=== PATIENT | female | born 1990 | race Caucasian/White ===

== ENCOUNTER 2021-02-21 00:27 | Emergency (ER) | payer MEDICAID, SELFPAY ==
--- NOTE | ~2021-02-21 | US_ITS ---
EXAMINATION: ULTRASOUND OF THE PELVIS CLINICAL INFORMATION: Right lower quadrant pain. COMPARISON: CT 02/21/2021. TECHNIQUE: Transabdominal and transvaginal pelvic ultrasound. Doppler evaluation with spectral analysis was performed. A transvaginal study was performed in addition to the transabdominal study which did not yield an adequate examination of the uterus and ovaries due to superimposed distended gas-filled loops of bowel. FINDINGS: The uterus is normal in size and appearance, measuring 12.1 x 4.4 x 6.3 cm longitudinally, anteroposteriorly and transversely. The endometrial stripe thickness is normal, measuring 1.1 cm in thickness. There is a right uterine body myometrial fibroid measuring 0.8 x 0.6 x 0.7 cm. Myometrial fibroid along the posterior uterus measuring 1.2 x 0.9 x 1.1 cm. Nabothian cysts are seen at the cervix. The ovaries bilaterally are visualized and appear normal, with the right ovary measuring 3.8 x 2.2 x 2.3 cm and the left ovary measuring 3.2 x 1.8 x 2.1 cm. There are normal arterial and venous spectral waveforms bilaterally. No adnexal mass or free fluid collection seen. US/US pelvic and transvaginal IMPRESSION: No suspicious findings. No evidence of active ovarian torsion at this time. Small uterine fibroids.
--- NOTE | ~2021-02-21 | US_ITS ---
EXAMINATION: ULTRASOUND OF THE PELVIS CLINICAL INFORMATION: Right lower quadrant pain. COMPARISON: CT 02/21/2021. TECHNIQUE: Transabdominal and transvaginal pelvic ultrasound. Doppler evaluation with spectral analysis was performed. A transvaginal study was performed in addition to the transabdominal study which did not yield an adequate examination of the uterus and ovaries due to superimposed distended gas-filled loops of bowel. FINDINGS: The uterus is normal in size and appearance, measuring 12.1 x 4.4 x 6.3 cm longitudinally, anteroposteriorly and transversely. The endometrial stripe thickness is normal, measuring 1.1 cm in thickness. There is a right uterine body myometrial fibroid measuring 0.8 x 0.6 x 0.7 cm. Myometrial fibroid along the posterior uterus measuring 1.2 x 0.9 x 1.1 cm. Nabothian cysts are seen at the cervix. The ovaries bilaterally are visualized and appear normal, with the right ovary measuring 3.8 x 2.2 x 2.3 cm and the left ovary measuring 3.2 x 1.8 x 2.1 cm. There are normal arterial and venous spectral waveforms bilaterally. No adnexal mass or free fluid collection seen. US/US pelvic ovarian doppler IMPRESSION: No suspicious findings. No evidence of active ovarian torsion at this time. Small uterine fibroids.
--- NOTE | ~2021-02-21 | CT_ITS ---
EXAMINATION: CT ABDOMEN AND PELVIS WITH CONTRAST CLINICAL INFORMATION: Right lower quadrant pain COMPARISON: None TECHNIQUE: Multidetector volumetric images were obtained from the superior aspect of the liver through the pubic symphysis following administration 85 mL of Omnipaque 350 intravenous contrast. Sagittal and coronal reformatted images were obtained on the technologist's workstation. Oral contrast: No This CT examination was performed using dose optimization techniques as appropriate, variously including the following: *Automated exposure control *Adjustment of mA and/or kV according to patient size (this includes techniques or standardized protocols for targeted exams where dose is matched to indication/reason for exam; i.e. extremities or head) *Use of iterative reconstruction technique DLP: 571 mGy-cm FINDINGS: LUNG BASES: The visualized lung bases are unremarkable. LIVER, GALLBLADDER, AND BILIARY TREE: The liver is normal in size, shape, and attenuation. No focal hepatic lesion or biliary ductal dilatation is present. The gallbladder is unremarkable with no evidence of radiopaque gallstones, gallbladder wall thickening, or obvious pericholecystic inflammatory changes. PANCREAS: Unremarkable. SPLEEN: Unremarkable. ADRENAL GLANDS: Unremarkable. KIDNEYS AND URETERS: The kidneys are normal in size, shape, and attenuation. No hydronephrosis or hydroureter. Left lower pole 0.5 cm calculus, 5.5 cm from the posterior axillary line.. No perinephric stranding. BLADDER: Unremarkable. GASTROINTESTINAL TRACT: The stomach is unremarkable. Normal caliber small bowel. No obstruction. Normal appendix. No colonic wall thickening or inflammatory change. No free air. Trace pelvic free fluid. ABDOMINAL WALL: No significant hernia is appreciated. LYMPH NODES: Normal. VASCULAR: Unremarkable. PELVIC VISCERA: The uterus and adnexa are unremarkable. OSSEOUS STRUCTURES: No acute or suspicious osseous abnormality. CT/CT abdomen pelvis w con IMPRESSION: No acute findings in the abdomen or pelvis. Normal appendix. No acute inflammatory changes. Nonobstructing left lower pole renal calculus.
[2021-02-21 02:04] VITALS: BP 120/76; PULSE 73; RESP 18; TEMP 36.8; O2SAT 99
--- NOTE | 2021-02-21 03:42 | PC.NURSE ---
IV established, labs and urine obtained and sent. Awaiting primary MD olivares.
[2021-02-21 03:43] VITALS: BP 119/38; PULSE 80; RESP 20; O2SAT 99
[2021-02-21 03:49] LABS: Eosinophils Absolute Auto 0.2 X10*3/uL (0.0-0.4); Eosinophils Percent Auto 2.2 % (0-4); Lymphocytes Percent Auto 23.2 % (20-40); Monocytes Absolute Auto 0.9 X10*3/uL (0.1-1.2); PLT ABN DIST 1; SCAN SMEAR FLAG 1
[2021-02-21 03:51] LABS: Basophils Percent Auto 0.4 % (0-2); Glucose Urine UA NEG (NEG); Hematocrit 31.9 % (37-47); Hemoglobin 10.2 g/dl (12.0-16.0); Imm Gran Abs Auto 0.02 X10*3/uL (0.00-0.03); Imm Gran Pct Auto 0.2 % (0.0-0.4); Leukocyte Esterase Urine NEG (NEG); Lymphocytes Absolute Auto 1.9 X10*3/uL (1.2-4.9); Mean Corpuscular Hemoglobin 23.8 pg (27.0-33.0); Mean Corpuscular Volume 74.5 fL (80-98); Mean Platelet Volume 10.6 fL (9.4-12.3); Monocytes Percent Auto 11.4 % (2-11); Neutrophils Absolute Auto 5.1 X10*3/uL (2.0-8.3); Neutrophils Percent Auto 62.6 % (45-73); Nitrite Urine NEG (NEG); Platelet Count 214 X10*3/uL (160-400); Red Blood Count 4.28 X10*6/uL (4.20-5.50); Red Cell Distribution Width 19.3 % (11.0-16.0); Urine Blood NEG (NEG); Urine Ketones 5 MG/DL (NEG); Urine Protein NEG (NEG-TRACE); White Blood Count 8.2 X10*3/uL (4.8-10.8)
[2021-02-21 03:52] LABS: Appearance Urine CLEAR; Color Urine YELLOW; MANUAL DIFF FLAG NO; UACC Culture Trigger NO; UPreg QC Valid YES; Urine Pregnancy NEGATIVE (NEGATIVE)
[2021-02-21] MEDS: 0.9 % Sodium Chloride 1,000 ML 999 ML IV (04:15)
[2021-02-21 04:21] LABS: Alanine Aminotransferase 9 U/L (0-31); Albumin Level 4.1 g/dL (3.5-5.0); Alkaline Phosphatase 70 U/L (39-117); Anion Gap 12 (12-20); Aspartate Amino Transferase 19 U/L (5-31); Bilirubin Total 0.2 mg/dL (0.0-1.0); Blood Urea Nitrogen 14 mg/dL (9-16); Calcium 9.2 mg/dL (8.4-10.2); Carbon Dioxide 26 mmol/L (22-29); Chloride 102 mmol/L (96-108); Creatinine Clr Calc Pharmacy 91.5; Estimated Glomerular Filt Rate > 60; Glucose Random 95 mg/dL (60-115); Lipase 33 U/L (8-78); Potassium 3.9 mmol/L (3.3-5.1); Sodium 136 mmol/L (135-145)
--- NOTE | 2021-02-21 04:45 | PC.NURSE ---
Off to CT on hospital bed.
[2021-02-21] MEDS: iohexoL 350 MG/ML 100 ML INFUS..BTL 85 ML IV (04:54)
[2021-02-21] MEDS: Ketorolac Tromethamine 15 MG/ML VIAL IVPUSH (05:10)
--- NOTE | 2021-02-21 05:14 | PC.NURSE ---
Pt medicated with Toradol per DEC for 06/05 pain.
--- NOTE | 2021-02-21 05:22 | ED_ITS ---
HPI - Abdominal Pain General Chief Complaint: Abdominal Pain Stated Complaint: pelvic pain Time Seen by Provider: 02/21/21 04:03 Source: patient Mode of arrival: EMS History of Present Illness HPI narrative: 30-year-old female without significant past medical history who presents with complaints of severe onset of right lower quadrant pain that radiates into the groin and started 12:00 a.m. and was associated with vomiting as well as chills and diarrhea. In addition, there was associated urinary frequency but otherwise denies any shortness of breath, chest pain. Patient sources history of kidney stones. Related Data Allergies Allergy/AdvReac Type Severity Reaction Status Date / Time aspirin [ASA] Allergy Palpitation Verified 02/21/21 03:41 s Review of Systems Review of Systems Pertinent positives and negatives as stated in HPI 10 point review of systems is otherwise negative. Physical Exam Vital Signs: Vital Signs: Last Vital Signs Temp 98.2 F 02/21/21 02:04 Pulse 74 02/21/21 06:24 Resp 16 02/21/21 06:24 BP 117/81 02/21/21 06:24 Pulse Ox 99 02/21/21 03:43 Body Mass Index 30.0 VITAL SIGNS: Reviewed. GENERAL: Well developed, well nourished, in no acute distress. HEAD: Normocephalic/atraumatic EYES: PERRLA, EOMI NOSE: Nares patent bilateral OROPHARYNX: no oral lesions noted, posterior pharynx clear NECK: Supple, no adenopathy LUNGS: Normal breath sounds. No adventitious sounds or accessory muscle use. SpO2<99> CARDIOVASCULAR: Regular rate and rhythm without noted murmurs ABDOMEN: Soft, right lower quadrant/suprapubic significant pain on palpation without rebound, non-distended with bowel sounds. NEUROLOGIC: Alert and oriented x 4. Course Course Course Narrative: 30-year-old female with history and clinical presentation suggestive of renal colic, appendicitis, ovarian torsion. Review of all investigations there are no acute findings and no evidence to support renal colic, appendicitis, or ovarian torsion. On re-evaluation patient has had complete resolution of her pain after receiving IV Toradol and suspect that she may have passed a stone that has led to the negative imaging studies. Patient was informed of all results and discharged home in stable condition with instructions to follow-up with her primary care provider. MDM - Abdominal Pain Lab Data Result diagrams: 02/21/21 03:40 02/21/21 03:40 Labs: Lab Results 02/21/21 02/21/21 02/21/21 Range/Units 03:40 03:40 03:40 WBC 8.2 (4.8-10.8) X10*3/uL RBC 4.28 (4.20-5.50) X10*6/uL Hgb 10.2 L (12.0-16.0) g/dl Hct 31.9 L (37-47) % MCV 74.5 L (80-98) fL MCH 23.8 L (27.0-33.0) pg MCHC 32.0 (31.0-35.0) g/dl RDW 19.3 H (11.0-16.0) % Plt Count 214 (160-400) X10*3/uL MPV 10.6 (9.4-12.3) fL Immature Gran % (Auto) 0.2 (0.0-0.4) % Neut % (Auto) 62.6 (45-73) % Lymph % (Auto) 23.2 (20-40) % [place] % (Auto) 11.4 H (2-11) % Eos % (Auto) 2.2 (0-4) % Baso % (Auto) 0.4 (0-2) % Lymph # (Auto) 1.9 (1.2-4.9) X10*3/uL [place] # (Auto) 0.9 (0.1-1.2) X10*3/uL Eos # (Auto) 0.2 (0.0-0.4) X10*3/uL Baso # (Auto) 0.0 (0.0-0.2) X10*3/uL Abs Immat Gran (auto) 0.02 (0.00-0.03) X10*3/uL Absolute Neuts (auto) 5.1 (2.0-8.3) X10*3/uL Absolute Nucleated RBC 0.000 (0.0-0.012) X10*3/uL Nucleated RBC % (auto) 0.0 (0.0-0.2) /100WBC Hold Blue Top SEE NOTE Sodium 136 (135-145) mmol/L Potassium 3.9 (3.3-5.1) mmol/L Chloride 102 (96-108) mmol/L Carbon Dioxide 26 (22-29) mmol/L Anion Gap 12 (12-20) BUN 14 (9-16) mg/dL Creatinine 0.90 (0.5-1.4) mg/dL Estim Creat Clear Calc 91.5 Estimated GFR > 60 Random Glucose 95 (60-115) mg/dL Calcium 9.2 (8.4-10.2) mg/dL Total Bilirubin 0.2 (0.0-1.0) mg/dL AST 19 (5-31) U/L ALT 9 (0-31) U/L Alkaline Phosphatase 70 (39-117) U/L Total Protein 9.0 H (6.5-8.0) g/dL Albumin 4.1 (3.5-5.0) g/dL Lipase 33 (8-78) U/L Urine Color Urine Appearance Urine pH (5.0-8.0) Ur Specific [place] (1.005-1.025) Urine Protein (NEG-TRACE) MG/DL Urine Glucose (UA) (NEG) MG/DL Urine Ketones (NEG) MG/DL Urine Blood (NEG) Urine Nitrite (NEG) Ur Leukocyte Esterase (NEG) Urine Test (NEGATIVE) 02/21/21 02/21/21 Range/Units 03:40 03:40 WBC (4.8-10.8) X10*3/uL RBC (4.20-5.50) X10*6/uL Hgb (12.0-16.0) g/dl Hct (37-47) % MCV (80-98) fL MCH (27.0-33.0) pg MCHC (31.0-35.0) g/dl RDW (11.0-16.0) % Plt Count (160-400) X10*3/uL MPV (9.4-12.3) fL Immature Gran % (Auto) (0.0-0.4) % Neut % (Auto) (45-73) % Lymph % (Auto) (20-40) % [place] % (Auto) (2-11) % Eos % (Auto) (0-4) % Baso % (Auto) (0-2) % Lymph # (Auto) (1.2-4.9) X10*3/uL [place] # (Auto) (0.1-1.2) X10*3/uL Eos # (Auto) (0.0-0.4) X10*3/uL Baso # (Auto) (0.0-0.2) X10*3/uL Abs Immat Gran (auto) (0.00-0.03) X10*3/uL Absolute Neuts (auto) (2.0-8.3) X10*3/uL Absolute Nucleated RBC (0.0-0.012) X10*3/uL Nucleated RBC % (auto) (0.0-0.2) /100WBC Hold Blue Top Sodium (135-145) mmol/L Potassium (3.3-5.1) mmol/L Chloride (96-108) mmol/L Carbon Dioxide (22-29) mmol/L Anion Gap (12-20) BUN (9-16) mg/dL Creatinine (0.5-1.4) mg/dL Estim Creat Clear Calc Estimated GFR Random Glucose (60-115) mg/dL Calcium (8.4-10.2) mg/dL Total Bilirubin (0.0-1.0) mg/dL AST (5-31) U/L ALT (0-31) U/L Alkaline Phosphatase (39-117) U/L Total Protein (6.5-8.0) g/dL Albumin (3.5-5.0) g/dL Lipase (8-78) U/L Urine Color YELLOW Urine Appearance CLEAR Urine pH 7.0 (5.0-8.0) Ur Specific [place] 1.020 (1.005-1.025) Urine Protein NEG (NEG-TRACE) MG/DL Urine Glucose (UA) NEG (NEG) MG/DL Urine Ketones 5 (NEG) MG/DL Urine Blood NEG (NEG) Urine Nitrite NEG (NEG) Ur Leukocyte Esterase NEG (NEG) Urine Test NEGATIVE (NEGATIVE) Discharge Plan Discharge Clinical Impression: Abdominal pain, right lower quadrant Patient Disposition: Home, Self-Care Instructions: Abdominal Pain (ED), Renal Colic (ED) Additional Instructions: 1. Follow-up with your primary care provider in the next 2-3 days for re- evaluation. Drink plenty of water and avoid caffeinated/carbonated beverages. Return to the emergency department for any acute worsening of symptoms. Referrals: Physician,None [Primary Care Provider] - 2 days [facility] Past Medical History Source: nursing notes reviewed Social History Social History Advance Directives: No
--- NOTE | 2021-02-21 06:22 | PC.NURSE ---
Pt returns from [facility].
[2021-02-21 06:24] VITALS: BP 117/81; PULSE 74; RESP 16
== END 2021-02-21 07:24 | disposition home or self-care (01) ==
PROVIDERS: Emergency Provider Student in an Organized Health Care Education/Training Program
DX: R10.31 Right lower quadrant pain (principal)
CPT/HCPCS: 36415; 74177; 76830; 76856; 80053; 81003; 81025; 83690; 85025; 93975; 96361; 96374; 99284; J1885; Q9967

== ENCOUNTER 2021-05-08 14:10 | Emergency (ER) | payer OTHER, SELFPAY ==
[2021-05-08 14:27] VITALS: BP 128/75; PULSE 76; RESP 18; TEMP 37.1; O2SAT 100; BMI 28.3
[2021-05-08 17:06] LABS: MANUAL DIFF FLAG NO
[2021-05-08 17:07] LABS: Basophils Percent Auto 0.3 % (0-2); Eosinophils Absolute Auto 0.2 X10*3/uL (0.0-0.4); Eosinophils Percent Auto 3.9 % (0-4); Hemoglobin 10.3 g/dl (12.0-16.0); Imm Gran Abs Auto 0.01 X10*3/uL (0.00-0.03); Imm Gran Pct Auto 0.2 % (0.0-0.4); Lymphocytes Absolute Auto 1.9 X10*3/uL (1.2-4.9); Lymphocytes Percent Auto 30.5 % (20-40); Mean Corpuscular HGB Conc 32.2 g/dl (31.0-35.0); Mean Corpuscular Hemoglobin 24.2 pg (27.0-33.0); Mean Corpuscular Volume 75.3 fL (80-98); Mean Platelet Volume 10.6 fL (9.4-12.3); Monocytes Absolute Auto 0.6 X10*3/uL (0.1-1.2); Monocytes Percent Auto 9.5 % (2-11); Neutrophils Absolute Auto 3.5 X10*3/uL (2.0-8.3); Neutrophils Percent Auto 55.6 % (45-73); Platelet Count 236 X10*3/uL (160-400); Red Blood Count 4.25 X10*6/uL (4.20-5.50); Red Cell Distribution Width 17.2 % (11.0-16.0); White Blood Count 6.2 X10*3/uL (4.8-10.8)
[2021-05-08 17:36] LABS: Anion Gap 14 (12-20); Blood Urea Nitrogen 12 mg/dL (9-16); Carbon Dioxide 24 mmol/L (22-29); Chloride 104 mmol/L (96-108); Creatinine Clr Calc Pharmacy 102.7; Estimated Glomerular Filt Rate > 60; Glucose Random 81 mg/dL (60-115); Potassium 4.6 mmol/L (3.3-5.1); Sodium 137 mmol/L (135-145)
--- NOTE | 2021-05-08 20:32 | ED.FEMALEGU ---
HPI - Female Genitourinary General Chief complaint: Vaginal Bleeding Stated complaint: 3 weeks bleeding, diabetic/ dizziness Time Seen by Provider: 05/08/21 15:41 Source: patient and family Mode of arrival: ambulatory Limitations: no limitations History of Present Illness HPI Narrative: 30-year-old female came in for evaluation of vaginal bleed for 1 week. Patient normally get her period for 3 days, slight suprapubic pain, patient feels dizzy. Not on blood thinner. Related Data Allergies Allergy/AdvReac Type Severity Reaction Status Date / Time aspirin [ASA] Allergy Palpitation Verified 02/21/21 03:41 s Review of Systems Review of Systems: All other systems are reviewed and are negative Constitutional: Reports as per HPI and Reports no additional constitutional complaints Eyes: Reports as per HPI and Reports no additional eye complaints Reports system reviewed and no additional complaints, except as documented Cardiovascular: Reports as per HPI and Reports no additional cardiovascular complaints Respiratory: Reports as per HPI and Reports no additional respiratory complaints Gastrointestinal: Reports as per HPI and Reports no additional gastrointestinal complaints Genitourinary: Reports no additional female genitourinary complaints Musculoskeletal: Reports no additional musculoskeletal complaints Skin/Breast: Reports system reviewed and no additional complaints, except as docu Psychiatric: Reports no additional psychiatric complaints Endocrine: Reports no additional endocrine complaints Hematologic/Lymphatic: Reports no additional hematologic/lymphatic complaints Allergic/Immunologic: Reports no additional allergic/immunologic complaints Reports system reviewed and no additional complaints, except as documented and Reports Abnormal speech present FOR[facility]LY [facility] Social History Social History Advance Directives: No Advance Directives Information Provided: Yes Patient : No Physical Exam Vital Signs: Vital Signs: Last Vital Signs Temp 98.7 F 05/08/21 14:27 Pulse 68 05/08/21 20:38 Resp 18 05/08/21 14:27 BP 108/75 05/08/21 20:38 Pulse Ox 100 05/08/21 14:27 Body Mass Index 28.3 Vital signs have been reviewed as appeared to be correct. Blood pressure normal. Heart rate normal. Respiration rate normal. Temperature normal. Oxygen saturation normal. Appearance: Alert. Oriented X3. No acute distress. Head: Normal external exam. Normocephalic. Atraumatic. No Sampson signs noted. No raccoon eyes noted Eyes: PERRLA. EOMI. Conjunctiva and sclera normal. Eyelids normal. ENT: TM's Normal. Pharynx normal. Uvula midline. Moist mucous membranes. No trismus noted. No drooling noted. No muffled voice noted. Neck: Normal inspection. Neck supple. FROM. No adenopathy. Thyroid Normal. No meningeal signs. No neck mass noted. CVS: Normal heart rate and rhythm. Heart sound normal. No murmurs noted. Pulses normal throughout. Respiratory: No respiratory distress. Painless inspiration. Breath sounds normal. No wheezes/rales/rhonchi noted. Chest nontender. No accessory muscle usage noted or decreased air movement noted. Abdomen: Soft and nontender. Bowel sounds normal in all 4 quadrants. No distention noted. No organomegaly noted. No visible injury noted. Pelvic exam: Normal external genitalia inspection, mild amount of blood and blood clots in the vault, no acute bleed. Back: No CVA tenderness. Full range of motion noted. Skin: Skin warm and dry. Normal skin color. Normal skin turgor. No rashes/lesions/lacerations noted. Extremities: No lower extremity edema. Extremities exhibit normal range of motion. Extremities nontender. Neuro: Oriented X 3. No motor deficit. No sensory deficit. Reflexes normal. Course Course Course Narrative: 30-year-old female came in for evaluation of menorrhagia. H&H stable, vital signs stable, orthostatic vital signs also stable. I discussed at lengthy with the patient in, no indication for permanent therapy at this point patient is hemodynamically stable. Patient was instructed to follow-up with her PCP for further evaluation. [facility] - Female Genitourinary Lab Data Attestation: I reviewed the patient's lab results. Result diagrams: 05/08/21 16:57 05/08/21 16:57 Labs: Lab Results 05/08/21 05/08/21 05/08/21 Range/Units 16:57 16:57 20:27 WBC 6.2 (4.8-10.8) X10*3/uL RBC 4.25 (4.20-5.50) X10*6/uL Hgb 10.3 L (12.0-16.0) g/dl Hct 32.0 L (37-47) % MCV 75.3 L (80-98) fL MCH 24.2 L (27.0-33.0) pg MCHC 32.2 (31.0-35.0) g/dl RDW 17.2 H (11.0-16.0) % Plt Count 236 (160-400) X10*3/uL MPV 10.6 (9.4-12.3) fL Immature Gran % (Auto) 0.2 (0.0-0.4) % Neut % (Auto) 55.6 (45-73) % Lymph % (Auto) 30.5 (20-40) % [place] % (Auto) 9.5 (2-11) % Eos % (Auto) 3.9 (0-4) % Baso % (Auto) 0.3 (0-2) % Lymph # (Auto) 1.9 (1.2-4.9) X10*3/uL [place] # (Auto) 0.6 (0.1-1.2) X10*3/uL Eos # (Auto) 0.2 (0.0-0.4) X10*3/uL Baso # (Auto) 0.0 (0.0-0.2) X10*3/uL Abs Immat Gran (auto) 0.01 (0.00-0.03) X10*3/uL Absolute Neuts (auto) 3.5 (2.0-8.3) X10*3/uL Absolute Nucleated RBC 0.000 (0.0-0.012) X10*3/uL Nucleated RBC % (auto) 0.0 (0.0-0.2) /100WBC Sodium 137 (135-145) mmol/L Potassium 4.6 (3.3-5.1) mmol/L Chloride 104 (96-108) mmol/L Carbon Dioxide 24 (22-29) mmol/L Anion Gap 14 (12-20) BUN 12 (9-16) mg/dL Creatinine 0.78 (0.5-1.4) mg/dL Estim Creat Clear Calc 102.7 Estimated GFR > 60 Random Glucose 81 (60-115) mg/dL Calcium 9.0 (8.4-10.2) mg/dL Urine Color YELLOW Urine Appearance CLEAR Urine pH 5.5 (5.0-8.0) Ur Specific [place] >= 1.030 H (1.005-1.025) Urine Protein NEG (NEG-TRACE) MG/DL Urine Glucose (UA) NEG (NEG) MG/DL Urine Ketones NEG (NEG) MG/DL Urine Blood 1+ H (NEG) Urine Nitrite NEG (NEG) Ur Leukocyte Esterase NEG (NEG) Urine RBC 0-2 (0) /HPF Urine WBC 0 (0-4) /HPF Ur Squamous Epith Cells NONE /LPF Urine Bacteria TRACE /LPF Urine Test (NEGATIVE) 05/08/21 Range/Units 20:27 WBC (4.8-10.8) X10*3/uL RBC (4.20-5.50) X10*6/uL Hgb (12.0-16.0) g/dl Hct (37-47) % MCV (80-98) fL MCH (27.0-33.0) pg MCHC (31.0-35.0) g/dl RDW (11.0-16.0) % Plt Count (160-400) X10*3/uL MPV (9.4-12.3) fL Immature Gran % (Auto) (0.0-0.4) % Neut % (Auto) (45-73) % Lymph % (Auto) (20-40) % [place] % (Auto) (2-11) % Eos % (Auto) (0-4) % Baso % (Auto) (0-2) % Lymph # (Auto) (1.2-4.9) X10*3/uL [place] # (Auto) (0.1-1.2) X10*3/uL Eos # (Auto) (0.0-0.4) X10*3/uL Baso # (Auto) (0.0-0.2) X10*3/uL Abs Immat Gran (auto) (0.00-0.03) X10*3/uL Absolute Neuts (auto) (2.0-8.3) X10*3/uL Absolute Nucleated RBC (0.0-0.012) X10*3/uL Nucleated RBC % (auto) (0.0-0.2) /100WBC Sodium (135-145) mmol/L Potassium (3.3-5.1) mmol/L Chloride (96-108) mmol/L Carbon Dioxide (22-29) mmol/L Anion Gap (12-20) BUN (9-16) mg/dL Creatinine (0.5-1.4) mg/dL Estim Creat Clear Calc Estimated GFR Random Glucose (60-115) mg/dL Calcium (8.4-10.2) mg/dL Urine Color Urine Appearance Urine pH (5.0-8.0) Ur Specific [place] (1.005-1.025) Urine Protein (NEG-TRACE) MG/DL Urine Glucose (UA) (NEG) MG/DL Urine Ketones (NEG) MG/DL Urine Blood (NEG) Urine Nitrite (NEG) Ur Leukocyte Esterase (NEG) Urine RBC (0) /HPF Urine WBC (0-4) /HPF Ur Squamous Epith Cells /LPF Urine Bacteria /LPF Urine Test NEGATIVE (NEGATIVE) Discharge Plan Discharge Clinical Impression: Menometrorrhagia Patient Disposition: Home, Self-Care Instructions: Menorrhagia (ED) Referrals: Angeline Alvarado MD [Primary Care Provider] - 2 days Rodolfo Santos MD [Physician] - 2 days
[2021-05-08 20:34] LABS: Glucose Urine UA NEG (NEG); Leukocyte Esterase Urine NEG (NEG); Nitrite Urine NEG (NEG); PH 5.5 (5.0-8.0); Specific Gravity - Urine >= 1.030 (1.005-1.025); Urine Blood 1+ (NEG); Urine Ketones NEG (NEG); Urine Protein NEG (NEG-TRACE)
[2021-05-08 20:35] LABS: Appearance Urine CLEAR; Color Urine YELLOW
[2021-05-08 20:36] VITALS: BP 109/75; PULSE 69
[2021-05-08 20:37] VITALS: BP 112/82; PULSE 73
[2021-05-08 20:37] LABS: UPreg QC Valid YES; Urine Pregnancy NEGATIVE (NEGATIVE)
[2021-05-08 20:38] VITALS: BP 108/75; PULSE 68
[2021-05-08 20:43] LABS: Bacteria Urine TRACE /LPF; RBC Urine 0-2 /HPF (0); WBC Urine 0 /HPF (0-4)
== END 2021-05-08 21:16 | disposition home or self-care (01) ==
PROVIDERS: Nurse Practitioner Family; Emergency Provider Emergency Medicine; PCP Internal Medicine
DX: N92.0 Excessive and frequent menstruation with regular cycle (principal); F17.210 Nicotine dependence, cigarettes, uncomplicated
CPT/HCPCS: 36415; 80048; 81001; 81025; 85025; 99283

== ENCOUNTER 2021-05-14 12:51 | Outpatient (REF) | payer OTHER, SELFPAY ==
[2021-05-14 14:21] LABS: Hematocrit 30.4 % (37-47); Hemoglobin 9.5 g/dl (12.0-16.0); Mean Corpuscular HGB Conc 31.3 g/dl (31.0-35.0); Mean Corpuscular Hemoglobin 23.5 pg (27.0-33.0); Mean Corpuscular Volume 75.2 fL (80-98); Mean Platelet Volume 10.8 fL (9.4-12.3); Platelet Count 221 X10*3/uL (160-400); Red Blood Count 4.04 X10*6/uL (4.20-5.50); Red Cell Distribution Width 17.1 % (11.0-16.0); White Blood Count 5.3 X10*3/uL (4.8-10.8)
[2021-05-14 15:21] LABS: TSH reflex Free T4 0.58 uIU/mL (0.32-4.0)
[2021-05-14 16:48] LABS: HCG Quantitative < 2 mIU/mL
[2021-05-15 02:31] LABS: CT PCR DETECTED (Not Detect.); NG PCR NOT DETECTED (Not Detect.)
[2021-05-16 21:17] LABS: HPV mRNA E6/E7 rflx Not Detected (Not Detected)
== END 2021-05-14 12:52 | disposition home or self-care (01) ==
LOC: HO.LAB 12:51
PROVIDERS: PCP Internal Medicine; Visit Provider Obstetrics & Gynecology
DX: Z01.419 Encounter for gynecological examination (general) (routine) without abnormal findings (principal); N92.1 Excessive and frequent menstruation with irregular cycle; N63.20 Unspecified lump in the left breast, unspecified quadrant; F17.200 Nicotine dependence, unspecified, uncomplicated
CPT/HCPCS: 36415; 84443; 84702; 85027; 87491; 87591; 87624; 88142; 99212

== ENCOUNTER 2021-05-22 11:12 | Outpatient (REF) | payer OTHER, SELFPAY ==
--- NOTE | ~2021-05-22 | MM_ITS ---
EXAMINATION: MM DIAGNOSTIC DIGITAL BREAST TOMOSYNTHESIS, BILATERAL US DIAGNOSTIC ULTRASOUND BREAST, LEFT CLINICAL INFORMATION: 30-year-old with palpable area at routine clinical exam left breast 6:00 left breast 5 cm from nipple. Patient notes bilateral breast itching. No palpable mass or discharge. No prior breast imaging. Family history postmenopausal breast cancer, mother and grandmothers. The lifetime risk of breast cancer based on the Tyrer-Cuzick Model is 25%. COMPARISON: None (current study represents initial baseline exam). TECHNIQUE: Digital breast tomosynthesis is performed in both the craniocaudal and mediolateral oblique views along with computer-aided detection (CAD). Synthesized 2D images are generated from the tomosynthesis. Ultrasound is targeted to the area of clinical concern 4:00 through 8:00 position. Grayscale imaging and color Doppler are performed without and with harmonics. FINDINGS: There are scattered areas of fibroglandular density (ACR BI-RADS breast composition Category b). There are no significant masses, abnormal calcifications, or other abnormalities. Axilla and are unremarkable. There is mild left nipple retraction. No subareolar abnormality. No skin thickening. No focal duct ectasia. There is no mammographic correlate for the area of clinical concern. Targeted ultrasound left breast demonstrates no cystic or solid mass, architectural abnormality, or focal duct ectasia. No skin thickening or edema tracking in soft tissue planes. Results are discussed with the patient at time of visit. MM/MM tomosynthesis diagnostic BI IMPRESSION: 1. No mammographic evidence of malignancy. 2. Unremarkable targeted left breast ultrasound. ASSESSMENT: BI-RADS 2: Benign RECOMMENDATION: 1. Patient should be managed based on the clinical impression. If clinically indicated, further evaluation may be considered with surgical consult. Decision to proceed with biopsy should be based on clinical grounds and degree of clinical concern. 2. Annual mammography no later than age 40, or earlier as clinical risk factors warrant. This patient's information was entered into a reminder system with a target due date for their next mammogram.
== END 2021-05-22 11:13 | disposition home or self-care (01) ==
LOC: HO.MAMMO 11:12
PROVIDERS: Visit Provider Obstetrics & Gynecology
DX: N63.25 Unspecified lump in the left breast, overlapping quadrants (principal)
CPT/HCPCS: 76642; 77062; 77066

== ENCOUNTER 2021-05-29 14:02 | Outpatient (REF) | payer OTHER, SELFPAY ==
[2021-05-30 06:13] LABS: CT PCR NOT DETECTED (Not Detect.); NG PCR NOT DETECTED (Not Detect.)
== END 2021-05-29 14:03 | disposition home or self-care (01) ==
LOC: HO.LAB 14:02
PROVIDERS: PCP Internal Medicine; Visit Provider Obstetrics & Gynecology
DX: A74.9 Chlamydial infection, unspecified (principal)
CPT/HCPCS: 87491; 87591; 99212

== ENCOUNTER → 2021-06-05 11:32 | Outpatient (BNVA) | payer OTHER, SELFPAY | PROVIDERS: PCP Internal Medicine; Visit Provider Obstetrics & Gynecology ==

== ENCOUNTER 2021-06-19 09:01 | Outpatient (REF) | payer OTHER, SELFPAY ==
[2021-06-19 09:49] LABS: Red Cell Distribution Width 17.5 % (11.0-16.0)
[2021-06-19 09:51] LABS: Basophils Percent Auto 0.3 % (0-2); Eosinophils Absolute Auto 0.3 X10*3/uL (0.0-0.4); Eosinophils Percent Auto 5.2 % (0-4); Hematocrit 33.7 % (37-47); Hemoglobin 10.6 g/dl (12.0-16.0); Imm Gran Abs Auto 0.02 X10*3/uL (0.00-0.03); Imm Gran Pct Auto 0.3 % (0.0-0.4); Lymphocytes Absolute Auto 1.3 X10*3/uL (1.2-4.9); Lymphocytes Percent Auto 21.5 % (20-40); Mean Corpuscular HGB Conc 31.5 g/dl (31.0-35.0); Mean Corpuscular Hemoglobin 23.7 pg (27.0-33.0); Mean Corpuscular Volume 75.2 fL (80-98); Mean Platelet Volume 11.3 fL (9.4-12.3); Monocytes Absolute Auto 0.6 X10*3/uL (0.1-1.2); Monocytes Percent Auto 9.2 % (2-11); Neutrophils Absolute Auto 3.9 X10*3/uL (2.0-8.3); Neutrophils Percent Auto 63.5 % (45-73); Platelet Count 196 X10*3/uL (160-400); Red Blood Count 4.48 X10*6/uL (4.20-5.50); White Blood Count 6.2 X10*3/uL (4.8-10.8)
[2021-06-19 09:57] LABS: MANUAL DIFF FLAG NO
[2021-06-19 10:26] LABS: Alanine Aminotransferase 22 U/L (0-31); Albumin Level 4.1 g/dL (3.5-5.0); Alkaline Phosphatase 72 U/L (39-117); Anion Gap 12 (12-20); Aspartate Amino Transferase 24 U/L (5-31); Bilirubin Total 0.4 mg/dL (0.0-1.0); Blood Urea Nitrogen 11 mg/dL (9-16); Calcium 9.2 mg/dL (8.4-10.2); Carbon Dioxide 26 mmol/L (22-29); Chloride 105 mmol/L (96-108); Cholesterol 178 mg/dL; Estimated Glomerular Filt Rate > 60; Glucose Fasting 90 mg/dL (60-99); HDL Cholesterol 41 mg/dL; Iron 29 mcg/dL (30-160); LDL Cholesterol Calculated 117 mg/dl; Potassium 4.6 mmol/L (3.3-5.1); Rheumatoid Factor 26.9 IU/mL (<15.0); Sodium 138 mmol/L (135-145); Total Protein 8.7 g/dL (6.5-8.0); Triglycerides 103 mg/dL
[2021-06-19 10:33] LABS: Erythrocyte Sedimentation Rate 16 MM/HR (0-20)
[2021-06-19 10:45] LABS: HBsAGNum1 0.21 S/CO (0.00-0.99); Hepatitis B Surface Antigen Negative (Negative); ~HepC Num1 0.75 S/CO (0.00-0.79); ~Hepatitis C Antibody Nonreactive (Nonreactive)
[2021-06-19 10:46] LABS: HIV AB/AG Nonreactive (Nonreactive); HIV Num 1 0.06 S/CO (0.00-0.99); Thyroid Stimulating Hormone 0.78 uIU/mL (0.32-4.0)
[2021-06-20 08:39] LABS: Syphilis Screen Nonreactive (Nonreactive)
[2021-06-20 14:57] LABS: Percent Iron Saturation 7 % (15-50); Total Iron Binding Capacity 391 mcg/dL (228-428); Unsaturated Iron Binding 362 ug/dL
[2021-06-21 15:57] LABS: Cyclic Citrullinated Peptide >250 UNITS
[2021-06-21 22:47] LABS: ANA Pattern 2 Nuclear, Speckled; Anti Nuclear Antibody Screen POSITIVE (NEGATIVE); Anti Nuclear Antibody Titer 1:40 titer
[2021-06-24 13:06] LABS: Vitamin D 25-OH, D2 <4 ng/mL; Vitamin D 25-OH, D3 21 ng/mL; Vitamin D 25-OH, Total 21 ng/mL (30-100)
== END 2021-06-19 09:02 | disposition home or self-care (01) ==
LOC: HO.LAB 09:01
PROVIDERS: Obstetrics & Gynecology; PCP Internal Medicine; Visit Provider Internal Medicine
DX: Z01.84 Encounter for antibody response examination (principal); Z11.59 Encounter for screening for other viral diseases; Z11.4 Encounter for screening for human immunodeficiency virus [HIV]; D64.9 Anemia, unspecified; E55.9 Vitamin D deficiency, unspecified; E66.3 Overweight; M25.50 Pain in unspecified joint; E78.5 Hyperlipidemia, unspecified; G43.109 Migraine with aura, not intractable, without status migrainosus; A74.9 Chlamydial infection, unspecified
CPT/HCPCS: 36415; 80053; 80061; 82306; 83540; 84443; 85025; 85652; 86038; 86039; 86200; 86431; 86780; 86803; 87340; 87389

== ENCOUNTER → 2021-06-21 14:15 | Outpatient (BNV) | payer OTHER, SELFPAY | PROVIDERS: PCP Internal Medicine; Referring Provider Internal Medicine; Visit Provider Internal Medicine | DX: D50.9 Iron deficiency anemia, unspecified (principal) | CPT/HCPCS: 99203; 99212; 99213; 99214 ==

== ENCOUNTER 2021-06-25 12:47 | Outpatient (REF) | payer OTHER, SELFPAY ==
--- NOTE | ~2021-06-25 | XR_ITS ---
EXAMINATION: XR WRIST, LEFT CLINICAL INFORMATION: Pain in left wrist. COMPARISON: None. TECHNIQUE: PA, oblique, lateral, and scaphoid views of the left wrist. FINDINGS: There is no fracture or malalignment. 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 There is mild soft tissue swelling adjacent to the distal ulna. XR/XR wrist LT min 3V IMPRESSION: Soft tissue swelling adjacent to the distal ulna. 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
== END 2021-06-25 12:48 | disposition home or self-care (01) ==
LOC: HO.XRAY 12:47
PROVIDERS: Absent Provider Nurse Practitioner Family; PCP Internal Medicine; Visit Provider Obstetrics & Gynecology
DX: M25.532 Pain in left wrist (principal); N63.20 Unspecified lump in the left breast, unspecified quadrant
CPT/HCPCS: 73110; 99212

== ENCOUNTER 2021-07-10 07:24 | Outpatient (REF) | payer OTHER, SELFPAY | END 2021-07-10 07:25 | disposition home or self-care (01) | LOC: HO.MDS 07:24 | PROVIDERS: PCP Internal Medicine; Visit Provider Internal Medicine | DX: D50.9 Iron deficiency anemia, unspecified (principal) | CPT/HCPCS: 96365; 96366; J1200; J1750; Q0163 ==

== ENCOUNTER 2021-08-10 09:26 | Emergency (ER) | payer OTHER, SELFPAY ==
--- NOTE | ~2021-08-10 | XR_ITS ---
EXAMINATION: XR CHEST CLINICAL INFORMATION: Cough and SOB COMPARISON: None TECHNIQUE: Frontal view of the chest was obtained. FINDINGS: The lungs are well-expanded and clear. There is a 6 mm nodule left upper lobe, likely artifact. Heart size and pulmonary vascularity is normal. No gross bony abnormality seen. XR/XR chest 1V IMPRESSION: Left upper lobe 6 mm nodule.
--- NOTE | 2021-08-10 09:48 | ECG_ITS ---
Test Reason : SHORTNESS OF BREATH Blood Pressure : / mmHG Vent. Rate : 093 BPM Atrial Rate : 093 BPM P-R Int : 144 ms QRS Dur : 082 ms QT Int : 364 ms P-R-T Axes : 076 057 052 degrees QTc Int : 452 ms Normal sinus rhythm Possible Left atrial enlargement Nonspecific ST abnormality Abnormal ECG No previous ECGs available Referred By: Generic ED Physician Electronically Signed By:KAITLYNN JONES MD
[2021-08-10] MEDS: Albuterol Sulfate (0.083%) 2.5 MG/3 ML VIAL.NEB 5 MG INHALE ×2 (10:03→11:34)
[2021-08-10] MEDS: Albuterol/Iprat 2.5/0.5MG 3 ML AMPUL.NEB INHALE ×2 (10:03→11:34)
[2021-08-10 10:04] VITALS: PULSE 77; O2SAT 100
[2021-08-10 10:09] VITALS: BP 103/76; PULSE 83; RESP 24; TEMP 36.9; O2SAT 97
--- NOTE | 2021-08-10 10:12 | PC.NURSE ---
Pt placed on cardiac nurse, justine at bedside for evaluation
[2021-08-10 10:32] LABS: Eosinophils Percent Auto 10.8 % (0-4); Hemoglobin 12.8 g/dl (12.0-16.0); Mean Corpuscular Hemoglobin 26.4 pg (27.0-33.0); Mean Corpuscular Volume 80.6 fL (80-98); PLT CLUMP 1; SCAN SMEAR FLAG 1
[2021-08-10 10:34] LABS: Basophils Percent Auto 0.6 % (0-2); Eosinophils Absolute Auto 0.5 X10*3/uL (0.0-0.4); Hematocrit 39.1 % (37-47); Imm Gran Abs Auto 0.02 X10*3/uL (0.00-0.03); Imm Gran Pct Auto 0.4 % (0.0-0.4); Lymphocytes Absolute Auto 1.8 X10*3/uL (1.2-4.9); Lymphocytes Percent Auto 35.3 % (20-40); Mean Corpuscular HGB Conc 32.7 g/dl (31.0-35.0); Monocytes Absolute Auto 0.5 X10*3/uL (0.1-1.2); Monocytes Percent Auto 9.6 % (2-11); Neutrophils Absolute Auto 2.2 X10*3/uL (2.0-8.3); Neutrophils Percent Auto 43.3 % (45-73); Platelet Count 128 X10*3/uL (160-400); Red Blood Count 4.85 X10*6/uL (4.20-5.50); Red Cell Distribution Width 22.4 % (11.0-16.0)
[2021-08-10] MEDS: methylPREDNISolone Sod Succ 125 MG/2 ML VIAL IVPUSH (10:34)
[2021-08-10 10:35] LABS: PLT ABN DIST 1
[2021-08-10] MEDS: Magnesium Sulfate/H2O 2 GM/50 ML PIGGYBACK IV (10:35)
[2021-08-10 10:52] LABS: Troponin-I High Sensitivity < 3.5 ng/L (<3.5-17.0)
[2021-08-10 11:23] LABS: Alanine Aminotransferase 19 U/L (0-31); Alkaline Phosphatase 68 U/L (39-117); Anion Gap 11 (12-20); Aspartate Amino Transferase 20 U/L (5-31); Bilirubin Direct < 0.2 mg/dL (0.0-0.5); Bilirubin Total 0.3 mg/dL (0.0-1.0); Blood Urea Nitrogen 9 mg/dL (9-16); Calcium 9.1 mg/dL (8.4-10.2); Carbon Dioxide 27 mmol/L (22-29); Chloride 104 mmol/L (96-108); Creatinine Clr Calc Pharmacy 106.8; Estimated Glomerular Filt Rate > 60; Glucose Random 101 mg/dL (60-115); Magnesium 2.7 mg/dL (1.6-2.6); Potassium 3.5 mmol/L (3.3-5.1); Sodium 138 mmol/L (135-145); Total Protein 8.6 g/dL (6.5-8.0)
--- NOTE | 2021-08-10 11:31 | ED_ITS ---
HPI - SOB/Dyspnea General Chief Complaint: Dyspnea Stated Complaint: diff breathing, cough, chest wall pain hx asthma Time Seen by Provider: 08/10/21 09:54 Source: patient Mode of arrival: ambulatory History of Present Illness HPI Narrative: 30-year-old female with a past medical history of anemia, migraines, polyarthralgia, asthma, presenting to the ED complaining of increasing dyspnea, SOB, wheezing, productive cough x3 days. Reports ran out of her asthma medications. Admits to chest discomfort when coughing. Reports children were in contact with COVID-19 positive person at school. Denies fever, chills, LE edema, calf pain, recent travel, history of blood clots MD elicited complaint: shortness of breath, cough and asthma attack Related Data Previous Rx's Medication Instructions Recorded ferrous sulfate 325 mg (65 mg 325 mg PO BID #60 tab 06/05/21 iron) tablet loratadine 10 mg tablet (Allergy 10 mg PO DAILY PRN 90 Days #90 tab 06/07/21 Relief (loratadine)) naproxen 500 mg tablet 500 mg PO BID PRN 90 Days #180 tab 06/07/21 prednisone 5 mg tablet 5 mg PO DAILY 14 Days #14 tab 06/25/21 acetaminophen 500 mg tablet 500 mg PO Q6H PRN #20 tab 08/10/21 (Tylenol Extra Strength) albuterol sulfate 90 mcg/actuation 2 puff INHALATION Q4-6H PRN #6.7 g 08/10/21 aerosol inhaler benzonatate 100 mg capsule 100 mg PO TID PRN #14 cap 08/10/21 (Tessalon Perles) fluticasone propionate 50 2 spray INTRANASAL DAILY #16 g 08/10/21 mcg/actuation nasal spray,suspension (Flonase Allergy Relief) prednisone 20 mg tablet 40 mg PO DAILY 5 Days #10 tab 08/10/21 Allergies Allergy/AdvReac Type Severity Reaction Status Date / Time aspirin [ASA] Allergy Palpitation Verified 06/25/21 14:46 s Review of Systems Review of Systems: Constitutional: No Fever, No Chills, No Fatigue, No Malaise ENT/Mouth: No Ear Pain, No Nasal Congestion, No Sinus Pain, No Hoarseness, No sore throat, No Rhinorrhea, No Swallowing Difficulty Eyes: No Eye Pain, No Swelling, No Redness, No Vision Changes Cardiovascular: + Chest Pain when coughing, + SOB, No Dyspnea on Exertion, No Orthopnea, No Edema, No Palpitations Respiratory: + Cough, + Sputum, + Wheezing, No Smoke Exposure, + Dyspnea Gastrointestinal: No Nausea, No Vomiting, No Diarrhea, No Constipation, No Abdominal pain Genitourinary: No Dysuria, No Urinary Frequency, No Hematuria,No Urgency, No Flank Pain Musculoskeletal: No joint pain, No Myalgias, No Joint Swelling Skin: No Skin Lesions, No rash Neuro: No Weakness, No Numbness, No Headache Yes all other systems are reviewed and are negative FOR[facility]LY [facility], [facility] Past Medical History Attestation statement: The following information was validated with the patient. Medical History (Updated 08/10/21 @ 13:50 by WERO Mott) Anemia Chronic migraine with aura Left wrist pain Overweight (BMI 25.0-29.9) Polyarthralgia Urticaria Surgical History Hx of section Family History Family History Mother Hypoglycemia Father Hypertension Diabetes Family/Other Mental health disorder Substance use disorder Social History Social History Housing: Apartment Alcohol intake: never Patient Tobacco Use Status: Current everyday Tobacco user Tobacco use type: Cigarette e-Cigarette/Vaping Use: Never Used Second Hand Smoke Exposure: No Advance Directives: No service: No Current occupational status: unemployed Physical Exam Vital Signs: Vital Signs: Last Vital Signs Temp 98.4 F 08/10/21 10:09 Pulse 104 H 08/10/21 13:54 Resp 18 08/10/21 13:54 BP 122/74 08/10/21 13:54 Pulse Ox 99 08/10/21 13:54 Body Mass Index 30.0 Const: General: cooperative and healthy appearing Orientation/consciousness: patient oriented x3 Limitations: no limitations HENMT: Head: Yes normal to inspection Ears: hearing grossly normal bilaterally General nose exam: Normal external nose present Face and sinu s: Yes normal facial exam Eyes: General: appearance normal, both eyes and all related structures EOM: EOMs intact bilaterally Neck: Neck: Yes normal visual inspection and Yes no meningeal signs Resp: Effort & Inspection: normal respiratory effort, Actively coughing, labored and tachypneic Auscultation: wheezes expiratory wheezes and throughout and diminished lung sounds bilateral in the lower lung dominguez Cardio: Rate: regular rate Heart sounds: S1 normal heart sound present and S2 normal heart sound present GI: Inspection: Yes normal to inspection Palpation (GI): Soft to palpation, nontender, no guarding and not rigid Skin: Rashes: no rashes Wounds: no wounds Neuro: General: patient oriented x3 and no meningeal signs Gait exam (Neuro): Normal gait present Extrem: General: Yes normal to inspection, Yes no pedal edema and Yes no calf tenderness Course Course Course Narrative: -no leukocytosis. Labs otherwise unremarkable. Troponin negative. -1131--better air movement on re-evaluation however still diminished lung sounds bibasilarly. Additional DuoNeb/7.5 albuterol ordered -1346--COVID-19/influenza/RSV negative. XR chest 1V IMPRESSION: Left upper lobe 6 mm nodule. ?> results discussed with patient. Recommended close follow-up with PCP, patient verbalized understanding feel safe for discharge home -1350--on re-evaluation lungs CTA. MDM - SOB/Dyspnea MDM Narrative Medical decision making narrative: 30-year-old female with a past medical history of anemia, migraines, polyarthralgia, asthma, presenting to the ED complaining of increasing dyspnea, SOB, wheezing, productive cough x3 days. On exam tachypneic, in mild respiratory distress talking in short sentences, diffuse expiratory wheezes noted and diminished breath sounds bibasilarly, no pedal edema/calf tenderness. Concern for asthma exacerbation. Rule out pneumonia, viral syndrome/COVID-19. Lower concern for ACS/PE Plan: EKG, labs, CXR, DuoNeb, magnesium, Solu-Medrol, re-evaluated Medical Records Attestation: I reviewed the patient's medical records. Lab Data Attestation: I reviewed the patient's lab results. Result diagrams: 08/10/21 10:08/10/21 11:02 Labs: Lab Results 08/10/21 08/10/21 08/10/21 Range/Units 10: 10: 10: WBC 5.0 (4.8-10.8) X10*3/uL RBC 4.85 (4.20-5.50) X10*6/uL Hgb 12.8 D (12.0-16.0) g/dl Hct 39.1 (37-47) % MCV 80.6 (80-98) fL MCH 26.4 L (27.0-33.0) pg MCHC 32.7 (31.0-35.0) g/dl RDW 22.4 H (11.0-16.0) % Plt Count 128 L D (160-400) X10*3/uL MPV Not Reportable Immature Gran % (Auto) 0.4 (0.0-0.4) % Neut % (Auto) 43.3 L (45-73) % Lymph % (Auto) 35.3 (20-40) % Page % (Auto) 9.6 (2-11) % Eos % (Auto) 10.8 H (0-4) % Baso % (Auto) 0.6 (0-2) % Lymph # (Auto) 1.8 (1.2-4.9) X10*3/uL Page # (Auto) 0.5 (0.1-1.2) X10*3/uL Eos # (Auto) 0.5 H (0.0-0.4) X10*3/uL Baso # (Auto) 0.0 (0.0-0.2) X10*3/uL Abs Immat Gran (auto) 0.02 (0.00-0.03) X10*3/uL Absolute Neuts (auto) 2.2 (2.0-8.3) X10*3/uL Absolute Nucleated RBC 0.000 (0.0-0.012) X10*3/uL Nucleated RBC % (auto) 0.0 (0.0-0.2) /100WBC Sodium (135-145) mmol/L Potassium (3.3-5.1) mmol/L Chloride (96-108) mmol/L Carbon Dioxide (22-29) mmol/L Anion Gap (12-20) BUN (9-16) mg/dL Creatinine (0.5-1.4) mg/dL Estim Creat Clear Calc Estimated GFR Random Glucose (60-115) mg/dL Calcium (8.4-10.2) mg/dL Magnesium (1.6-2.6) mg/dL Total Bilirubin (0.0-1.0) mg/dL Direct Bilirubin (0.0-0.5) mg/dL AST (5-31) U/L ALT (0-31) U/L Alkaline Phosphatase (39-117) U/L Troponin I High Sens < 3.5 (<3.5-17.0) ng/L Total Protein (6.5-8.0) g/dL Albumin (3.5-5.0) g/dL Coronavirus (PCR) NEGATIVE (Negative) Influenza Type A (PCR) NEGATIVE (Negative) Influenza Type B (PCR) NEGATIVE (Negative) RSV RNA Qual (PCR) NEGATIVE (Negative) 08/10/21 Range/Units 11:02 WBC (4.8-10.8) X10*3/uL RBC (4.20-5.50) X10*6/uL Hgb (12.0-16.0) g/dl Hct (37-47) % MCV (80-98) fL MCH (27.0-33.0) pg MCHC (31.0-35.0) g/dl RDW (11.0-16.0) % Plt Count (160-400) X10*3/uL MPV Immature Gran % (Auto) (0.0-0.4) % Neut % (Auto) (45-73) % Lymph % (Auto) (20-40) % Page % (Auto) (2-11) % Eos % (Auto) (0-4) % Baso % (Auto) (0-2) % Lymph # (Auto) (1.2-4.9) X10*3/uL Page # (Auto) (0.1-1.2) X10*3/uL Eos # (Auto) (0.0-0.4) X10*3/uL Baso # (Auto) (0.0-0.2) X10*3/uL Abs Immat Gran (auto) (0.00-0.03) X10*3/uL Absolute Neuts (auto) (2.0-8.3) X10*3/uL Absolute Nucleated RBC (0.0-0.012) X10*3/uL Nucleated RBC % (auto) (0.0-0.2) /100WBC Sodium 138 (135-145) mmol/L Potassium 3.5 D (3.3-5.1) mmol/L Chloride 104 (96-108) mmol/L Carbon Dioxide 27 (22-29) mmol/L Anion Gap 11 L (12-20) BUN 9 (9-16) mg/dL Creatinine 0.77 (0.5-1.4) mg/dL Estim Creat Clear Calc 106.8 Estimated GFR > 60 Random Glucose 101 (60-115) mg/dL Calcium 9.1 (8.4-10.2) mg/dL Magnesium 2.7 H (1.6-2.6) mg/dL Total Bilirubin 0.3 (0.0-1.0) mg/dL Direct Bilirubin < 0.2 (0.0-0.5) mg/dL AST 20 (5-31) U/L ALT 19 (0-31) U/L Alkaline Phosphatase 68 (39-117) U/L Troponin I High Sens (<3.5-17.0) ng/L Total Protein 8.6 H (6.5-8.0) g/dL Albumin 4.0 (3.5-5.0) g/dL Coronavirus (PCR) (Negative) Influenza Type A (PCR) (Negative) Influenza Type B (PCR) (Negative) RSV RNA Qual (PCR) (Negative) Critical Care Time Critical Care Time Critical Care Time: Yes Total Critical Care Time: 36 Attestation: Critical care time was spent evaluating patient, obtaining history, physical, reviewing labs/imaging morning, re-evaluating patient Discharge Plan Discharge Clinical Impression: Asthma with exacerbation Qualifiers: Asthma severity: moderate Asthma persistence: unspecified Qualified Code(s): J45.901 - Unspecified asthma with (acute) exacerbation Patient Disposition: Home, Self-Care Instructions: Asthma (ED) Additional Instructions: Your blood work was reassuring. You tested negative for COVID-19, the flu, and RSV Your x-ray showed a nodule in her left upper lobe, this is likely artifact however went into be aware and follow-up with her primary care doctor It is very important that her taking her medications at home Use albuterol inhaler every 4-6 hours as needed for shortness of breath/wheezing Flonase as a nasal decongestant spray Prednisone as a steroid Tessalon Perles are for cough In addition take Tylenol new line please follow-up with her doctor If her symptoms persist, worsen, if constant worsening shortness of breath, cough, fever, or chest pain please return to the ED Prescriptions: New albuterol sulfate 90 mcg/actuation HFA aerosol inhaler 2 puff inhalation Q4-6H PRN (Reason: shortness of breath or wheezing) Qty: 6.7 RF: 0 acetaminophen [Tylenol Extra Strength] 500 mg tablet 500 mg PO Q6H PRN (Reason: pain or fever) Qty: 20 RF: 0 benzonatate [Tessalon Perles] 100 mg capsule 100 mg PO TID PRN (Reason: cough) Qty: 14 RF: 0 fluticasone propionate [Flonase Allergy Relief] 50 mcg/actuation spray,suspension 2 spray intranasal DAILY Qty: 16 RF: 0 prednisone 20 mg tablet 40 mg PO DAILY 5 Days Qty: 10 RF: 0 No Action ferrous sulfate 325 mg (65 mg iron) tablet 325 mg PO BID Qty: 60 RF: 1 loratadine [Allergy Relief (loratadine)] 10 mg tablet 10 mg PO DAILY PRN (Reason: allergy symptoms) 90 Days Qty: 90 RF: 0 naproxen 500 mg tablet 500 mg PO BID PRN (Reason: pain) 90 Days Qty: 180 RF: 0 prednisone 5 mg tablet 5 mg PO DAILY 14 Days Qty: 14 RF: 0 Referrals: Angeline Alvarado MD [Primary Care Provider] - 2 days
[2021-08-10 11:34] VITALS: PULSE 88; O2SAT 100
[2021-08-10 11:43] VITALS: BP 122/74; PULSE 96; RESP 16; O2SAT 100
[2021-08-10] MEDS: HYDROcodone/Homat 5/1.5/5 ML 5 ML SYRUP PO (11:46)
[2021-08-10] MEDS: Benzonatate 100 MG CAPSULE 200 MG PO (11:46)
--- NOTE | 2021-08-10 11:51 | PC.NURSE ---
Lung sounds improved, increased air movement heard and no longer inspiratory wheezing heard and minimal exp wheezing throughout. On second 1 hour long treatment. sinus tach, low 100s on tele. Mag completed, medicated further with tessalon pearle and cough syrup. Skin pink warm and dry. able to speak full sentences on phone
[2021-08-10 11:54] LABS: Influenza A PCR NEGATIVE (Negative); Influenza B PCR NEGATIVE (Negative); Resp Syncy Virus RNA Qual PCR NEGATIVE (Negative); SARS COV2 PCR INHOUSE NEGATIVE (Negative)
[2021-08-10 13:54] VITALS: BP 122/74; PULSE 104; RESP 18; O2SAT 99
--- NOTE | 2021-08-10 13:54 | PC.NURSE ---
Pt continues to feel better, LS improved, plan for d/c home. VSS, 99% on room air
== END 2021-08-10 14:04 | disposition home or self-care (01) ==
PROVIDERS: Physician Assistant; Emergency Provider Emergency Medicine; PCP Internal Medicine
DX: J45.901 Unspecified asthma with (acute) exacerbation (principal); R06.02 Shortness of breath; R05.9 Cough, unspecified; F17.210 Nicotine dependence, cigarettes, uncomplicated; Z71.6 Tobacco abuse counseling; Z20.822 Contact with and (suspected) exposure to COVID-19; Z79.899 Other long term (current) drug therapy
CPT/HCPCS: 0241U; 36415; 71045; 80048; 80076; 83735; 84484; 85025; 93005; 94640; 94644; 94645; 96365; 96366; 96375; 99284; 99291; J2930; J3475

== ENCOUNTER 2021-08-24 16:27 | Emergency (ER) | payer OTHER, SELFPAY | END 2021-08-24 19:03 | disposition left against medical advice (07) | PROVIDERS: Emergency Provider Emergency Medicine; PCP Internal Medicine | DX: M54.9 Dorsalgia, unspecified (principal); M89.8X9 Other specified disorders of bone, unspecified site; M25.561 Pain in right knee; M25.562 Pain in left knee ==

== ENCOUNTER 2021-09-05 15:41 | Outpatient (REF) | payer OTHER, SELFPAY ==
[2021-09-06 02:56] LABS: CT PCR NOT DETECTED (Not Detect.); NG PCR NOT DETECTED (Not Detect.)
[2021-09-06 10:56] LABS: BV Int Neg Control Negative (Negative); BV Int Pos Control Positive (Positive)
== END 2021-09-05 15:42 | disposition home or self-care (01) ==
LOC: HO.LAB 15:41
PROVIDERS: PCP Internal Medicine; Visit Provider Obstetrics & Gynecology
DX: Z01.419 Encounter for gynecological examination (general) (routine) without abnormal findings (principal); Z11.3 Encounter for screening for infections with a predominantly sexual mode of transmission; Z20.2 Contact with and (suspected) exposure to infections with a predominantly sexual mode of transmission; Z86.19 Personal history of other infectious and parasitic diseases
CPT/HCPCS: 87480; 87491; 87510; 87591; 87660; 99212

== ENCOUNTER 2021-09-08 12:50 | Emergency (ER) | payer OTHER, SELFPAY ==
[2021-09-08 12:54] VITALS: BP 120/81; PULSE 85; RESP 18; TEMP 36.8; O2SAT 98; BMI 30.2
--- NOTE | 2021-09-08 14:39 | ED_ITS ---
HPI - General Adult General Chief complaint: General Medical Stated complaint: joint pain and swelling hands knees Time Seen by Provider: 09/08/21 14:39 Source: patient Mode of arrival: ambulatory Limitations: no limitations History of Present Illness HPI narrative: [age] year old female with past medical history of polyarthralgia, anemia, asthma is here today for complaining of joint pain and swelling. Patient was diagnosed back in May with polyarthralgia. She was supposed to see color television console monitor and does not have an appointment till October 17. Patient was placed back in beginning of June with prednisone. Patient reports the pain is worse in her fingers and her knees left worse than right. Patient reports that she has family history of rheumatoid arthritis her rheumatoid factor was 26.9, positive ANGELINE screen, ANGELINE titer 1:40, ANGELINE titer 2 1:1280. Patient denies any chills or fever. Denies any other concerning symptoms Onset (ago): month(s) Location: upper extremity and lower extremity Radiation: non-radiation Severity: moderate Quality: aching Pain Consistency: constant Related Data Home Medications Medication Instructions Recorded Confirmed ferrous sulfate 325 mg (65 mg 325 mg PO DAILY 08/22/21 08/22/21 iron) tablet (Feosol) Previous Rx's Medication Instructions Recorded loratadine 10 mg tablet (Allergy 10 mg PO DAILY PRN 90 Days #90 tab 06/07/21 Relief (loratadine)) prednisone 5 mg tablet 5 mg PO DAILY 14 Days #14 tab 06/25/21 acetaminophen 500 mg tablet 500 mg PO Q6H PRN #20 tab 08/10/21 (Tylenol Extra Strength) albuterol sulfate 90 mcg/actuation 2 puff INHALATION Q4-6H PRN #6.7 g 08/10/21 aerosol inhaler benzonatate 100 mg capsule 100 mg PO TID PRN #14 cap 08/10/21 (Tessalon Perles) fluticasone propionate 50 2 spray INTRANASAL DAILY #16 g 08/10/21 mcg/actuation nasal spray,suspension (Flonase Allergy Relief) prednisone 20 mg tablet 40 mg PO DAILY 5 Days #10 tab 08/10/21 metronidazole 0.75 % vaginal gel 1 appful VAGINAL BEDTIME 5 Days 09/06/21 (Metrogel Vaginal) #70 g oxycodone 5 mg tablet 5 mg PO Q4-6H PRN #10 tab 09/08/21 prednisone 10 mg tablet 10 mg PO DAILY #5 tab 09/08/21 Allergies Allergy/AdvReac Type Severity Reaction Status Date / Time aspirin [ASA] Allergy Severe Palpitation Verified 09/08/21 12:54 s Review of Systems Review of Systems: Constitutional : No Weight loss, No Fever, No Chills, No Night Sweats, No Fatigue, No Malaise ENT/Mouth : No Hearing loss, No Ear Pain, No Nasal Congestion, No Sinus Pain, No Hoarseness, No sore throat, No Rhinorrhea, No Swallowing Difficulty Eyes: No Eye Pain, No Swelling, No Redness, No Foreign Body, No Discharge, No Vision Changes Cardiovascular : No Chest Pain, No SOB, No Dyspnea on Exertion, No Orthopnea, No Edema, No Palpitations Respiratory : No Cough, No Sputum, No Wheezing, No Smoke Exposure, No Dyspnea Gastrointestinal : No Nausea, No Vomiting, No Diarrhea, No Constipation, No abdominal Pain, No Hematochezia, No Melena Genitourinary : no irregular bleeding, No Dysuria, No Urinary Frequency, No Hematuria, No Urinary Incontinence, No Urgency, No Flank Pain, No Urinary Flow Changes, No Hesitancy Musculoskeletal : joint pain, No Myalgias, Joint Swelling Skin : No Skin Lesions, No rash Neuro : No Weakness, No Numbness, No Paresthesias, No Loss of Consciousness, No Dizziness, No Headache Psych : No Anxiety/Panic, No Depression, No SI/HI/AH/VH, No Social Issues, Yes all other systems are reviewed and are negative [facility] Past Medical History Medical History Anemia Chronic migraine with aura Left wrist pain Lung nodule seen on imaging study Mild persistent asthma Overweight (BMI 25.0-29.9) Polyarthralgia Urticaria Surgical History Hx of section Family History Family History Mother Hypoglycemia Father Hypertension Diabetes Family/Other Mental health disorder Substance use disorder Social History Social History Housing: Apartment Alcohol intake: former Patient Tobacco Use Status: Former Tobacco user Quit Date: 03/2021 Tobacco use type: Cigarette e-Cigarette/Vaping Use: Never Used Second Hand Smoke Exposure: No Advance Directives: No Advance Directives Information Provided: No Patient : No service: No Current occupational status: unemployed Physical Exam Vital Signs: Vital Signs: Last Vital Signs Temp 98.3 F 09/08/21 12:54 Pulse 85 09/08/21 12:54 Resp 18 09/08/21 15:27 BP 120/81 09/08/21 12:54 Pulse Ox 98 09/08/21 12:54 Body Mass Index 30.2 Const: General: healthy appearing, no acute distress and well developed Nutritional Appearance: well nourished Orientation/consciousness: patient oriented x3 HENMT: Head: Yes normal to inspection, Yes normocephalic and Yes atraumatic Face and sinus: Yes normal facial exam Mouth: Normal oral and palatal mucosa present Throat: Yes posterior oropharynx normal, Yes tonsils normal and Yes uvula midline Eyes: General: appearance normal, both eyes and all related structures Neck: Neck: Yes normal visual inspection, Yes full ROM and Yes trachea midline Thyroid: Thyroid normal Resp: Effort & Inspection: normal respiratory effort, able to speak in complete sentences, no tracheal deviation and symmetric chest movement Auscultation: clear to auscultation bilaterally Cardio: Jugular venous distension: no JVD Rate: regular rate Rhythm: regular rhythm Heart sounds: S1 normal heart sound present, S2 normal heart sound present, no gallops and no murmurs GI: Inspection: Yes normal to inspection and No distended Palpation (GI): Soft to palpation, not firm, nontender and No hepatosplenomegaly present Auscultation: normal bowel sounds : General: Yes no CVA tenderness Back/Spine/Pelvis: Back: no CVA tenderness Cervical Spine: normal cervical lordosis Thoracic/Lumbar Spine: thoracic and lumbar spine normal to inspection Skin: General skin exam: elasticity normal, turgor normal and dry skin Neuro: General: patient oriented x3 Extrem: General: Yes normal to inspection, Yes no joint enlargement and Yes no pedal edema Psych: Appearance: grossly normal Mental Status: mental status grossly normal Speech and movement: Normal speech and movement present Affect: normal affect Attitude: cooperative Thought process: Normal thought process present Thought content: Normal thought content present Insight: Good insight present (Psych) Judgement: Good judgement present (Psych) Course Course Course Narrative: 30-year-old female with past medical history of asthma, polyarthralgia, anemia is here today for complaining of joint pain. Diagnosed with rheumatoid arthritis back in May. Was on short term prednisone for 2 weeks. Reports that naproxen is not working for pain. Patient reports swelling to her left knee. Reports of pain mostly in her fingers and her knees. Has an appointment with color television console monitor on October 17. I will give her dose of prednisone and oxycodone for pain. Patient will call her color television console monitor and see if she can see her sooner. Discharge Plan Discharge Clinical Impression: Polyarthralgia Patient Disposition: Home, Self-Care Instructions: Arthralgia (ED) Additional Instructions: You were seen here today for joint pain. You were diagnosed back in May with rheumatoid arthritis. You will need to see rheumatology provider sooner than October 17. I'm putting you on prednisone for the next 5 days. I will be giving you script for oxycodone. Please make sure that you do not drink or drive while a take this medication. Please follow-up with your primary care doctor. You may return to emergency department if your symptoms will get worse or if you experience any additional concerning symptoms Prescriptions: New prednisone 10 mg tablet 10 mg PO DAILY Qty: 5 RF: 0 oxycodone 5 mg tablet 5 mg PO Q4-6H PRN (Reason: pain) Qty: 10 RF: 0 No Action metronidazole [Metrogel Vaginal] 0.75 % gel 1 appful vaginal BEDTIME 5 Days Qty: 70 RF: 0 albuterol sulfate 90 mcg/actuation HFA aerosol inhaler 2 puff inhalation Q4-6H PRN (Reason: shortness of breath or wheezing) Qty: 6.7 RF: 0 acetaminophen [Tylenol Extra Strength] 500 mg tablet 500 mg PO Q6H PRN (Reason: pain or fever) Qty: 20 RF: 0 benzonatate [Tessalon Perles] 100 mg capsule 100 mg PO TID PRN (Reason: cough) Qty: 14 RF: 0 fluticasone propionate [Flonase Allergy Relief] 50 mcg/actuation spray,suspension 2 spray intranasal DAILY Qty: 16 RF: 0 prednisone 20 mg tablet 40 mg PO DAILY 5 Days Qty: 10 RF: 0 loratadine [Allergy Relief (loratadine)] 10 mg tablet 10 mg PO DAILY PRN (Reason: allergy symptoms) 90 Days Qty: 90 RF: 0 prednisone 5 mg tablet 5 mg PO DAILY 14 Days Qty: 14 RF: 0 ferrous sulfate [Feosol] 325 mg (65 mg iron) tablet 325 mg PO DAILY RF: 0 Referrals: Angeline Alvarado MD [Primary Care Provider] - 1 week Stand Alone Forms: Work/School Release Interventions: ED Discharge Assessment Last Done: 09/08/21 15:25 Discharge Date/Time: 09/08/21 15:29
[2021-09-08] MEDS: predniSONE 10 MG TABLET PO (15:14)
[2021-09-08] MEDS: oxyCODONE HCl Immed Release 5 MG TABLET PO (15:14)
[2021-09-08 15:27] VITALS: RESP 18
== END 2021-09-08 15:29 | disposition home or self-care (01) ==
PROVIDERS: Emergency Provider Emergency Medicine Emergency Medical Services; PCP Internal Medicine
DX: M17.0 Bilateral primary osteoarthritis of knee (principal); M25.561 Pain in right knee; Z87.891 Personal history of nicotine dependence; Z79.899 Other long term (current) drug therapy
CPT/HCPCS: 99283

== ENCOUNTER 2021-09-24 15:40 | Emergency (ER) | payer OTHER, SELFPAY ==
--- NOTE | ~2021-09-24 | XR_ITS ---
EXAMINATION: XR hand wrist RT CLINICAL INFORMATION: Right third finger pain, fracture COMPARISON: None. TECHNIQUE: AP, lateral, oblique, and scaphoid views of the right hand and wrist FINDINGS: No fracture. Normal alignment. Normal mineralization. No radiopaque foreign body. No soft tissue abnormality seen. XR/XR hand wrist RT IMPRESSION: No acute osseous abnormality.
[2021-09-24 16:52] VITALS: BP 134/94; PULSE 78; RESP 18; TEMP 36.8; O2SAT 99
--- NOTE | 2021-09-24 17:54 | ED.GENADULT ---
HPI - General Adult General Chief complaint: General Medical Stated complaint: RA/hand pain Time Seen by Provider: 09/24/21 17:50 Source: patient Mode of arrival: ambulatory Limitations: no limitations History of Present Illness HPI narrative: Patient presents to ED for right hand pain especially right 3rd finger. Patient states due to pain unable to move finger with slight swelling at finger joint. Patient denies any redness, recent trauma to hand, fever, or chills. Patient was recently diagnosed with rheumatoid arthritis this past May. He denies any upper extremity swelling, chest pain, shortness of breath, coughing up blood, swelling of lower extremities, calf pain, or any control use. Related Data Home Medications Medication Instructions Recorded Confirmed ferrous sulfate 325 mg (65 mg 325 mg PO DAILY 08/22/21 08/22/21 iron) tablet (Feosol) Previous Rx's Medication Instructions Recorded loratadine 10 mg tablet (Allergy 10 mg PO DAILY PRN 90 Days #90 tab 06/07/21 Relief (loratadine)) prednisone 5 mg tablet 5 mg PO DAILY 14 Days #14 tab 06/25/21 acetaminophen 500 mg tablet 500 mg PO Q6H PRN #20 tab 08/10/21 (Tylenol Extra Strength) albuterol sulfate 90 mcg/actuation 2 puff INHALATION Q4-6H PRN #6.7 g 08/10/21 aerosol inhaler benzonatate 100 mg capsule 100 mg PO TID PRN #14 cap 08/10/21 (Tessalon Perles) fluticasone propionate 50 2 spray INTRANASAL DAILY #16 g 08/10/21 mcg/actuation nasal spray,suspension (Flonase Allergy Relief) prednisone 20 mg tablet 40 mg PO DAILY 5 Days #10 tab 08/10/21 metronidazole 0.75 % vaginal gel 1 appful VAGINAL BEDTIME 5 Days 09/06/21 (Metrogel Vaginal) #70 g oxycodone 5 mg tablet 5 mg PO Q4-6H PRN #10 tab 09/08/21 prednisone 10 mg tablet 10 mg PO DAILY #5 tab 09/08/21 oxycodone-acetaminophen 5 mg-325 1 tab PO Q8H PRN #9 tab 09/24/21 mg tablet (Percocet) prednisone 20 mg tablet 40 mg PO DAILY 5 Days #10 tab 09/24/21 Allergies Allergy/AdvReac Type Severity Reaction Status Date / Time aspirin [ASA] Allergy Severe Palpitation Verified 09/24/21 16:51 s Review of Systems Review of Systems: Yes all other systems are reviewed and are negative Constitutional: Constitutional: Reports as per HPI and Reports no additional constitutional complaints Eyes: Eyes: Reports as per HPI and Reports no additional eye complaints ENT: Reports system reviewed and no additional complaints, except as documented and Reports as per HPI Cardiovascular: Cardiovascular: Reports as per HPI and Reports no additional cardiovascular complaints Respiratory: Respiratory: Reports as per HPI and Reports no additional respiratory complaints Gastrointestinal: Gastrointestinal: Reports as per HPI and Reports no additional gastrointestinal complaints Genitourinary: Genitourinary: Reports no additional female genitourinary complaints and Reports as per HPI Musculoskeletal: Musculoskeletal: Reports no additional musculoskeletal complaints, Reports as per HPI and Reports arthralgias (right hand pain/3rd finger pain) Neurologic: Reports system reviewed and no additional complaints, except as documented and Reports as per HPI Psychiatric: Psychiatric: Reports no additional psychiatric complaints and Reports as per HPI [facility] Past Medical History Medical History (Updated 09/25/21 @ 00:01 by Tamara Hurtado) Anemia Chronic migraine with aura Left wrist pain Lung nodule seen on imaging study Mild persistent asthma Overweight (BMI 25.0-29.9) Polyarthralgia Rheumatoid arthritis Urticaria Surgical History Hx of section Family History Family History Mother Hypoglycemia Father Hypertension Diabetes Family/Other Mental health disorder Substance use disorder Social History Social History Housing: Apartment Alcohol intake: former Patient Tobacco Use Status: Former Tobacco user Quit Date: 03/2021 Tobacco use type: Cigarette e-Cigarette/Vaping Use: Never Used Second Hand Smoke Exposure: No Advance Directives: No Advance Directives Information Provided: No Patient : No service: No Current occupational status: unemployed Physical Exam Vital Signs: Vital Signs: Last Vital Signs Temp 98.3 F 09/24/21 16:52 Pulse 78 09/24/21 16:52 Resp 18 09/24/21 16:52 BP 134/94 H 09/24/21 16:52 Pulse Ox 99 09/24/21 16:52 Body Mass Index 30.0 Const: General: cooperative, healthy appearing, comfortable, no acute distress, well developed, alert, awake and Physically active Orientation/consciousness: patient oriented x3 HENMT: Head: Yes normal to inspection, Yes No palpable skull fracture present, Yes normocephalic, Yes atraumatic, No abrasion, No Acrocyanosis present, No Sampson's sign, No contusion, No cranial bruits, No hematoma, No laceration, No occipital foramen tenderness, No palpable skull fracture, No raccoon eyes, No scalp lesion, No scalp tenderness, No Temporal artery tenderness present and No periorbital ecchymosis Eyes: General: appearance normal, both eyes and all related structures Neck: Neck: Yes normal visual inspection, Yes full ROM, Yes no lymphadenopathy, Yes no meningeal signs, Yes trachea midline, Yes supple, No anterior neck swelling and No tender Chest: Chest palpation & inspection: normal inspection of the chest and normal palpation of entire chest wall Resp: Effort & Inspection: normal respiratory effort and able to speak in complete sentences Auscultation: clear to auscultation bilaterally Cardio: Jugular venous distension: no JVD Heart sounds: S1 normal heart sound present and S2 normal heart sound present GI: Inspection: Yes normal to inspection and No abdominal wall ecchymosis Palpation (GI): Soft to palpation, not firm, nontender, no guarding and not rigid : General: No CVA tenderness and Yes no CVA tenderness Back/Spine/Pelvis: Back: no CVA tenderness, No CVA tenderness and No back tenderness Skin: General skin exam: no rashes or lesions noted and elasticity normal Neuro: General: patient oriented x3, gait normal, no meningeal signs and CN's II-XI intact bilaterally Cranial nerves: Yes CN's II-XII intact bilaterally Extrem: General: Yes normal to inspection and Yes full ROM Hand/finger images: 1. Positive for tenderness on palpation and slight swelling. Negative for erythema, fluctulant mass on palpation, deformity, warmth, coldness, pus discharge, open wound, ulcers crepitus, or deformity. Reduced range of motion due to pain. Rest of hand/right upper extremity negative for any swelling, redness, warmth, deformity, crepitus, coldness, warmth. Motor/neuro/vascular exam intact. Right upper extremity negative for any bluish black discoloration of fingers to indicate arterial occlusion. Capillary refills intact. Psych: Appearance: grossly normal, well kempt and not disheveled Course Course Course Narrative: Most likely patient is having another rheumatoid arthritis exacerbation but will do x-ray machine is no fracture. Reevaluation(s) Reevaluation #1: X-ray came back negative for any fracture. History physical exam does not indicate tenosynovitis, cellulitis,aterial occlusions, DVT, fracture, septic joint, or abscess. History physical exam indicate rheumatoid arthritis exacerbation. Patient will be discharged with pain medication and steroids. Time: 19:12 Medical Decision Making [facility] Narrative Medical decision making narrative: Rheumatoid arthritis exacerbation Discharge Plan Discharge Clinical Impression: Rheumatoid arthritis flare Patient Disposition: Home, Self-Care Instructions: Rheumatoid Arthritis (ED) Additional Instructions: Finger/hand pain is due to rheumatoid arthritis exacerbation. He will be discharged with pain medication and steroids. You need to follow-up with your trimmer machine. Return to the ED for redness, warmth, increased swelling, red streaks, swelling of rest of upper extremity, chest pain, shortness of breath, bluish black discoloration of fingers, or any other concerning symptoms. Please follow-up with your primary care provider/trimmer machine. Prescriptions: New oxycodone-acetaminophen [Percocet] 5-325 mg tablet 1 tab PO Q8H PRN (Reason: pain) Qty: 9 RF: 0 prednisone 20 mg tablet 40 mg PO DAILY 5 Days Qty: 10 RF: 0 No Action metronidazole [Metrogel Vaginal] 0.75 % gel 1 appful vaginal BEDTIME 5 Days Qty: 70 RF: 0 albuterol sulfate 90 mcg/actuation HFA aerosol inhaler 2 puff inhalation Q4-6H PRN (Reason: shortness of breath or wheezing) Qty: 6.7 RF: 0 acetaminophen [Tylenol Extra Strength] 500 mg tablet 500 mg PO Q6H PRN (Reason: pain or fever) Qty: 20 RF: 0 benzonatate [Tessalon Perles] 100 mg capsule 100 mg PO TID PRN (Reason: cough) Qty: 14 RF: 0 fluticasone propionate [Flonase Allergy Relief] 50 mcg/actuation spray,suspension 2 spray intranasal DAILY Qty: 16 RF: 0 prednisone 20 mg tablet 40 mg PO DAILY 5 Days Qty: 10 RF: 0 prednisone 10 mg tablet 10 mg PO DAILY Qty: 5 RF: 0 oxycodone 5 mg tablet 5 mg PO Q4-6H PRN (Reason: pain) Qty: 10 RF: 0 loratadine [Allergy Relief (loratadine)] 10 mg tablet 10 mg PO DAILY PRN (Reason: allergy symptoms) 90 Days Qty: 90 RF: 0 prednisone 5 mg tablet 5 mg PO DAILY 14 Days Qty: 14 RF: 0 ferrous sulfate [Feosol] 325 mg (65 mg iron) tablet 325 mg PO DAILY RF: 0 Stand Alone Forms: Work/School Release Interventions: ED Discharge Assessment Last Done: 09/24/21 19:24 Discharge Date/Time: 09/24/21 19:25 Print Language: Greek
[2021-09-24] MEDS: predniSONE 20 MG TABLET 60 MG PO (19:09)
[2021-09-24] MEDS: Acetaminophen 325 MG TABLET 650 MG PO (19:10)
== END 2021-09-24 19:25 | disposition home or self-care (01) ==
PROVIDERS: Emergency Provider Emergency Medicine; PCP Internal Medicine
DX: M06.9 Rheumatoid arthritis, unspecified (principal); M25.531 Pain in right wrist; Z87.891 Personal history of nicotine dependence; Z79.899 Other long term (current) drug therapy
CPT/HCPCS: 73110; 73130; 99283; 99284

== ENCOUNTER 2021-10-23 14:50 | Emergency (ER) | payer OTHER, SELFPAY ==
[2021-10-23 15:45] VITALS: BP 127/78; PULSE 104; RESP 18; TEMP 36.9; O2SAT 98
[2021-10-23 16:58] LABS: COVID-19 Test Positive (Negative)
--- NOTE | 2021-10-23 18:08 | ED.URI ---
HPI - URI/Sore Throat General Chief Complaint: Upper Respiratory Symptoms Stated Complaint: COVID Symptoms Time Seen by Provider: 10/23/21 18:08 History of Present Illness HPI Narrative: Patient complains of body aches mild headache runny nose and took a COVID test which was positive at home She comes here because she wants to be checked and to confirm that she really has COVID, no shortness of breath no fever no chest pain no vomiting Related Data Home Medications Medication Instructions Recorded Confirmed ferrous sulfate 325 mg (65 mg 325 mg PO DAILY 08/22/21 08/22/21 iron) tablet (Feosol) Previous Rx's Medication Instructions Recorded loratadine 10 mg tablet (Allergy 10 mg PO DAILY PRN 90 Days #90 tab 06/07/21 Relief (loratadine)) prednisone 5 mg tablet 5 mg PO DAILY 14 Days #14 tab 06/25/21 acetaminophen 500 mg tablet 500 mg PO Q6H PRN #20 tab 08/10/21 (Tylenol Extra Strength) albuterol sulfate 90 mcg/actuation 2 puff INHALATION Q4-6H PRN #6.7 g 08/10/21 aerosol inhaler benzonatate 100 mg capsule 100 mg PO TID PRN #14 cap 08/10/21 (Tessalon Perles) fluticasone propionate 50 2 spray INTRANASAL DAILY #16 g 08/10/21 mcg/actuation nasal spray,suspension (Flonase Allergy Relief) prednisone 20 mg tablet 40 mg PO DAILY 5 Days #10 tab 08/10/21 metronidazole 0.75 % vaginal gel 1 appful VAGINAL BEDTIME 5 Days 09/06/21 (Metrogel Vaginal) #70 g oxycodone 5 mg tablet 5 mg PO Q4-6H PRN #10 tab 09/08/21 prednisone 10 mg tablet 10 mg PO DAILY #5 tab 09/08/21 oxycodone-acetaminophen 5 mg-325 1 tab PO Q8H PRN #9 tab 09/24/21 mg tablet (Percocet) prednisone 20 mg tablet 40 mg PO DAILY 5 Days #10 tab 09/24/21 Allergies Allergy/AdvReac Type Severity Reaction Status Date / Time aspirin [ASA] Allergy Severe Palpitation Verified 09/24/21 16:51 s Review of Systems Review of Systems: Positive for body aches headache some fatigue Negatives are no fever no chills no dizziness no weakness no stiff neck no neck pain no chest pain no shortness of breath no abdominal pain no nausea or vomiting Yes all other systems are reviewed and are negative [facility] Past Medical History [facility] Narrative: Positive for rheumatoid arthritis taking prednisone Medical History (Updated 10/23/21 @ 19:19 by WERO Barlow) Anemia Chronic migraine with aura Left wrist pain Lung nodule seen on imaging study Mild persistent asthma Overweight (BMI 25.0-29.9) Polyarthralgia Rheumatoid arthritis Urticaria Surgical History Hx of section Family History Family History Mother Hypoglycemia Father Hypertension Diabetes Family/Other Mental health disorder Substance use disorder Social History Social History Housing: Apartment Alcohol intake: former Patient Tobacco Use Status: Former Tobacco user Quit Date: 03/2021 Tobacco use type: Cigarette e-Cigarette/Vaping Use: Never Used Second Hand Smoke Exposure: No Advance Directives: No Advance Directives Information Provided: No service: No Current occupational status: unemployed Physical Exam Vital Signs: Vital Signs: Last Vital Signs Temp 98.4 F 10/23/21 15:45 Pulse 104 H 10/23/21 15:45 Resp 18 10/23/21 15:45 BP 127/78 10/23/21 15:45 Pulse Ox 98 10/23/21 15:45 BMI result Body Mass Index 30.0 General appearance no distress, comfortable The eyes no redness or discharge The sinuses nontender The pharynx is clear with no redness swelling or exudate, mucous membranes are moist Neck is supple Chest is clear to auscultation bilateral Heart no murmur auscultated Abdomen soft nontender Extremities full range of motion x4 Course Course Course Narrative: Patient was well-appearing with a normal respiratory rate normal oxygen saturation clear lungs normal exam speaking full sentences and ambulating and communicating easily, tolerating p.o. Because of her rheumatoid arthritis and course of treatment with prednisone she is given the referral for monoclonal antibodies MDM - URI/Sore Throat Lab Data Labs: Lab Results 10/23/21 Range/Units 16:25 COVID-19 ([facility]) Positive A (Negative) COVID-19 Clin Com See Note Discharge Plan Discharge Clinical Impression: COVID-19 Patient Disposition: Home, Self-Care Additional Instructions: You tested positive for COVID Because you take an immune compromising medication and have an immune compromising condition, rheumatoid arthritis, we advise you follow-up for monoclonal antibodies which have been very successful at preventing COVID illness from becoming dangerous We sent them your information and they should call you if they do not call you tomorrow morning you can call them At this time you did not appear dangerously ill and it is safe to go home If you develop difficulty breathing, dehydration, any worse condition or any concerns return to the ER immediately any time Prescriptions: No Action metronidazole [Metrogel Vaginal] 0.75 % gel 1 appful vaginal BEDTIME 5 Days Qty: 70 RF: 0 albuterol sulfate 90 mcg/actuation HFA aerosol inhaler 2 puff inhalation Q4-6H PRN (Reason: shortness of breath or wheezing) Qty: 6.7 RF: 0 acetaminophen [Tylenol Extra Strength] 500 mg tablet 500 mg PO Q6H PRN (Reason: pain or fever) Qty: 20 RF: 0 benzonatate [Tessalon Perles] 100 mg capsule 100 mg PO TID PRN (Reason: cough) Qty: 14 RF: 0 fluticasone propionate [Flonase Allergy Relief] 50 mcg/actuation spray,suspension 2 spray intranasal DAILY Qty: 16 RF: 0 prednisone 20 mg tablet 40 mg PO DAILY 5 Days Qty: 10 RF: 0 oxycodone-acetaminophen [Percocet] 5-325 mg tablet 1 tab PO Q8H PRN (Reason: pain) Qty: 9 RF: 0 prednisone 20 mg tablet 40 mg PO DAILY 5 Days Qty: 10 RF: 0 prednisone 10 mg tablet 10 mg PO DAILY Qty: 5 RF: 0 oxycodone 5 mg tablet 5 mg PO Q4-6H PRN (Reason: pain) Qty: 10 RF: 0 loratadine [Allergy Relief (loratadine)] 10 mg tablet 10 mg PO DAILY PRN (Reason: allergy symptoms) 90 Days Qty: 90 RF: 0 prednisone 5 mg tablet 5 mg PO DAILY 14 Days Qty: 14 RF: 0 ferrous sulfate [Feosol] 325 mg (65 mg iron) tablet 325 mg PO DAILY RF: 0 Interventions: ED Discharge Assessment Last Done: 10/23/21 19:30 Discharge Date/Time: 10/23/21 19:31
--- NOTE | 2021-10-23 19:30 | PC.NURSE ---
this patient wasnt seen by this nurse, discharged by provider
== END 2021-10-23 19:31 | disposition home or self-care (01) ==
PROVIDERS: Emergency Provider Emergency Medicine Emergency Medical Services; PCP Internal Medicine
DX: U07.1 COVID-19 (principal); J45.30 Mild persistent asthma, uncomplicated
CPT/HCPCS: 36415; 87635; 99283

== ENCOUNTER 2021-11-13 08:47 | Outpatient (REF) | payer OTHER, SELFPAY ==
[2021-11-13 09:18] LABS: COVID-19 Test Negative (Negative)
== END 2021-11-13 08:48 | disposition home or self-care (01) ==
LOC: HO.LAB 08:47
PROVIDERS: Visit Provider Internal Medicine
DX: Z20.822 Contact with and (suspected) exposure to COVID-19 (principal)
CPT/HCPCS: 87635; C9803

== ENCOUNTER 2021-12-03 15:30 | Outpatient (REF) | payer OTHER, SELFPAY ==
--- NOTE | ~2021-12-03 | CT_ITS ---
EXAMINATION: CT CHEST WITH CONTRAST CLINICAL INFORMATION: Solitary pulmonary nodule. COMPARISON: Chest x-ray 08/10/2021 TECHNIQUE: Multidetector volumetric CT imaging of the chest was obtained after the administration of 50 mL of Omnipaque 350 intravenous contrast without immediate adverse reactions. Axial MIP volume rendering provided. Sagittal and coronal reformatted images were obtained. This CT examination was performed using dose optimization techniques as appropriate, variously including the following: *Automated exposure control *Adjustment of mA and/or kV according to patient size (this includes techniques or standardized protocols for targeted exams where dose is matched to indication/reason for exam; i.e. extremities or head) *Use of iterative reconstruction technique DLP: 314 mGy-cm FINDINGS: MEDICAL ADMINISTRATIVE ASSISTANT: Well-inflated lungs. LUNGS: The lungs are well-expanded and clear of acute pneumonic process. There is a 6 mm calcified nodule left upper lobe. No additional nodule visualized. MEDIASTINUM: The central trachea and bronchi are widely patent. The heart size and great vessels are normal caliber. The thyroid lobes are symmetrical and normal. PLEURA: There is no pleural effusion. No pleural mass or thickening. AXILLA: No lymphadenopathy. UPPER ABDOMEN: Visualized liver, spleen, pancreas and bilateral adrenal glands are unremarkable. OSSEOUS STRUCTURES: No lytic or sclerotic process seen. CT/CT chest w con IMPRESSION: Unremarkable examination. Fleischner guidelines were followed.
[2021-12-03] MEDS: iohexoL 350 MG/ML 100 ML INFUS..BTL IV (16:14)
== END 2021-12-03 15:31 | disposition home or self-care (01) ==
LOC: HO.CT 15:30
PROVIDERS: PCP Internal Medicine; Visit Provider Internal Medicine
DX: R91.1 Solitary pulmonary nodule (principal)
CPT/HCPCS: 71260; Q9967

== ENCOUNTER 2021-12-20 10:15 | Outpatient (REF) | payer OTHER, SELFPAY ==
[2021-12-20 11:35] LABS: Alanine Aminotransferase 15 U/L (0-31); Albumin Level 3.7 g/dL (3.5-5.0); Alkaline Phosphatase 60 U/L (39-117); Anion Gap 9 (12-20); Aspartate Amino Transferase 18 U/L (5-31); Bilirubin Total 0.3 mg/dL (0.0-1.0); Blood Urea Nitrogen 9 mg/dL (9-16); Carbon Dioxide 29 mmol/L (22-29); Chloride 103 mmol/L (96-108); Cholesterol 217 mg/dL; Estimated Glomerular Filt Rate > 60; Glucose Fasting 97 mg/dL (60-99); HDL Cholesterol 41 mg/dL; LDL Cholesterol Calculated 124 mg/dl; Potassium 4.3 mmol/L (3.3-5.1); Sodium 137 mmol/L (135-145); Total Protein 7.4 g/dL (6.5-8.0); Triglycerides 261 mg/dL
== END 2021-12-20 10:16 | disposition home or self-care (01) ==
LOC: HO.LAB 10:15
PROVIDERS: PCP Internal Medicine; Visit Provider Internal Medicine
DX: Z00.00 Encounter for general adult medical examination without abnormal findings (principal); G47.33 Obstructive sleep apnea (adult) (pediatric); R91.1 Solitary pulmonary nodule; M06.9 Rheumatoid arthritis, unspecified; E78.5 Hyperlipidemia, unspecified
CPT/HCPCS: 36415; 80053; 80061; 99202

== ENCOUNTER 2021-12-25 17:50 | Outpatient (REF) | payer OTHER, SELFPAY ==
--- NOTE | ~2021-12-25 | MR_ITS ---
EXAMINATION: MR BRAIN WITHOUT CONTRAST CLINICAL INFORMATION: Headache. COMPARISON: None available. TECHNIQUE: MRI of the brain was obtained using routine sequences without contrast. FINDINGS: No focal restricted diffusion is demonstrated to suggest acute or subacute cerebral ischemia. No evidence of acute or chronic hemorrhagic products on heme-sensitive imaging. Nonspecific scattered periventricular and deep white matter T2 FLAIR hyperintensities. The ventricles are normal in morphology and size. No abnormal mass effect. No midline shift. Normal appearance of the pituitary gland. Normal positioning of the cerebellar tonsils. Normal arterial and venous vascular flow voids are present. Normal, homogeneous marrow signal. Moderate mucosal thickening of the paranasal sinuses. Mucous retention cyst within the right maxillary sinus. No signal abnormalities within the mastoids. MR/MR head/brain wo con IMPRESSION: 1. No acute intracranial abnormalities. 2. Mild nonspecific white matter changes.
== END 2021-12-25 17:51 | disposition home or self-care (01) ==
LOC: HO.MRI 17:50
PROVIDERS: PCP Internal Medicine; Visit Provider Internal Medicine
DX: R51.9 Headache, unspecified (principal)
CPT/HCPCS: 70551

== ENCOUNTER 2021-12-26 17:54 | Emergency (ER) | payer OTHER, SELFPAY ==
[2021-12-26 18:58] VITALS: BP 117/74; PULSE 76; RESP 18; TEMP 36.9; O2SAT 97; BMI 34.5
[2021-12-26 19:23] LABS: MANUAL DIFF FLAG NO
[2021-12-26 19:25] LABS: Basophils Percent Auto 0.3 % (0-2); Eosinophils Percent Auto 0.1 % (0-4); Hematocrit 37.7 % (37.0-47.0); Hemoglobin 12.6 g/dl (12.0-16.0); Imm Gran Abs Auto 0.01 X10*3/uL (0.00-0.03); Imm Gran Pct Auto 0.1 % (0.0-0.4); Lymphocytes Absolute Auto 1.2 X10*3/uL (1.2-4.9); Lymphocytes Percent Auto 16.2 % (20-40); Mean Corpuscular HGB Conc 33.4 g/dl (31.0-35.0); Mean Corpuscular Hemoglobin 29.3 pg (27.0-33.0); Mean Corpuscular Volume 87.7 fL (80.0-98.0); Mean Platelet Volume 10.6 fL (9.4-12.3); Monocytes Absolute Auto 0.4 X10*3/uL (0.1-1.2); Monocytes Percent Auto 5.3 % (2-11); Neutrophils Absolute Auto 5.7 x10*3/uL (2.0-8.3); Platelet Count 192 X10*3/uL (160-400); Red Cell Distribution Width 13.4 % (11.0-16.0); White Blood Count 7.4 X10*3/uL (4.8-10.8)
[2021-12-26 19:26] LABS: Appearance Urine CLEAR; Color Urine YELLOW; Glucose Urine UA NEG (NEG); Leukocyte Esterase Urine NEG (NEG); Nitrite Urine NEG (NEG); Specific Gravity - Urine >= 1.030 (1.005-1.025); Urine Blood NEG (NEG); Urine Ketones NEG (NEG); Urine Protein NEG (NEG-TRACE)
[2021-12-26 19:32] LABS: UPreg QC Valid YES; Urine Pregnancy NEGATIVE (NEGATIVE)
[2021-12-26 19:36] LABS: RBC Urine 0-2 /HPF (0); Squamous Epithelial Cell Urine TRACE /LPF; WBC Urine 0-2 /HPF (0-4)
[2021-12-26 19:54] LABS: Anion Gap 16 (12-20); Blood Urea Nitrogen 13 mg/dL (9-16); Calcium 9.1 mg/dL (8.4-10.2); Carbon Dioxide 19 mmol/L (22-29); Chloride 106 mmol/L (96-108); Creatinine Clr Calc Pharmacy 105.5; Estimated Glomerular Filt Rate > 60; Glucose Random 97 mg/dL (60-115); Lipase 29 U/L (8-78); Potassium 4.7 mmol/L (3.3-5.1); Sodium 136 mmol/L (135-145)
--- NOTE | 2021-12-26 21:09 | ED.NAVMDI ---
HPI - Nausea/Vomiting/Diarrhea General Chief complaint: Nausea/Vomiting/Diarrhea Stated complaint: vomitting, stomach pain, diarrhea, fatigue Time Seen by Provider: 12/26/21 20:45 Source: patient Mode of arrival: ambulatory Limitations: no limitations History of Present Illness HPI Narrative: Patient is a 31 year old female presenting to the emergency department today with abdominal pain and nausea. Patient states that she has had some minimal abdominal pain and nausea for the last couple of days. Patient denies any dizziness, lightheadedness, vomiting, fever, chills, blurry vision, double vision, loss of vision, chest pain, difficulty breathing, shortness of breath, back pain, night sweats, pain with urination, increased urinary frequency, increased urinary urgency, blood in her urine or stool, syncope or a near syncopal episode, recent trauma or falls, bowel incontinence, bladder incontinence, bowel retention, bladder retention, or any other complaints at this time. MD elicited complaint: nausea Associated nausea: Yes Related Data Home Medications Medication Instructions Recorded Confirmed ferrous sulfate 325 mg (65 mg 325 mg PO DAILY 08/22/21 12/06/21 iron) tablet (Feosol) cholecalciferol (vitamin D3) 125 125 mcg PO DAILY 12/06/21 12/06/21 mcg (5,000 unit) capsule folic acid 1 mg tablet 1 mg PO DAILY 12/06/21 12/06/21 hydroxychloroquine 200 mg tablet 200 mg PO BID tab 12/06/21 12/06/21 sulfamethoxazole 800 1 tab PO 3XW 12/06/21 12/06/21 mg-trimethoprim 160 mg tablet Previous Rx's Medication Instructions Recorded albuterol sulfate 90 mcg/actuation 2 puff INHALATION Q4-6H PRN #6.7 g 08/10/21 aerosol inhaler fluticasone propionate 50 2 spray INTRANASAL DAILY #16 g 08/10/21 mcg/actuation nasal spray,suspension (Flonase Allergy Relief) prednisone 20 mg tablet 20 mg PO DAILY 90 Days #90 tab 12/06/21 prednisone 5 mg tablet 10 mg PO DAILY 10 Days #20 tab 12/06/21 venlafaxine 37.5 mg tablet 37.5 mg PO BEDTIME 90 Days #90 tab 12/06/21 Allergies Allergy/AdvReac Type Severity Reaction Status Date / Time aspirin [ASA] Allergy Severe Palpitation Verified 12/26/21 18:58 s Review of Systems Constitutional: Constitutional: Reports no additional constitutional complaints, Denies chills, Denies fever(s) and Denies night sweats Eyes: Eyes: Reports no additional eye complaints, Denies blurry vision, Denies change in vision, Denies diplopia, Denies eye discharge, Denies loss of vision and Denies eye pain ENT: Denies dizziness Cardiovascular: Cardiovascular: Reports no additional cardiovascular complaints, Denies chest pain, Denies lightheadedness, Denies Loss of Consciousness and Denies dyspnea Respiratory: Respiratory: Reports no additional respiratory complaints and Denies dyspnea Gastrointestinal: Gastrointestinal: Reports no additional gastrointestinal complaints, Reports abdominal pain, Denies melena, Denies hematochezia, Denies change in bowel habits, Denies change in stool character and Reports nausea Genitourinary: Genitourinary: Denies hematuria, Denies urinary frequency, Denies dysuria, Denies urinary incontinence, Denies urinary hesitancy and Denies urinary urgency Musculoskeletal: Musculoskeletal: Reports no additional musculoskeletal complaints, Denies numbness and Denies tingling Neurologic: Denies dizziness, Denies loss of vision, Denies numbness and Denies tingling Psychiatric: Psychiatric: Reports no additional psychiatric complaints Endocrine: Endocrine: Reports no additional endocrine complaints Hematologic/Lymphatic: Hematologic/Lymphatic: Reports no additional hematologic/lymphatic complaints Allergic/Immunologic: Allergic/Immunologic: Reports no additional allergic/immunologic complaints [facility] Past Medical History Attestation statement: The following information was validated with the patient. Source: old records reviewed Medical History Anemia Chronic migraine with aura Daily headache Left wrist pain Lung nodule seen on imaging study Mild persistent asthma Mild recurrent major depression Overweight (BMI 25.0-29.9) Physical exam Polyarthralgia Rheumatoid arthritis Solitary pulmonary nodule Urticaria Surgical History Hx of section Family History Family History Mother Hypoglycemia Father Hypertension Diabetes Family/Other Mental health disorder Substance use disorder Social History Social History Housing: Apartment Alcohol intake: former Patient Tobacco Use Status: Former Tobacco user Quit Date: 03/2021 Tobacco use type: Cigarette e-Cigarette/Vaping Use: Never Used Second Hand Smoke Exposure: No Advance Directives: No Advance Directives Information Provided: No service: No Current occupational status: unemployed Physical Exam Vital Signs: Vital Signs: Last Vital Signs Temp 98.5 F 12/26/21 18:58 Pulse 76 12/26/21 18:58 Resp 18 12/26/21 18:58 BP 117/74 12/26/21 18:58 Pulse Ox 97 12/26/21 18:58 BMI result Body Mass Index 34.5 Const: General: cooperative, no acute distress, alert and awake Nutritional Appearance: well nourished Orientation/consciousness: patient oriented x3 Limitations: no limitations HENMT: Head: Yes normal to inspection and Yes atraumatic Ears: hearing grossly normal bilaterally and external ears normal General nose exam: Normal external nose present, no nasal discharge noted and no epistaxis Face and sinus: Yes normal facial exam, No abrasion and No laceration Mouth: Normal oral and palatal mucosa present, no drooling and no muffled voice Eyes: General: appearance normal, both eyes and all related structures Periorbital: periorbital findings normal Eyelids: Yes eyelids normal Conjunctivae: conjunctivae normal Pupils: Equal, round and reactive pupils present EOM: EOMs intact bilaterally Neck: Neck: Yes normal visual inspection, Yes full ROM and Yes no lymphadenopathy Chest: Chest palpation & inspection: normal inspection of the chest Resp: Effort & Inspection: normal respiratory effort and able to speak in complete sentences Auscultation: clear to auscultation bilaterally Cardio: Rate: regular rate Rhythm: regular rhythm GI: Inspection: Yes normal to inspection Palpation (GI): Soft to palpation, not firm and nontender Neuro: General: patient oriented x3 and moves all extremities Cranial nerves: Yes Equal, round and reactive pupils present Cognition (Neuro): normal cognition Motor exam (neuro): 5/5 motor strength present throughout Sensory Exam: Normal double simultaneous stimulation for sensation Coordination: [id number] test normal Extrem: General: Yes normal to inspection, Yes full ROM and Yes capillary refill normal Psych: Appearance: grossly normal Mental Status: mental status grossly normal Affect: normal affect Attitude: cooperative Thought process: Normal thought process present Thought content: Normal thought content present Insight: Good insight present (Psych) MDM - Nausea/Vomiting/Diarrhea MDM Narrative Medical decision making narrative: Patient is a 31 year old female presenting to the emergency department today with abdominal pain and nausea. Patient's physical exam was unremarkable. Patient's blood work was unremarkable. Patient's urine showed no acute process. I explained my physical exam findings as well as all test results to the patient. I answered all questions asked by the patient. I stressed the importance of the patient taking her medication as prescribed. I stressed the importance of the patient following up with her primary care provider. I stressed the importance of the patient returning to the emergency department immediately if her symptoms were to worsen or if she were to develop any dizziness, shortness of breath, difficulty breathing, chest pain, blurry vision, loss of vision, nausea, vomiting, abdominal pain, fever, chills, back pain, or any other complaints. Patient verbalized agreement and understanding with this treatment plan and discharge. Differential Diagnosis Differential diagnosis: Likely gastroenteritis Medical Records Attestation: I reviewed the patient's medical records. Lab Data Attestation: I reviewed the patient's lab results. Result diagrams: 12/26/21 19:20 12/26/21 19:20 Labs: Lab Results 12/26/21 12/26/21 12/26/21 Range/Units 19:20 19:20 19:20 WBC 7.4 (4.8-10.8) X10*3/uL RBC 4.30 (4.20-5.50) X10*6/uL Hgb 12.6 (12.0-16.0) g/dl Hct 37.7 (37.0-47.0) % MCV 87.7 (80.0-98.0) fL MCH 29.3 (27.0-33.0) pg MCHC 33.4 (31.0-35.0) g/dl RDW 13.4 (11.0-16.0) % Plt Count 192 (160-400) X10*3/uL MPV 10.6 (9.4-12.3) fL Immature Gran % (Auto) 0.1 (0.0-0.4) % Neut % (Auto) 78.0 H (45-73) % Lymph % (Auto) 16.2 L (20-40) % [place] % (Auto) 5.3 (2-11) % Eos % (Auto) 0.1 (0-4) % Baso % (Auto) 0.3 (0-2) % Lymph # (Auto) 1.2 (1.2-4.9) X10*3/uL [place] # (Auto) 0.4 (0.1-1.2) X10*3/uL Eos # (Auto) 0.0 (0.0-0.4) X10*3/uL Baso # (Auto) 0.0 (0.0-0.2) X10*3/uL Abs Immat Gran (auto) 0.01 (0.00-0.03) X10*3/uL Absolute Neuts (auto) 5.7 (2.0-8.3) x10*3/uL Absolute Nucleated RBC 0.000 (0.0-0.012) X10*3/uL Nucleated RBC % (auto) 0.0 (0.0-0.2) /100WBC Sodium 136 (135-145) mmol/L Potassium 4.7 (3.3-5.1) mmol/L Chloride 106 (96-108) mmol/L Carbon Dioxide 19 L (22-29) mmol/L Anion Gap 16 (12-20) BUN 13 (9-16) mg/dL Creatinine 0.80 (0.5-1.4) mg/dL Estim Creat Clear Calc 105.5 Estimated GFR > 60 Random Glucose 97 (60-115) mg/dL Calcium 9.1 (8.4-10.2) mg/dL Lipase 29 (8-78) U/L Urine Color YELLOW Urine Appearance CLEAR Urine pH 6.0 (5.0-8.0) Ur Specific [place] >= 1.030 H (1.005-1.025) Urine Protein NEG (NEG-TRACE) MG/DL Urine Glucose (UA) NEG (NEG) MG/DL Urine Ketones NEG (NEG) MG/DL Urine Blood NEG (NEG) Urine Nitrite NEG (NEG) Ur Leukocyte Esterase NEG (NEG) Urine RBC 0-2 (0) /HPF Urine WBC 0-2 (0-4) /HPF Ur Squamous Epith Cells TRACE /LPF Urine Bacteria NONE /LPF Urine Test (NEGATIVE) COVID-19 ([facility]) (Negative) COVID-19 Clin Com Influenza Type A ([facility]) (Negative) Influenza Type B ([facility]) (Negative) Influenza A & B Note 03/02/22 03/02/22 03/02/22 Range/Units 19:20 20:53 20:53 WBC (4.8-10.8) X10*3/uL RBC (4.20-5.50) X10*6/uL Hgb (12.0-16.0) g/dl Hct (37.0-47.0) % MCV (80.0-98.0) fL MCH (27.0-33.0) pg MCHC (31.0-35.0) g/dl RDW (11.0-16.0) % Plt Count (160-400) X10*3/uL MPV (9.4-12.3) fL Immature Gran % (Auto) (0.0-0.4) % Neut % (Auto) (45-73) % Lymph % (Auto) (20-40) % [place] % (Auto) (2-11) % Eos % (Auto) (0-4) % Baso % (Auto) (0-2) % Lymph # (Auto) (1.2-4.9) X10*3/uL [place] # (Auto) (0.1-1.2) X10*3/uL Eos # (Auto) (0.0-0.4) X10*3/uL Baso # (Auto) (0.0-0.2) X10*3/uL Abs Immat Gran (auto) (0.00-0.03) X10*3/uL Absolute Neuts (auto) (2.0-8.3) x10*3/uL Absolute Nucleated RBC (0.0-0.012) X10*3/uL Nucleated RBC % (auto) (0.0-0.2) /100WBC Sodium (135-145) mmol/L Potassium (3.3-5.1) mmol/L Chloride (96-108) mmol/L Carbon Dioxide (22-29) mmol/L Anion Gap (12-20) BUN (9-16) mg/dL Creatinine (0.5-1.4) mg/dL Estim Creat Clear Calc Estimated GFR Random Glucose (60-115) mg/dL Calcium (8.4-10.2) mg/dL Lipase (8-78) U/L Urine Color Urine Appearance Urine pH (5.0-8.0) Ur Specific [place] (1.005-1.025) Urine Protein (NEG-TRACE) MG/DL Urine Glucose (UA) (NEG) MG/DL Urine Ketones (NEG) MG/DL Urine Blood (NEG) Urine Nitrite (NEG) Ur Leukocyte Esterase (NEG) Urine RBC (0) /HPF Urine WBC (0-4) /HPF Ur Squamous Epith Cells /LPF Urine Bacteria /LPF Urine Test NEGATIVE (NEGATIVE) COVID-19 ([facility]) Negative (Negative) COVID-19 Clin Com See Note Influenza Type A ([facility]) Negative (Negative) Influenza Type B ([facility]) Negative (Negative) Influenza A & B Note See Note Discharge Plan Discharge Clinical Impression: Gastroenteritis Patient Disposition: Home, Self-Care Instructions: Gastroenteritis (DC) Additional Instructions: Follow up with your primary care provider. Return to the emergency department immediately if your symptoms worsen or if you develop any dizziness, shortness of breath, difficulty breathing, chest pain, blurry vision, loss of vision, nausea, vomiting, abdominal pain, fever, chills, back pain, or any other complaints. Prescriptions: No Action albuterol sulfate 90 mcg/actuation HFA aerosol inhaler 2 puff inhalation Q4-6H PRN (Reason: shortness of breath or wheezing) Qty: 6.7 0RF fluticasone propionate [Flonase Allergy Relief] 50 mcg/actuation spray,suspension 2 spray intranasal DAILY Qty: 16 0RF Rx Instructions: administer into each nostril cholecalciferol (vitamin D3) 125 mcg (5,000 unit) capsule 125 mcg PO DAILY 0RF folic acid 1 mg tablet 1 mg PO DAILY 0RF sulfamethoxazole-trimethoprim 800-160 mg tablet 1 tab PO 3XW 0RF hydroxychloroquine 200 mg tablet 200 mg PO BID 0RF prednisone 20 mg tablet 20 mg PO DAILY 90 Days Qty: 90 0RF prednisone 5 mg tablet 10 mg PO DAILY 10 Days Qty: 20 0RF venlafaxine 37.5 mg tablet 37.5 mg PO BEDTIME 90 Days Qty: 90 0RF ferrous sulfate [Feosol] 325 mg (65 mg iron) tablet 325 mg PO DAILY 0RF Referrals: Angeline Alvarado MD [Primary Care Provider] - 2 days Interventions: ED Discharge Assessment Last Done: 12/26/21 21:44 Discharge Date/Time: 12/26/21 21:45 Print Language: Bulgarian
[2021-12-26 21:23] LABS: IDNOW Serial# 08D9AD1C; Influenza A Negative (Negative); Influenza B2 Negative (Negative)
[2021-12-26 21:24] LABS: COVID-19 Test Negative (Negative)
== END 2021-12-26 21:45 | disposition home or self-care (01) ==
PROVIDERS: Physician Assistant Medical; Emergency Provider Emergency Medicine; PCP Internal Medicine
DX: K52.9 Noninfective gastroenteritis and colitis, unspecified (principal); Z20.822 Contact with and (suspected) exposure to COVID-19
CPT/HCPCS: 36415; 80048; 81001; 81025; 83690; 85025; 87502; 87635; 99283; 99284

== ENCOUNTER 2022-01-14 15:01 | Outpatient (REF) | payer OTHER, SELFPAY ==
--- NOTE | 2022-01-14 17:33 | PFT_ITS ---
FLOWS: FEV1 112% of predicted at 3.55 L. FVC 108% of predicted at 4.05 L. FEV1 to FVC ratio of 0.88. No bronchodilator response except in small to medium airways. LUNG VOLUMES: Total lung capacity 100% of predicted at 5.09 L. Residual volume 82% of predicted at 1.19 L. Slow vital capacity 108% of predicted at 3.90 L. Expiratory reserve volume 74% of predicted at 0.98 L. Diffusion capacity is normal. IMPRESSION: No obstructive or restrictive ventilatory defect. No bronchodilator response except in small to medium airways. Jaleel Rosas MD AP/MODL / [id number]
== END 2022-01-14 15:02 | disposition home or self-care (01) ==
LOC: HO.RESP 15:01
PROVIDERS: PCP Internal Medicine; Visit Provider Internal Medicine Pulmonary Disease
DX: M06.9 Rheumatoid arthritis, unspecified (principal)
CPT/HCPCS: 94060; 94727; 94729

== ENCOUNTER 2022-01-25 11:30 | Outpatient (RCR) | payer OTHER, SELFPAY | END 2022-01-29 10:19 | disposition home or self-care (01) | LOC: HO.OT 11:30 | PROVIDERS: PCP Internal Medicine; Visit Provider Internal Medicine Rheumatology | DX: M19.90 Unspecified osteoarthritis, unspecified site (principal) | CPT/HCPCS: 97110; 97140; 97166 ==

== ENCOUNTER 2022-07-22 12:26 | Emergency (ER) | payer OTHER, SELFPAY ==
--- NOTE | ~2022-07-22 | XR_ITS ---
EXAMINATION: XR KNEE, RIGHT CLINICAL INFORMATION: Right knee pain COMPARISON: None TECHNIQUE: Two views of the right knee. FINDINGS: No fracture or malalignment. No joint space narrowing. There is a small joint effusion. XR/XR knee RT 2V IMPRESSION: Small joint effusion. No fracture.
[2022-07-22 15:25] VITALS: BP 143/89; PULSE 73; RESP 18; TEMP 36.8; O2SAT 99; BMI 34.3
[2022-07-22] MEDS: Acetaminophen 325 MG TABLET 975 MG PO (15:29)
--- NOTE | 2022-07-22 16:47 | ED_ITS ---
HPI - Extremity Injury (Lower) General Chief Complaint: Extremity Injury, Lower Stated Complaint: r knee pain Time Seen by Provider: 07/22/22 14:47 Source: patient Mode of arrival: ambulatory Limitations: no limitations History of Present Illness HPI Narrative: Patient is a 31 year old female presenting to the emergency department today with right knee pain. Patient states that over the last few days she has had an increase in right knee pain. Patient states that she has a history of arthritis and is currently on prednisone. Patient denies any dizziness, lightheadedness, abdominal pain, nausea, vomiting, fever, chills, blurry vision, double vision, loss of vision, chest pain, difficulty breathing, shortness of breath, back pain, night sweats, pain with urination, increased urinary frequency, increased urinary urgency, blood in her urine or stool, syncope or a near syncopal episode, recent trauma or falls, bowel incontinence, bladder incontinence, bowel retention, bladder retention, or any other complaints at this time. Onset (ago): day(s) Severity: mild Severity scale (1-10): 2 Exacerbating factors: movement Other symptoms: none Related Data Home Medications Medication Instructions Recorded Confirmed ferrous sulfate 325 mg (65 mg 325 mg PO DAILY 08/22/21 01/15/22 iron) tablet (Feosol) cholecalciferol (vitamin D3) 125 125 mcg PO DAILY 12/06/21 01/15/22 mcg (5,000 unit) capsule folic acid 1 mg tablet 1 mg PO DAILY 12/06/21 01/15/22 hydroxychloroquine 200 mg tablet 200 mg PO BID 12/06/21 01/15/22 sulfamethoxazole 800 1 tab PO 3XW 12/06/21 01/15/22 mg-trimethoprim 160 mg tablet Previous Rx's Medication Instructions Recorded venlafaxine 37.5 mg tablet 37.5 mg PO BEDTIME 90 days #90 tabs 03/02/22 prednisone 20 mg tablet 20 mg PO DAILY #14 tabs 03/14/22 Allergies Allergy/AdvReac Type Severity Reaction Status Date / Time aspirin [ASA] Allergy Severe Palpitation Verified 12/26/21 18:58 s Review of Systems Constitutional: Constitutional: Reports no additional constitutional complaints, Denies chills, Denies fever(s) and Denies night sweats Eyes: Eyes: Reports no additional eye complaints, Denies blurry vision, Denies change in vision, Denies diplopia, Denies eye discharge, Denies loss of vision and Denies eye pain ENT: Denies dizziness Cardiovascular: Cardiovascular: Reports no additional cardiovascular complaints, Denies chest pain, Denies lightheadedness, Denies Loss of Consciousness and Denies dyspnea Respiratory: Respiratory: Reports no additional respiratory complaints and Denies dyspnea Gastrointestinal: Gastrointestinal: Reports no additional gastrointestinal complaints, Denies abdominal pain, Denies melena, Denies hematochezia, Denies change in bowel habits and Denies change in stool character Genitourinary: Genitourinary: Denies hematuria, Denies urinary frequency, Denies dysuria, Denies urinary incontinence, Denies urinary hesitancy and Denies urinary urgency Musculoskeletal: Musculoskeletal: Reports no additional musculoskeletal complaints, Denies numbness and Denies tingling Comments: right knee pain Neurologic: Denies dizziness, Denies loss of vision, Denies numbness and Denies tingling Psychiatric: Psychiatric: Reports no additional psychiatric complaints Endocrine: Endocrine: Reports no additional endocrine complaints Hematologic/Lymphatic: Hematologic/Lymphatic: Reports no additional hematologic/lymphatic complaints Allergic/Immunologic: Allergic/Immunologic: Reports no additional allergic/immunologic complaints [facility] Past Medical History Attestation statement: The following information was validated with the patient. Source: old records reviewed Medical History Anemia Chronic migraine with aura Daily headache Left wrist pain Lung nodule seen on imaging study Mild persistent asthma Mild recurrent major depression Overweight (BMI 25.0-29.9) Physical exam Polyarthralgia Rheumatoid arthritis Solitary pulmonary nodule Urticaria Surgical History Hx of section Family History Family History Mother Hypoglycemia Father Hypertension Diabetes Family/Other Mental health disorder Substance use disorder Social History Social History Housing: Apartment Alcohol intake: former Patient Tobacco Use Status: Former Tobacco user Quit Date: 03/2021 Tobacco use type: Cigarette e-Cigarette/Vaping Use: Never Used Second Hand Smoke Exposure: No Advance Directives: No Advance Directives Information Provided: No service: No Current occupational status: unemployed Physical Exam Vital Signs: Vital Signs: Last Vital Signs Temp 98.2 F 07/22/22 15:25 Pulse 73 07/22/22 15:25 Resp 18 07/22/22 15:25 BP 143/89 H 07/22/22 15:25 Pulse Ox 99 07/22/22 15:25 O2 Del Method 07/22/22 15:25 BMI result Body Mass Index 34.3 Const: General: cooperative, no acute distress, alert and awake Nutritional Appearance: well nourished Orientation/consciousness: patient oriented x3 Limitations: no limitations HEENT: Head: Yes normal to inspection and Yes atraumatic Ears: hearing grossly normal bilaterally and external ears normal General nose exam: Normal external nose present, no nasal discharge noted and no epistaxis Face and sinus: Yes normal facial exam, No abrasion and No laceration Mouth: Normal oral and palatal mucosa present, no drooling and no muffled voice Eyes: General: appearance normal, both eyes and all related structures Periorbital: periorbital findings normal Eyelids: Yes eyelids normal Conjunctivae: conjunctivae normal Pupils: Equal, round and reactive pupils present EOM: EOMs intact bilaterally Neck: Neck: Yes normal visual inspection, Yes full ROM and Yes no lymphadenopathy Chest: Chest palpation & inspection: normal inspection of the chest Resp: Effort & Inspection: normal respiratory effort and able to speak in complete sentences Auscultation: clear to auscultation bilaterally GI: Inspection: Yes normal to inspection Neuro: General: patient oriented x3 and moves all extremities Cranial nerves: Yes Equal, round and reactive pupils present Cognition (Neuro): normal cognition Motor exam (neuro): 5/5 motor strength present throughout Sensory Exam: Normal double simultaneous stimulation for sensation Coordination: [id number] test normal Extrem: General: Yes normal to inspection, Yes full ROM and Yes capillary refill normal Psych: Appearance: grossly normal Mental Status: mental status grossly normal Affect: normal affect Attitude: cooperative Thought process: Normal thought process present Thought content: Normal thought content present Insight: Good insight present (Psych) MDM - Extremity Injury (Lower) MDM Narrative Medical decision making narrative: Patient is a 31 year old female presenting to the emergency department today with right knee pain. Patient's physical exam was unremarkable. Patient's right knee x-ray showed no acute fracture. I explained my physical exam findings as well as all test results to the patient. I answered all questions asked by the patient. Patient received IM Toradol which she stated helped her pain significantly. I stressed the importance of the patient taking her medication as prescribed. I stressed the importance of the patient following up with her primary care provider and an orthopedic provider. I stressed the importance of the patient returning to the emergency department immediately if her symptoms were to worsen or if she were to develop any dizziness, shortness of breath, difficulty breathing, chest pain, blurry vision, loss of vision, nausea, vomiting, abdominal pain, fever, chills, back pain, or any other complaints. Patient verbalized agreement and understanding with this treatment plan and discharge. Medical Records Attestation: I reviewed the patient's medical records. Imaging Data Right knee x-ray: Attestation: I personally reviewed and interpreted this imaging study as follows: My impression: No acute process. Radiologist's impression: EXAMINATION: XR KNEE, RIGHT? CLINICAL INFORMATION: Right knee pain? COMPARISON: None? TECHNIQUE: Two views of the right knee. FINDINGS: No fracture or malalignment. No joint space narrowing. There is a small joint effusion.? XR/XR knee RT 2V IMPRESSION: Small joint effusion. No fracture. Dictated By: Reji Sorensen MD Signed By: Electronically signed by Reji Sorensen MD 07/22/22 9300 Discharge Plan Discharge Clinical Impression: Arthritis Patient Disposition: Home, Self-Care Instructions: Osteoarthritis (ED) Additional Instructions: Follow up with your primary care provider and an orthopedic provider. Return to the emergency department immediately if your symptoms worsen or if you develop any dizziness, shortness of breath, difficulty breathing, chest pain, blurry vision, loss of vision, nausea, vomiting, abdominal pain, fever, chills, back pain, or any other complaints. Prescriptions: No Action venlafaxine 37.5 mg tablet 37.5 mg PO BEDTIME 90 Days Qty: 90 0RF prednisone 20 mg tablet 20 mg PO DAILY Qty: 14 0RF cholecalciferol (vitamin D3) 125 mcg (5,000 unit) capsule 125 mcg PO DAILY folic acid 1 mg tablet 1 mg PO DAILY sulfamethoxazole-trimethoprim 800-160 mg tablet 1 tab PO 3XW hydroxychloroquine 200 mg tablet 200 mg PO BID ferrous sulfate [Feosol] 325 mg (65 mg iron) tablet 325 mg PO DAILY Referrals: [facility] [Provider Group] (Call to establish and follow up with an orthopedic provider. ) Angeline Alvarado MD [Primary Care Provider] - Stand Alone Forms: Work/School Release Print Language: French
[2022-07-22] MEDS: Ketorolac Tromethamine 15 MG/ML VIAL IM (17:09)
== END 2022-07-22 17:13 | disposition home or self-care (01) ==
PROVIDERS: Emergency Provider Emergency Medicine; PCP Internal Medicine
DX: M17.11 Unilateral primary osteoarthritis, right knee (principal); M25.461 Effusion, right knee; M25.561 Pain in right knee
CPT/HCPCS: 73560; 96372; 99283; 99284; J1885

== ENCOUNTER 2022-08-09 13:02 | Outpatient (REF) | payer OTHER, SELFPAY ==
[2022-08-09 13:33] LABS: Binax Internal Control QC Valid; Binax Now Covid-19 Ag Negative (Negative); Binax Performed by: HO.BONILM
== END 2022-08-09 13:03 | disposition home or self-care (01) ==
LOC: HO.HMGCLDS 13:02
PROVIDERS: PCP Internal Medicine
DX: Z20.822 Contact with and (suspected) exposure to COVID-19 (principal); R05.9 Cough, unspecified
CPT/HCPCS: 87811; C9803

== ENCOUNTER 2022-08-13 08:18 | Outpatient (REF) | payer OTHER, SELFPAY ==
--- NOTE | ~2022-08-13 | XR_ITS ---
EXAMINATION: XR KNEE AP STANDING CLINICAL INFORMATION: Pain COMPARISON: Previous x-ray June 2022 TECHNIQUE: AP bilateral standing view of the knees and sunrise view of the right knee was obtained. FINDINGS: Standing AP view of both knees is unremarkable. There is slight lateral tilt of the patella on the sunrise view. XR/XR knee RT 1V IMPRESSION: Slight lateral tilt of the patella on the sunrise view.
--- NOTE | ~2022-08-13 | XR_ITS ---
EXAMINATION: XR KNEE AP STANDING CLINICAL INFORMATION: Pain COMPARISON: Previous x-ray June 2022 TECHNIQUE: AP bilateral standing view of the knees and sunrise view of the right knee was obtained. FINDINGS: Standing AP view of both knees is unremarkable. There is slight lateral tilt of the patella on the sunrise view. XR/XR knee standing BI IMPRESSION: Slight lateral tilt of the patella on the sunrise view.
== END 2022-08-13 08:19 | disposition home or self-care (01) ==
LOC: HO.HOSX 08:18
PROVIDERS: Visit Provider Physician Assistant
DX: M23.91 Unspecified internal derangement of right knee (principal)
CPT/HCPCS: 73560; 73565; 99202

== ENCOUNTER 2022-09-11 12:47 | Emergency (ER) | payer OTHER, SELFPAY ==
--- NOTE | ~2022-09-11 | XR_ITS ---
EXAMINATION: XR ANKLE, RIGHT XR FOOT, RIGHT CLINICAL INFORMATION: Injury. Pain. COMPARISON: None TECHNIQUE: 3 views of the right foot. 2 additional views of the right ankle. FINDINGS: Right ankle: No fracture or dislocation. The ankle mortise is congruent. Lateral soft tissue swelling. Ankle joint effusion present. Right foot: No fracture or dislocation. Alignment maintained. Joint spaces are maintained. The soft tissues are unremarkable. XR/XR foot RT 2V IMPRESSION: Lateral soft tissue swelling at the ankle with ankle joint effusion. No fracture or malalignment.
--- NOTE | ~2022-09-11 | XR_ITS ---
EXAMINATION: XR ANKLE, RIGHT XR FOOT, RIGHT CLINICAL INFORMATION: Injury. Pain. COMPARISON: None TECHNIQUE: 3 views of the right foot. 2 additional views of the right ankle. FINDINGS: Right ankle: No fracture or dislocation. The ankle mortise is congruent. Lateral soft tissue swelling. Ankle joint effusion present. Right foot: No fracture or dislocation. Alignment maintained. Joint spaces are maintained. The soft tissues are unremarkable. XR/XR ankle RT min 3V IMPRESSION: Lateral soft tissue swelling at the ankle with ankle joint effusion. No fracture or malalignment.
[2022-09-11 12:57] VITALS: BP 124/85; BP 126/82; PULSE 68; PULSE 74; RESP 12; TEMP 36.6; O2SAT 95; O2SAT 98; BMI 32.3
--- NOTE | 2022-09-11 13:02 | ED_ITS ---
HPI - General Adult General Chief complaint: Extremity Injury, Lower Stated complaint: R ANKLE PAIN/INJURY S/P FALL Time Seen by Provider: 09/11/22 13:02 Source: patient and EMS Mode of arrival: EMS Limitations: no limitations History of Present Illness HPI narrative: Patient is a 31 year old assigned female at with a history of RA presenting to the emergency department today with right ankle pain. Patient states that she rolled her right ankle at work and heard a popping sound. Patient denies any dizziness, lightheadedness, abdominal pain, nausea, vomiting, fever, chills, blurry vision, double vision, loss of vision, chest pain, difficulty breathing, shortness of breath, back pain, night sweats, pain with urination, increased urinary frequency, increased urinary urgency, blood in her urine or stool, syncope or a near syncopal episode, bowel incontinence, bladder incontinence, bowel retention, bladder retention, or any other complaints at this time. Onset (ago): hour(s) Location: right and lower extremity Radiation: non-radiation Severity: moderate Severity scale (1-10): 5 Quality: aching and dull Pain Consistency: constant Relieving factors: none Exacerbating factors: movement Associated symptoms: denies other symptoms Treatments prior to arrival: none Related Data Home Medications Medication Instructions Recorded Confirmed ferrous sulfate 325 mg (65 mg 325 mg PO DAILY 08/22/21 08/09/22 iron) tablet (Feosol) cholecalciferol (vitamin D3) 125 125 mcg PO DAILY 12/06/21 08/09/22 mcg (5,000 unit) capsule folic acid 1 mg tablet 1 mg PO DAILY 12/06/21 08/09/22 hydroxychloroquine 200 mg tablet 200 mg PO BID 12/06/21 08/09/22 Previous Rx's Medication Instructions Recorded venlafaxine 37.5 mg tablet 37.5 mg PO BEDTIME 90 days #90 tabs 03/02/22 prednisone 20 mg tablet 20 mg PO DAILY #14 tabs 03/14/22 meloxicam 7.5 mg tablet 15 mg PO DAILY PRN knee pain #20 07/25/22 tabs sumatriptan succinate 25 mg tablet 25 mg PO Q2-4H #20 tabs 08/09/22 meloxicam 15 mg tablet 15 mg PO DAILY 30 days #30 tabs 08/13/22 Allergies Allergy/AdvReac Type Severity Reaction Status Date / Time aspirin [ASA] Allergy Severe Palpitation Verified 08/13/22 11:27 s Review of Systems Constitutional: Constitutional: Reports no additional constitutional complaints, Denies chills, Denies fever(s) and Denies night sweats Eyes: Eyes: Reports no additional eye complaints, Denies blurry vision, Denies change in vision, Denies diplopia, Denies eye discharge, Denies loss of vision and Denies eye pain ENT: Denies dizziness Cardiovascular: Cardiovascular: Reports no additional cardiovascular complaints, Denies chest pain, Denies lightheadedness, Denies Loss of Consciousness and Denies dyspnea Respiratory: Respiratory: Reports no additional respiratory complaints and Denies dyspnea Gastrointestinal: Gastrointestinal: Reports no additional gastrointestinal complaints, Denies abdominal pain, Denies melena, Denies hematochezia, Denies change in bowel habits and Denies change in stool character Genitourinary: Genitourinary: Denies hematuria, Denies urinary frequency, Denies dysuria, Denies urinary incontinence, Denies urinary hesitancy and Denies urinary urgency Musculoskeletal: Musculoskeletal: Reports no additional musculoskeletal complaints, Denies numbness and Denies tingling Comments: right ankle pain Neurologic: Denies dizziness, Denies loss of vision, Denies numbness and Denies tingling Psychiatric: Psychiatric: Reports no additional psychiatric complaints Endocrine: Endocrine: Reports no additional endocrine complaints Hematologic/Lymphatic: Hematologic/Lymphatic: Reports no additional hematologic/lymphatic complaints Allergic/Immunologic: Allergic/Immunologic: Reports no additional allergic/immunologic complaints FORMERLY [facility], [facility] Past Medical History Attestation statement: The following information was validated with the patient. Source: old records reviewed Medical History Anemia Chronic migraine with aura Cough Daily headache Left wrist pain Lung nodule seen on imaging study Lupus Mild persistent asthma Mild recurrent major depression Overweight (BMI 25.0-29.9) Physical exam Polyarthralgia Rheumatoid arthritis Solitary pulmonary nodule Swelling of right knee joint Urticaria Surgical History Hx of section Family History Family History Mother Hypoglycemia Father Hypertension Diabetes Family/Other Mental health disorder Substance use disorder Social History Social History Housing: Apartment Alcohol intake: former Patient Tobacco Use Status: Former Tobacco user Quit Date: 03/2021 Tobacco use type: Cigarette e-Cigarette/Vaping Use: Never Used Second Hand Smoke Exposure: No Advance Directives: No service: No Current occupational status: unemployed Physical Exam ED Vital Signs: Vital Signs - 24 hr 09/11/22 12:57 09/11/22 14:00 Temperature 97.9 F 98.1 F Pulse Rate 68 70 Respiratory Rate 12 14 Blood Pressure 124/85 112/83 Pulse Oximetry 95 99 Oxygen Delivery Method Room Air Room Air BMI result Body Mass Index 32.3 Const General: cooperative, no acute distress, alert and awake Nutritional Appearance: well nourished Orientation/consciousness: patient oriented x3 Limitations: no limitations HENMT Head: Yes normal to inspection and Yes atraumatic Ears: hearing grossly normal bilaterally and external ears normal General nose exam: Normal external nose present, no nasal discharge noted and no epistaxis Face and sinus: Yes normal facial exam, No abrasion and No laceration Mouth: Normal oral and palatal mucosa present, no drooling and no muffled voice Eyes General: appearance normal, both eyes and all related structures Periorbital: periorbital findings normal Eyelids: Yes eyelids normal Conjunctivae: conjunctivae normal Pupils: Equal, round and reactive pupils present EOM: EOMs intact bilaterally Neck Neck: Yes normal visual inspection, Yes full ROM and Yes no lymphadenopathy Chest Chest palpation & inspection: normal inspection of the chest Resp Effort & Inspection: normal respiratory effort and able to speak in complete sentences Auscultation: clear to auscultation bilaterally Cardio Rate: regular rate Rhythm: regular rhythm GI Inspection: Yes normal to inspection Neuro General: patient oriented x3 and moves all extremities Cranial nerves: Yes Equal, round and reactive pupils present Cognition (Neuro): normal cognition Motor exam (neuro): 5/5 motor strength present throughout Sensory Exam: Normal double simultaneous stimulation for sensation Coordination: [id number] test normal Extrem Other: minimal right ankle swelling General: Yes full ROM and Yes capillary refill normal Psych Appearance: grossly normal Mental Status: mental status grossly normal Affect: normal affect Attitude: cooperative Thought process: Normal thought process present Thought content: Normal thought content present Insight: Good insight present (Psych) Procedures Orthopedic Splinting/Casting Injury #1: Side: right Lower Extremity Injury Location: ankle and foot Lower Extremity Immobilizer: boot orthosis Other Orthopedic Equipment: crutches Medical Decision Making MDM Narrative Medical decision making narrative: Patient is a 31 year old assigned female at with a history of RA presenting to the emergency department today with right ankle pain. Patient's physical exam showed minimal right ankle swelling. Patient's right foot and right ankle x-rays showed no acute process. I explained my physical exam findings as well as all test results to the patient. I answered all questions asked by the patient. Patient's right foot was placed in a walking boot and the patient was given crutches with crutch instructions, without incident. I stressed the importance of the patient taking her medication as prescribed. I stressed the importance of the patient following up with her primary care provider and if pain persists, an orthopedic provider. I stressed the importance of the patient returning to the emergency department immediately if her symptoms were to worsen or if she were to develop any dizziness, shortness of breath, difficulty breathing, chest pain, blurry vision, loss of vision, nausea, vomiting, abdominal pain, fever, chills, back pain, or any other complaints. Patient verbalized agreement and understanding with this treatment plan and discharge. Medical Records Medical records reviewed: Yes I reviewed the patient's medical records. Imaging Data Left ankle and left foot x-rays: Attestation: I personally reviewed and interpreted this imaging study as follows: My impression: No acute fracture. Radiologist's impression: EXAMINATION: XR ANKLE, RIGHT XR FOOT, RIGHT CLINICAL INFORMATION: Injury. Pain.? COMPARISON: None? TECHNIQUE: 3 views of the right foot. 2 additional views of the right ankle.? FINDINGS: Right ankle: No fracture or dislocation. The ankle mortise is congruent. Lateral soft tissue swelling. Ankle joint effusion present. Right foot: No fracture or dislocation. Alignment maintained. Joint spaces are maintained. The soft tissues are unremarkable.? XR/XR foot RT 2V IMPRESSION: Lateral soft tissue swelling at the ankle with ankle joint effusion. No fracture or malalignment. Dictated By: Donald Benavidez MD Signed By: Electronically signed by Donald Benavidez MD 09/11/22 9928 Discharge Plan Discharge Clinical Impression: Ankle sprain Patient Disposition: Home, Self-Care Instructions: Ankle Sprain (ED), Crutch Instructions (ED) Additional Instructions: Follow up with your primary care provider. If pain persists over 14 days, follow up with an orthopedic provider. Return to the emergency department immediately if your symptoms worsen or if you develop any dizziness, shortness of breath, difficulty breathing, chest pain, blurry vision, loss of vision, nausea, vomiting, abdominal pain, fever, chills, back pain, or any other complaints. Prescriptions: No Action venlafaxine 37.5 mg tablet 37.5 mg PO BEDTIME 90 Days Qty: 90 0RF prednisone 20 mg tablet 20 mg PO DAILY Qty: 14 0RF cholecalciferol (vitamin D3) 125 mcg (5,000 unit) capsule 125 mcg PO DAILY folic acid 1 mg tablet 1 mg PO DAILY hydroxychloroquine 200 mg tablet 200 mg PO BID ferrous sulfate [Feosol] 325 mg (65 mg iron) tablet 325 mg PO DAILY sumatriptan succinate 25 mg tablet 25 mg PO Q2-4H Qty: 20 0RF Rx Instructions: not to exceed 8 tabs in a day meloxicam 7.5 mg tablet 15 mg PO DAILY PRN (Reason: knee pain) Qty: 20 0RF meloxicam 15 mg tablet 15 mg PO DAILY 30 Days Qty: 30 0RF Referrals: [facility] [Provider Group] (If pain persists >2 weeks, follow up with an orthopedic provider. ) Angeline Alvarado MD [Primary Care Provider] - Stand Alone Forms: Work/School Release Interventions: ED Discharge Assessment Last Done: 09/11/22 14:59 Discharge Date/Time: 09/11/22 14:59 Print Language: Polish
[2022-09-11 14:00] VITALS: BP 112/83; PULSE 70; RESP 14; TEMP 36.7; O2SAT 99
== END 2022-09-11 14:59 | disposition home or self-care (01) ==
PROVIDERS: Emergency Provider Emergency Medicine Emergency Medical Services; PCP Internal Medicine
DX: S93.401A Sprain of unspecified ligament of right ankle, initial encounter (principal); X50.1XXA Overexertion from prolonged static or awkward postures, initial encounter; Y93.89 Activity, other specified; Y92.59 Other trade areas as the place of occurrence of the external cause; Y99.0 Civilian activity done for income or pay
CPT/HCPCS: 73610; 73620; 99284

== ENCOUNTER 2022-10-05 09:32 | Emergency (ER) | payer OTHER, SELFPAY ==
--- NOTE | ~2022-10-05 | XR_ITS ---
EXAMINATION: XR CHEST CLINICAL INFORMATION: Cough. COMPARISON: 08/10/2021 chest radiograph. TECHNIQUE: Frontal view of the chest was obtained. FINDINGS: No significant abnormality is noted involving the heart, lungs, mediastinum, bony thorax or soft tissues. XR/XR chest 1V IMPRESSION: No acute cardiopulmonary process.
[2022-10-05 09:34] VITALS: BP 118/78; PULSE 70; RESP 18; TEMP 36.6; O2SAT 99; BMI 29.0
--- NOTE | 2022-10-05 09:49 | ED.GENADULT ---
HPI - General Adult General Chief complaint: General Medical Stated complaint: diff breathing Time Seen by Provider: 10/05/22 09:39 Source: patient Mode of arrival: ambulatory Limitations: no limitations History of Present Illness HPI narrative: 31 years old female with history of lupus on is on also ill history of fibromyalgia presented to the emergency department with a chief complain of for congestion inability to eat since yesterday denies fever chills abdominal pain Onset (ago): day(s) (1) Radiation: non-radiation Severity: moderate Quality: burning Pain Consistency: constant Relieving factors: none Exacerbating factors: none Related Data Home Medications Medication Instructions Recorded Confirmed ferrous sulfate 325 mg (65 mg 325 mg PO DAILY 08/22/21 08/09/22 iron) tablet (Feosol) cholecalciferol (vitamin D3) 125 125 mcg PO DAILY 12/06/21 08/09/22 mcg (5,000 unit) capsule folic acid 1 mg tablet 1 mg PO DAILY 12/06/21 08/09/22 hydroxychloroquine 200 mg tablet 200 mg PO BID 12/06/21 08/09/22 Previous Rx's Medication Instructions Recorded prednisone 20 mg tablet 20 mg PO DAILY #14 tabs 03/14/22 meloxicam 7.5 mg tablet 15 mg PO DAILY PRN knee pain #20 07/25/22 tabs meloxicam 15 mg tablet 15 mg PO DAILY 30 days #30 tabs 08/13/22 Allergies Allergy/AdvReac Type Severity Reaction Status Date / Time aspirin [ASA] Allergy Severe Palpitation Verified 09/18/22 12:03 s Review of Systems Constitutional: Constitutional: Reports no additional constitutional complaints Cardiovascular: Cardiovascular: Reports no additional cardiovascular complaints Respiratory: Respiratory: Reports cough Gastrointestinal: Gastrointestinal: Denies diarrhea and Denies loose stools PMFSH Past Medical History Medical History Anemia Chronic migraine with aura Cough Daily headache Left wrist pain Lung nodule seen on imaging study Lupus Mild persistent asthma Mild recurrent major depression Overweight (BMI 25.0-29.9) Physical exam Polyarthralgia Rheumatoid arthritis Solitary pulmonary nodule Swelling of right knee joint Urticaria Surgical History Hx of section Family History Family History Mother Hypoglycemia Father Hypertension Diabetes Family/Other Mental health disorder Substance use disorder Social History Social History Housing: Apartment Alcohol intake: never Patient Tobacco Use Status: Former Tobacco user Quit Date: 03/2021 Tobacco use type: Cigarette Smoked in Last 30 Days: Yes e-Cigarette/Vaping Use: Never Used Second Hand Smoke Exposure: No Substance Use Type: Marijuana Advance Directives: No Advance Directives Information Provided: No Patient : No service: No Current occupational status: unemployed Physical Exam ED Vital Signs: Vital Signs - 24 hr 10/05/22 09:34 10/05/22 10:01 10/05/22 12:19 Temperature 97.9 F 98.4 F Pulse Rate 70 69 71 Respiratory Rate 18 18 18 Blood Pressure 118/78 115/77 119/84 Pulse Oximetry 99 98 100 Oxygen Delivery Method Room Air Room Air Room Air BMI result Body Mass Index 29.0 Const General: cooperative Orientation/consciousness: patient oriented x3 Limitations: no limitations HENMT Head: Yes normal to inspection Ears: hearing grossly normal bilaterally General nose exam: Normal external nose present Face and sinus: Yes normal facial exam Mouth: Normal oral and palatal mucosa present Throat: Yes posterior oropharynx normal Neck Neck: Yes normal visual inspection and Yes full ROM Chest Chest palpation & inspection: normal inspection of the chest Resp Effort & Inspection: normal respiratory effort and able to speak in complete sentences Auscultation: clear to auscultation bilaterally Cardio Jugular venous distension: no JVD Rate: regular rate Rhythm: regular rhythm GI Inspection: Yes normal to inspection Palpation (GI): Soft to palpation, not firm, nontender and no guarding Skin General skin exam: no rashes or lesions noted, elasticity normal and turgor normal Lesions: no lesions Rashes: no rashes Neuro General: patient oriented x3 and gait normal Course Reevaluation(s) Reevaluation #1: she is much better, chest x-ray is negative, she is eating lunch at this time Time: 12:01 Medications Administered Discontinued Medications Generic Name Dose Route Start Last Admin Trade Name Freq PRN Reason Stop Dose Admin Sodium Chloride 1,000 mls @ 999 mls/hr 10/05/22 10:00 10/05/22 12:19 Ns IVCONT 10/05/22 11:00 Infused .Q1H1M NIDIA Infusion Ondansetron HCl 4 mg 10/05/22 09:47 10/05/22 09:56 Ondansetron Hcl 4 Mg/2 Ml Vial IVPUSH 10/05/22 09:48 4 mg ONCE ONE Administration Medical Decision Making Medical Decision Making Differential Diagnoses: Differential diagnosis (pneumonia/covid/influenza) Lab Attestation: I reviewed the patient's lab results. Discussion of test interpretation with radiology: Discussion of test interpretation with radiology (ireview personally the CXR) Chronic conditions affecting care (e.g., diabetes, HTN): Chronic conditions affecting care (e.g., diabetes, HTN) Patient?s care impacted by: Other (Lupus) Discharge Plan Discharge Clinical Impression: COVID-19 Patient Disposition: Home, Self-Care Instructions: COVID-19 (Coronavirus Disease 2019) (ED) Prescriptions: No Action prednisone 20 mg tablet 20 mg PO DAILY Qty: 14 0RF cholecalciferol (vitamin D3) 125 mcg (5,000 unit) capsule 125 mcg PO DAILY folic acid 1 mg tablet 1 mg PO DAILY hydroxychloroquine 200 mg tablet 200 mg PO BID ferrous sulfate [Feosol] 325 mg (65 mg iron) tablet 325 mg PO DAILY meloxicam 7.5 mg tablet 15 mg PO DAILY PRN (Reason: knee pain) Qty: 20 0RF meloxicam 15 mg tablet 15 mg PO DAILY 30 Days Qty: 30 0RF Referrals: Angeline Alvarado MD [Primary Care Provider] - 10/28/22 Stand Alone Forms: Work/School Release Interventions: ED Discharge Assessment Last Done: 10/05/22 12:24 Discharge Date/Time: 10/05/22 12:24
[2022-10-05] MEDS: ondansetron HCL 4 MG/2 ML VIAL IVPUSH (09:56)
[2022-10-05] MEDS: 0.9 % Sodium Chloride 1,000 ML 999 ML IVCONT (09:56)
[2022-10-05 10:01] VITALS: BP 115/77; PULSE 69; RESP 18; TEMP 36.9; O2SAT 98
--- NOTE | 2022-10-05 10:17 | PC.NURSE ---
patient a/ox4 . gladysla . heart rate regular at 78 beats per minute . breathing even and unlabored . lungs clear throughout . dry non productive cough , patients voice raspy . reports being exposed by coworker to COVID . skin is pink warm and dry . abdomen soft not tender . positive bowel sounds throughout . X-RAy done at bedside . IV placed on left A.C labs obtained and sent .normal saline started as ordered . patient medicated with zofran as ordered . 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 patient aware of plan of care .
[2022-10-05 10:20] LABS: MANUAL DIFF FLAG NO
[2022-10-05 10:31] LABS: Influenza A PCR NEGATIVE (Negative); Influenza B PCR NEGATIVE (Negative); Resp Syncy Virus RNA Qual PCR NEGATIVE (Negative); SARS COV2 PCR INHOUSE POSITIVE (Negative)
[2022-10-05 10:35] LABS: Basophils Percent Auto 0.3 % (0-2); Eosinophils Absolute Auto 0.3 X10*3/uL (0.0-0.4); Eosinophils Percent Auto 4.2 % (0-4); Hematocrit 38.8 % (37.0-47.0); Hemoglobin 13.2 g/dl (12.0-16.0); Imm Gran Abs Auto 0.02 X10*3/uL (0.00-0.03); Imm Gran Pct Auto 0.3 % (0.0-0.4); Lymphocytes Absolute Auto 1.2 X10*3/uL (1.2-4.9); Lymphocytes Percent Auto 20.1 % (20-40); Mean Corpuscular Hemoglobin 29.7 pg (27.0-33.0); Mean Corpuscular Volume 87.2 fL (80.0-98.0); Mean Platelet Volume 11.7 fL (9.4-12.3); Monocytes Absolute Auto 0.5 X10*3/uL (0.1-1.2); Monocytes Percent Auto 8.9 % (2-11); Neutrophils Absolute Auto 3.9 x10*3/uL (2.0-8.3); Neutrophils Percent Auto 66.2 % (45-73); Platelet Count 147 X10*3/uL (160-400); Red Blood Count 4.45 X10*6/uL (4.20-5.50); Red Cell Distribution Width 12.8 % (11.0-16.0); White Blood Count 5.9 X10*3/uL (4.8-10.8)
[2022-10-05 10:46] LABS: Alanine Aminotransferase 15 U/L (0-31); Albumin Level 3.8 g/dL (3.5-5.0); Alkaline Phosphatase 65 U/L (39-117); Anion Gap 10 (12-20); Aspartate Amino Transferase 18 U/L (5-31); Blood Urea Nitrogen 9 mg/dL (9-16); Calcium 8.9 mg/dL (8.4-10.2); Carbon Dioxide 25 mmol/L (22-29); Chloride 108 mmol/L (96-108); Creatinine Clr Calc Pharmacy 125.5; Estimated Glomerular Filt Rate > 60; Glucose Random 92 mg/dL (60-115); Sodium 139 mmol/L (135-145); Total Protein 7.1 g/dL (6.5-8.0)
[2022-10-05 10:49] LABS: HCG Quantitative < 2 mIU/mL
[2022-10-05 11:03] LABS: Bilirubin Total 0.3 mg/dL (0.0-1.0)
[2022-10-05 12:19] VITALS: BP 119/84; PULSE 71; RESP 18; O2SAT 100
--- NOTE | 2022-10-05 12:23 | PC.NURSE ---
patient a/ox4 . VSS . went over discharge instructions as ordered by provider . patient to return to ED if symptoms worsen . no questions at this time .
== END 2022-10-05 12:24 | disposition home or self-care (01) ==
PROVIDERS: Emergency Provider Emergency Medicine; PCP Internal Medicine
DX: U07.1 COVID-19 (principal)
CPT/HCPCS: 0241U; 36415; 71045; 80053; 84702; 85025; 96361; 96374; 99284; J2405

== ENCOUNTER 2022-11-20 09:15 | Emergency (ER) | payer OTHER, SELFPAY ==
--- NOTE | ~2022-11-20 | CT_ITS ---
EXAMINATION: CT ABDOMEN AND PELVIS WITHOUT CONTRAST CLINICAL INFORMATION: Left flank pain COMPARISON: CT abdomen pelvis 02/21/2021 TECHNIQUE: Contiguous axial thin section helical images of the abdomen were performed without contrast. The data set was reformatted in the coronal and sagittal planes and reviewed on an independent workstation. This CT examination was performed using dose optimization techniques as appropriate, variously including the following: *Automated exposure control *Adjustment of mA and/or kV according to patient size (this includes techniques or standardized protocols for targeted exams where dose is matched to indication/reason for exam; i.e. extremities or head) *Use of iterative reconstruction technique DLP: 628 mGy-cm FINDINGS: LUNG BASES: The visualized lung bases are unremarkable. LIVER, GALLBLADDER, AND BILIARY TREE: The liver is normal in size, shape, and attenuation. No focal hepatic lesion or biliary ductal dilatation is present. The gallbladder is unremarkable with no evidence of radiopaque gallstones, gallbladder wall thickening, or obvious pericholecystic inflammatory changes. PANCREAS: Unremarkable. SPLEEN: Unremarkable. ADRENAL GLANDS: Unremarkable. KIDNEYS AND URETERS: The kidneys are normal in size, shape, and attenuation. There is a 5 mm nonobstructing calculus in the mid to lower pole of the left kidney which measures about 500 Hounsfield units and is 8 cm from the posterior axillary line. No hydronephrosis, hydroureter, or additional calculi seen. No renal masses. No perinephric stranding. BLADDER: Unremarkable. GASTROINTESTINAL TRACT: The small and large bowel are unremarkable. Colonic diverticular changes are present without diverticulitis. The appendix is unremarkable. ABDOMINAL WALL: No significant hernia is appreciated. LYMPH NODES: Normal. VASCULAR: Unremarkable. PELVIC VISCERA: The uterus and adnexa are unremarkable. OSSEOUS STRUCTURES: Unremarkable. CT/CT abdomen wo IV con IMPRESSION: 1. A cause for the patient's left flank pain has not been found. 2. Nonobstructing 5 mm left renal calculus. 3. Colonic diverticulosis without diverticulitis. Fleischner guidelines were followed.
[2022-11-20 09:34] VITALS: BP 111/70; PULSE 68; RESP 16; TEMP 36.6; O2SAT 98; BMI 31.7
[2022-11-20 09:37] VITALS: RESP 16
[2022-11-20 10:01] LABS: MANUAL DIFF FLAG NO
[2022-11-20 10:02] LABS: Basophils Percent Auto 0.6 % (0-2); Eosinophils Absolute Auto 0.2 X10*3/uL (0.0-0.4); Eosinophils Percent Auto 3.9 % (0-4); Hematocrit 39.5 % (37.0-47.0); Hemoglobin 13.6 g/dl (12.0-16.0); Imm Gran Abs Auto 0.01 X10*3/uL (0.00-0.03); Imm Gran Pct Auto 0.2 % (0.0-0.4); Lymphocytes Absolute Auto 1.6 X10*3/uL (1.2-4.9); Lymphocytes Percent Auto 31.9 % (20-40); Mean Corpuscular HGB Conc 34.4 g/dl (31.0-35.0); Mean Corpuscular Hemoglobin 29.2 pg (27.0-33.0); Mean Corpuscular Volume 84.9 fL (80.0-98.0); Monocytes Absolute Auto 0.7 X10*3/uL (0.1-1.2); Monocytes Percent Auto 13.4 % (2-11); Neutrophils Absolute Auto 2.6 x10*3/uL (2.0-8.3); Platelet Count 182 X10*3/uL (160-400); Red Blood Count 4.65 X10*6/uL (4.20-5.50); Red Cell Distribution Width 12.4 % (11.0-16.0); White Blood Count 5.1 X10*3/uL (4.8-10.8)
[2022-11-20] MEDS: Ketorolac Tromethamine 15 MG/ML VIAL IVPUSH (10:19)
[2022-11-20 10:23] LABS: Appearance Urine Clear; Color Urine Yellow; Glucose Urine UA Negative (Negative); Leukocyte Esterase Urine Negative (Negative); Nitrite Urine Negative (Negative); PH 5.5 (5.0-9.0); Urine Blood Negative (Negative); Urine Ketones Negative (Negative); Urine Protein Negative (Neg-Trace)
[2022-11-20 10:26] LABS: UPreg QC Valid YES; Urine Pregnancy NEGATIVE (NEGATIVE)
[2022-11-20 11:01] LABS: Alanine Aminotransferase 7 U/L (0-31); Albumin Level 3.7 g/dL (3.5-5.0); Alkaline Phosphatase 69 U/L (39-117); Anion Gap 11 (12-20); Aspartate Amino Transferase 15 U/L (5-31); Bilirubin Total 0.2 mg/dL (0.0-1.0); Blood Urea Nitrogen 9 mg/dL (9-16); Calcium 8.9 mg/dL (8.4-10.2); Carbon Dioxide 26 mmol/L (22-29); Chloride 106 mmol/L (96-108); Creatinine Clr Calc Pharmacy 102.5; Estimated Glomerular Filt Rate > 60; Glucose Random 81 mg/dL (60-115); Magnesium 1.8 mg/dL (1.6-2.6); Potassium 4.8 mmol/L (3.3-5.1); Sodium 138 mmol/L (135-145); Total Protein 7.1 g/dL (6.5-8.0)
[2022-11-20 12:55] VITALS: BP 138/89; PULSE 68; RESP 16; TEMP 36.8; O2SAT 98
--- NOTE | 2022-11-20 13:01 | ED_ITS ---
HPI - Female Genitourinary General Chief complaint: Urogenital-Female Stated complaint: not feeling well, in pain Time Seen by Provider: 11/20/22 09:25 Source: patient Mode of arrival: ambulatory Limitations: no limitations History of Present Illness HPI Narrative: 32-year-old female with past medical history of AKANKSHA, rheumatoid arthritis, asthma, and history nephrolithiasis without hydronephrosis presents to the emergency department with complaints of 10/10 left flank pain radiating into left abdomen with decreased urine output. She reports symptoms began yesterday and feels similar to the symptoms she has had previously when she had a kidney stone > 6 months ago. She reports she changed her diet and reduced her Coca Cola intake with improved symptoms. She reports she recently began drinking soda again and not adhering is closely to the diet changes. Pt denies any hematuria, dysuria, or urinary retention. Pt denies any recent illness, sick contacts, paresthesias, weakness, fever, chills, nausea, vomiting, diarrhea, constipation, headache, or vision changes. Onset (ago): day(s) Location of symptoms: flank Severity: similar to previous episodes Female Urogenital Radiation: LLQ Severity scale (1-10): >10 Quality of pain: aching Consistency: constant Vaginal discharge: none Vaginal bleeding: none Urinary symptoms: Difficulty Urinating Exacerbating factors: movement Associated symptoms: denies other symptoms Treatment prior to arrival: none Sexual activity: Yes Possible : unsure if Date of Last Menstrual Period: 10/08/22 Related Data Home Medications Medication Instructions Recorded Confirmed ferrous sulfate 325 mg (65 mg 325 mg PO DAILY 08/22/21 08/09/22 iron) tablet (Feosol) cholecalciferol (vitamin D3) 125 125 mcg PO DAILY 12/06/21 08/09/22 mcg (5,000 unit) capsule folic acid 1 mg tablet 1 mg PO DAILY 12/06/21 08/09/22 hydroxychloroquine 200 mg tablet 200 mg PO BID 12/06/21 08/09/22 Previous Rx's Medication Instructions Recorded prednisone 20 mg tablet 20 mg PO DAILY #14 tabs 03/14/22 meloxicam 7.5 mg tablet 15 mg PO DAILY PRN knee pain #20 07/25/22 tabs meloxicam 15 mg tablet 15 mg PO DAILY 30 days #30 tabs 08/13/22 ketorolac 10 mg tablet 10 mg PO TID PRN pain 5 days #15 11/20/22 tabs Allergies Allergy/AdvReac Type Severity Reaction Status Date / Time aspirin [ASA] Allergy Severe Palpitation Verified 11/20/22 09:33 s Review of Systems Review of Systems: In addition to documented HPI above, the additional ROS was obtained: CONSTITUTIONAL: Denies fever, chills, weakness, fatigue, headache, night sweats, or weight loss EYES: Denies vision changes, eye pain, swelling, redness, foreign body, discharge ENT: Hearing normal. Denies sore throat, swallowing difficulty, throat tightness, hoarse voice, congestion, or ear pain CV: Denies chest pain or epigastric pain. No edema, palpitations, or dyspnea on exertion RESP: Denies shortness of breath. Denies cough, wheezing, dyspnea. Denies smoke exposure GI: Denies nausea, vomiting, constipation or diarrhea. No hematemesis, melena, or hematochezia. : Denies irregular bleeding or vaginal discharge. Denies dysuria, urinary frequency, urinary incontinence/retention, urgency. Denies hematuria MSK: Denies recent trauma, change in gait, myalgias, joint swelling or pain SKIN: Denies no lesions, rashes, or sores NEURO: Denies new numbness, tingling, dizziness, paresthesias or weakness. No loss of consciousness. Denies headache ENDOCRINE: Denies unexpected weight loss. Denies polyuria, polydipsia. No temperature intolerance HEME/ONC: Denies bleeding disorders, easy bruising, or lymphadenopathy PSYCH: Denies anxiety/panic, depression, SI/HI, or social issues. Yes all other systems are reviewed and are negative COUNTS INCLUDE 234 BEDS AT THE [facility] Past Medical History Attestation statement: The following information was validated with the patient. Source: old records reviewed Medical History Anemia Chronic migraine with aura Cough Daily headache Left wrist pain Lung nodule seen on imaging study Lupus Mild persistent asthma Mild recurrent major depression Overweight (BMI 25.0-29.9) Physical exam Polyarthralgia Rheumatoid arthritis Solitary pulmonary nodule Swelling of right knee joint Urticaria Surgical History Hx of section Date of Last Menstrual Period: 10/08/22 Family History Family History Mother Hypoglycemia Father Hypertension Diabetes Family/Other Mental health disorder Substance use disorder Social History Social History Housing: Apartment Alcohol intake: never Patient Tobacco Use Status: Former Tobacco user Quit Date: 03/2021 Tobacco use type: Cigarette Smoked in Last 30 Days: No e-Cigarette/Vaping Use: Never Used Second Hand Smoke Exposure: No Use of substances other than those prescribed or required for medical reasons: No Substance Use Type: Marijuana Advance Directives: No Patient : No service: No Current occupational status: unemployed Physical Exam Vital Signs: Vital Signs: Last Vital Signs Temp 98.2 F 11/20/22 12:55 Pulse 68 11/20/22 12:55 Resp 16 11/20/22 12:55 BP 138/89 11/20/22 12:55 Pulse Ox 98 11/20/22 12:55 O2 Del Method 11/20/22 12:55 BMI result Body Mass Index 31.7 Nursing notes and vital signs reviewed. GENERAL APPEARANCE: A&0 x 4, generally well appearing, no acute distress HENMT: Normal to inspection, atraumatic, face symmetrical. Normal external ears, nose, and oropharynx clear. EYE: PERRLA, EOM intact, structures appear normal NECK: Supple without lymphadenopathy. No stiffness or restricted ROM. CHEST: Normal to inspection HEART: Normal rate and regular rhythm, normal S1/S2, no M/R/G LUNGS: LS CTA, moving air well. Able to speak in complete sentences. No crackles, wheezes, or rhonchi auscultated ABDOMEN: Soft, nondistended, tender in LLQ into groin. Normal bowel sounds noted BACK: No Rt CVAT, + Lt CVAT. No obvious deformity EXTREMITIES: Moving all extremities without difficulty. No cyanosis, clubbing, or edema. Normal capillary refill. NEUROLOGICAL: Alert and oriented, moving all 4 extremities with equal strength. CN not formally tested but appearing grossly intact. Observed to ambulate with normal gait. Cognition normal SKIN: Warm and dry without any lesions, rash, or visible sores PSYCH: Cooperative, normal affect, normal thought process Medications Administered Discontinued Medications Generic Name Dose Route Start Last Admin Trade Name Freq PRN Reason Stop Dose Admin Ketorolac Tromethamine 15 mg 11/20/22 09:32 11/20/22 10:19 Ketorolac Tromethamine 15 Mg/Ml Vial IVPUSH 11/20/22 09:33 15 mg ONCE ONE Administration Medical Decision Making Medical Decision Making [facility] Narrative: 32-year-old female with past medical history of AKANKSHA, rheumatoid arthritis, asthma, and history nephrolithiasis without hydronephrosis presents to the emergency department with complaints of 10/10 left flank pain radiating into left abdomen with decreased urine output. Urinalysis negative for infection. Blood work unremarkable. CT abdomen pelvis showing a nonobstructing 5 mm left renal calculus and colonic diverticulosis without diverticulitis. History, p hysical, and diagnostic exams consistent with left nephrolithiasis and diverticulosis. Toradol given in the ED with good relief of pain. Low suspicion for small-bowel obstruction, ileus, IBS, colitis, Crohn's, ectopic , ovarian cyst. Patient is safe for discharge at this time with plan to manage symptoms with [id number] Tylenol and prescribed Toradol. HPI, PE, diagnostics, and plan discussed with patient and family with no unanswered questions at this time. Patient educated to return to the emergency department with new, worsening, or concerning emergent symptoms. Recommended to follow-up with there primary care provider for further treatment and management. *Refer to Course for additional information on consultations, diagnostic interpretation, consultations, emergency department stay, conversations with patient and family, shared decision making with patient, and more information on medical decision making* Lab Data [facility] Lab Attestation statement: I reviewed the patient's lab results. 11/20/22 09:57 11/20/22 10:26 Labs: Lab Results 11/20/22 11/20/22 11/20/22 Range/Units 09:57 10:13 10:13 WBC 5.1 (4.8-10.8) X10*3/uL RBC 4.65 (4.20-5.50) X10*6/uL Hgb 13.6 (12.0-16.0) g/dl Hct 39.5 (37.0-47.0) % MCV 84.9 (80.0-98.0) fL MCH 29.2 (27.0-33.0) pg MCHC 34.4 (31.0-35.0) g/dl RDW 12.4 (11.0-16.0) % Plt Count 182 (160-400) X10*3/uL MPV 11.0 (9.4-12.3) fL Immature Gran % (Auto) 0.2 (0.0-0.4) % Neut % (Auto) 50.0 (45-73) % Lymph % (Auto) 31.9 (20-40) % Coke % (Auto) 13.4 H (2-11) % Eos % (Auto) 3.9 (0-4) % Baso % (Auto) 0.6 (0-2) % Lymph # (Auto) 1.6 (1.2-4.9) X10*3/uL Coke # (Auto) 0.7 (0.1-1.2) X10*3/uL Eos # (Auto) 0.2 (0.0-0.4) X10*3/uL Baso # (Auto) 0.0 (0.0-0.2) X10*3/uL Abs Immat Gran (auto) 0.01 (0.00-0.03) X10*3/uL Absolute Neuts (auto) 2.6 (2.0-8.3) x10*3/uL Absolute Nucleated RBC 0.000 (0.0-0.012) X10*3/uL Nucleated RBC % (auto) 0.0 (0.0-0.2) /100WBC Sodium (135-145) mmol/L Potassium (3.3-5.1) mmol/L Chloride (96-108) mmol/L Carbon Dioxide (22-29) mmol/L Anion Gap (12-20) BUN (9-16) mg/dL Creatinine (0.5-1.4) mg/dL Estim Creat Clear Calc Estimated GFR Random Glucose (60-115) mg/dL Calcium (8.4-10.2) mg/dL Magnesium (1.6-2.6) mg/dL Total Bilirubin (0.0-1.0) mg/dL AST (5-31) U/L ALT (0-31) U/L Alkaline Phosphatase (39-117) U/L Total Protein (6.5-8.0) g/dL Albumin (3.5-5.0) g/dL Urine Color Yellow Urine Appearance Clear Urine pH 5.5 (5.0-9.0) Ur Specific [place] 1.020 (1.005-1.025) Urine Protein Negative (Neg-Trace) mg/dL Urine Glucose (UA) Negative (Negative) mg/dL Urine Ketones Negative (Negative) mg/dL Urine Blood Negative (Negative) Urine Nitrite Negative (Negative) Ur Leukocyte Esterase Negative (Negative) Urine Test NEGATIVE (NEGATIVE) 11/20/22 Range/Units 10:26 WBC (4.8-10.8) X10*3/uL RBC (4.20-5.50) X10*6/uL Hgb (12.0-16.0) g/dl Hct (37.0-47.0) % MCV (80.0-98.0) fL MCH (27.0-33.0) pg MCHC (31.0-35.0) g/dl RDW (11.0-16.0) % Plt Count (160-400) X10*3/uL MPV (9.4-12.3) fL Immature Gran % (Auto) (0.0-0.4) % Neut % (Auto) (45-73) % Lymph % (Auto) (20-40) % Coke % (Auto) (2-11) % Eos % (Auto) (0-4) % Baso % (Auto) (0-2) % Lymph # (Auto) (1.2-4.9) X10*3/uL Coke # (Auto) (0.1-1.2) X10*3/uL Eos # (Auto) (0.0-0.4) X10*3/uL Baso # (Auto) (0.0-0.2) X10*3/uL Abs Immat Gran (auto) (0.00-0.03) X10*3/uL Absolute Neuts (auto) (2.0-8.3) x10*3/uL Absolute Nucleated RBC (0.0-0.012) X10*3/uL Nucleated RBC % (auto) (0.0-0.2) /100WBC Sodium 138 (135-145) mmol/L Potassium 4.8 (3.3-5.1) mmol/L Chloride 106 (96-108) mmol/L Carbon Dioxide 26 (22-29) mmol/L Anion Gap 11 L (12-20) BUN 9 (9-16) mg/dL Creatinine 0.81 (0.5-1.4) mg/dL Estim Creat Clear Calc 102.5 Estimated GFR > 60 Random Glucose 81 (60-115) mg/dL Calcium 8.9 (8.4-10.2) mg/dL Magnesium 1.8 (1.6-2.6) mg/dL Total Bilirubin 0.2 (0.0-1.0) mg/dL AST 15 (5-31) U/L ALT 7 (0-31) U/L Alkaline Phosphatase 69 (39-117) U/L Total Protein 7.1 (6.5-8.0) g/dL Albumin 3.7 (3.5-5.0) g/dL Urine Color Urine Appearance Urine pH (5.0-9.0) Ur Specific [place] (1.005-1.025) Urine Protein (Neg-Trace) mg/dL Urine Glucose (UA) (Negative) mg/dL Urine Ketones (Negative) mg/dL Urine Blood (Negative) Urine Nitrite (Negative) Ur Leukocyte Esterase (Negative) Urine Test (NEGATIVE) Radiology Impression Radiologist Impression: I have independently reviewed the CT abdomen pelvis showing nonobstructing left renal calculus and colonic diverticulosis. EXAMINATION: CT ABDOMEN AND PELVIS WITHOUT CONTRAST CLINICAL INFORMATION: Left flank pain? COMPARISON: CT abdomen pelvis 02/21/2021? TECHNIQUE: Contiguous axial thin section helical images of the abdomen were performed without contrast. The data set was reformatted in the coronal and sagittal planes and reviewed on an independent workstation. This CT examination was performed using dose optimization techniques as appropriate, variously including the following: *Automated exposure control *Adjustment of mA and/or kV according to patient size (this includes techniques or standardized protocols for targeted exams where dose is matched to indication/reason for exam; i.e. extremities or head) *Use of iterative reconstruction technique DLP: 628 mGy-cm FINDINGS: LUNG BASES: The visualized lung bases are unremarkable.? LIVER, GALLBLADDER, AND BILIARY TREE: The liver is normal in size, shape, and attenuation. No focal hepatic lesion or biliary ductal dilatation is present. The gallbladder is unremarkable with no evidence of radiopaque gallstones, gallbladder wall thickening, or obvious pericholecystic inflammatory changes.? PANCREAS: Unremarkable.? SPLEEN: Unremarkable.? ADRENAL GLANDS: Unremarkable.? KIDNEYS AND URETERS: The kidneys are normal in size, shape, and attenuation. There is a 5 mm nonobstructing calculus in the mid to lower pole of the left kidney which measures about 500 Hounsfield units and is 8 cm from the posterior axillary line. No hydronephrosis, hydroureter, or additional calculi seen. No renal masses. No perinephric stranding. ? BLADDER: Unremarkable.? GASTROINTESTINAL TRACT: The small and large bowel are unremarkable. Colonic diverticular changes are present without diverticulitis. The appendix is unremarkable.? ABDOMINAL WALL: No significant hernia is appreciated.? LYMPH NODES: Normal. VASCULAR: Unremarkable. PELVIC VISCERA: The uterus and adnexa are unremarkable.? OSSEOUS STRUCTURES: Unremarkable.? CT/CT abdomen wo IV con IMPRESSION: 1.? A cause for the patient's left flank pain has not been found. 2.? Nonobstructing 5 mm left renal calculus. 3.? Colonic diverticulosis without diverticulitis. ? Fleischner guidelines were followed. ? Dictated By: Aditya Spain MD Signed By: <Electronically signed by Aditya Spain MD in OV> 11/20/22 1124 DD/ 0932 TD/TT:? [facility] Experimental: Discharge Plan Discharge Clinical Impression: Left nephrolithiasis, Diverticulosis of colon Patient Disposition: Home, Self-Care Instructions: Diverticulosis (ED), Kidney Stones (ED), Renal Colic (ED) Additional Instructions: Please use over the counter Miralax daily to aid in bowel movements Your CT scan showed a 5 mm left kidney stone. Your intestine show colonic diverticulosis. Information has been provided regarding diet changes. Please return to the emergency department with any new, worsening, concerning emergent symptoms. Please follow-up the primary care provider. Prescriptions: New ketorolac 10 mg tablet 10 mg PO TID PRN (Reason: pain) 5 Days Qty: 15 0RF Rx Instructions: DO NOT take ibuprofen, meloxicam, or naproxen with this drug No Action prednisone 20 mg tablet 20 mg PO DAILY Qty: 14 0RF cholecalciferol (vitamin D3) 125 mcg (5,000 unit) capsule 125 mcg PO DAILY folic acid 1 mg tablet 1 mg PO DAILY hydroxychloroquine 200 mg tablet 200 mg PO BID ferrous sulfate [Feosol] 325 mg (65 mg iron) tablet 325 mg PO DAILY meloxicam 7.5 mg tablet 15 mg PO DAILY PRN (Reason: knee pain) Qty: 20 0RF meloxicam 15 mg tablet 15 mg PO DAILY 30 Days Qty: 30 0RF Referrals: Angeline Alvarado MD [Primary Care Provider] - Stand Alone Forms: Work/School Release Interventions: ED Discharge Assessment Last Done: 11/20/22 12:59 Discharge Date/Time: 11/20/22 13:00 Print Language: Lao
== END 2022-11-20 13:00 | disposition home or self-care (01) ==
PROVIDERS: Nurse Practitioner Family; Emergency Provider Emergency Medicine; PCP Internal Medicine
DX: N20.0 Calculus of kidney (principal); K57.30 Diverticulosis of large intestine without perforation or abscess without bleeding; R10.9 Unspecified abdominal pain; Z87.891 Personal history of nicotine dependence; Z79.899 Other long term (current) drug therapy
CPT/HCPCS: 36415; 72192; 74150; 74176; 80053; 81003; 81025; 83735; 85025; 96374; 99284; J1885

== ENCOUNTER 2022-12-17 09:38 | Emergency (ER) | payer OTHER, SELFPAY ==
[2022-12-17 09:41] VITALS: BP 120/64; PULSE 89; RESP 18; TEMP 36.5; O2SAT 98; BMI 29.1
--- NOTE | 2022-12-17 10:13 | ECG_ITS ---
Test Reason : cp Blood Pressure : / mmHG Vent. Rate : 066 BPM Atrial Rate : 066 BPM P-R Int : 148 ms QRS Dur : 080 ms QT Int : 384 ms P-R-T Axes : 072 065 048 degrees QTc Int : 402 ms Artifact in tracing Normal sinus rhythm Normal ECG When compared with ECG of 10-AUG-2021 10:44, ST segments higher than in prior EKG Referred By: Maria Guadalupe Stern Electronically Signed By:SUZY COLON
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
[2022-12-17] MEDS: Lidocaine 4 % Patch ADH..PATCH 1 PATCH TRANSDERMA (10:36)
[2022-12-17] MEDS: Acetaminophen 325 MG TABLET 650 MG PO (10:36)
[2022-12-17] MEDS: diazePAM 2 MG TABLET 5 MG PO (10:36)
== END 2022-12-17 11:30 | disposition home or self-care (01) ==
PROVIDERS: Emergency Provider Emergency Medicine; PCP Internal Medicine
DX: M62.838 Other muscle spasm (principal); M54.2 Cervicalgia; F12.90 Cannabis use, unspecified, uncomplicated; Z87.891 Personal history of nicotine dependence
CPT/HCPCS: 93005; 99283

== ENCOUNTER 2023-03-18 11:43 | Emergency (ER) | payer OTHER, SELFPAY ==
--- NOTE | ~2023-03-18 | XR_ITS ---
EXAMINATION: XR HAND, LEFT CLINICAL INFORMATION: Index finger pain and swelling COMPARISON: None available. TECHNIQUE: PA, lateral, and oblique views of the left hand. FINDINGS: Bone alignment is normal. No fracture or dislocation. Joint spaces are normal. There is soft tissue swelling of the proximal second finger. No abnormal air collection or soft tissue foreign body. XR/XR hand LT min 3V IMPRESSION: Soft tissue swelling of the proximal left second finger.
[2023-03-18 12:10] VITALS: BP 123/82; PULSE 67; RESP 18; TEMP 36.7; O2SAT 98; BMI 30.8
--- NOTE | 2023-03-18 12:10 | ED.UPPEXIN ---
HPI - Extremity Injury (Upper) General Chief Complaint: General Medical Stated Complaint: Infected finger Time Seen by Provider: 03/18/23 12:18 History of Present Illness HPI narrative: patient complains of pain and swelling to left index finger with no trauma or injury She denies any break in the skin or any cut, she denies any redness or warmth, no numbness weakness or tingling , no fever She does have lupus and has had lupus arthritis before Related Data Home Medications Medication Instructions Recorded Confirmed ferrous sulfate 325 mg (65 mg 325 mg PO DAILY 08/22/21 08/09/22 iron) tablet (Feosol) cholecalciferol (vitamin D3) 125 125 mcg PO DAILY 12/06/21 08/09/22 mcg (5,000 unit) capsule folic acid 1 mg tablet 1 mg PO DAILY 12/06/21 08/09/22 hydroxychloroquine 200 mg tablet 200 mg PO BID 12/06/21 08/09/22 Previous Rx's Medication Instructions Recorded prednisone 20 mg tablet 20 mg PO DAILY #14 tabs 03/14/22 meloxicam 7.5 mg tablet 15 mg PO DAILY PRN knee pain #20 07/25/22 tabs meloxicam 15 mg tablet 15 mg PO DAILY 30 days #30 tabs 08/13/22 ketorolac 10 mg tablet 10 mg PO TID PRN pain 5 days #15 11/20/22 tabs acetaminophen 500 mg tablet 500 mg PO Q6H PRN fever or pain 12/17/22 (Tylenol Extra Strength) #14 tabs cyclobenzaprine 5 mg tablet 5 mg PO Q8H PRN pain (scale score 12/17/22 7-10) 5 days #14 tabs lidocaine 5 % topical patch 1 patch topical DAILY PRN pain #30 12/17/22 (Lidoderm) ea ibuprofen 800 mg tablet 800 mg PO TID PRN pain #20 tabs 03/18/23 prednisone 20 mg tablet 60 mg PO DAILY 2 days #6 tabs 03/18/23 Allergies Allergy/AdvReac Type Severity Reaction Status Date / Time aspirin [ASA] Allergy Severe Palpitation Verified 11/20/22 09:33 s [facility] Past Medical History Source: nursing notes reviewed Medical History Anemia Chronic migraine with aura Cough Daily headache Left wrist pain Lung nodule seen on imaging study Lupus Mild persistent asthma Mild recurrent major depression Overweight (BMI 25.0-29.9) Physical exam Polyarthralgia Rheumatoid arthritis Solitary pulmonary nodule Swelling of right knee joint Urticaria Surgical History Hx of section Family History Family History Mother Hypoglycemia Father Hypertension Diabetes Family/Other Mental health disorder Substance use disorder Social History Social History Housing: Apartment Alcohol intake: never Patient Tobacco Use Status: Former Tobacco user Quit Date: 03/2021 Tobacco use type: Cigarette Smoked in Last 30 Days: No e-Cigarette/Vaping Use: Never Used Second Hand Smoke Exposure: No Use of substances other than those prescribed or required for medical reasons: No Substance Use Type: Marijuana Advance Directives: No Advance Directives Information Provided: Yes Patient : No service: No Current occupational status: unemployed Physical Exam Vital Signs: Vital Signs: Last Vital Signs Temp 97.9 F 03/18/23 13:23 Pulse 74 03/18/23 13:23 Resp 17 03/18/23 13:23 BP 115/72 03/18/23 13:23 Pulse Ox 98 03/18/23 13:23 O2 Del Method Room Air 03/18/23 13:23 BMI result Body Mass Index 30.8 general appearance no distress Head is normocephalic atraumatic Neck is supple Respiratory no distress Extremities full range of motion x4 including left index finger which has swelling mostly at the proximal phalanx and PIP joint, it is painful to flex and the patient cannot fully flex but can extend fully there is no redness no warmth no break in the skin no evidence of cellulitis or abscess Skin no rashes Course Course Course Narrative: RME: 32yo F w/PMHx anemia, lupus, polyarthralgia, RA, presenting to the ED complaining of L index finger pain and swelling x2 days. Admits co-worker with recent finger cellulitis. denies injury L index finger swollen, ttp with decreased ROM 2/2 pain, no erythema/warmth. NV intact XRs ordered Full HPI, ROS and PE to be performed by primary ED provider. Patient with lupus who likely has inflammation of tendons or joint in the left index finger from her lupus is treated with prednisone and Motrin and actually has an appointment with her raftsman in 2 days X-ray showed soft tissue swelling no other findings There is no sign of infection there is no redness or warmth, there is some limit on full flexion but it extends to 180 Discharge Plan Discharge Clinical Impression: Lupus arthritis Patient Disposition: Home, Self-Care Additional Instructions: at this time there is no sign of infection in her finger This is likely related to her lupus with arthritic swelling of the finger We started prednisone and Motrin, the prednisone is for 3 days Further treatment will be decided when you see your raftsman Return any time for redness increased pain and swelling fever any sign of infection any worse condition any concerns Prescriptions: New prednisone 20 mg tablet 60 mg PO DAILY 2 Days Qty: 6 0RF ibuprofen 800 mg tablet 800 mg PO TID PRN (Reason: pain) Qty: 20 0RF No Action prednisone 20 mg tablet 20 mg PO DAILY Qty: 14 0RF acetaminophen [Tylenol Extra Strength] 500 mg tablet 500 mg PO Q6H PRN (Reason: fever or pain) Qty: 14 0RF lidocaine [Lidoderm] 5 % adhesive patch,medicated 1 patch topical DAILY MDD remove after 12 hours PRN (Reason: pain) Qty: 30 0RF Rx Instructions: leave on most painful area for up to 12 hrs cyclobenzaprine 5 mg tablet 5 mg PO Q8H PRN (Reason: pain (scale score 7-10)) 5 Days Qty: 14 0RF ketorolac 10 mg tablet 10 mg PO TID PRN (Reason: pain) 5 Days Qty: 15 0RF Rx Instructions: DO NOT take ibuprofen, meloxicam, or naproxen with this drug cholecalciferol (vitamin D3) 125 mcg (5,000 unit) capsule 125 mcg PO DAILY folic acid 1 mg tablet 1 mg PO DAILY hydroxychloroquine 200 mg tablet 200 mg PO BID ferrous sulfate [Feosol] 325 mg (65 mg iron) tablet 325 mg PO DAILY meloxicam 7.5 mg tablet 15 mg PO DAILY PRN (Reason: knee pain) Qty: 20 0RF meloxicam 15 mg tablet 15 mg PO DAILY 30 Days Qty: 30 0RF Stand Alone Forms: Work/School Release
[2023-03-18 13:23] VITALS: BP 115/72; PULSE 74; RESP 17; TEMP 36.6; O2SAT 98
[2023-03-18] MEDS: Ibuprofen 800 MG TABLET PO (13:37)
[2023-03-18] MEDS: predniSONE 20 MG TABLET 60 MG PO (13:37)
== END 2023-03-18 13:45 | disposition home or self-care (01) ==
PROVIDERS: Emergency Provider Emergency Medicine Emergency Medical Services; PCP Internal Medicine
DX: M79.645 Pain in left finger(s) (principal); M13.842 Other specified arthritis, left hand; M32.9 Systemic lupus erythematosus, unspecified
CPT/HCPCS: 73130; 99283; 99284

== ENCOUNTER 2023-04-12 04:36 | Emergency (ER) | payer OTHER, SELFPAY ==
[2023-04-12 04:38] VITALS: BP 128/86; PULSE 64; RESP 16; TEMP 36.4; O2SAT 97
[2023-04-12 04:50] VITALS: BP 129/81; PULSE 64; PULSE 67; RESP 18; TEMP 36.6; O2SAT 97; O2SAT 98; BMI 29.5
[2023-04-12 04:55] VITALS: BP 129/81; PULSE 66; TEMP 36.6; O2SAT 98
[2023-04-12 05:20] LABS: Basophils Percent Auto 0.2 % (0-2); Eosinophils Absolute Auto 0.2 X10*3/uL (0.0-0.4); Eosinophils Percent Auto 3.9 % (0-4); Hematocrit 39.7 % (37.0-47.0); Hemoglobin 13.6 g/dl (12.0-16.0); Imm Gran Abs Auto 0.01 X10*3/uL (0.00-0.03); Imm Gran Pct Auto 0.2 % (0.0-0.4); Lymphocytes Absolute Auto 1.6 X10*3/uL (1.2-4.9); MANUAL DIFF FLAG NO; Mean Corpuscular HGB Conc 34.3 g/dl (31.0-35.0); Mean Corpuscular Hemoglobin 28.4 pg (27.0-33.0); Mean Corpuscular Volume 82.9 fL (80.0-98.0); Mean Platelet Volume 10.6 fL (9.4-12.3); Monocytes Absolute Auto 0.6 X10*3/uL (0.1-1.2); Neutrophils Absolute Auto 2.4 x10*3/uL (2.0-8.3); Neutrophils Percent Auto 49.7 % (45-73); Platelet Count 165 X10*3/uL (160-400); Red Blood Count 4.79 X10*6/uL (4.20-5.50); Red Cell Distribution Width 13.2 % (11.0-16.0); White Blood Count 4.8 X10*3/uL (4.8-10.8)
[2023-04-12 05:34] LABS: Alanine Aminotransferase 11 U/L (0-31); Albumin Level 4.2 g/dL (3.5-5.0); Alkaline Phosphatase 62 U/L (39-117); Anion Gap 13 (12-20); Aspartate Amino Transferase 20 U/L (5-31); Bilirubin Total 0.6 mg/dL (0.0-1.0); Blood Urea Nitrogen 13 mg/dL (9-16); Calcium 9.4 mg/dL (8.4-10.2); Carbon Dioxide 20 mmol/L (22-29); Chloride 108 mmol/L (96-108); Creatinine Clr Calc Pharmacy 108.1; Estimated Glomerular Filt Rate > 60; Glucose Random 97 mg/dL (60-115); Potassium 3.6 mmol/L (3.3-5.1); Sodium 137 mmol/L (135-145); Total Protein 8.4 g/dL (6.5-8.0)
--- NOTE | 2023-04-12 06:21 | PC.NURSE ---
Patient alert and oriented upon arrival. Patient arrives with complaints of headache, photophobia, nausea and vomiting. Denies history of QUESADA or recent trauma. Access in left wrist and labs drawn. Patient currently resting quietly. Will continue to follow plan of care
[2023-04-12 06:24] VITALS: BP 114/76; PULSE 70; TEMP 36.7; O2SAT 98
--- NOTE | 2023-04-12 06:33 | ED.HA ---
HPI - Headache General Chief Complaint: Headache Stated Complaint: bad headache since yesterday, V/D Time Seen by Provider: 04/12/23 06:28 Source: patient Mode of arrival: ambulatory Limitations: no limitations History of Present Illness HPI Narrative: 32 yo female with history of chronic migraines, AKANKSHA, RA, asthma, anemia, presents to the ER for evaluation of a migraine headache that started yesterday associated with nausea, vomiting and diarrhea. She states her usual headaches have nausea and vomiting but not diarrhea. She states her stomach is gurgling but she denies any abdominal pain, fevers, chills, urinary symptoms. She states she tried taking several doses of Advil for her headache with no improvement. She states the headache is worse with light and noise. It involves the front of her head. No neck pain. MD elicited complaint: migraine and other (N/V/D) Onset (ago): day(s) (1) Onset description: gradually Location: frontal Severity: severe Quality & Timing: aching and throbbing Exacerbating factors: exertion, light and noise Relieving factors: nothing Associated symptoms: nausea, vomiting, photophobia, sensitivity to sound and malaise Treatments prior to arrival: ibuprofen Related Data Home Medications Medication Instructions Recorded Confirmed ferrous sulfate 325 mg (65 mg 325 mg PO DAILY 08/22/21 08/09/22 iron) tablet (Feosol) cholecalciferol (vitamin D3) 125 125 mcg PO DAILY 12/06/21 08/09/22 mcg (5,000 unit) capsule folic acid 1 mg tablet 1 mg PO DAILY 12/06/21 08/09/22 hydroxychloroquine 200 mg tablet 200 mg PO BID 12/06/21 08/09/22 Previous Rx's Medication Instructions Recorded prednisone 20 mg tablet 20 mg PO DAILY #14 tabs 03/14/22 meloxicam 7.5 mg tablet 15 mg PO DAILY PRN knee pain #20 07/25/22 tabs meloxicam 15 mg tablet 15 mg PO DAILY 30 days #30 tabs 08/13/22 ketorolac 10 mg tablet 10 mg PO TID PRN pain 5 days #15 11/20/22 tabs acetaminophen 500 mg tablet 500 mg PO Q6H PRN fever or pain 12/17/22 (Tylenol Extra Strength) #14 tabs cyclobenzaprine 5 mg tablet 5 mg PO Q8H PRN pain (scale score 12/17/22 7-10) 5 days #14 tabs lidocaine 5 % topical patch 1 patch topical DAILY PRN pain #30 12/17/22 (Lidoderm) ea ibuprofen 800 mg tablet 800 mg PO TID PRN pain #20 tabs 03/18/23 prednisone 20 mg tablet 60 mg PO DAILY 2 days #6 tabs 03/18/23 acisrbimvt-emewosrxqbjrt-cxasgmha 1 cap PO Q8H PRN headache #10 caps 04/12/23 50 mg-300 mg-40 mg capsule (Fioricet) ondansetron 4 mg disintegrating 4 mg PO Q8H PRN nausea and 04/12/23 tablet vomiting #7 tabs Allergies Allergy/AdvReac Type Severity Reaction Status Date / Time aspirin [ASA] Allergy Severe Palpitation Verified 11/20/22 09:33 s Review of Systems Review of Systems: Yes all other systems are reviewed and are negative PMFSH Past Medical History Medical History Anemia Chronic migraine with aura Cough Daily headache Left wrist pain Lung nodule seen on imaging study Lupus Mild persistent asthma Mild recurrent major depression Overweight (BMI 25.0-29.9) Physical exam Polyarthralgia Rheumatoid arthritis Solitary pulmonary nodule Swelling of right knee joint Urticaria Surgical History Hx of section Family History Family History Mother Hypoglycemia Father Hypertension Diabetes Family/Other Mental health disorder Substance use disorder Social History Social History Housing: Apartment Alcohol intake: never Patient Tobacco Use Status: Former Tobacco user Quit Date: 03/2021 Tobacco use type: Cigarette Smoked in Last 30 Days: No e-Cigarette/Vaping Use: Never Used Second Hand Smoke Exposure: No Use of substances other than those prescribed or required for medical reasons: No Substance Use Type: Marijuana Advance Directives: No Advance Directives Information Provided: Yes Patient : No service: No Current occupational status: unemployed Physical Exam Vital Signs: Vital Signs: Last Vital Signs Temp 97.9 F 04/12/23 08:00 Pulse 70 04/12/23 08:00 Resp 18 04/12/23 08:00 BP 111/67 04/12/23 08:00 Pulse Ox 98 04/12/23 08:00 O2 Del Method Room Air 04/12/23 08:00 BMI result Body Mass Index 29.5 Appearance: Alert. Oriented X3. Laying on the stretcher with a blanket over her head Head: normocephalic, atraumatic. Eyes: Pupils equal, round and reactive to light. ENT: Pharynx normal. No tonsillar swelling or exudate. Neck: Normal inspection. Neck supple. CVS: Normal heart rate and rhythm. Pulses normal. Respiratory: No respiratory distress. Breath sounds normal. Abdomen: Soft and nontender. +BS x4 Skin: Skin warm and dry. Normal skin color. Normal skin turgor. No rashes. Extremities: No lower extremity edema. No joint swelling. Neuro/psych: Oriented X 3. No motor deficit. No sensory deficit. CN II-XII intact. Normal speech and cognition. Medications Administered Discontinued Medications Generic Name Dose Route Start Last Admin Trade Name Benjaminq PRN Reason Stop Dose Admin Diphenhydramine HCl 50 mg 04/12/23 06:39 04/12/23 06:49 Diphenhydramine Hcl 50 Mg/Ml Vial IVPUSH 04/12/23 06:40 50 mg ONCE ONE Administration Sodium Chloride 1,000 mls @ 999 mls/hr 04/12/23 06:45 04/12/23 06:49 Ns IV 04/12/23 07:45 999 mls/hr .Q1H1M NIDIA Administration Ketorolac Tromethamine 30 mg 04/12/23 06:39 04/12/23 06:49 Ketorolac Tromethamine 30 Mg/Ml Vial IVPUSH 04/12/23 06:40 30 mg ONCE ONE Administration Metoclopramide HCl 10 mg 04/12/23 06:39 04/12/23 06:49 Metoclopramide Hcl 10 Mg/2 Ml Vial IVPUSH 04/12/23 06:40 10 mg ONCE ONE Administration Medical Decision Making Medical Decision Making MDM Narrative: 32 yo female with history of migraines presents to the ER for evaluation of migraine since yesterday associated with N/V/D. No associated abd pain and abd exam is benign. Her VS are stable. Her labs are unremarkable. Neurologically intact. Has had an MRI in the past for her migraines. She was treated with reglan, benadryl and toradol with significant improvement in her symptoms. She is tolerating PO and playing on her cell phone. She is stable for d/c home with symptomatic management. Differential Diagnosis Differential Diagnoses: The differential diagnosis associated with the presentation includes migraine headache, gastroenteritis, cluster headache, tension headache, dehydration Lab Data MDM Lab Attestation statement: I reviewed the patient's lab results. no leukocytosis, no significant electrolyte derangement 04/12/23 05:11 04/12/23 05:11 Labs: Lab Results 04/12/23 04/12/23 Range/Units 05:11 05:11 WBC 4.8 (4.8-10.8) X10*3/uL RBC 4.79 (4.20-5.50) X10*6/uL Hgb 13.6 (12.0-16.0) g/dl Hct 39.7 (37.0-47.0) % MCV 82.9 (80.0-98.0) fL MCH 28.4 (27.0-33.0) pg MCHC 34.3 (31.0-35.0) g/dl RDW 13.2 (11.0-16.0) % Plt Count 165 (160-400) X10*3/uL MPV 10.6 (9.4-12.3) fL Immature Gran % (Auto) 0.2 (0.0-0.4) % Neut % (Auto) 49.7 (45-73) % Lymph % (Auto) 34.0 (20-40) % Douglas % (Auto) 12.0 H (2-11) % Eos % (Auto) 3.9 (0-4) % Baso % (Auto) 0.2 (0-2) % Lymph # (Auto) 1.6 (1.2-4.9) X10*3/uL Douglas # (Auto) 0.6 (0.1-1.2) X10*3/uL Eos # (Auto) 0.2 (0.0-0.4) X10*3/uL Baso # (Auto) 0.0 (0.0-0.2) X10*3/uL Abs Immat Gran (auto) 0.01 (0.00-0.03) X10*3/uL Absolute Neuts (auto) 2.4 (2.0-8.3) x10*3/uL Absolute Nucleated RBC 0.000 (0.0-0.012) X10*3/uL Nucleated RBC % (auto) 0.0 (0.0-0.2) /100WBC Sodium 137 (135-145) mmol/L Potassium 3.6 D (3.3-5.1) mmol/L Chloride 108 (96-108) mmol/L Carbon Dioxide 20 L (22-29) mmol/L Anion Gap 13 (12-20) BUN 13 (9-16) mg/dL Creatinine 0.74 (0.5-1.4) mg/dL Estim Creat Clear Calc 108.1 Estimated GFR > 60 Random Glucose 97 (60-115) mg/dL Calcium 9.4 (8.4-10.2) mg/dL Total Bilirubin 0.6 (0.0-1.0) mg/dL AST 20 (5-31) U/L ALT 11 (0-31) U/L Alkaline Phosphatase 62 (39-117) U/L Total Protein 8.4 H (6.5-8.0) g/dL Albumin 4.2 (3.5-5.0) g/dL Radiology Impression Discussion of test interpretation with radiology: I have reviewed the radiologist's reading. Radiologist Impression: MRI brain from 12/2021 MR/MR head/brain wo con IMPRESSION: 1. No acute intracranial abnormalities. 2. Mild nonspecific white matter changes External Record Review External record reviewed: Office record, Outpatient record, Prior outpatient labs and Prior outpatient radiology Prescription Management I considered prescription management with: Pain Medication Chronic Conditions Patient?s care impacted by: Other (chronic migraines) Critical Care Time Critical Care Time Critical Care Time: No Discharge Plan Discharge Clinical Impression: Migraine Patient Disposition: Home, Self-Care Instructions: Migraine Headache (ED) Additional Instructions: Your labs today were normal. Rest and drink plenty of fluids. Take the prescribed medications as directed, as needed for your symptoms. Follow up with your doctor. If you develop new or worsening symptoms call 911 or come back to the ER for further evaluation. Prescriptions: New ondansetron 4 mg tablet,disintegrating 4 mg PO Q8H PRN (Reason: nausea and vomiting) Qty: 7 0RF qobxirmclt-uyyudyonspheg-zpzl [Fioricet] 50-300-40 mg capsule 1 cap PO Q8H PRN (Reason: headache) Qty: 10 0RF No Action prednisone 20 mg tablet 20 mg PO DAILY Qty: 14 0RF acetaminophen [Tylenol Extra Strength] 500 mg tablet 500 mg PO Q6H PRN (Reason: fever or pain) Qty: 14 0RF lidocaine [Lidoderm] 5 % adhesive patch,medicated 1 patch topical DAILY MDD remove after 12 hours PRN (Reason: pain) Qty: 30 0RF Rx Instructions: leave on most painful area for up to 12 hrs cyclobenzaprine 5 mg tablet 5 mg PO Q8H PRN (Reason: pain (scale score 7-10)) 5 Days Qty: 14 0RF ketorolac 10 mg tablet 10 mg PO TID PRN (Reason: pain) 5 Days Qty: 15 0RF Rx Instructions: DO NOT take ibuprofen, meloxicam, or naproxen with this drug prednisone 20 mg tablet 60 mg PO DAILY 2 Days Qty: 6 0RF ibuprofen 800 mg tablet 800 mg PO TID PRN (Reason: pain) Qty: 20 0RF cholecalciferol (vitamin D3) 125 mcg (5,000 unit) capsule 125 mcg PO DAILY folic acid 1 mg tablet 1 mg PO DAILY hydroxychloroquine 200 mg tablet 200 mg PO BID ferrous sulfate [Feosol] 325 mg (65 mg iron) tablet 325 mg PO DAILY meloxicam 7.5 mg tablet 15 mg PO DAILY PRN (Reason: knee pain) Qty: 20 0RF meloxicam 15 mg tablet 15 mg PO DAILY 30 Days Qty: 30 0RF Referrals: Angeline Alvarado MD [Primary Care Provider] - Stand Alone Forms: Work/School Release
[2023-04-12] MEDS: Metoclopramide HCl 10 MG/2 ML VIAL IVPUSH (06:49)
[2023-04-12] MEDS: Ketorolac Tromethamine 30 MG/ML VIAL IVPUSH (06:49)
[2023-04-12] MEDS: 0.9 % Sodium Chloride 1,000 ML 999 ML IV (06:49)
[2023-04-12] MEDS: diphenhydrAMINE HCL 50 MG/ML VIAL IVPUSH (06:49)
[2023-04-12 08:00] VITALS: BP 111/67; PULSE 70; RESP 18; TEMP 36.6; O2SAT 98
--- NOTE | 2023-04-12 08:08 | PC.NURSE ---
patient sleeping, woke to verbal stimulus, pt states her headache has gotten better down to a 4/10, pt denies nausea at this time, vitals stable, call kuhn within reach, will continue to monitor.
== END 2023-04-12 08:46 | disposition home or self-care (01) ==
PROVIDERS: Emergency Provider Emergency Medicine; PCP Internal Medicine
DX: G43.909 Migraine, unspecified, not intractable, without status migrainosus (principal); F12.90 Cannabis use, unspecified, uncomplicated; Z79.899 Other long term (current) drug therapy
CPT/HCPCS: 36415; 80053; 85025; 96361; 96374; 96375; 99284; 99285; J1200; J1885; J2765

== ENCOUNTER 2023-05-01 10:26 | Outpatient (REF) | payer OTHER, SELFPAY | END 2023-05-01 10:27 | disposition home or self-care (01) | LOC: HO.HMGCX 10:26 | PROVIDERS: PCP Internal Medicine; Visit Provider Physician Assistant | DX: M25.431 Effusion, right wrist (principal) | CPT/HCPCS: 73110 ==

== ENCOUNTER 2023-05-11 09:07 | Emergency (ER) | payer OTHER, SELFPAY ==
[2023-05-11 09:11] VITALS: BP 136/76; PULSE 71; RESP 16; TEMP 36; O2SAT 99
[2023-05-11] MEDS: Diphth,Pertus(ACell),Tet Adult 0.5 ML SYRINGE IM (09:37)
--- NOTE | 2023-05-11 09:56 | ED.HEATRA ---
HPI - Head Injury General Chief complaint: Head Injury Stated complaint: head injury Time Seen by Provider: 05/11/23 09:19 Source: patient Mode of arrival: ambulatory Limitations: no limitations History of Present Illness HPI Narrative: patient is a 32-year-old female who presents emergency department for evaluation after a head injury. She states prior to arrival she struck her head with a corner of a van door sustaining a laceration just above her right brow. There was no loss of consciousness. She is not on any anticoagulants. Denies any history of coagulation disorders. Denies any headache, dizziness, lightheadedness, neck pain. Related Data Home Medications Medication Instructions Recorded Confirmed ferrous sulfate 325 mg (65 mg 325 mg PO DAILY 08/22/21 08/09/22 iron) tablet (Feosol) cholecalciferol (vitamin D3) 125 125 mcg PO DAILY 12/06/21 08/09/22 mcg (5,000 unit) capsule folic acid 1 mg tablet 1 mg PO DAILY 12/06/21 08/09/22 hydroxychloroquine 200 mg tablet 200 mg PO BID 12/06/21 08/09/22 Previous Rx's Medication Instructions Recorded prednisone 20 mg tablet 20 mg PO DAILY #14 tabs 03/14/22 meloxicam 7.5 mg tablet 15 mg PO DAILY PRN knee pain #20 07/25/22 tabs meloxicam 15 mg tablet 15 mg PO DAILY 30 days #30 tabs 08/13/22 ketorolac 10 mg tablet 10 mg PO TID PRN pain 5 days #15 11/20/22 tabs acetaminophen 500 mg tablet 500 mg PO Q6H PRN fever or pain 12/17/22 (Tylenol Extra Strength) #14 tabs cyclobenzaprine 5 mg tablet 5 mg PO Q8H PRN pain (scale score 12/17/22 7-10) 5 days #14 tabs lidocaine 5 % topical patch 1 patch topical DAILY PRN pain #30 12/17/22 (Lidoderm) ea ibuprofen 800 mg tablet 800 mg PO TID PRN pain #20 tabs 03/18/23 prednisone 20 mg tablet 60 mg PO DAILY 2 days #6 tabs 03/18/23 xzavbdsqnz-mwvwslahscvqh-kjhkdxvh 1 cap PO Q8H PRN headache #10 caps 04/12/23 50 mg-300 mg-40 mg capsule (Fioricet) ondansetron 4 mg disintegrating 4 mg PO Q8H PRN nausea and 04/12/23 tablet vomiting #7 tabs prednisone 10 mg tablet 30 mg PO BID 3 days #18 tabs 05/01/23 Allergies Allergy/AdvReac Type Severity Reaction Status Date / Time aspirin [ASA] Allergy Severe Palpitation Verified 05/01/23 09:54 s Review of Systems Review of Systems: Yes all other systems are reviewed and are negative [facility] Past Medical History Attestation statement: The following information was validated with the patient. Source: old records reviewed Medical History Anemia Chronic migraine with aura Cough Daily headache Left wrist pain Lung nodule seen on imaging study Lupus Mild persistent asthma Mild recurrent major depression Overweight (BMI 25.0-29.9) Physical exam Polyarthralgia Rheumatoid arthritis Solitary pulmonary nodule Swelling of right knee joint Urticaria Surgical History Hx of section Family History Family History Mother Hypoglycemia Father Hypertension Diabetes Family/Other Mental health disorder Substance use disorder Social History Social History Housing: Apartment Alcohol intake: never Patient Tobacco Use Status: Former Tobacco user Quit Date: 03/2021 Tobacco use type: Cigarette e-Cigarette/Vaping Use: Never Used Second Hand Smoke Exposure: No Substance Use Type: Marijuana service: No Current occupational status: unemployed Physical Exam Vital Signs: Vital Signs: Last Vital Signs Temp 96.8 F 05/11/23 09:11 Pulse 71 05/11/23 09:11 Resp 16 05/11/23 09:11 BP 136/76 05/11/23 09:11 Pulse Ox 99 05/11/23 09:11 O2 Del Method Room Air 05/11/23 09:11 BMI result Body Mass Index 30.0 Appearance: Alert.?Oriented to person, place and time. No acute distress.?Normal affect. Head: normocephalic Eyes: Pupils equal, round and reactive to light.? EOMI. No nystagmus. 1 cm linear laceration superior to the right lateral brow ENT: Pharynx normal.?? dentition normal Neck: Normal inspection.? Neck supple.?? no midline cervical spine tenderness, step-offs, deformities CVS: Heart sounds normal. Normal heart rate and rhythm.? Pulses normal.?? Respiratory: No respiratory distress.? Lung sounds clear to auscultation bilaterally?? Abdomen: Soft and non-tender. Skin: Skin warm and dry.? Normal skin color.? Extremities: No lower extremity edema.? Neuro: Moves all extremities spontaneously. Sensation intact bilaterally. CN II-XII intact. No focal neuro deficits. Ambulates with normal steady gait. Medications Administered Discontinued Medications Generic Name Dose Route Start Last Admin Trade Name Freq PRN Reason Stop Dose Admin Diphtheria/Tetanus/Acell Pertussis 0.5 ml 05/11/23 09:26 05/11/23 09:37 Diphth,Pertus(Acell),Tet Adult 0.5 Ml Syringe IM 05/11/23 09:27 0.5 ml .ONCE ONE Administration Medical Decision Making Medical Decision Making MDM Narrative: patient is a 32-year-old female presents emergency department for evaluation after head injury with laceration to the brow. Laceration is superficial, cleansed with saline, amenable to closure with Steri-Strips. No active bleeding. Low suspicion for ICH/SDH based on history and physical examination. At this time would defer CT imaging. Tdap was updated while in the emergency department. There is no palpable deformity or tenderness along the frontal bone or orbit, low suspicion for fracture. At this time patient is stable for discharge home. Reviewed worrisome signs and symptoms that would warrant re-evaluation in the emergency department. All questions answered. Differential Diagnosis Differential Diagnoses: The differential diagnosis associated with the presentation includes ( as noted above) Tests considered The following testing was considered but not selected: considered CT imaging of the head/cervical spine as noted above however was deferred Prescription Management I considered prescription management with: Pain Medication ( NSAID /acetaminophen would be appropriate at this time) Discharge Plan Discharge Clinical Impression: Closed head injury without loss of consciousness Patient Disposition: Home, Self-Care Instructions: Head Injury (ED), Steristrips (ED) Additional Instructions: You can take ibuprofen 200 mg, 3 tablets (600mg) every 6-8 hours as needed for pain, in addition to Tylenol 500 mg, 2 tablets (1,000mg) every 4-6 hours as needed for pain, but not to exceed 3 doses daily (3,000mg).? return back to emergency department any new or worsening symptoms or concerns Prescriptions: No Action prednisone 20 mg tablet 20 mg PO DAILY Qty: 14 0RF acetaminophen [Tylenol Extra Strength] 500 mg tablet 500 mg PO Q6H PRN (Reason: fever or pain) Qty: 14 0RF lidocaine [Lidoderm] 5 % adhesive patch,medicated 1 patch topical DAILY MDD remove after 12 hours PRN (Reason: pain) Qty: 30 0RF Rx Instructions: leave on most painful area for up to 12 hrs cyclobenzaprine 5 mg tablet 5 mg PO Q8H PRN (Reason: pain (scale score 7-10)) 5 Days Qty: 14 0RF ketorolac 10 mg tablet 10 mg PO TID PRN (Reason: pain) 5 Days Qty: 15 0RF Rx Instructions: DO NOT take ibuprofen, meloxicam, or naproxen with this drug prednisone 20 mg tablet 60 mg PO DAILY 2 Days Qty: 6 0RF ibuprofen 800 mg tablet 800 mg PO TID PRN (Reason: pain) Qty: 20 0RF ondansetron 4 mg tablet,disintegrating 4 mg PO Q8H PRN (Reason: nausea and vomiting) Qty: 7 0RF ngwshujvlf-ttpzdfqladzyd-hnlz [Fioricet] 50-300-40 mg capsule 1 cap PO Q8H PRN (Reason: headache) Qty: 10 0RF cholecalciferol (vitamin D3) 125 mcg (5,000 unit) capsule 125 mcg PO DAILY folic acid 1 mg tablet 1 mg PO DAILY hydroxychloroquine 200 mg tablet 200 mg PO BID ferrous sulfate [Feosol] 325 mg (65 mg iron) tablet 325 mg PO DAILY meloxicam 7.5 mg tablet 15 mg PO DAILY PRN (Reason: knee pain) Qty: 20 0RF prednisone 10 mg tablet 30 mg PO BID 3 Days Qty: 18 0RF meloxicam 15 mg tablet 15 mg PO DAILY 30 Days Qty: 30 0RF Referrals: Angeline Alvarado MD [Primary Care Provider] - Stand Alone Forms: Work/School Release
== END 2023-05-11 10:25 | disposition home or self-care (01) ==
PROVIDERS: Emergency Provider Student in an Organized Health Care Education/Training Program; PCP Internal Medicine
DX: S09.90XA Unspecified injury of head, initial encounter (principal); R51.9 Headache, unspecified; M54.2 Cervicalgia; X58.XXXA Exposure to other specified factors, initial encounter; Y93.9 Activity, unspecified; Y92.9 Unspecified place or not applicable; Y99.9 Unspecified external cause status; Z79.899 Other long term (current) drug therapy; Z23 Encounter for immunization
CPT/HCPCS: 90471; 90715; 99283; 99284

== ENCOUNTER 2023-05-19 09:51 | Emergency (ER) | payer OTHER, SELFPAY ==
--- NOTE | ~2023-05-19 | CT_ITS ---
EXAMINATION: CT ABDOMEN AND PELVIS WITHOUT CONTRAST CLINICAL INFORMATION: Left CVA tenderness COMPARISON: CT abdomen and pelvis from 11/20/2022 TECHNIQUE: Multidetector volumetric imaging was performed from the superior aspect of the liver through the pubic symphysis. Sagittal and coronal reformatted images were obtained on the technologist's workstation. This CT examination was performed using dose optimization techniques as appropriate, variously including the following: *Automated exposure control *Adjustment of mA and/or kV according to patient size (this includes techniques or standardized protocols for targeted exams where dose is matched to indication/reason for exam; i.e. extremities or head) *Use of iterative reconstruction technique DLP: 493 mGy-cm FINDINGS: LUNG BASES: Bibasilar atelectasis versus scarring, left greater than. LIVER, GALLBLADDER, AND BILIARY TREE: The liver is normal in size, shape, and attenuation. No focal hepatic lesion or biliary ductal dilatation is present. The gallbladder is unremarkable with no evidence of radiopaque gallstones, gallbladder wall thickening, or obvious pericholecystic inflammatory changes. PANCREAS: Unremarkable. SPLEEN: Unremarkable. ADRENAL GLANDS: Unremarkable. KIDNEYS AND URETERS: Redemonstration of nonobstructive calculus in the left renal lower pole measuring 5 mm. No left-sided hydronephrosis. No right-sided nephrolithiasis or hydronephrosis. BLADDER: Unremarkable. GASTROINTESTINAL TRACT: Colonic diverticulosis without acute diverticulitis The small and large bowel are unremarkable. The appendix is not definitively visualized.. ABDOMINAL WALL: No significant hernia is appreciated. LYMPH NODES: Normal. VASCULAR: Unremarkable. PELVIC VISCERA: Unremarkable. OSSEOUS STRUCTURES: Unremarkable. CT/CT abdomen pelvis wo IV con IMPRESSION: 1. No acute process of the abdomen or pelvis identified. 2. Redemonstration of nonobstructive calculus in the left renal lower pole measuring 5 mm. No left-sided hydronephrosis. 3. Colonic diverticulosis without acute diverticulitis.
[2023-05-19 09:54] VITALS: BP 126/69; PULSE 73; RESP 14; TEMP 36.6; O2SAT 98
--- NOTE | 2023-05-19 10:27 | ED_ITS ---
HPI - Back Pain/Injury General Chief Complaint: Back Pain/Injury Stated Complaint: ack pain/L foot numbness Time Seen by Provider: 05/19/23 10:08 Source: patient, family and RN notes reviewed Mode of arrival: ambulatory Limitations: no limitations History of Present Illness HPI Narrative: This is a 32-year-old female, with a past medical history of lupus, asthma, and fibromyalgia, presenting to emergency department with complaints of back pain x 4 days. Patient states that while she was working she lifted a heavy bag of trash. She initially did not have any pain however the following day she developed back pain. She states that the back pain worsens with movement and palpation. She reports that the pain radiates from her left back into her left upper leg. Denies history of back pain in the past. She endorses dark urine, urinary frequency, as well as some suprapubic abdominal pain. No fevers, chil ls, nausea, vomiting, diarrhea, or constipation. She has a history of kidney stones and diverticulitis. No abnormal vaginal discharge or bleeding. No concerns for STIs. No urinary or bowel incontinence. No saddle anesthesia. No other complaints or concerns at this time. Pertinent past history: kidney stones Onset (ago): day(s) Timing: constant and progressively worsening Severity: moderate Similar Symptoms Previously: No Quality: aching and spasming Radiation: left upper leg Exacerbating factors: movement Relieving factors: immobilization Context: while lifting and history of kidney stones Associated symptoms: increased urinary frequency, abdominal pain and parasthesias Treatments prior to arrival: acetaminophen Work related injury: Yes Related Data Home Medications Medication Instructions Recorded Confirmed ferrous sulfate 325 mg (65 mg 325 mg PO DAILY 08/22/21 08/09/22 iron) tablet (Feosol) cholecalciferol (vitamin D3) 125 125 mcg PO DAILY 12/06/21 08/09/22 mcg (5,000 unit) capsule folic acid 1 mg tablet 1 mg PO DAILY 12/06/21 08/09/22 hydroxychloroquine 200 mg tablet 200 mg PO BID 12/06/21 08/09/22 Previous Rx's Medication Instructions Recorded prednisone 20 mg tablet 20 mg PO DAILY #14 tabs 03/14/22 meloxicam 7.5 mg tablet 15 mg PO DAILY PRN knee pain #20 07/25/22 tabs meloxicam 15 mg tablet 15 mg PO DAILY 30 days #30 tabs 08/13/22 ketorolac 10 mg tablet 10 mg PO TID PRN pain 5 days #15 11/20/22 tabs acetaminophen 500 mg tablet 500 mg PO Q6H PRN fever or pain 12/17/22 (Tylenol Extra Strength) #14 tabs cyclobenzaprine 5 mg tablet 5 mg PO Q8H PRN pain (scale score 12/17/22 7-10) 5 days #14 tabs lidocaine 5 % topical patch 1 patch topical DAILY PRN pain #30 12/17/22 (Lidoderm) ea ibuprofen 800 mg tablet 800 mg PO TID PRN pain #20 tabs 03/18/23 prednisone 20 mg tablet 60 mg PO DAILY 2 days #6 tabs 03/18/23 vjpwbtzezq-uwkezutnylvkg-ovaycdkd 1 cap PO Q8H PRN headache #10 caps 04/12/23 50 mg-300 mg-40 mg capsule (Fioricet) ondansetron 4 mg disintegrating 4 mg PO Q8H PRN nausea and 04/12/23 tablet vomiting #7 tabs prednisone 10 mg tablet 30 mg PO BID 3 days #18 tabs 05/01/23 acetaminophen 325 mg tablet 650 mg PO Q6H PRN pain #30 tabs 05/19/23 (Tylenol) cyclobenzaprine 5 mg tablet 5 mg PO TID PRN muscle spasm 5 05/19/23 days #15 tabs prednisone 10 mg tablet 30 mg PO DAILY 3 days #9 tabs 05/19/23 Allergies Allergy/AdvReac Type Severity Reaction Status Date / Time aspirin [ASA] Allergy Severe Palpitation Verified 05/01/23 09:54 s Review of Systems Review of Systems: Constitutional: No Weight loss, No Fever, No Chills, No Night Sweats, No Fatig ue, No Malaise ENT/Mouth: No Hearing loss, No Ear Pain, No Nasal Congestion, No Sinus Pain, No Hoarseness, No sore throat, No Rhinorrhea, No Swallowing Difficulty Eyes: No Eye Pain, No Swelling, No Redness, No Foreign Body, No Discharge, No Vision Changes Cardiovascular: No Chest Pain, No SOB, No Dyspnea on Exertion, No Orthopnea, No Edema, No Palpitations Respiratory: No Cough, No Sputum, No Wheezing, No Smoke Exposure, No Dyspnea Gastrointestinal: No Nausea, No Vomiting, No Diarrhea, No Constipation, + Abdominal pain, No Hematochezia, No Melena Genitourinary: No irregular bleeding, No Dysuria, + Urinary Frequency, No Hematuria, No Urinary Incontinence/retention, No Urgency, No Flank Pain, No Urinary Flow Changes, No Hesitancy Musculoskeletal: +back pain, No joint pain, No Myalgias, No Joint Swelling Skin: No Skin Lesions, No rash Neuro: No Weakness, No Numbness, No Paresthesias, No Loss of Consciousness, No Dizziness, No Headache Psych: No Anxiety/Panic, No Depression, No SI/HI/AH/VH, No Social Issues, Heme/Lymph: No Bruising, No Bleeding,No Lymphadenopathy Endocrine: No Polyuria, No Polydipsia, No Temperature Intolerance Yes all other systems are reviewed and are negative Constitutional: Constitutional: Reports as per [facility] Past Medical History Medical History Anemia Chronic migraine with aura Cough Daily headache Left wrist pain Lung nodule seen on imaging study Lupus Mild persistent asthma Mild recurrent major depression Overweight (BMI 25.0-29.9) Physical exam Polyarthralgia Rheumatoid arthritis Solitary pulmonary nodule Swelling of right knee joint Urticaria Surgical History Hx of section Family History Family History Mother Hypoglycemia Father Hypertension Diabetes Family/Other Mental health disorder Substance use disorder Social History Social History Housing: Apartment Alcohol intake: never Patient Tobacco Use Status: Former Tobacco user Quit Date: 03/2021 Tobacco use type: Cigarette e-Cigarette/Vaping Use: Never Used Second Hand Smoke Exposure: No Substance Use Type: Marijuana Advance Directives: No Advance Directives Information Provided: No service: No Current occupational status: unemployed Physical Exam Vital Signs: Vital Signs: Last Vital Signs Temp 97.8 F 05/19/23 09:54 Pulse 73 05/19/23 09:54 Resp 14 05/19/23 09:54 BP 126/69 05/19/23 09:54 Pulse Ox 98 05/19/23 09:54 O2 Del Method Room Air 05/19/23 09:54 BMI result Body Mass Index 30.0 Const: General: cooperative, comfortable and no acute distress Orientation/consciousness: patient oriented x3 Limitations: no limitations HEENT: Head: Yes normal to inspection, Yes normocephalic and Yes atraumatic Ears: hearing grossly normal bilaterally General nose exam: Normal external nose present Face and sinus: Yes normal facial exam Mouth: Normal oral and palatal mucosa present, oropharynx normal and moist mucous membranes Throat: Yes posterior oropharynx normal Eyes: General: appearance normal, both eyes and all related structures Eyelids: Yes eyelids normal Conjunctivae: conjunctivae normal Sclerae: sclerae normal Pupils: Equal, round and reactive pupils present EOM: EOMs intact bilaterally Neck: Neck: Yes normal visual inspection, Yes full ROM and Yes no lymphadenopathy Lymphatic: no lymphadenopathy noted Chest: Chest palpation & inspection: normal inspection of the chest Resp: Effort & Inspection: normal respiratory effort and able to speak in complete sentences Auscultation: clear to auscultation bilaterally, no crackles, no rales, no rhonchi and no wheezes Cardio: Rate: regular rate Rhythm: regular rhythm Heart sounds: S1 normal heart sound present and S2 normal heart sound present GI: Other: Abdomen is soft, with tenderness to palpation suprapubically. Normoactive bowel sounds present in all 4 quadrants. Inspection: Yes normal to inspection Back/Spine/Pelvis: Other: +CVA tenderness on the left. Exquisite tenderness with light palpation to the thoracic spine and thoracic paraspinous muscles extending into lumbar midline spine and left lumbar paraspinous muscles. Pain worsening with movement of back. Skin: General skin exam: no rashes or lesions noted Trauma: no lacerations or abrasions Wounds: no wounds Neuro: General: patient oriented x3 and moves all extremities Cranial nerves: Yes Equal, round and reactive pupils present Extrem: General: Yes normal to inspection Right upper extremity: normal to inspection Left upper extremity: normal to inspection Right lower extremity: normal to inspection Left lower extremity: normal to inspection Course Reevaluation(s) Reevaluation #1: Patient re-evaluated, feeling better after receiving Toradol. Abdominal CT revealing a nonobstructive calculus in the left renal left lower pole measuring 5 mm, no left-sided hydronephrosis. Colonic diverticulosis without acute diverticulitis. Patient has a history of both of these, discussed results with patient. Urine does not appear to be infected, urine negative. Patient's symptoms consistent with thoracic muscle spasm, will treat with prednisone and muscle relaxants. Patient advised to gently stretch, massage, use heat. Patient educated the importance of returning if any new or worsening symptoms occur. Patient understands and agrees with plan. Patient stable for discharge. Time: 12:58 Medications Administered Discontinued Medications Generic Name Dose Route Start Last Admin Trade Name Freq PRN Reason Stop Dose Admin Ketorolac Tromethamine 30 mg 05/19/23 10:25 05/19/23 11:05 Ketorolac Tromethamine 30 Mg/Ml Vial IM 05/19/23 10:26 30 mg ONCE ONE Administration Medical Decision Making Medical Decision Making [facility] Narrative: 32-year-old female, with a past medical history of fibromyalgia, presenting to the emergency department for evaluation mid back pain x4 days. Patient lifted a heavy bag of trash several days ago and woke up the next morning significant back pain, worsening day by day. All vital signs within normal limits. On examination, patient has left CVA tenderness to palpation, exquisite tenderness to the thoracic and lumbar midline spine paraspinal muscles. Patient or Rmasey dark urine and urinary frequency. No urinary or bowel incontinence. No saddle anesthesia. Given patient's urinary symptoms, left CVA tenderness, and suprapubic tenderness, will obtain urine sample and CT abdomen for further investigation. Concern for pyelonephritis versus nephrolithiasis, obstructing stone. Will also obtain x-rays of the lumbar spine to ensure no bony ab normalities. Will obtain basic labs. Plan: Labs, UA, CT abdomen, x-ray, pain management Differential Diagnosis Differential Diagnoses: The differential diagnosis associated with the presentation includes Pyelonephritis, nephrolithiasis, sciatica, cauda equina syndrome-unlikely Admission/Observation Consideration of admission/observation: Escalation of care including admission/observation considered Patient would have been admitted to the hospital had her work up had any findings where hospital admission was appropriate and her clinical presentation warranted hospital admission. Lab Data [facility] Lab Attestation statement: I reviewed the patient's lab results. 05/19/23 10:37 05/19/23 10:37 Labs: Lab Results 05/19/23 05/19/23 05/19/23 Range/Units 10:37 10:37 11:08 WBC 5.1 (4.8-10.8) X10*3/uL RBC 4.16 L (4.20-5.50) X10*6/uL Hgb 12.1 (12.0-16.0) g/dl Hct 35.8 L (37.0-47.0) % MCV 86.1 (80.0-98.0) fL MCH 29.1 (27.0-33.0) pg MCHC 33.8 (31.0-35.0) g/dl RDW 13.5 (11.0-16.0) % Plt Count 154 L (160-400) X10*3/uL MPV 11.4 (9.4-12.3) fL Immature Gran % (Auto) 0.2 (0.0-0.4) % Neut % (Auto) 64.3 (45-73) % Lymph % (Auto) 24.6 (20-40) % Faulk % (Auto) 8.3 (2-11) % Eos % (Auto) 2.4 (0-4) % Baso % (Auto) 0.2 (0-2) % Lymph # (Auto) 1.3 (1.2-4.9) X10*3/uL Faulk # (Auto) 0.4 (0.1-1.2) X10*3/uL Eos # (Auto) 0.1 (0.0-0.4) X10*3/uL Baso # (Auto) 0.0 (0.0-0.2) X10*3/uL Abs Immat Gran (auto) 0.01 (0.00-0.03) X10*3/uL Absolute Neuts (auto) 3.3 (2.0-8.3) x10*3/uL Absolute Nucleated RBC 0.000 (0.0-0.012) X10*3/uL Nucleated RBC % (auto) 0.0 (0.0-0.2) /100WBC Sodium 139 (135-145) mmol/L Potassium 4.0 (3.3-5.1) mmol/L Chloride 106 (96-108) mmol/L Carbon Dioxide 25 (22-29) mmol/L Anion Gap 12 (12-20) BUN 9 (9-16) mg/dL Creatinine 0.74 (0.5-1.4) mg/dL Estim Creat Clear Calc 109.1 Estimated GFR > 60 Random Glucose 119 H (60-115) mg/dL Calcium 9.0 (8.4-10.2) mg/dL Total Bilirubin 0.4 (0.0-1.0) mg/dL Direct Bilirubin 0.1 (0.0-0.5) mg/dL AST 15 (5-31) U/L ALT 7 (0-31) U/L Alkaline Phosphatase 65 (39-117) U/L Total Protein 7.8 (6.5-8.0) g/dL Albumin 3.8 (3.5-5.0) g/dL Urine Color Yellow Urine Appearance Clear Urine pH 5.5 (5.0-9.0) Ur Specific Victor 1.025 (1.005-1.025) Urine Protein Negative (Neg-Trace) mg/dL Urine Glucose (UA) Negative (Negative) mg/dL Urine Ketones Trace (Negative) mg/dL Urine Blood Negative (Negative) Urine Nitrite Negative (Negative) Ur Leukocyte Esterase Negative (Negative) Urine Test (NEGATIVE) 05/19/23 Range/Units 11:08 WBC (4.8-10.8) X10*3/uL RBC (4.20-5.50) X10*6/uL Hgb (12.0-16.0) g/dl Hct (37.0-47.0) % MCV (80.0-98.0) fL MCH (27.0-33.0) pg MCHC (31.0-35.0) g/dl RDW (11.0-16.0) % Plt Count (160-400) X10*3/uL MPV (9.4-12.3) fL Immature Gran % (Auto) (0.0-0.4) % Neut % (Auto) (45-73) % Lymph % (Auto) (20-40) % Faulk % (Auto) (2-11) % Eos % (Auto) (0-4) % Baso % (Auto) (0-2) % Lymph # (Auto) (1.2-4.9) X10*3/uL Faulk # (Auto) (0.1-1.2) X10*3/uL Eos # (Auto) (0.0-0.4) X10*3/uL Baso # (Auto) (0.0-0.2) X10*3/uL Abs Immat Gran (auto) (0.00-0.03) X10*3/uL Absolute Neuts (auto) (2.0-8.3) x10*3/uL Absolute Nucleated RBC (0.0-0.012) X10*3/uL Nucleated RBC % (auto) (0.0-0.2) /100WBC Sodium (135-145) mmol/L Potassium (3.3-5.1) mmol/L Chloride (96-108) mmol/L Carbon Dioxide (22-29) mmol/L Anion Gap (12-20) BUN (9-16) mg/dL Creatinine (0.5-1.4) mg/dL Estim Creat Clear Calc Estimated GFR Random Glucose (60-115) mg/dL Calcium (8.4-10.2) mg/dL Total Bilirubin (0.0-1.0) mg/dL Direct Bilirubin (0.0-0.5) mg/dL AST (5-31) U/L ALT (0-31) U/L Alkaline Phosphatase (39-117) U/L Total Protein (6.5-8.0) g/dL Albumin (3.5-5.0) g/dL Urine Color Urine Appearance Urine pH (5.0-9.0) Ur Specific Victor (1.005-1.025) Urine Protein (Neg-Trace) mg/dL Urine Glucose (UA) (Negative) mg/dL Urine Ketones (Negative) mg/dL Urine Blood (Negative) Urine Nitrite (Negative) Ur Leukocyte Esterase (Negative) Urine Test NEGATIVE (NEGATIVE) Radiology Impression Discussion of test interpretation with radiology: I have reviewed the radiologist's reading. Radiologist Impression: EXAMINATION: CT ABDOMEN AND PELVIS WITHOUT CONTRAST? CLINICAL INFORMATION: Left CVA tenderness? COMPARISON: CT abdomen and pelvis from 11/20/2022 TECHNIQUE: Multidetector volumetric imaging was performed from the superior aspect of the liver through the pubic symphysis. Sagittal and coronal reformatted images were obtained on the technologist's workstation.? This CT examination was performed using dose optimization techniques as appropriate, variously including the following: *Automated exposure control *Adjustment of mA and/or kV according to patient size (this includes techniques or standardized protocols for targeted exams where dose is matched to indication/reason for exam; i.e. extremities or head) *Use of iterative reconstruction technique DLP: 493 mGy-cm FINDINGS: LUNG BASES: Bibasilar atelectasis versus scarring, left greater than.? LIVER, GALLBLADDER, AND BILIARY TREE: The liver is normal in size, shape, and attenuation. No focal hepatic lesion or biliary ductal dilatation is present. The gallbladder is unremarkable with no evidence of radiopaque gallstones, gallbladder wall thickening, or obvious pericholecystic inflammatory changes.? PANCREAS: Unremarkable.? SPLEEN: Unremarkable.? ADRENAL GLANDS: Unremarkable.? KIDNEYS AND URETERS: Redemonstration of nonobstructive calculus in the left renal lower pole measuring 5 mm. No left-sided hydronephrosis. No right-sided nephrolithiasis or hydronephrosis.? BLADDER: Unremarkable.? GASTROINTESTINAL TRACT: Colonic diverticulosis without acute diverticulitis The small and large bowel are unremarkable. The appendix is not definitively visualized..? ABDOMINAL WALL: No significant hernia is appreciated.? LYMPH NODES: Normal. VASCULAR: Unremarkable. PELVIC VISCERA: Unremarkable.? OSSEOUS STRUCTURES: Unremarkable.? CT/CT abdomen pelvis wo IV con IMPRESSION: 1.? No acute process of the abdomen or pelvis identified. 2.? Redemonstration of nonobstructive calculus in the left renal lower pole measuring 5 mm. No left-sided hydronephrosis. 3.? Colonic diverticulosis without acute diverticulitis. Dictated By: Sree Beard MD Signed By: <Electronically signed by Sree Beard MD in OV> External Record Review External record reviewed: Inpatient record, Office record, Outpatient record, Prior outpatient labs, Prior outpatient radiology, Primary care record and Outside ED record Discharge Plan Discharge Clinical Impression: Spasm of thoracic back muscle, Back pain Patient Disposition: Home, Self-Care Instructions: Muscle Spasm (ED), Back Pain (ED) Additional Instructions: Your blood work and urine testing was normal today. Your abdominal/pelvic CT revealed a kidney stone which was non obstructive and this same size that was seen on prior imaging. It also showed diverticulosis which you have a history of. Please drink plenty of fluids and get plenty of rest. Gentle stretching, massage, taking ibuprofen/Tylenol, and using muscle relaxants as directed should help with your symptoms. Please be advised that muscle relaxants can cause drowsiness, do not drink alcohol or drive while taking this medication. I am also giving you a prescription for prednisone, you are already on this to treat your lupus, continue taking normal regimen for lupus and at prednisone 30 mg x 3 days. If any new or worsening symptoms occur please return for re-evaluation. Prescriptions: New prednisone 10 mg tablet 30 mg PO DAILY 3 Days Qty: 9 0RF cyclobenzaprine 5 mg tablet 5 mg PO TID PRN (Reason: muscle spasm) 5 Days Qty: 15 0RF acetaminophen [Tylenol] 325 mg tablet 650 mg PO Q6H PRN (Reason: pain) Qty: 30 0RF No Action prednisone 20 mg tablet 20 mg PO DAILY Qty: 14 0RF acetaminophen [Tylenol Extra Strength] 500 mg tablet 500 mg PO Q6H PRN (Reason: fever or pain) Qty: 14 0RF lidocaine [Lidoderm] 5 % adhesive patch,medicated 1 patch topical DAILY MDD remove after 12 hours PRN (Reason: pain) Qty: 30 0RF Rx Instructions: leave on most painful area for up to 12 hrs cyclobenzaprine 5 mg tablet 5 mg PO Q8H PRN (Reason: pain (scale score 7-10)) 5 Days Qty: 14 0RF ketorolac 10 mg tablet 10 mg PO TID PRN (Reason: pain) 5 Days Qty: 15 0RF Rx Instructions: DO NOT take ibuprofen, meloxicam, or naproxen with this drug prednisone 20 mg tablet 60 mg PO DAILY 2 Days Qty: 6 0RF ibuprofen 800 mg tablet 800 mg PO TID PRN (Reason: pain) Qty: 20 0RF ondansetron 4 mg tablet,disintegrating 4 mg PO Q8H PRN (Reason: nausea and vomiting) Qty: 7 0RF navcltumnp-hpcjnmdgehoer-lzjo [Fioricet] 50-300-40 mg capsule 1 cap PO Q8H PRN (Reason: headache) Qty: 10 0RF cholecalciferol (vitamin D3) 125 mcg (5,000 unit) capsule 125 mcg PO DAILY folic acid 1 mg tablet 1 mg PO DAILY hydroxychloroquine 200 mg tablet 200 mg PO BID ferrous sulfate [Feosol] 325 mg (65 mg iron) tablet 325 mg PO DAILY meloxicam 7.5 mg tablet 15 mg PO DAILY PRN (Reason: knee pain) Qty: 20 0RF prednisone 10 mg tablet 30 mg PO BID 3 Days Qty: 18 0RF meloxicam 15 mg tablet 15 mg PO DAILY 30 Days Qty: 30 0RF Stand Alone Forms: Work/School Release Interventions: ED Discharge Assessment Last Done: 05/19/23 13:10 Discharge Date/Time: 05/19/23 13:11
[2023-05-19 10:41] LABS: MANUAL DIFF FLAG NO
[2023-05-19 10:44] LABS: Basophils Percent Auto 0.2 % (0-2); Eosinophils Absolute Auto 0.1 X10*3/uL (0.0-0.4); Eosinophils Percent Auto 2.4 % (0-4); Hematocrit 35.8 % (37.0-47.0); Hemoglobin 12.1 g/dl (12.0-16.0); Imm Gran Abs Auto 0.01 X10*3/uL (0.00-0.03); Imm Gran Pct Auto 0.2 % (0.0-0.4); Lymphocytes Absolute Auto 1.3 X10*3/uL (1.2-4.9); Lymphocytes Percent Auto 24.6 % (20-40); Mean Corpuscular HGB Conc 33.8 g/dl (31.0-35.0); Mean Corpuscular Hemoglobin 29.1 pg (27.0-33.0); Mean Corpuscular Volume 86.1 fL (80.0-98.0); Mean Platelet Volume 11.4 fL (9.4-12.3); Monocytes Absolute Auto 0.4 X10*3/uL (0.1-1.2); Monocytes Percent Auto 8.3 % (2-11); Neutrophils Absolute Auto 3.3 x10*3/uL (2.0-8.3); Neutrophils Percent Auto 64.3 % (45-73); Platelet Count 154 X10*3/uL (160-400); Red Blood Count 4.16 X10*6/uL (4.20-5.50); Red Cell Distribution Width 13.5 % (11.0-16.0); White Blood Count 5.1 X10*3/uL (4.8-10.8)
[2023-05-19 10:57] LABS: Alanine Aminotransferase 7 U/L (0-31); Albumin Level 3.8 g/dL (3.5-5.0); Alkaline Phosphatase 65 U/L (39-117); Anion Gap 12 (12-20); Aspartate Amino Transferase 15 U/L (5-31); Bilirubin Direct 0.1 mg/dL (0.0-0.5); Bilirubin Total 0.4 mg/dL (0.0-1.0); Blood Urea Nitrogen 9 mg/dL (9-16); Carbon Dioxide 25 mmol/L (22-29); Chloride 106 mmol/L (96-108); Creatinine Clr Calc Pharmacy 109.1; Estimated Glomerular Filt Rate > 60; Glucose Random 119 mg/dL (60-115); Sodium 139 mmol/L (135-145); Total Protein 7.8 g/dL (6.5-8.0)
[2023-05-19] MEDS: Ketorolac Tromethamine 30 MG/ML VIAL IM (11:05)
[2023-05-19 11:17] LABS: Appearance Urine Clear; Color Urine Yellow; Glucose Urine UA Negative (Negative); Leukocyte Esterase Urine Negative (Negative); Nitrite Urine Negative (Negative); PH 5.5 (5.0-9.0); Specific Gravity - Urine 1.025 (1.005-1.025); Urine Blood Negative (Negative); Urine Ketones Trace mg/dL (Negative); Urine Protein Negative (Neg-Trace)
[2023-05-19 11:19] LABS: UPreg QC Valid YES; Urine Pregnancy NEGATIVE (NEGATIVE)
--- NOTE | 2023-05-19 11:33 | PC.NURSE ---
pt medicated per DEC for 08/05 back pain, currently in CT
== END 2023-05-19 13:11 | disposition home or self-care (01) ==
PROVIDERS: Physician Assistant Medical; Emergency Provider Emergency Medicine; PCP Internal Medicine
DX: M62.830 Muscle spasm of back (principal); M54.50 Low back pain, unspecified; Z87.891 Personal history of nicotine dependence
CPT/HCPCS: 36415; 74176; 80048; 80076; 81003; 81025; 85025; 96372; 99283; 99284; J1885

== ENCOUNTER 2023-06-03 14:29 | Outpatient (AMB) | payer OTHER, SELFPAY ==
--- NOTE | 2023-06-03 14:32 | AM.OFFWIN_ITS ---
Intake Vital Signs 06/03/23 14:34 Height 5 ft 4 in Weight 166 lb 3 oz BMI 28.5 BP 102/60 Blood Pressure Location Lt brachial Position Sitting Pulse 71 Pulse Source Pulse Oximeter Pulse Oximetry (%) 97 Oxygen Delivery Method Room Air Intake Visit Reasons: EP diarrhea, aching all over (lobby) Intake Note: Pt is here c/o having diarrhea since yesterday. Pt states yesterday at work she had an accident and didn't feel when she needed to use the bathroom. Patient Tobacco Use Status: Former Tobacco user Quit Date: 03/2021 Allergies aspirin [ASA] Allergy (Severe, Verified 06/03/23 14:56) Palpitations Medication List - Last Reconciled 06/03/23 by Juan J Ward MD acetaminophen (Tylenol Extra Strength) 500 mg PO Q6H PRN acetaminophen (Tylenol) 650 mg (2 x 325 mg) PO Q6H PRN towdobvwaa-fbqproadzqzzf-pfay 50-300-40 mg (Fioricet) 1 cap PO Q8H PRN cholecalciferol (vitamin D3) 125 mcg PO DAILY cyclobenzaprine 5 mg PO Q8H PRN 5 days cyclobenzaprine 5 mg PO TID PRN 5 days ferrous sulfate (Feosol) 325 mg PO DAILY folic acid 1 mg PO DAILY hydroxychloroquine 200 mg PO BID ibuprofen 800 mg PO TID PRN ketorolac 10 mg PO TID PRN 5 days lidocaine 5% (Lidoderm) 1 patch topical DAILY PRN MDD remove after 12 hours meloxicam 15 mg (2 x 7.5 mg) PO DAILY PRN meloxicam 15 mg PO DAILY 30 days ondansetron 4 mg PO Q8H PRN prednisone 60 mg (3 x 20 mg) PO DAILY 2 days prednisone 30 mg (3 x 10 mg) PO DAILY 3 days prednisone 30 mg (3 x 10 mg) PO BID 3 days prednisone 20 mg PO DAILY Do you need a note to return to daycare/school/sports/work: Yes HPI EP diarrhea, aching all over (lobby) HPI Details 32-year-old female presents to the office for a sick visit. Patient is requesting a note for work. She has had diarrhea since yesterday. 3-4 episodes during the daytime. Past medical history significant for lupus and fibromyalgia. FORMERLY [facility], [facility] Medical History Anemia Chronic migraine with aura Cough Daily headache Left wrist pain Lung nodule seen on imaging study Lupus Mild persistent asthma Mild recurrent major depression Overweight (BMI 25.0-29.9) Physical exam Polyarthralgia Rheumatoid arthritis Solitary pulmonary nodule Swelling of right knee joint Urticaria Surgical History Hx of section Family History Mother Hypoglycemia Father Hypertension Diabetes Family/Other Mental health disorder Substance use disorder Social History Housing: Apartment Alcohol intake: never Patient Tobacco Use Status: Former Tobacco user Quit Date: 03/2021 Tobacco use type: Cigarette e-Cigarette/Vaping Use: Never Used Second Hand Smoke Exposure: No Substance Use Type: Marijuana service: No Current occupational status: unemployed Female Reproductive History Menstrual Age of Menarche: 10 Physical Exam Vital Signs: Last Vital Signs Pulse 71 06/03/23 14:34 BP 102/60 06/03/23 14:34 Pulse Ox 97 06/03/23 14:34 Oxygen Delivery Method Room Air 06/03/23 14:34 BMI result Body Mass Index 28.5 Const General: cooperative and healthy appearing Nutritional Appearance: well nourished Orientation/consciousness: patient oriented x3 Limitations: no limitations HEENT Head: Yes normal to inspection Eyes General: appearance normal, both eyes and all related structures Neck Neck: Yes normal visual inspection Chest Chest palpation & inspection: normal palpation of entire chest wall Resp Effort & Inspection: normal respiratory effort Neuro General: patient oriented x3 Assessment & Plan Assessment & Plan (1) Diarrhea: Code(s): R19.7 - Diarrhea, unspecified Plan: Self-limiting illness. Note for work given. Coding Level of Care Code Est Pt Level 3 (02161) Diagnoses Diarrhea R19.7
[2023-06-03 14:34] VITALS: BP 102/60; PULSE 71; O2SAT 97; BMI 28.5
== END 2023-06-03 15:43 | disposition home or self-care (01) ==
PROVIDERS: PCP Internal Medicine; Visit Provider Internal Medicine
DX: R19.7 Diarrhea, unspecified (principal)
CPT/HCPCS: 99213

== ENCOUNTER 2023-07-12 05:23 | Emergency (ER) | payer OTHER, SELFPAY ==
--- NOTE | ~2023-07-12 | XR_ITS ---
EXAMINATION: XR HIP, RIGHT CLINICAL INFORMATION: Pain COMPARISON: Selected images CT pelvis 05/19/2023 TECHNIQUE: AP pelvis and AP and lateral views of the right hip. FINDINGS: The bones of the pelvis are normal. Normal coverage of the bilateral femoral heads without subluxation or dislocation. Several corticated ossific fragments are seen at the lateral margin of the acetabulum which are not acute. Additionally there is a subtle bony prominence (cam lesion) at the right femoral head/neck junction region on the frog-leg lateral view. XR/XR hip RT w PEL1V IMPRESSION: No acute fracture or significant degenerative changes are seen. No joint space narrowing. Subtle changes at the lateral right acetabulum and right femoral head/neck junction region which can be seen in femoral acetabular impingement, correlate with the clinical exam.
[2023-07-12 05:27] VITALS: BP 138/82; PULSE 84; O2SAT 99
[2023-07-12 05:40] VITALS: BP 105/52; PULSE 74; RESP 19; TEMP 37.1; O2SAT 98
[2023-07-12 05:42] VITALS: BP 105/52; PULSE 71; RESP 16; TEMP 37.1; O2SAT 98; BMI 30.1
[2023-07-12 06:29] LABS: Basophils Percent Auto 0.3 % (0-2); Eosinophils Absolute Auto 0.2 X10*3/uL (0.0-0.4); Eosinophils Percent Auto 2.3 % (0-4); Hematocrit 38.5 % (37.0-47.0); Hemoglobin 13.1 g/dl (12.0-16.0); Imm Gran Abs Auto 0.01 X10*3/uL (0.00-0.03); Imm Gran Pct Auto 0.1 % (0.0-0.4); Lymphocytes Absolute Auto 1.3 X10*3/uL (1.2-4.9); Lymphocytes Percent Auto 17.3 % (20-40); MANUAL DIFF FLAG NO; Mean Corpuscular Hemoglobin 28.8 pg (27.0-33.0); Mean Corpuscular Volume 84.6 fL (80.0-98.0); Monocytes Absolute Auto 0.6 X10*3/uL (0.1-1.2); Monocytes Percent Auto 8.3 % (2-11); Neutrophils Absolute Auto 5.4 x10*3/uL (2.0-8.3); Neutrophils Percent Auto 71.7 % (45-73); Platelet Count 153 X10*3/uL (160-400); Red Blood Count 4.55 X10*6/uL (4.20-5.50); Red Cell Distribution Width 13.5 % (11.0-16.0); White Blood Count 7.5 X10*3/uL (4.8-10.8)
--- NOTE | 2023-07-12 06:31 | MHC.EDTECH ---
This Tech assumed care of ths PT upon arrival. pt changed over to hospital gown and bloodwork sent to the lab for processing. Awaiting for pt to provide a urine sample
[2023-07-12 06:43] LABS: Alanine Aminotransferase 9 U/L (0-31); Albumin Level 3.8 g/dL (3.5-5.0); Alkaline Phosphatase 69 U/L (39-117); Anion Gap 10 (12-20); Aspartate Amino Transferase 17 U/L (5-31); Bilirubin Total 0.2 mg/dL (0.0-1.0); Blood Urea Nitrogen 10 mg/dL (9-16); Calcium 9.2 mg/dL (8.4-10.2); Carbon Dioxide 27 mmol/L (22-29); Chloride 103 mmol/L (96-108); Estimated Glomerular Filt Rate > 60; Glucose Random 90 mg/dL (60-115); Potassium 4.7 mmol/L (3.3-5.1); Sodium 135 mmol/L (135-145); Total Protein 8.1 g/dL (6.5-8.0)
--- NOTE | 2023-07-12 07:36 | ED_ITS ---
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 Patient states that the pain is terrible but denies any fevers or chills. Related Data Home Medications Medication Instructions Recorded Confirmed ferrous sulfate 325 mg (65 mg 325 mg PO DAILY 08/22/21 06/03/23 iron) tablet (Feosol) cholecalciferol (vitamin D3) 125 125 mcg PO DAILY 12/06/21 06/03/23 mcg (5,000 unit) capsule folic acid 1 mg tablet 1 mg PO DAILY 12/06/21 06/03/23 hydroxychloroquine 200 mg tablet 200 mg PO BID 12/06/21 06/03/23 Previous Rx's Medication Instructions Recorded prednisone 20 mg tablet 20 mg PO DAILY #14 tabs 03/14/22 meloxicam 7.5 mg tablet 15 mg (2 x 7.5 mg) PO DAILY PRN 07/25/22 knee pain #20 tabs meloxicam 15 mg tablet 15 mg PO DAILY 30 days #30 tabs 08/13/22 ketorolac 10 mg tablet 10 mg PO TID PRN pain 5 days #15 11/20/22 tabs acetaminophen 500 mg tablet 500 mg PO Q6H PRN fever or pain 12/17/22 (Tylenol Extra Strength) #14 tabs cyclobenzaprine 5 mg tablet 5 mg PO Q8H PRN pain (scale score 12/17/22 7-10) 5 days #14 tabs lidocaine 5 % topical patch 1 patch topical DAILY PRN pain #30 12/17/22 (Lidoderm) ea ibuprofen 800 mg tablet 800 mg PO TID PRN pain #20 tabs 03/18/23 prednisone 20 mg tablet 60 mg (3 x 20 mg) PO DAILY 2 days 03/18/23 #6 tabs allazasgic-pvlrpzkjbkcge-fcwpqbyx 1 cap PO Q8H PRN headache #10 caps 04/12/23 50 mg-300 mg-40 mg capsule (Fioricet) ondansetron 4 mg disintegrating 4 mg PO Q8H PRN nausea and 04/12/23 tablet vomiting #7 tabs prednisone 10 mg tablet 30 mg (3 x 10 mg) PO BID 3 days 05/01/23 #18 tabs acetaminophen 325 mg tablet 650 mg (2 x 325 mg) PO Q6H PRN 05/19/23 (Tylenol) pain #30 tabs cyclobenzaprine 5 mg tablet 5 mg PO TID PRN muscle spasm 5 05/19/23 days #15 tabs prednisone 10 mg tablet 30 mg (3 x 10 mg) PO DAILY 3 days 05/19/23 #9 tabs Allergies Allergy/AdvReac Type Severity Reaction Status Date / Time aspirin [ASA] Allergy Severe Palpitation Verified 06/03/23 14:56 s Review of Systems 2 Review of Systems: Pertinent positives and negatives as stated in [facility] Past Medical History Source: nursing notes reviewed Medical History Anemia Chronic migraine with aura Cough Daily headache Left wrist pain Lung nodule seen on imaging study Lupus Mild persistent asthma Mild recurrent major depression Overweight (BMI 25.0-29.9) Physical exam Polyarthralgia Rheumatoid arthritis Solitary pulmonary nodule Swelling of right knee joint Urticaria Surgical History Hx of section Family History Family History Mother Hypoglycemia Father Hypertension Diabetes Family/Other Mental health disorder Substance use disorder Social History Social History Housing: Apartment Alcohol intake: never Patient Tobacco Use Status: Former Tobacco user Quit Date: 03/2021 Tobacco use type: Cigarette Smoked in Last 30 Days: No e-Cigarette/Vaping Use: Never Used Second Hand Smoke Exposure: No Use of substances other than those prescribed or required for medical reasons: No Substance Use Type: Marijuana Advance Directives: No Advance Directives Information Provided: No Patient : No service: No Current occupational status: unemployed Physical Exam ED Vital Signs: Vital Signs - 24 hr 07/12/23 05:40 07/12/23 05:42 07/12/23 07:45 Temperature 98.7 F 98.7 F 98.3 F Pulse Rate 74 71 73 Respiratory Rate 19 16 16 Blood Pressure 105/52 L 105/52 L 92/62 Pulse Oximetry 98 98 100 Oxygen Delivery Method Room Air Room Air Room Air 07/12/23 11:03 Temperature 98.4 F Pulse Rate 73 Respiratory Rate 16 Blood Pressure 123/69 Pulse Oximetry 100 Oxygen Delivery Method Room Air BMI result Body Mass Index 30.1 VITAL SIGNS: Reviewed. GENERAL: Well developed, well nourished, in no acute distress. HEAD: Normocephalic/atraumatic EYES: PERRLA, EOMI EARS: Ext canals without abnormality NOSE: Nares patent bilateral OROPHARYNX: no oral lesions noted, posterior pharynx clear NECK: Supple, no adenopathy LUNGS: Normal breath sounds. No adventitious sounds or accessory muscle use. SpO2<98> CARDIOVASCULAR: Regular rate and rhythm without noted murmurs ABDOMEN: Soft, non-tender, non-distended with bowel sounds. PELVIS: Stable, nontender no erythema or induration noted at the right hip. MUSCULOSKELETAL: No tenderness, deformities, or effusions noted on gross inspection. EXTREMITIES: No cyanosis, clubbing or edema. SKIN: Inspection of the skin reveals no rashes NEUROLOGIC: Alert and oriented x 4. Strength and sensation to light touch were grossly intact x 4. Medications Administered Discontinued Medications Generic Name Dose Route Start Last Admin Trade Name Freq PRN Reason Stop Dose Admin Acetaminophen 975 mg 07/12/23 08:28 07/12/23 08:36 Acetaminophen 325 Mg Tablet PO 07/12/23 08:29 975 mg ONCE ONE Administration Oxycodone HCl 5 mg 07/12/23 08:31 07/12/23 08:35 Oxycodone Hcl Immed Release 5 Mg Tablet PO 07/12/23 08:32 5 mg ONCE ONE Administration Medical Decision Making Medical Decision Making MDM Narrative: 32-year-old female with history and clinical presentation of right hip pain, DDX: Infectious, inflammation, no trauma reported so doubt fracture or dislocation. Every reviewed all investigations and hematologic indices are negative for evidence of leukocytosis or left shift, there is a chronically stable thrombocytopenia and ESR is within normal limits. Chemistry indices are grossly within normal limits, there is no evidence of APPLE or electrolyte/liver enzyme abnormalities. CRP is mildly elevated at 0.52. On review of hip and pelvis x-ray there is suggestion of femoral acetabularimpingement which corresponds to physical exam. Patient discharged and instructed to follow-up with primary care doctor to get referral for physical therapy. Patient is allergic to aspirin and therefore cannot take ibuprofen/Motrin. Will provide work note and instructed follow-up with primary care provider. Differential Diagnosis Differential Diagnoses: The differential diagnosis associated with the presentation includes Please see the discussion above Admission/Observation Consideration of admission/observation: Escalation of care including admission/observation considered Please see the discussion above Lab Data MDM Lab Attestation statement: I reviewed the patient's lab results. Please see the discussion above 07/12/23 06:25 07/12/23 06:25 Labs: Lab Results 07/12/23 Range/Units 06:25 WBC 7.5 (4.8-10.8) X10*3/uL RBC 4.55 (4.20-5.50) X10*6/uL Hgb 13.1 (12.0-16.0) g/dl Hct 38.5 (37.0-47.0) % MCV 84.6 (80.0-98.0) fL MCH 28.8 (27.0-33.0) pg MCHC 34.0 (31.0-35.0) g/dl RDW 13.5 (11.0-16.0) % Plt Count 153 L (160-400) X10*3/uL MPV 11.0 (9.4-12.3) fL Immature Gran % (Auto) 0.1 (0.0-0.4) % Neut % (Auto) 71.7 (45-73) % Lymph % (Auto) 17.3 L (20-40) % [place] % (Auto) 8.3 (2-11) % Eos % (Auto) 2.3 (0-4) % Baso % (Auto) 0.3 (0-2) % Lymph # (Auto) 1.3 (1.2-4.9) X10*3/uL [place] # (Auto) 0.6 (0.1-1.2) X10*3/uL Eos # (Auto) 0.2 (0.0-0.4) X10*3/uL Baso # (Auto) 0.0 (0.0-0.2) X10*3/uL Abs Immat Gran (auto) 0.01 (0.00-0.03) X10*3/uL Absolute Neuts (auto) 5.4 (2.0-8.3) x10*3/uL Absolute Nucleated RBC 0.000 (0.0-0.012) X10*3/uL Nucleated RBC % (auto) 0.0 (0.0-0.2) /100WBC ESR 7 (0-20) MM/HR Sodium 135 (135-145) mmol/L Potassium 4.7 (3.3-5.1) mmol/L Chloride 103 (96-108) mmol/L Carbon Dioxide 27 (22-29) mmol/L Anion Gap 10 L (12-20) BUN 10 (9-16) mg/dL Creatinine 0.77 (0.5-1.4) mg/dL Estim Creat Clear Calc 105.0 Estimated GFR > 60 Random Glucose 90 (60-115) mg/dL Calcium 9.2 (8.4-10.2) mg/dL Total Bilirubin 0.2 (0.0-1.0) mg/dL AST 17 (5-31) U/L ALT 9 (0-31) U/L Alkaline Phosphatase 69 (39-117) U/L C-Reactive Protein 0.52 H (< or = 0.50) mg/dL Total Protein 8.1 H (6.5-8.0) g/dL Albumin 3.8 (3.5-5.0) g/dL Beta HCG, Quant < 2 mIU/mL Radiology Impression Discussion of test interpretation with radiology: I have reviewed the radiologist's reading. Radiologist Impression: Please see the discussion above External Record Review External record reviewed: Outpatient record, Prior outpatient labs and Prior outpatient radiology Discharge Plan Discharge Clinical Impression: Femoral acetabular impingement Patient Disposition: Home, Self-Care Instructions: Hip Impingement (ED) Additional Instructions: 1. Tylenol 1000 mg, orally, every 6 hours as needed for pain control. Do not exceed 4000 mg within 24 hours. 2. Stop increasing your prednisone and go back to your regular does, your current diagnosis needs to be treated with exercises which you can find on the Internet as well as following up with your primary care doctor and getting referral for physical therapy. Return to the ER for any worsening symptoms. Prescriptions: No Action prednisone 20 mg tablet 20 mg PO DAILY Qty: 14 0RF acetaminophen [Tylenol Extra Strength] 500 mg tablet 500 mg PO Q6H PRN (Reason: fever or pain) Qty: 14 0RF lidocaine [Lidoderm] 5 % adhesive patch,medicated 1 patch topical DAILY MDD remove after 12 hours PRN (Reason: pain) Qty: 30 0RF Rx Instructions: leave on most painful area for up to 12 hrs cyclobenzaprine 5 mg tablet 5 mg PO Q8H PRN (Reason: pain (scale score 7-10)) 5 Days Qty: 14 0RF ketorolac 10 mg tablet 10 mg PO TID PRN (Reason: pain) 5 Days Qty: 15 0RF Rx Instructions: DO NOT take ibuprofen, meloxicam, or naproxen with this drug prednisone 20 mg tablet 60 mg PO DAILY 2 Days Qty: 6 0RF ibuprofen 800 mg tablet 800 mg PO TID PRN (Reason: pain) Qty: 20 0RF prednisone 10 mg tablet 30 mg PO DAILY 3 Days Qty: 9 0RF cyclobenzaprine 5 mg tablet 5 mg PO TID PRN (Reason: muscle spasm) 5 Days Qty: 15 0RF acetaminophen [Tylenol] 325 mg tablet 650 mg PO Q6H PRN (Reason: pain) Qty: 30 0RF ondansetron 4 mg tablet,disintegrating 4 mg PO Q8H PRN (Reason: nausea and vomiting) Qty: 7 0RF jeyekjgydo-lkgeftteiutlv-fbal [Fioricet] 50-300-40 mg capsule 1 cap PO Q8H PRN (Reason: headache) Qty: 10 0RF cholecalciferol (vitamin D3) 125 mcg (5,000 unit) capsule 125 mcg PO DAILY folic acid 1 mg tablet 1 mg PO DAILY hydroxychloroquine 200 mg tablet 200 mg PO BID ferrous sulfate [Feosol] 325 mg (65 mg iron) tablet 325 mg PO DAILY meloxicam 7.5 mg tablet 15 mg PO DAILY PRN (Reason: knee pain) Qty: 20 0RF prednisone 10 mg tablet 30 mg PO BID 3 Days Qty: 18 0RF meloxicam 15 mg tablet 15 mg PO DAILY 30 Days Qty: 30 0RF Referrals: Angeline Alvarado MD [Primary Care Provider] - Stand Alone Forms: Work/School Release
[2023-07-12 07:45] VITALS: BP 92/62; PULSE 73; RESP 16; TEMP 36.8; O2SAT 100
--- NOTE | 2023-07-12 07:47 | PC.NURSE ---
alert and oriented, respirations even and unlabored. pt complaining of left hip pain with no relief from home medications. call [facility] within reach
[2023-07-12 08:15] LABS: C Reactive Protein 0.52 mg/dL (< or = 0.50)
[2023-07-12 08:16] LABS: HCG Quantitative < 2 mIU/mL
[2023-07-12] MEDS: oxyCODONE HCl Immed Release 5 MG TABLET PO (08:35)
[2023-07-12] MEDS: Acetaminophen 325 MG TABLET 975 MG PO (08:36)
[2023-07-12 08:40] LABS: Erythrocyte Sedimentation Rate 7 MM/HR (0-20)
--- NOTE | 2023-07-12 08:40 | PC.NURSE ---
medicated per the MAR for pain, reports increase in pain upon bearing weight on her right foot. able to use commode with one assist, tearful at this time. awaiting imaging, call k[facility]n within reach
[2023-07-12 11:03] VITALS: BP 123/69; PULSE 73; RESP 16; TEMP 36.9; O2SAT 100
--- NOTE | 2023-07-12 11:09 | PC.NURSE ---
awaiting results of xray, pt reports that she did sleep briefly and woke up with the pain just as bad prior to medication administration
--- NOTE | 2023-07-12 12:02 | PC.NURSE ---
[place] wrap applied to right hip, pt reporting improvement in the pain after.
== END 2023-07-12 12:22 | disposition home or self-care (01) ==
PROVIDERS: Emergency Provider Student in an Organized Health Care Education/Training Program; PCP Internal Medicine
DX: M25.851 Other specified joint disorders, right hip (principal); M25.551 Pain in right hip; M32.9 Systemic lupus erythematosus, unspecified; M06.9 Rheumatoid arthritis, unspecified; D64.9 Anemia, unspecified
CPT/HCPCS: 36415; 73502; 80053; 84702; 85025; 85652; 86140; 99283; 99284

== ENCOUNTER 2023-07-15 11:34 | Outpatient (AMB) | payer OTHER, SELFPAY ==
--- NOTE | 2023-07-15 11:38 | MHC.PC.OV ---
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 Manager Required: No Dance Master: Present Accompanied by: Spouse Allergies aspirin [ASA] Allergy (Severe, Verified 07/15/23 11:39) Palpitations Tobacco use date assessed: 07/15/23 Dental Screening Dental Screen Date: 07/15/23 Did you have a dental visit in the last 12 months?: Yes Did you have a dental problem in the last 6 months where you did not have access to dental care?: No Was dental information given to patient?: Patient has dentist HPI HPI Comments History of Present Illness Details 32-year-old female past medical history significant for migraine, polyarthralgia asthma, rheumatoid arthritis, lupus AKANKSHA and depression. Patient Dr. Evans presents today for ER follow-up. Patient was seen at [facility] ER on 07/12/2023. For right hip pain patient reported that she was supposed to be on 5 mg prednisone daily however she increased her prednisone on her own to 40 mg with no improvement of right hip pain and then increased to 60 mg daily. Patient was evaluated in the emergency room and her right hip x-ray showed acetabular impingement, no acute fracture or degenerative changes. Patient was advised to take Tylenol 1000 mg by mouth every 6 hours as needed for pain it without exceeding 4000 mg Tylenol in 24 hours. Patient was also advised to go back on her regular dose of prednisone and follow up with pcp for PT referral. Patient states taking 30mg pred daily as prescribed rhemuatology. Patient reports that Tylenol does not work for right hip pain. right hip pain 10/10 pain shoots down leg with associated tingling. 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 Patient reports she had been given FMLA paperwork in the past by Rheumatology. Patient given work note to excuse her from work starting today until she can follow-up with Rheumatology for clearance to return back to work. [facility] Medical History Anemia Chronic migraine with aura Cough Daily headache Left wrist pain Lung nodule seen on imaging study Lupus Mild persistent asthma Mild recurrent major depression Overweight (BMI 25.0-29.9) Physical exam Polyarthralgia Rheumatoid arthritis Solitary pulmonary nodule Swelling of right knee joint Urticaria Surgical History Hx of section Family History Mother Hypoglycemia Father Hypertension Diabetes Family/Other Mental health disorder Substance use disorder Social History Housing: Apartment Alcohol intake: never Patient Tobacco Use Status: Former Tobacco user Quit Date: 03/2021 Tobacco use type: Cigarette e-Cigarette/Vaping Use: Never Used Second Hand Smoke Exposure: No Substance Use Type: Marijuana service: No Current occupational status: unemployed Cognitive needs: No Hearing needs: No Vision needs: No Female Reproductive History Menstrual Age of Menarche: 10 Questionnaire PHQ-9 Over the last 2 weeks, how often have you been bothered by any of the following problems? 1. Little interest or pleasure in doing things: not at all 2. Feeling down, depressed, or hopeless: not at all 3. Trouble falling or staying asleep, or sleeping too much: not at all 4. Feeling tired or having little energy: not at all 5. Poor appetite or overeating: not at all 6. Feeling bad about yourself - or that you are a failure or have let yourself or your family down: not at all 7. Trouble concentrating on things, such as reading the newspaper or watching television: not at all 8. Moving or speaking so slowly that other people could have noticed. Or the opposite - being so fidgety or restless that you have been moving around a lot more than usual: not at all 9. Thoughts that you would be better off or of hurting yourself in some way: not at all Total score: 0 Depression Screening Interpretation: Negative Source: Developed by Barbara VuW. Gilmar, Mic Grady and colleagues, with an educational félix from [employer]. Thrive Questionnaire Date Thrive assessed: 07/15/23 I am a: Patient What is your living situation today?: I have a steady place to live Within the past 12 months, did the food you bought not last and you didn't have the money to get more?: Never true Within the past 12 months, did you worry whether your food would run out before you got money to buy more?: Never true Do you have trouble paying for medicines?: No Do you have trouble getting transportation to medical appointments?: No Do you have trouble paying your heating and electricity bill?: No Do you have trouble taking care of your child, family member or friend?: No Do you have trouble with day-to-day activities such as bathing, preparing meals, shopping, managing finances, etc.?: No Are you currently unemployed and looking for a job?: No Are you interested in more education?: No Currently or been in a relationship where the following occur: no concerns reported AUDIT C Alcohol Use Questionnaire (AUDIT-C) 1. How often do you have a drink containing alcohol?: Monthly or less 2. How many drinks containing alcohol do you have on a typical day when you are drinking?: 1 or 2 Total Score: 1 HENRIK-7 AMB Questionnaire HENRIK-7 Date HENRIK - 7 assessed: 07/15/23 Feeling nervous, anxious, or on edge: 0 = Not at all Not being able to stop or control worryin = Not at all Worrying too much about different things: 0 = Not at all Trouble relaxin = Not at all Being so restless that it is hard to sit still: 0 = Not at all Becoming easily annoyed or irritable: 0 = Not at all Feeling afraid as if something awful might happen: 0 = Not at all Total HENRIK-7 score (0-4 normal; 5-9 mild; 10-14 moderate; 15-21 severe): 0 Source: Developed by Drs. Tray Lee, Barbara Schafer, Mic Grady and colleagues, with an educational félix from [employer]. Review of Systems Const Denies chills, Denies fatigue, Denies fever(s) and Denies poor appetite Eyes Denies no additional complaints ENT Reports Normal hearing present Card Denies chest pain, Denies syncope, Denies rapid heart rate and Denies dyspnea Resp Denies cough and Denies dyspnea GI Denies change in stool character, Denies constipation, Denies diarrhea, Denies nausea and Denies vomiting Denies urinary frequency, Denies dysuria and Denies urinary urgency Neuro Reports Normal hearing present, Denies confusion and Denies syncope Psych Denies confusion Endo Denies fatigue Physical exam (Primary Care) Vital Signs: Last Vital Signs Pulse 75 07/15/23 11:40 BP 100/70 07/15/23 11:40 Pulse Ox 99 07/15/23 11:40 Oxygen Delivery Method Room Air 07/15/23 11:40 BMI result Body Mass Index 27.9 Tobacco/Smoking Status: Tobacco use Status Tobacco use date assessed 07/15/23 07/15/23 11:43 Patient Tobacco Use Status Former Tobacco user 07/15/23 11:43 Tobacco use type Cigarette 07/15/23 11:43 e-Cigarette/Vaping Use Never Used 07/15/23 11:43 PHQ-9: PHQ-9 Score PHQ-9: Total score 0 07/15/23 11:43 Depression Screening Interpretation: Negative Thrive Assessment: Date of Thrive Assessment Date Thrive assessed 07/15/23 07/15/23 11:43 Currently or been in a relationship where the following occur: no concerns reported Const General: No confusion Orientation/consciousness: No confusion HENMT Head: Yes normocephalic and Yes atraumatic Eyes Conjunctivae: conjunctivae normal Chest Chest palpation & inspection: normal inspection of the chest Resp Effort & Inspection: normal respiratory effort Auscultation: clear to auscultation bilaterally, no crackles, no rhonchi and no wheezes Cardio Rate: regular rate Rhythm: regular rhythm Heart sounds: S1 normal heart sound present and S2 normal heart sound present GI Inspection: Yes normal to inspection Neuro General: No confusion Cranial nerves: Yes Normal hearing present Extrem General: No edema Assessment and Plan Assessment & Plan (1) Femoral acetabular impingement: Code(s): M25.859 - Other specified joint disorders, unspecified hip Plan: Lidoderm patches sent to patient's pharmacy, patient can take [id number] ibuprofen as needed for pain and inflammation. Referral placed to physical therapy. Work note given to excuse her from work until she is able to follow-up with business education instructor for clearance, has patient reports in the past she had FMLA paperwork in the past completed by [employer] due to her history of lupus, rheumatoid arthritis and fibromyalgia that she should not be working. (2) Lupus arthritis: Code(s): M32.9 - Systemic lupus erythematosus, unspecified Plan: Continue on prednisone as directed by business education instructor. Patient advised to follow on with business education instructor regarding returning to work. (3) Rheumatoid arthritis flare: Code(s): M06.9 - Rheumatoid arthritis, unspecified Plan Follow-up in 6 weeks. Coding Level of Care Code Est Pt Level 3 (38730) Diagnoses Femoral acetabular impingement M25.859 Lupus arthritis M32.9 Rheumatoid arthritis flare M06.9
[2023-07-15 11:40] VITALS: BP 100/70; PULSE 75; O2SAT 99; BMI 27.9
== END 2023-07-15 12:22 | disposition home or self-care (01) ==
PROVIDERS: PCP Internal Medicine; Visit Provider Nurse Practitioner Family
DX: M25.859 Other specified joint disorders, unspecified hip (principal); M32.9 Systemic lupus erythematosus, unspecified; M06.9 Rheumatoid arthritis, unspecified
CPT/HCPCS: 99213

== ENCOUNTER 2023-08-26 09:10 | Outpatient (AMB) | payer OTHER, SELFPAY ==
--- NOTE | 2023-08-26 09:31 | MHC.PC.OV ---
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 Patient Dr. Evans presents today for follow-up on right hip pain, status post ER visit for this in June x-ray showed as tabular impingement no acute fractures or degenerative changes. Patient was referred to physical therapy and given Lidoderm patches for the pain. A family paperwork was completed for continuous sleeve until 09/12 until completion with for therapy. Patient denies any right hip pain at this time continues to go to physical therapy twice per week with improvement of right hip pain. Patient requesting work note to return to work on 09/14/2023 following completion of physical therapy. Work note given. Patient has upcoming follow-up with air conditioner installer helper in October. Patient reported in the past she states due rheumatological torque disorder she was recommended not to work by her air conditioner installer helper. Patient made aware if rheumatology does not walk her working they will need to complete further FMLA paperwork. Patient currently reports now on 5 mg prednisone daily. Patient reports has upcoming follow-up with Dr. Xiong for her anemia. H&H in June normal. [facility] Medical History (Updated 07/15/23 @ 12:31 by ERINN Conroy) Femoral acetabular impingement Lupus Cough Swelling of right knee joint Mild recurrent major depression Daily headache Physical exam Solitary pulmonary nodule Rheumatoid arthritis Mild persistent asthma Lung nodule seen on imaging study Left wrist pain Urticaria Polyarthralgia Overweight (BMI 25.0-29.9) Chronic migraine with aura Anemia Surgical History Hx of section Family History Mother Hypoglycemia Father Hypertension Diabetes Family/Other Mental health disorder Substance use disorder Social History Housing: Apartment Alcohol intake: never Patient Tobacco Use Status: Former Tobacco user Quit Date: 03/2021 Tobacco use type: Cigarette e-Cigarette/Vaping Use: Never Used Second Hand Smoke Exposure: No Substance Use Type: Marijuana service: No Current occupational status: unemployed Cognitive needs: No Hearing needs: No Vision needs: No Female Reproductive History Menstrual Age of Menarche: 10 Questionnaire Thrive Questionnaire Date Thrive assessed: 07/15/23 HENRIK-7 AMB Questionnaire HENRIK-7 Date HENRIK - 7 assessed: 07/15/23 Source: Developed by Drs. Tray Lee, Barbara Schafer, Mic Grady and colleagues, with an educational félix from [employer]. Review of Systems Const Denies chills, Denies fatigue, Denies fever(s) and Denies poor appetite Eyes Denies no additional complaints ENT Reports Normal hearing present Card Denies chest pain, Denies syncope, Denies rapid heart rate and Denies dyspnea Resp Denies cough and Denies dyspnea GI Denies change in stool character, Denies constipation, Denies diarrhea, Denies nausea and Denies vomiting Denies urinary frequency, Denies dysuria and Denies urinary urgency Neuro Reports Normal hearing present, Denies confusion and Denies syncope Psych Denies confusion Endo Denies fatigue Physical exam (Primary Care) Vital Signs: Last Vital Signs Pulse 74 08/26/23 09:32 BP 100/70 08/26/23 09:32 Pulse Ox 97 08/26/23 09:32 Oxygen Delivery Method Room Air 08/26/23 09:32 BMI result Body Mass Index 28.5 Tobacco/Smoking Status: Tobacco use Status Tobacco use date assessed 08/26/23 08/26/23 09:36 Patient Tobacco Use Status Former Tobacco user 08/26/23 09:36 Tobacco use type Cigarette 08/26/23 09:36 e-Cigarette/Vaping Use Never Used 08/26/23 09:36 Thrive Assessment: Date of Thrive Assessment Date Thrive assessed 07/15/23 08/26/23 09:36 Const General: No confusion Orientation/consciousness: No confusion HENMT Head: Yes normocephalic and Yes atraumatic Eyes Conjunctivae: conjunctivae normal Chest Chest palpation & inspection: normal inspection of the chest Resp Effort & Inspection: normal respiratory effort Auscultation: clear to auscultation bilaterally, no crackles, no rhonchi and no wheezes Cardio Rate: regular rate Rhythm: regular rhythm Heart sounds: S1 normal heart sound present and S2 normal heart sound present GI Inspection: Yes normal to inspection Neuro General: No confusion Cranial nerves: Yes Normal hearing present Extrem General: No edema Assessment and Plan Assessment & Plan (1) Anemia: Code(s): D64.9 - Anemia, unspecified Qualifiers: Anemia type: iron deficiency Iron deficiency anemia type: chronic blood loss Qualified Code(s): D50.0 - Iron deficiency anemia secondary to blood loss (chronic) Plan: Continue to follow with Hematology. (2) Femoral acetabular impingement: Code(s): M25.859 - Other specified joint disorders, unspecified hip Plan: Continue with physical therapy. Patient given work note to return to work on 09/14/2023 was completed with PT. (3) Rheumatoid arthritis: Code(s): M06.9 - Rheumatoid arthritis, unspecified Plan: Continue to follow-up rheumatology. Continue on prednisone 5 mg daily. Plan Keep scheduled follow-up with PCP or follow-up sooner if needed. Coding Level of Care Code Est Pt Level 3 (02353) Diagnoses Iron deficiency anemia due to chronic blood loss D50.0 Anemia type: iron deficiency Iron deficiency anemia type: chronic blood loss Femoral acetabular impingement M25.859 Rheumatoid arthritis M06.9
[2023-08-26 09:32] VITALS: BP 100/70; PULSE 74; O2SAT 97; BMI 28.5
== END 2023-08-26 12:34 | disposition home or self-care (01) ==
PROVIDERS: PCP Internal Medicine; Visit Provider Nurse Practitioner Family
DX: D50.0 Iron deficiency anemia secondary to blood loss (chronic) (principal); M06.9 Rheumatoid arthritis, unspecified; F33.0 Major depressive disorder, recurrent, mild; M25.859 Other specified joint disorders, unspecified hip; G43.909 Migraine, unspecified, not intractable, without status migrainosus; J45.30 Mild persistent asthma, uncomplicated
CPT/HCPCS: 99213

== ENCOUNTER 2023-09-04 09:00 | Outpatient (RCR) | payer OTHER, SELFPAY ==
--- NOTE | 2023-08-05 12:53 | MHC.PT.EP ---
[facility] [place] Office [place] Office [place] [facility] [address] [phone] F: [phone] F: [phone] F: [phone] F: [phone] Physical Therapy Plan of Care Date of Evaluation: 08/05/23 Date of Surgery: Diagnosis: R hip pain, femoral acetabular impingement Assessment: Pt is a 32yo female who presents with R hip pain, XR shows femoral acetabular impingement. Skilled PT indicated to reduce pain, normalize ROM and flexibility, teach HEP for management of symptoms at home, and help promote her functional mobility to return to PLOF. Pt is motivated to participate and is in agreement with POC. Excellent potential for pain reduction as she reports pain relief during visit 1 following stretching, ice application, and Ktape application. HEP provided. Frequency and Duration: The patient will be seen 2x/week, x 4 weeks Short Term Goals: 1. Increase R hip extension ROM 10 degrees to improve gait pattern and mobility in 2 weeks. 2. In 2 weeks, patient will be I with phase 1 gentle stretching and isometric exercises. 3. Increase R hip MMT all planes 1/2 grade in 2 weeks. 4. In 2 weeks, patient will be able to complete TAC and hold during standing exercises without difficulty. Boiling Tub Operator Goals: 1. Normal HS flexibility R LE in 4 weeks. 2. Pt will be able to negotiate stairs with reciprocal pattern in 4 weeks. 3. Normal bending/squatting to retrieve object from the floor in 4 weeks. Treatment Plan: Modalities to reduce pain, spasms and effusion. Manual therapy to restore motion and function. Therapeutic exercise to improve strength and flexibility. Neuromuscular re-education for posture and balance. Therapeutic activities to return to functional activities of daily living. Electronically signed by: Sarah Stoner PT, DPT Please sign and return to therapist. Thank you for your referral.
--- NOTE | 2024-08-23 12:19 | MHC.PT.DC ---
[facility] [place] Office [place] Office [place] Office [address] Carly Pina [address] [phone] F: [phone] F: [phone] F: [phone] F: [phone] Physical Therapy Discharge Report Diagnosis: R hip pain, femoral acetabular impingement Date of Surgery: Date of Evaluation: 08/05/23 Date of Discharge: 09/15/24 Treatments to Date: 5 Cancellations to Date: No Shows to Date: Discharge Status: Improved Function Independent with HEP Discharge Summary: Pt is a 32yo female who was referred to PT for R hip pain/acetabular impingement. Pt attended 5 treatment sessions, improved her pain levels from 8/10 to 3-4/10, improved overall function, and is I with phase 1 HEP. Pt did not come to additional f/u appointments after session on 09/04/24, D/C at this time due to visit non-compliance. Thank you for this referral. Electronically signed by: Sarah Stoner PT, DPT Please sign and return to therapist. Thank you for your referral.
== END 2024-08-23 12:20 | disposition home or self-care (01) ==
LOC: HO.PT 09:00
PROVIDERS: PCP Internal Medicine; Visit Provider Nurse Practitioner Family
DX: M25.851 Other specified joint disorders, right hip (principal)
CPT/HCPCS: 97110; 97140; 97161

== ENCOUNTER 2023-10-11 12:02 | Emergency (ER) | payer OTHER, SELFPAY ==
--- NOTE | ~2023-10-11 | US_ITS ---
EXAMINATION: US VENOUS ULTRASOUND WITH DOPPLER LOWER EXTREMITY, LEFT CLINICAL INFORMATION: Leg pain COMPARISON: None available. TECHNIQUE: Ultrasound of the deep veins is performed from the hip to the calf with compression sonography and color and pulse Doppler assessment. Spectral analysis with color-flow imaging is performed. FINDINGS: There is normal venous compression and respiratory variation and augmented flow. The visualized common femoral vein, superficial femoral vein, profunda femoral vein, popliteal vein, and the trifurcation region shows no evidence of deep venous thrombosis. There is no significant popliteal fossa cyst. There is a small fluid collection in the posterior ankle, adjacent to the Achilles tendon. US/US venous duplex LE RT IMPRESSION: 1. No evidence of deep vein thrombosis in the left femoral popliteal system. 2. Fluid collection deep in medial to the Achilles tendon of uncertain clinical significance.
--- NOTE | ~2023-10-11 | XR_ITS ---
EXAMINATION: XR ANKLE, RIGHT CLINICAL INFORMATION: Pain. COMPARISON: None available. TECHNIQUE: AP, lateral, and mortise views of the right ankle. FINDINGS: There is moderate lateral malleolar soft tissue swelling. No visible acute fracture or dislocation seen. The ankle mortise and subtalar joints are normal. The soft tissues are normal. XR/XR ankle RT min 3V IMPRESSION: Moderate lateral malleolar soft tissue swelling without any visible acute fracture or dislocation seen.
[2023-10-11 12:04] VITALS: BP 134/81; PULSE 83; RESP 18; TEMP 36.6; O2SAT 100; BMI 29.2
--- NOTE | 2023-10-11 12:07 | ED_ITS ---
HPI - General Adult General Chief complaint: Extremity Injury, Lower Stated complaint: Swollen R ankle no inj Time Seen by Provider: 10/11/23 13:22 Source: patient and family Mode of arrival: ambulatory Limitations: no limitations History of Present Illness HPI narrative: 32-year-old female with pmhx significant for AKANKSHA on CPAP, MDD, rheumatoid arthritis, asthma, polyarthralgia, anemia, chronic migraine presents to the ED today with a complaint of pain and swelling to right ankle. States that her right ankle began to swell out of the blue this morning. Admits to injury to her right ankle while at work a few months back. X-rays were taken at that time and were unremarkable. She has not had any issues with her ankle until this morning. Denies new injury/trauma to the ankle. Has not been taking anything for pain at home. Reports a high purine diet. Denies recent travel or long car rides, hormone use. Not on control. Denies fever, chills, numbness/tingling/weakness of the lower extremities, calf pain. Related Data Previous Rx's Medication Instructions Recorded naproxen 500 mg tablet 500 mg PO Q8-12H PRN pain (scale 10/11/23 score 4-6) #14 tabs Allergies Allergy/AdvReac Type Severity Reaction Status Date / Time aspirin [ASA] Allergy Severe Palpitation Verified 10/11/23 12:04 s Review of Systems 2 Review of Systems: Constitutional: No fever, chills, fatigue, night sweats, weight changes ENT/Mouth: No ear pain, hearing loss, nasal congestion, sinus pain, rhinorrhea, sore throat Eyes: No eye pain, swelling, redness, vision changes, discharge Cardio: No chest pain, palpitations, MOORE, orthopnea, peripheral edema Pulm: No SOB, cough, sputum, wheezing, dyspnea, hemoptysis GI: No nausea, vomiting, hematemesis, abdominal pain, diarrhea, constipation, hematochezia, melena : No irregular bleeding, dysuria, frequency, urgency, hesitancy, hematuria, flank pain, urinary flow changes, urinary incontinence or retention MSK: No back pain, neck pain, joint pain, myalgias, +right ankle pain/swelling Skin: No lesions, rashes Neuro: No weakness, numbness, paresthesias, LOC, dizziness, headache All other systems reviewed and are negative. PMFSH Past Medical History Attestation statement: The following information was validated with the patient. Source: old records reviewed and nursing notes reviewed Medical History Femoral acetabular impingement Lupus Cough Swelling of right knee joint Mild recurrent major depression Daily headache Physical exam Solitary pulmonary nodule Rheumatoid arthritis Mild persistent asthma Lung nodule seen on imaging study Left wrist pain Urticaria Polyarthralgia Overweight (BMI 25.0-29.9) Chronic migraine with aura Anemia Surgical History Hx of section Family History Family History Mother Hypoglycemia Father Hypertension Diabetes Family/Other Mental health disorder Substance use disorder Social History Social History Household Members: Significant Other and Family Housing: Apartment Unable to assess alcohol history related to: Unknown Alcohol intake: never Patient Tobacco Use Status: Former Tobacco user Quit Date: 03/2021 Tobacco use type: Cigarette Smoked in Last 30 Days: No e-Cigarette/Vaping Use: Never Used Second Hand Smoke Exposure: No Substance Use Type: Marijuana Advance Directives: No Advance Directives Information Provided: No service: No Current occupational status: unemployed Cognitive needs: No Hearing needs: No Vision needs: No Physical Exam ED Vital Signs: Vital Signs - 24 hr 10/11/23 12:04 Temperature 97.8 F Pulse Rate 83 Respiratory Rate 18 Blood Pressure 134/81 Pulse Oximetry 100 Oxygen Delivery Method Room Air BMI result Body Mass Index 29.2 viral signs stable, afebrile Const General: cooperative, healthy appearing, no acute distress, alert and awake Orientation/consciousness: patient oriented x3 Limitations: no limitations HENMT Head: Yes normal to inspection Ears: hearing grossly normal bilaterally Eyes General: appearance normal, both eyes and all related structures Conjunctivae: conjunctivae normal Sclerae: sclerae normal Pupils: Equal, round and reactive pupils present Neck Neck: Yes normal visual inspection, Yes full ROM and Yes no lymphadenopathy Resp Effort & Inspection: normal respiratory effort Auscultation: clear to auscultation bilaterally Cardio Other: + 2+ DP and PT pulses b/l Rate: regular rate Rhythm: regular rhythm Skin General skin exam: no rashes or lesions noted Neuro Other: + antalgic gait secondary to pain General: patient oriented x3 and moves all extremities Cranial nerves: Yes Equal, round and reactive pupils present Extrem Other: + 1-2+ nonpitting edema noted around lateral malleolus of right ankle. No overlying erythema. Full ROM intact to ankle however induces pain. Tender to palpation over the lateral malleolus. No tenderness to palpation over the medial malleolus. No palpable warmth or fluctuance. Rust test negative. No calf tenderness. ambulating with antalgic gait. General: Yes normal exam except as noted Course Course Course Narrative: RME- 32-year-old female presents for evaluation of right lateral ankle pain and swelling. She reports an injury a few months ago at work. She had x-rays at that time that were negative. Denies any recent injury. She has 1 to 2+ nonpitting edema to the right lateral ankle. Plan for x-ray and ultrasound to rule out DVT. No significant erythema Reevaluation(s) Reevaluation #1: 1348-- x-ray right ankle showing moderate lateral malleolar soft tissue swelling without visible fracture or dislocation. Awaiting ultrasound right lower extremity. 1500-- CBC without white count. Normocytic anemia. Uric acid WNL. Ultrasound right lower extremity without evidence of DVT. There is fluid collection deep in medial to the Achilles tendon of uncertain significance. Patient likely has a tendon or ligament injury. Discussed lab and imaging results with patient. Will apply Ashok wrap to the ankle to help with compression. I offered patient crutches. States she has these at home and does not need them today. I offered air cast however she declines. Will send naproxen to patient's pharmacy to take prn. Advised her to follow up with Ortho. Referral provided. Continues to ambulate with antalgic gait however steady. Patient has remained stable throughout ED visit today. Discussed strict return precautions. All questions answered at this time. Patient is agreeable with disposition and stable for discharge. Medications Administered Discontinued Medications Generic Name Dose Route Start Last Admin Trade Name Freq PRN Reason Stop Dose Admin Ketorolac Tromethamine 30 mg 10/11/23 14:23 10/11/23 14:38 Ketorolac Tromethamine 30 Mg/Ml Vial IM 10/11/23 14:24 30 mg ONCE ONE Administration Procedures Orthopedic Splinting/Casting Injury #1: Side: right Lower Extremity Injury Location: ankle Lower Extremity Immobilizer: Ashok wrap Medical Decision Making Medical Decision Making [facility] Narrative: 32-year-old female with pmhx significant for AKANKSHA on CPAP, MDD, rheumatoid arthritis, asthma, polyarthralgia, anemia, chronic migraine presents to the ED today with a complaint of pain and swelling to right ankle. Vital signs stable, afebrile. Patient is nontoxic appearing in no acute distress. On examination there is 1-2+ nonpitting edema noted around lateral malleolus of right ankle. No overlying erythema. Full ROM intact to ankle however induces pain. Tender to palpation over the lateral malleolus. No tenderness to palpation over the medial malleolus. No palpable warmth or fluctuance. Rust test negative. No calf tenderness. ambulating with antalgic gait. Clinical concern for fracture, dislocation, MSK sprain/strain, rheumatoid arthritis, arthritis. Unlikely gout, septic joint, septic arthritis, compartment syndrome, DVT, neurovascular compromise, threat to limb, arterial occlusion. Plan for labs, xray and ultrasound. Differential Diagnosis Differential Diagnoses: The differential diagnosis associated with the presentation includes As above Admission/Observation Not indicated Lab Data [facility] Lab Attestation statement: I reviewed the patient's lab results. as above. 10/11/23 14:31 Labs: Lab Results 10/11/23 Range/Units 14:31 WBC 4.8 (4.8-10.8) X10*3/uL RBC 4.14 L (4.20-5.50) X10*6/uL Hgb 11.8 L (12.0-16.0) g/dl Hct 34.6 L (37.0-47.0) % MCV 83.6 (80.0-98.0) fL MCH 28.5 (27.0-33.0) pg MCHC 34.1 (31.0-35.0) g/dl RDW 13.8 (11.0-16.0) % Plt Count 151 L (160-400) X10*3/uL MPV 11.2 (9.4-12.3) fL Immature Gran % (Auto) 0.2 (0.0-0.4) % Neut % (Auto) 56.7 (45-73) % Lymph % (Auto) 30.8 (20-40) % Highland % (Auto) 9.0 (2-11) % Eos % (Auto) 2.9 (0-4) % Baso % (Auto) 0.4 (0-2) % Lymph # (Auto) 1.5 (1.2-4.9) X10*3/uL Highland # (Auto) 0.4 (0.1-1.2) X10*3/uL Eos # (Auto) 0.1 (0.0-0.4) X10*3/uL Baso # (Auto) 0.0 (0.0-0.2) X10*3/uL Abs Immat Gran (auto) 0.01 (0.00-0.03) X10*3/uL Absolute Neuts (auto) 2.7 (2.0-8.3) x10*3/uL Absolute Nucleated RBC 0.000 (0.0-0.012) X10*3/uL Nucleated RBC % (auto) 0.0 (0.0-0.2) /100WBC Uric Acid 3.8 (2.4-5.7) mg/dL Independent Interpretation I performed an independent interpretation of an: Plain X-Ray and Ultrasound Interpretation: X-ray right ankle with soft tissue swelling, agree with radiologist's interpretation. US right lower extremity without clot, agree with radiologist's interpretation. Radiology Impression Discussion of test interpretation with radiology: I have reviewed the radiologist's reading. Radiologist Impression: XR ankle RT min 3V IMPRESSION: Moderate lateral malleolar soft tissue swelling without any visible acute fracture or dislocation seen. US venous duplex LE RT IMPRESSION: 1. No evidence of deep vein thrombosis in the left femoral popliteal system. 2. Fluid collection deep in medial to the Achilles tendon of uncertain clinical significance. Independent Historian Clinical information obtained from an independent historian. History obtained from or confirmed by: Spouse External Record Review External record reviewed: Inpatient record Prescription Management I considered prescription management with: Pain Medication and Other (steroid) Chronic Conditions Patient?s care impacted by: Other (RA, lupus) Critical Care Time Critical Care Time Critical Care Time: No Discharge Plan Discharge Clinical Impression: Ankle sprain Patient Disposition: Home, Self-Care Instructions: Sprain (ED), R.I.C.E. Treatment (ED) Additional Instructions: Your labs today were normal. The x-ray of your right ankle swlling of the soft tissues to the outside of your ankle. There is no acute fracture or dislocation. The ultrasound of your right leg did not show acute clot. It shows a fluid collection around the achilles tendon. You were provided with an ashok wrap for compression. You declined crutches as you have these at home. Naproxen has been sent to your pharmacy to take as needed for pain. Do not take this with other NSAIDs such as ibuprofen as this may increase the risk of GI bleed. YOU NEED TO FOLLOW UP WITH ORTHOPEDICS. A REFERRAL HAS BEEN PROVIDED TO YOU. CALL THEM TO MAKE AN APPOINTMENT. THEY WILL NOT CALL YOU. 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 If symptoms persist or worsen, please return to the emergency department. In the case of an emergency call 911. Prescriptions: New naproxen 500 mg tablet 500 mg PO Q8-12H PRN (Reason: pain (scale score 4-6)) Qty: 14 0RF [place] [facility] [place]Provider Group] - 5 days Stand Alone Forms: Work/School Release Interventions: ED Discharge Assessment Last Done: 10/11/23 15:21 Discharge Date/Time: 10/11/23 15:23
[2023-10-11 14:35] LABS: MANUAL DIFF FLAG NO
[2023-10-11 14:36] LABS: Basophils Percent Auto 0.4 % (0-2); Eosinophils Absolute Auto 0.1 X10*3/uL (0.0-0.4); Eosinophils Percent Auto 2.9 % (0-4); Hematocrit 34.6 % (37.0-47.0); Hemoglobin 11.8 g/dl (12.0-16.0); Imm Gran Abs Auto 0.01 X10*3/uL (0.00-0.03); Imm Gran Pct Auto 0.2 % (0.0-0.4); Lymphocytes Absolute Auto 1.5 X10*3/uL (1.2-4.9); Lymphocytes Percent Auto 30.8 % (20-40); Mean Corpuscular HGB Conc 34.1 g/dl (31.0-35.0); Mean Corpuscular Hemoglobin 28.5 pg (27.0-33.0); Mean Corpuscular Volume 83.6 fL (80.0-98.0); Mean Platelet Volume 11.2 fL (9.4-12.3); Monocytes Absolute Auto 0.4 X10*3/uL (0.1-1.2); Neutrophils Absolute Auto 2.7 x10*3/uL (2.0-8.3); Neutrophils Percent Auto 56.7 % (45-73); Platelet Count 151 X10*3/uL (160-400); Red Blood Count 4.14 X10*6/uL (4.20-5.50); Red Cell Distribution Width 13.8 % (11.0-16.0); White Blood Count 4.8 X10*3/uL (4.8-10.8)
[2023-10-11] MEDS: Ketorolac Tromethamine 30 MG/ML VIAL IM (14:38)
--- NOTE | 2023-10-11 14:41 | PC.NURSE ---
pt medicated per MAR
[2023-10-11 14:49] LABS: Uric Acid 3.8 mg/dL (2.4-5.7)
--- NOTE | 2023-10-11 15:18 | PC.NURSE ---
guanako wrap applied to R ankle, patient tolerated well, receiving D/C information at this time
[2023-10-11 15:19] VITALS: PULSE 71; RESP 14; O2SAT 97
== END 2023-10-11 15:23 | disposition home or self-care (01) ==
PROVIDERS: Physician Assistant Medical; Emergency Provider Emergency Medicine; PCP Internal Medicine
DX: S93.401A Sprain of unspecified ligament of right ankle, initial encounter (principal); X58.XXXA Exposure to other specified factors, initial encounter; R60.0 Localized edema; Y93.9 Activity, unspecified; Y92.9 Unspecified place or not applicable; Y99.9 Unspecified external cause status
CPT/HCPCS: 36415; 73610; 84550; 85025; 93971; 96372; 99284; J1885

== ENCOUNTER 2023-11-07 08:56 | Outpatient (AMB) | payer OTHER, SELFPAY ==
--- NOTE | 2023-11-07 09:02 | A.OFFVIS_ITS ---
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 Patient reports having an injury to her right ankle around May/June while at work and was seen at [facility] ER where xrays were taken and guanako wrap applied. 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 Her pain had improved however recently her pain and swelling returned. Currently her pain increases with prolong standing/walking and at night. Tenderness in certain areas as well as constant numbness and tingling. Finds no relief with Mortin. States Hx of lupus and is currently taking prednisone. 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 She was seen at ER where x-rays were performed and guanako wrap was applied. She reports she has improvement in her pain but the pain and swelling returned about 3 weeks ago. She currently states she has throbbing pain and swelling in her right ankle which is aggravated with prolonged standing or walking, stair use, and at night. She also c/o tenderness in certain areas as well as constant numbness and tingling in her foot. She takes Motrin and Aleve for her pain with no relief. 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 [facility] Medical History Femoral acetabular impingement Lupus Cough Swelling of right knee joint Mild recurrent major depression Daily headache Physical exam Solitary pulmonary nodule Rheumatoid arthritis Mild persistent asthma Lung nodule seen on imaging study Left wrist pain Urticaria Polyarthralgia Overweight (BMI 25.0-29.9) Chronic migraine with aura Anemia Surgical History Hx of section Family History Mother Hypoglycemia Father Hypertension Diabetes Family/Other Mental health disorder Substance use disorder Social History (Updated 11/07/23 @ 09:09 by TIMMY Correia) Household Members: Significant Other and Family Housing: Apartment Unable to assess alcohol history related to: Unknown Alcohol intake: never Patient Tobacco Use Status: Former Tobacco user Quit Date: 03/2021 Tobacco use type: Cigarette e-Cigarette/Vaping Use: Never Used Second Hand Smoke Exposure: No Substance Use Type: Marijuana service: No Current occupational status: employed 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 Cognitive needs: No Hearing needs: No Vision needs: No Female Reproductive History Menstrual Age of Menarche: 10 Review of Systems Const All systems reviewed & are unremarkable except as noted in HPI and below Physical Exam Vital Signs: BMI result Body Mass Index 29.2 Const General: cooperative, healthy appearing, comfortable, no acute distress, well developed and alert Orientation/consciousness: patient oriented x3 HEENT Head: Yes normal to inspection, Yes normocephalic and Yes atraumatic Eyes General: appearance normal, both eyes and all related structures Resp Effort & Inspection: normal respiratory effort and able to speak in complete sentences Cardio Rate: regular rate Peripheral pulses: Peripheral pulses 2+ throughout GI Palpation (GI): Soft to palpation Skin Lesions: no lesions Rashes: no rashes Neuro General: patient oriented x3 Extrem Other: Right ankle: Normal to inspection with minimal swelling over the medial and lateral malleolus with tenderness along the soft tissues. Mild discomfort along the posterior aspect of the ankle, no deformity along the Achilles tendon, negative Rust?s. No pain along the syndesmosis or anterior tibia. No laxity, NVI. Assessment & Plan Assessment & Plan (1) Right ankle sprain: Code(s): S93.401A - Sprain of unspecified ligament of right ankle, initial encounter Qualifiers: Encounter type: initial encounter Involved ligament of ankle: anterior talofibular ligament Qualified Code(s): S93.491A - Sprain of other ligament of right ankle, initial encounter Plan We discussed options which include PT, NSAIDs and injections. The patient will defer on the injection today and proceed with PT and NSAIDs. I did send a prescr iption of ibuprofen 800 mg to take three times a day for 2 weeks. She was also given a lace up ankle brace in the office today. If symptoms persist, the patient will contact me for an injection, otherwise, PRN. Orders: Orders PT Evaluation and Treatment Today S93.401A - Sprain of unspecified ligament of right ankle, initial encounter Medications: New ibuprofen 800 mg PO Q8H PRN 90 tabs 3RF pain 30 days S52.209D - Unspecified fracture of shaft of unspecified ulna, subsequent encounter for closed fracture with routine healing Patient Instructions: Scribed for Yvonne Albert PA-C, by Farhat Gonzalez medical communication specialist, on 11/07/2023 at 9:00 AM EST. I, Yvonne Albert PA-C, have personally reviewed and agree with the information entered by the scribe. Coding Level of Care Code New Pt Level 3 (74518) Diagnoses Sprain of anterior talofibular ligament of right ankle, initial encounter S93.491A Encounter type: initial encounter Involved ligament of ankle: anterior talofibular ligament
[2023-11-07 09:10] VITALS: BMI 29.2
== END 2023-11-07 10:00 | disposition home or self-care (01) ==
PROVIDERS: PCP Internal Medicine; Visit Provider Physician Assistant
DX: S93.491A Sprain of other ligament of right ankle, initial encounter (principal)
CPT/HCPCS: 99213

== ENCOUNTER → 2023-11-07 08:56 | Outpatient (BNVA) | payer OTHER, SELFPAY | PROVIDERS: PCP Internal Medicine; Visit Provider Physician Assistant | DX: S93.491A Sprain of other ligament of right ankle, initial encounter (principal) | CPT/HCPCS: 99212 ==

== ENCOUNTER 2023-11-29 23:35 | Emergency (ER) | payer OTHER, SELFPAY ==
--- NOTE | 2023-11-29 | ECG_ITS ---
Test Reason : CHEST PAIN Blood Pressure : / mmHG Vent. Rate : 064 BPM Atrial Rate : 064 BPM P-R Int : 158 ms QRS Dur : 086 ms QT Int : 396 ms P-R-T Axes : 083 071 057 degrees QTc Int : 408 ms Normal sinus rhythm Normal ECG When compared with ECG of 17-DEC-2022 10:23, No significant change was found Referred By: Generic ED Physician Electronically Signed By:KIM CAMPBELL MD
[2023-11-29 23:44] VITALS: BP 128/83; BP 133/85; PULSE 65; PULSE 70; RESP 19; TEMP 36.8; O2SAT 96; O2SAT 98; BMI 26.6
--- NOTE | 2023-11-29 23:52 | ED_ITS ---
HPI - Chest Pain General Chief Complaint: Chest Pain Stated Complaint: Chest Pain Time Seen by Provider: 11/29/23 23:36 Source: patient Mode of arrival: EMS Limitations: no limitations History of Present Illness HPI narrative: 33-year-old female history of lupus, polyarthralgias, fibromyalgia, asthma who presents emergency department for evaluation of palpitations, chest pain, lightheadedness, dizziness, numbness in her face, arms and feet which began 30 minutes prior to arrival. Patient states that she was on the phone with her mother and got in an argument and then developed the above symptoms. She states that she has having a sharp, stabbing pain underneath her left breast which is been constant since onset. She had associated nausea with no vomiting. She states that her face, lips and tongue became numb she then developed numbness in her hands and feet. The patient denied being ill in any way prior to the above symptoms, she denied fever, chills, myalgias arthralgias. She states she did miss her menstrual period in October and she is concerned that she may be . Related Data Home Medications Medication Instructions Recorded Confirmed prednisone 5 mg tablet 5 mg PO DAILY 11/07/23 Previous Rx's Medication Instructions Recorded ibuprofen 800 mg tablet 800 mg PO Q8H PRN pain 30 days #90 11/07/23 tabs Allergies Allergy/AdvReac Type Severity Reaction Status Date / Time aspirin [ASA] Allergy Severe Palpitation Verified 11/07/23 09:08 s Review of Systems 2 Review of Systems: Yes all other systems are reviewed and are negative ON LICENSE OF [facility] Past Medical History ON LICENSE OF [facility] Narrative: Past medical history: She denies tobacco, alcohol and drug use Medical History Femoral acetabular impingement Lupus Cough Swelling of right knee joint Mild recurrent major depression Daily headache Physical exam Solitary pulmonary nodule Rheumatoid arthritis Mild persistent asthma Lung nodule seen on imaging study Left wrist pain Urticaria Polyarthralgia Overweight (BMI 25.0-29.9) Chronic migraine with aura Anemia Surgical History Hx of section Family History Family History Mother Hypoglycemia Father Hypertension Diabetes Family/Other Mental health disorder Substance use disorder Social History Social History Household Members: Significant Other and Family Housing: Apartment Unable to assess alcohol history related to: Unknown Alcohol intake: never Patient Tobacco Use Status: Former Tobacco user Quit Date: 03/2021 Tobacco use type: Cigarette Smoked in Last 30 Days: No e-Cigarette/Vaping Use: Never Used Second Hand Smoke Exposure: No Use of substances other than those prescribed or required for medical reasons: No Substance Use Type: Marijuana service: No Current occupational status: employed 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 Cognitive needs: No Hearing needs: No Vision needs: No Physical Exam 2 Vital Signs: Vital Signs: Last Vital Signs Temp 98.3 F 11/29/23 23:44 Pulse 65 11/29/23 23:44 Resp 19 11/29/23 23:44 BP 133/85 11/29/23 23:44 Pulse Ox 98 11/29/23 23:44 O2 Del Method Room Air 11/29/23 23:44 BMI result Body Mass Index 26.6 Vital signs were normal Exam: General: Awake, alert in no distress Head: Normocephalic, atraumatic EENT: PERRL, Lids normal, sclera normal, conjunctiva normal, nose normal , ears normal, throat without erythema or exudates Neck: Supple, no adenopathy Lung: breath sounds symmetric, no wheezing, rales or rhonchi Chest: symmetric movement, moderate left costochondral joint tenderness and anterior chest wall tenderness Heart: regular rate and rhythm, normal S1, S2 no murmurs or rubs Abdomen: soft, non-tender, nondistended, normal bowel sounds Back: no vertebral tenderness, no CVAT Extremities: no deformities, moves all extremities symmetrically Neuro: Awake, alert, oriented, normal speech, moves all extremities symmetrically Psych: Pleasant, cooperative Medications Administered Discontinued Medications Generic Name Dose Route Start Last Admin Trade Name Freq PRN Reason Stop Dose Admin Acetaminophen 975 mg 11/29/23 23:53 11/29/23 23:58 Acetaminophen 325 Mg Tablet PO 11/29/23 23:54 975 mg ONCE STA Administration Lorazepam 1 mg 11/29/23 23:52 11/29/23 23:58 Lorazepam 1 Mg Tablet PO 11/29/23 23:53 1 mg ONCE STA Administration Medical Decision Making Medical Decision Making MDM Narrative: 33-year-old female history of lupus, polyarthralgias, fibromyalgia, asthma who presents emergency department for evaluation of palpitations, chest pain, lightheadedness, dizziness, numbness in her face, arms and feet which began 30 minutes prior to arrival after she got in argument over the phone with her mother. Patient's vital signs were normal. Physical examination was unremarkable. Differential diagnosis: Includes but is not limited to myocardial infarction, myocardial ischemia, takotsubo cardiomyopathy, costochondritis, hyperventilation syndrome Following evaluation was ordered: CBC, CMP, troponin, quantitative beta-hCG, EKG Patient was treated with the following: Acetaminophen 1 mg orally and Ativan 1 mg orally 00:48 My interpretation patient's laboratory evaluation is as follows: CBC was normal. CMP was normal. Troponin was below detectable limits. Quantitative beta-hCG was below detectable limits. Patient is feeling significantly better after the above treatment. Patient's presentation was most likely secondary to anxiety and hyperventilation syndrome. I did discuss this with the patient the patient was discharged home. Differential Diagnosis Differential Diagnoses: The differential diagnosis associated with the presentation includes Admission/Observation Consideration of admission/observation: Escalation of care including admission/observation considered Lab Data [facility] Lab Attestation statement: I reviewed the patient's lab results. 11/30/23 00:05 11/30/23 00:05 Labs: Lab Results 11/30/23 Range/Units 00:05 WBC 6.8 (4.8-10.8) X10*3/uL RBC 4.29 (4.20-5.50) X10*6/uL Hgb 12.1 (12.0-16.0) g/dl Hct 35.2 L (37.0-47.0) % MCV 82.1 (80.0-98.0) fL MCH 28.2 (27.0-33.0) pg MCHC 34.4 (31.0-35.0) g/dl RDW 13.9 (11.0-16.0) % Plt Count 193 D (160-400) X10*3/uL MPV 11.4 (9.4-12.3) fL Immature Gran % (Auto) 0.1 (0.0-0.4) % Neut % (Auto) 55.2 (45-73) % Lymph % (Auto) 29.3 (20-40) % [place] % (Auto) 11.9 H (2-11) % Eos % (Auto) 3.1 (0-4) % Baso % (Auto) 0.4 (0-2) % Lymph # (Auto) 2.0 (1.2-4.9) X10*3/uL [place] # (Auto) 0.8 (0.1-1.2) X10*3/uL Eos # (Auto) 0.2 (0.0-0.4) X10*3/uL Baso # (Auto) 0.0 (0.0-0.2) X10*3/uL Abs Immat Gran (auto) 0.01 (0.00-0.03) X10*3/uL Absolute Neuts (auto) 3.7 (2.0-8.3) x10*3/uL Absolute Nucleated RBC 0.000 (0.0-0.012) X10*3/uL Nucleated RBC % (auto) 0.0 (0.0-0.2) /100WBC Sodium 137 (135-145) mmol/L Potassium 4.0 (3.3-5.1) mmol/L Chloride 105 (96-108) mmol/L Carbon Dioxide 25 (22-29) mmol/L Anion Gap 11 L (12-20) BUN 12 (9-16) mg/dL Creatinine 0.79 (0.5-1.4) mg/dL Estim Creat Clear Calc 99.2 Estimated GFR > 60 Random Glucose 83 (60-115) mg/dL Calcium 9.2 (8.4-10.2) mg/dL Total Bilirubin 0.2 (0.0-1.0) mg/dL AST 15 (5-31) U/L ALT 8 (0-31) U/L Alkaline Phosphatase 70 (39-117) U/L Troponin I High Sens < 2.7 (<3.5-17.0) ng/L Total Protein 8.2 H (6.5-8.0) g/dL Albumin 4.0 (3.5-5.0) g/dL Beta HCG, Quant < 2 mIU/mL Independent Interpretation I performed an independent interpretation of an: EKG Interpretation: My interpretation patient's 12 EKG done at 23:41 hours is as follows: Normal sinus rhythm rate of 64, normal AR interval, QRS duration QTC interval, no ST segment elevation, no ST segment depression, no PACs, no PVCs, no T-wave abnormalities-this is a normal EKG Chronic Conditions Patient?s care impacted by: Other (Lupus) Discharge Plan Discharge Clinical Impression: Chest pain, Acute hyperventilation syndrome Patient Disposition: Home, Self-Care Instructions: Hyperventilation (ED) Additional Instructions: Your EKG was normal. Your blood work was normal. Your blood test was below detectable limits which is a very sensitive test and suggests that you are not at this time. If you do not have your menstrual period in 2 weeks then you should do a home test to make sure that you are not . Your symptoms are consistent with hyperventilation syndrome which was triggered by the stress and anxiety caused by your argument with her mother. Follow-up with your doctor in 2 days. Please return to the emergency department if your symptoms get worse or if you develop any symptoms that are concerning to you. Prescriptions: No Action prednisone 5 mg tablet 5 mg PO DAILY ibuprofen 800 mg tablet 800 mg PO Q8H PRN (Reason: pain) 30 Days Qty: 90 3RF
[2023-11-29] MEDS: Acetaminophen 325 MG TABLET 975 MG PO (23:58)
[2023-11-29] MEDS: LORazepam 1 MG TABLET PO (23:58)
[2023-11-30 00:09] LABS: MANUAL DIFF FLAG NO
[2023-11-30 00:10] LABS: Basophils Percent Auto 0.4 % (0-2); Eosinophils Absolute Auto 0.2 X10*3/uL (0.0-0.4); Eosinophils Percent Auto 3.1 % (0-4); Hematocrit 35.2 % (37.0-47.0); Hemoglobin 12.1 g/dl (12.0-16.0); Imm Gran Abs Auto 0.01 X10*3/uL (0.00-0.03); Imm Gran Pct Auto 0.1 % (0.0-0.4); Lymphocytes Percent Auto 29.3 % (20-40); Mean Corpuscular HGB Conc 34.4 g/dl (31.0-35.0); Mean Corpuscular Hemoglobin 28.2 pg (27.0-33.0); Mean Corpuscular Volume 82.1 fL (80.0-98.0); Mean Platelet Volume 11.4 fL (9.4-12.3); Monocytes Absolute Auto 0.8 X10*3/uL (0.1-1.2); Monocytes Percent Auto 11.9 % (2-11); Neutrophils Absolute Auto 3.7 x10*3/uL (2.0-8.3); Neutrophils Percent Auto 55.2 % (45-73); Platelet Count 193 X10*3/uL (160-400); Red Blood Count 4.29 X10*6/uL (4.20-5.50); Red Cell Distribution Width 13.9 % (11.0-16.0); White Blood Count 6.8 X10*3/uL (4.8-10.8)
[2023-11-30 00:33] LABS: Alanine Aminotransferase 8 U/L (0-31); Alkaline Phosphatase 70 U/L (39-117); Anion Gap 11 (12-20); Aspartate Amino Transferase 15 U/L (5-31); Bilirubin Total 0.2 mg/dL (0.0-1.0); Blood Urea Nitrogen 12 mg/dL (9-16); Calcium 9.2 mg/dL (8.4-10.2); Carbon Dioxide 25 mmol/L (22-29); Chloride 105 mmol/L (96-108); Creatinine Clr Calc Pharmacy 99.2; Estimated Glomerular Filt Rate > 60; Glucose Random 83 mg/dL (60-115); Sodium 137 mmol/L (135-145); Total Protein 8.2 g/dL (6.5-8.0)
[2023-11-30 00:37] LABS: HCG Quantitative < 2 mIU/mL; Troponin-I High Sensitivity < 2.7 ng/L (<3.5-17.0)
[2023-11-30 01:02] VITALS: BP 121/81; PULSE 65; RESP 12; TEMP 36.7; O2SAT 98
== END 2023-11-30 01:03 | disposition home or self-care (01) ==
PROVIDERS: Emergency Provider Emergency Medicine Emergency Medical Services; PCP Internal Medicine
DX: R07.89 Other chest pain (principal); R00.2 Palpitations; F45.8 Other somatoform disorders; Z79.899 Other long term (current) drug therapy
CPT/HCPCS: 36415; 80053; 84484; 84702; 85025; 93005; 99283; 99285

== ENCOUNTER → 2023-11-29 23:41 | Outpatient (BNV) | payer OTHER, SELFPAY | PROVIDERS: Emergency Provider Emergency Medicine Emergency Medical Services; PCP Internal Medicine; Visit Provider Internal Medicine Cardiovascular Disease | DX: R07.9 Chest pain, unspecified (principal) | CPT/HCPCS: 93010 ==

== ENCOUNTER 2024-01-06 20:45 | Emergency (ER) | payer OTHER, SELFPAY ==
[2024-01-06 20:50] VITALS: BP 130/90; PULSE 84; RESP 20; TEMP 36.2; O2SAT 97; BMI 29.0
[2024-01-06 20:55] VITALS: BP 123/84; PULSE 76; RESP 20; TEMP 36.8; O2SAT 97
--- NOTE | 2024-01-06 20:57 | ED_ITS ---
HPI - General Adult General Chief complaint: Abdominal Pain Stated complaint: abd pain Time Seen by Provider: 01/06/24 23:24 Source: patient, RN notes reviewed and old records reviewed Mode of arrival: ambulatory Limitations: no limitations History of Present Illness HPI narrative: 33-year-old female with past medical history significant for lupus, chronic migraines, fibromyalgia, rheumatoid arthritis presents for evaluation of abdominal pain and vomiting Patient reports her symptoms started yesterday. The pain radiates to her back pain She also reports dark urine the burning situation. She has pain to her entire abdomen Denies any history abdominal surgeries She reports chills but no fevers Patient admits to vomiting and diarrhea Related Data Home Medications Medication Instructions Recorded Confirmed prednisone 5 mg tablet 5 mg PO DAILY 11/07/23 Previous Rx's Medication Instructions Recorded ibuprofen 800 mg tablet 800 mg PO Q8H PRN pain 30 days #90 11/07/23 tabs ondansetron 4 mg disintegrating 4 mg PO Q8H PRN nausea and 01/07/24 tablet vomiting #20 tabs Allergies Allergy/AdvReac Type Severity Reaction Status Date / Time aspirin [ASA] Allergy Severe Palpitation Verified 01/06/24 20:54 s Review of Systems 2 Constitutional: Constitutional: Reports body ache(s), Reports chills, Denies fever(s) and Denies headache(s) ENT: Denies headache(s) and Denies sore throat Cardiovascular: Cardiovascular: Denies chest pain and Denies dyspnea Respiratory: Respiratory: Denies cough and Denies dyspnea Gastrointestinal: Gastrointestinal: Reports abdominal pain, Denies melena, Denies hematochezia, Reports diarrhea, Reports loose stools, Reports nausea and Reports vomiting Genitourinary: Genitourinary: Reports dysuria Musculoskeletal: Musculoskeletal: Reports back pain Integumentary/Breasts: Skin/Breast: Denies rash Neurologic: Denies headache(s) FOR[facility]LY [facility] Past Medical History Medical History Femoral acetabular impingement Lupus Cough Swelling of right knee joint Mild recurrent major depression Daily headache Physical exam Solitary pulmonary nodule Rheumatoid arthritis Mild persistent asthma Lung nodule seen on imaging study Left wrist pain Urticaria Polyarthralgia Overweight (BMI 25.0-29.9) Chronic migraine with aura Anemia Surgical History Hx of section Family History Family History Mother Hypoglycemia Father Hypertension Diabetes Family/Other Mental health disorder Substance use disorder Social History Social History Household Members: Significant Other and Family Housing: Apartment Unable to assess alcohol history related to: Unknown Alcohol intake: never Patient Tobacco Use Status: Former Tobacco user Quit Date: 03/2021 Tobacco use type: Cigarette Smoked in Last 30 Days: No e-Cigarette/Vaping Use: Never Used Second Hand Smoke Exposure: No Use of substances other than those prescribed or required for medical reasons: No Substance Use Type: Marijuana Advance Directives: No Advance Directives Information Provided: No Patient : No service: No 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 occupational status: employed 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 Cognitive needs: No Hearing needs: No Vision needs: No Physical Exam ED Vital Signs: Vital Signs - 24 hr 01/06/24 20:50 01/06/24 20:55 01/06/24 22:42 Temperature 97.2 F 98.3 F 97.5 F Pulse Rate 84 76 74 Respiratory Rate 20 20 16 Blood Pressure 130/90 H 123/84 125/83 Pulse Oximetry 97 97 100 Oxygen Delivery Method Room Air Room Air Room Air 01/07/24 01:15 Temperature 97.7 F Pulse Rate 70 Respiratory Rate 14 Blood Pressure 144/98 H Pulse Oximetry 100 Oxygen Delivery Method Room Air BMI result Body Mass Index 29.0 Const General: healthy appearing, comfortable, no acute distress, alert and awake Nutritional Appearance: well nourished Orientation/consciousness: patient oriented x3 HENMT Head: Yes normocephalic and Yes atraumatic Eyes Eyelids: Yes eyelids normal Conjunctivae: conjunctivae normal Sclerae: sclerae normal Corneas: corneas normal Pupils: Equal, round and reactive pupils present EOM: EOMs intact bilaterally Neck Neck: Yes full ROM Resp Effort & Inspection: normal respiratory effort, able to speak in complete sentences and not labored Cardio Rate: regular rate Rhythm: regular rhythm GI Inspection: No distended Palpation (GI): Soft to palpation, not firm, Tenderness to palpation present (GI) (Diffusely tender without guarding), no guarding and not rigid Auscultation: normoactive bowel sounds Skin General skin exam: elasticity normal Neuro General: patient oriented x3 Cranial nerves: Yes Equal, round and reactive pupils present and Yes Bilaterally intact EOM present Cognition (Neuro): normal cognition Extrem Other: Moving all extremities well without any obvious deformities Course Course Course Narrative: RME: 33-year-old female history of kidney stones presents to ED for upper abdominal pain with vomiting and diarrhea. Significant guarding on exam. Labs ordered. Will be brought to the ER. Reevaluation(s) Reevaluation #1: Patient re-evaluated, her pain is now mostly right sided but greatly improved. She has no right lower quadrant tenderness. She does state she is history of gallstones. No leukocytosis or transaminitis. No evidence of biliary obstruction. Considered imaging of the abdomen but ultimately the patient appears well, labs are reassuring vital signs reassuring exam is reassuring. Patient was given return precautions Time: 00:49 Medications Administered Discontinued Medications Generic Name Dose Route Start Last Admin Trade Name Freq PRN Reason Stop Dose Admin Sodium Chloride 1,000 mls @ 999 mls/hr 01/06/24 20:56 01/07/24 01:19 Ns IV 01/06/24 21:56 Infused .Q1H1M STA Infusion Sodium Chloride 1,000 mls @ 999 mls/hr 01/06/24 23:30 01/07/24 01:19 Ns IV 01/07/24 00:30 Infused .Q1H1M NIDIA Infusion Morphine Sulfate 4 mg 01/06/24 23:28 01/06/24 23:51 Morphine Sulfate 4 Mg/Ml Cartridge IVPUSH 01/06/24 23:29 4 mg ONCE ONE Administration Protocol Ondansetron HCl 4 mg 01/06/24 23:28 01/06/24 23:52 Ondansetron Hcl 4 Mg/2 Ml Vial IVPUSH 01/06/24 23:29 4 mg ONCE ONE Administration Medical Decision Making Medical Decision Making MDM Narrative: 33-year-old female presents for evaluation abdominal pain, nausea vomiting, diarrhea. Her symptoms started yesterday. She endorses chills. Her labs are reassuring, no leukocytosis, no left shift, no electrolyte abnormalities. She has not clinically dehydrated. Her urine does not show any evidence of infection or blood. Her vital signs within normal limits. Will treat her symptoms with IV fluids, morphine, Zofran. Symptoms most likely viral etiology given the her abdominal pain and tenderness is diffuse without distention guarding. Low suspicion for surgical abdomen. Differential Diagnosis Differential Diagnoses: The differential diagnosis associated with the presentation includes Gastroenteritis Acute abdominal pain Viral syndrome Influenza Colitis Diverticulitis UTI Lab Data MDM Lab Attestation statement: I reviewed the patient's lab results. See above 01/06/24 21:05 01/06/24 21:05 Labs: Lab Results 01/06/24 01/06/24 Range/Units 21:05 22:55 WBC 5.0 (4.8-10.8) X10*3/uL RBC 4.23 (4.20-5.50) X10*6/uL Hgb 11.7 L (12.0-16.0) g/dl Hct 34.1 L (37.0-47.0) % MCV 80.6 (80.0-98.0) fL MCH 27.7 (27.0-33.0) pg MCHC 34.3 (31.0-35.0) g/dl RDW 13.6 (11.0-16.0) % Plt Count 206 (160-400) X10*3/uL MPV 10.5 (9.4-12.3) fL Immature Gran % (Auto) 0.4 (0.0-0.4) % Neut % (Auto) 56.1 (45-73) % Lymph % (Auto) 27.8 (20-40) % [place] % (Auto) 10.5 (2-11) % Eos % (Auto) 4.8 H (0-4) % Baso % (Auto) 0.4 (0-2) % Lymph # (Auto) 1.4 (1.2-4.9) X10*3/uL [place] # (Auto) 0.5 (0.1-1.2) X10*3/uL Eos # (Auto) 0.2 (0.0-0.4) X10*3/uL Baso # (Auto) 0.0 (0.0-0.2) X10*3/uL Abs Immat Gran (auto) 0.02 (0.00-0.03) X10*3/uL Absolute Neuts (auto) 2.8 (2.0-8.3) x10*3/uL Absolute Nucleated RBC 0.000 (0.0-0.012) X10*3/uL Nucleated RBC % (auto) 0.0 (0.0-0.2) /100WBC PT 12.6 (11.1-13.3) SEC INR 1.0 (0.9-1.1) APTT 31.8 (26.0-36.8) SEC Sodium 138 (135-145) mmol/L Potassium 4.0 (3.3-5.1) mmol/L Chloride 104 (96-108) mmol/L Carbon Dioxide 28 (22-29) mmol/L Anion Gap 10 L (12-20) BUN 11 (9-16) mg/dL Creatinine 0.77 (0.5-1.4) mg/dL Estim Creat Clear Calc 109.8 Estimated GFR > 60 Random Glucose 96 (60-115) mg/dL Calcium 9.0 (8.4-10.2) mg/dL Total Bilirubin 0.2 (0.0-1.0) mg/dL AST 26 (5-31) U/L ALT 22 (0-31) U/L Alkaline Phosphatase 89 (39-117) U/L Total Protein 8.4 H (6.5-8.0) g/dL Albumin 3.6 (3.5-5.0) g/dL Beta HCG, Quant < 2 mIU/mL Urine Color Yellow Urine Appearance Clear Urine pH 5.5 (5.0-9.0) Ur Specific [place] >= 1.030 H (1.005-1.025) Urine Protein Negative (Neg-Trace) mg/dL Urine Glucose (UA) Negative (Negative) mg/dL Urine Ketones Negative (Negative) mg/dL Urine Blood Negative (Negative) Urine Nitrite Negative (Negative) Ur Leukocyte Esterase Negative (Negative) Urine Test NEGATIVE (NEGATIVE) Tests considered The following testing was considered but not selected: Consider CT scan of the abdomen pelvis, however the patient has reassuring labs and reassuring exam Discharge Plan Discharge Clinical Impression: Abdominal pain Patient Disposition: Home, Self-Care Instructions: Abdominal Pain (ED) Additional Instructions: Your workup in the ER today is reassuring. Includes your blood work, urine sample. Take Zofran as needed for nausea/vomiting Return for new or worsening symptoms, especially develop a fever or severe, intractable abdominal pain You may follow-up with general surgery for your history of gallstones Prescriptions: New ondansetron 4 mg tablet,disintegrating 4 mg PO Q8H PRN (Reason: nausea and vomiting) Qty: 20 0RF No Action prednisone 5 mg tablet 5 mg PO DAILY ibuprofen 800 mg tablet 800 mg PO Q8H PRN (Reason: pain) 30 Days Qty: 90 3RF Referrals: Luz Maria Domingo MD [Physician] - (hx cholelithiasis) Interventions: ED Discharge Assessment Last Done: 01/07/24 01:20 Discharge Date/Time: 01/07/24 01:20
[2024-01-06 21:09] LABS: MANUAL DIFF FLAG NO
[2024-01-06 21:10] LABS: Basophils Percent Auto 0.4 % (0-2); Eosinophils Absolute Auto 0.2 X10*3/uL (0.0-0.4); Eosinophils Percent Auto 4.8 % (0-4); Hematocrit 34.1 % (37.0-47.0); Hemoglobin 11.7 g/dl (12.0-16.0); Imm Gran Abs Auto 0.02 X10*3/uL (0.00-0.03); Imm Gran Pct Auto 0.4 % (0.0-0.4); Lymphocytes Absolute Auto 1.4 X10*3/uL (1.2-4.9); Lymphocytes Percent Auto 27.8 % (20-40); Mean Corpuscular HGB Conc 34.3 g/dl (31.0-35.0); Mean Corpuscular Hemoglobin 27.7 pg (27.0-33.0); Mean Corpuscular Volume 80.6 fL (80.0-98.0); Mean Platelet Volume 10.5 fL (9.4-12.3); Monocytes Absolute Auto 0.5 X10*3/uL (0.1-1.2); Monocytes Percent Auto 10.5 % (2-11); Neutrophils Absolute Auto 2.8 x10*3/uL (2.0-8.3); Neutrophils Percent Auto 56.1 % (45-73); Platelet Count 206 X10*3/uL (160-400); Red Blood Count 4.23 X10*6/uL (4.20-5.50); Red Cell Distribution Width 13.6 % (11.0-16.0)
[2024-01-06 21:21] LABS: Prothrombin Time 12.6 SEC (11.1-13.3)
[2024-01-06 21:24] LABS: Partial Thromboplastin Time 31.8 SEC (26.0-36.8)
[2024-01-06 21:33] LABS: Alanine Aminotransferase 22 U/L (0-31); Albumin Level 3.6 g/dL (3.5-5.0); Alkaline Phosphatase 89 U/L (39-117); Anion Gap 10 (12-20); Aspartate Amino Transferase 26 U/L (5-31); Bilirubin Total 0.2 mg/dL (0.0-1.0); Blood Urea Nitrogen 11 mg/dL (9-16); Carbon Dioxide 28 mmol/L (22-29); Chloride 104 mmol/L (96-108); Creatinine Clr Calc Pharmacy 109.8; Estimated Glomerular Filt Rate > 60; Glucose Random 96 mg/dL (60-115); Sodium 138 mmol/L (135-145); Total Protein 8.4 g/dL (6.5-8.0)
[2024-01-06 21:38] LABS: HCG Quantitative < 2 mIU/mL
[2024-01-06] MEDS: 0.9 % Sodium Chloride 1,000 ML 999 ML IV ×2 (22:40→23:52)
[2024-01-06 22:42] VITALS: BP 125/83; PULSE 74; RESP 16; TEMP 36.4; O2SAT 100
--- NOTE | 2024-01-06 22:58 | PC.NURSE ---
Pt aox4 resting at the bedside reporting abd pain, 10/10, with stomach guarding. Pain improves with rest and worsens with movement. Reports N/V/D. VSS. 22G IV line placed on the left AC. NS running. Urine sample collected and sent.
[2024-01-06 23:03] LABS: Appearance Urine Clear; Color Urine Yellow; Glucose Urine UA Negative (Negative); Leukocyte Esterase Urine Negative (Negative); Nitrite Urine Negative (Negative); PH 5.5 (5.0-9.0); Specific Gravity - Urine >= 1.030 (1.005-1.025); Urine Blood Negative (Negative); Urine Ketones Negative (Negative); Urine Protein Negative (Neg-Trace)
[2024-01-06 23:04] LABS: UPreg QC Valid YES; Urine Pregnancy NEGATIVE (NEGATIVE)
[2024-01-06] MEDS: Morphine Sulfate 4 MG/ML CARTRIDGE IVPUSH (23:51)
[2024-01-06] MEDS: ondansetron HCL 4 MG/2 ML VIAL IVPUSH (23:52)
[2024-01-07 01:15] VITALS: BP 144/98; PULSE 70; RESP 14; TEMP 36.5; O2SAT 100
== END 2024-01-07 01:20 | disposition home or self-care (01) ==
PROVIDERS: Physician Assistant; Emergency Provider Emergency Medicine; PCP Internal Medicine
DX: R10.9 Unspecified abdominal pain (principal); R11.2 Nausea with vomiting, unspecified; Z79.899 Other long term (current) drug therapy
CPT/HCPCS: 36415; 80053; 81003; 81025; 84702; 85025; 85610; 85730; 96361; 96374; 96375; 99284; J2270; J2405

== ENCOUNTER 2024-01-07 15:51 | Emergency (ER) | payer OTHER, SELFPAY ==
--- NOTE | ~2024-01-07 | CT_ITS ---
EXAMINATION: CT ABDOMEN AND PELVIS WITHOUT CONTRAST CLINICAL INFORMATION: Right flank pain. Evaluate for a renal stone. COMPARISON: Most recent CT abdomen/pelvis dated 05/19/2023. TECHNIQUE: Multidetector volumetric imaging was performed from the superior aspect of the liver through the pubic symphysis. Sagittal and coronal reformatted images were obtained on the technologist's workstation. This CT examination was performed using dose optimization techniques as appropriate, variously including the following: *Automated exposure control *Adjustment of mA and/or kV according to patient size (this includes techniques or standardized protocols for targeted exams where dose is matched to indication/reason for exam; i.e. extremities or head) *Use of iterative reconstruction technique DLP: 538 mGy-cm FINDINGS: LUNG BASES: The visualized lung bases are unremarkable. LIVER, GALLBLADDER, AND BILIARY TREE: The liver is normal in size, shape, and attenuation. No focal hepatic lesion or biliary ductal dilatation is present. The gallbladder is unremarkable with no evidence of radiopaque gallstones, gallbladder wall thickening, or obvious pericholecystic inflammatory changes. PANCREAS: Unremarkable. SPLEEN: Unremarkable. ADRENAL GLANDS: Unremarkable. KIDNEYS AND URETERS: The kidneys are normal in size, shape, and attenuation. 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 No right-sided renal or ureteral stone. No right-sided hydronephrosis or hydroureter. Posterior left lower pole renal stone measuring up to 0.5 cm in greatest dimension and located approximately 8.5 cm from the posterior axillary line, unchanged when compared to the prior examination. No new left-sided renal stone. No left-sided hydronephrosis or hydroureter. No perinephric stranding. BLADDER: Nondistended and unremarkable. No associated calcification or inflammatory change. GASTROINTESTINAL TRACT: No small or large bowel obstruction. No bowel wall thickening or inflammatory change. Unremarkable appendix. PERITONEAL CAVITY: Trace pelvic free fluid, new when compared to the prior examination. No soft tissue mass or organized fluid collection/abscess formation. ABDOMINAL WALL: No significant hernia is appreciated. LYMPH NODES: No significant lymphadenopathy, however, evaluation is limited without IV contrast. VASCULAR: Unremarkable. PELVIC VISCERA: The uterus and adnexa are unremarkable. OSSEOUS STRUCTURES: Unremarkable. CT/CT abdomen pelvis wo IV con IMPRESSION: 1. No right-sided renal or ureteral stone. No hydronephrosis or hydroureter. Stable left lower pole renal stone measuring up to 0.5 cm. 2. Nondistended and unremarkable urinary bladder. No associated calcification or inflammatory change. 3. Trace pelvic free fluid, new when compared to the prior examination. No soft tissue mass or organized fluid collection/abscess formation. Fleischner guidelines were followed.
--- NOTE | 2024-01-07 16:26 | ED.GENADULT ---
HPI - General Adult General Chief complaint: Abdominal Pain Stated complaint: R side pain, was seen yesterday, no improvement Time Seen by Provider: 01/07/24 21:51 Source: patient Mode of arrival: ambulatory Limitations: no limitations History of Present Illness HPI narrative: Patient is a 33 year old assigned female at with a history of anemia presenting to the emergency department today with right sided abdominal and flank pain. Patient states that over the last 4 days she has had right sided abdominal and flank pain. Patient states that she was previously seen and continues to have pain. Patient denies any dizziness, lightheadedness, nausea, vomiting, fever, chills, blurry vision, double vision, loss of vision, chest pain, difficulty breathing, shortness of breath, back pain, night sweats, pain with urination, increased urinary frequency, increased urinary urgency, blood in her urine or stool, syncope or a near syncopal episode, recent trauma or falls, bowel incontinence, bladder incontinence, bowel retention, bladder retention, or any other complaints at this time. Onset (ago): day(s) (4) Location: abdomen and right Radiation: flank Severity: mild Severity scale (1-10): 3 Quality: aching and dull Pain Consistency: constant Relieving factors: none Exacerbating factors: none Associated symptoms: denies other symptoms Treatments prior to arrival: none Related Data Home Medications Medication Instructions Recorded Confirmed prednisone 5 mg tablet 5 mg PO DAILY 11/07/23 Previous Rx's Medication Instructions Recorded ibuprofen 800 mg tablet 800 mg PO Q8H PRN pain 30 days #90 11/07/23 tabs ondansetron 4 mg disintegrating 4 mg PO Q8H PRN nausea and 01/07/24 tablet vomiting #20 tabs Allergies Allergy/AdvReac Type Severity Reaction Status Date / Time aspirin [ASA] Allergy Severe Palpitation Verified 01/06/24 20:54 s Review of Systems Constitutional: Constitutional: Reports no additional constitutional complaints, Denies chills, Denies fever(s) and Denies night sweats Eyes: Eyes: Reports no additional eye complaints, Denies blurry vision, Denies change in vision, Denies diplopia, Denies eye discharge, Denies loss of vision and Denies eye pain ENT: Denies dizziness Cardiovascular: Cardiovascular: Reports no additional cardiovascular complaints, Denies chest pain, Denies lightheadedness, Denies Loss of Consciousness and Denies dyspnea Respiratory: Respiratory: Reports no additional respiratory complaints and Denies dyspnea Gastrointestinal: Gastrointestinal: Reports no additional gastrointestinal complaints, Reports abdominal pain, Denies melena, Denies hematochezia, Denies change in bowel habits and Denies change in stool character Genitourinary: Genitourinary: Denies hematuria, Denies urinary frequency, Denies dysuria, Denies urinary incontinence, Denies urinary hesitancy and Denies urinary urgency Musculoskeletal: Musculoskeletal: Reports no additional musculoskeletal complaints, Denies numbness and Denies tingling Neurologic: Denies dizziness, Denies loss of vision, Denies numbness and Denies tingling Psychiatric: Psychiatric: Reports no additional psychiatric complaints Endocrine: Endocrine: Reports no additional endocrine complaints Hematologic/Lymphatic: Hematologic/Lymphatic: Reports no additional hematologic/lymphatic complaints Allergic/Immunologic: Allergic/Immunologic: Reports no additional allergic/immunologic complaints [facility] Past Medical History Attestation statement: The following information was validated with the patient. Source: old records reviewed and nursing notes reviewed Medical History Femoral acetabular impingement Lupus Cough Swelling of right knee joint Mild recurrent major depression Daily headache Physical exam Solitary pulmonary nodule Rheumatoid arthritis Mild persistent asthma Lung nodule seen on imaging study Left wrist pain Urticaria Polyarthralgia Overweight (BMI 25.0-29.9) Chronic migraine with aura Anemia Surgical History Hx of section Family History Family History Mother Hypoglycemia Father Hypertension Diabetes Family/Other Mental health disorder Substance use disorder Social History Social History Household Members: Significant Other and Family Housing: Apartment Unable to assess alcohol history related to: Unknown Alcohol intake: never Patient Tobacco Use Status: Former Tobacco user Quit Date: 03/2021 Tobacco use type: Cigarette e-Cigarette/Vaping Use: Never Used Second Hand Smoke Exposure: No Substance Use Type: Marijuana service: No Current occupational status: employed 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 Cognitive needs: No Hearing needs: No Vision needs: No Physical Exam ED Vital Signs: Vital Signs - 24 hr 01/07/24 16:27 01/07/24 19:43 Temperature 98.5 F 98.3 F Pulse Rate 73 81 Respiratory Rate 16 18 Blood Pressure 131/95 H 137/89 Pulse Oximetry 98 100 Oxygen Delivery Method Room Air Room Air BMI result Body Mass Index 29.0 Const General: cooperative, no acute distress, alert and awake Nutritional Appearance: well nourished Orientation/consciousness: patient oriented x3 Limitations: no limitations HENMT Head: Yes normal to inspection and Yes atraumatic Ears: hearing grossly normal bilaterally and external ears normal General nose exam: Normal external nose present, no nasal discharge noted and no epistaxis Face and sinus: Yes normal facial exam, No abrasion and No laceration Mouth: Normal oral and palatal mucosa present, no drooling and no muffled voice Eyes General: appearance normal, both eyes and all related structures Periorbital: periorbital findings normal Eyelids: Yes eyelids normal Conjunctivae: conjunctivae normal Pupils: Equal, round and reactive pupils present EOM: EOMs intact bilaterally Neck Neck: Yes normal visual inspection, Yes full ROM and Yes no lymphadenopathy Chest Chest palpation & inspection: normal inspection of the chest Resp Effort & Inspection: normal respiratory effort and able to speak in complete sentences GI Inspection: Yes normal to inspection Palpation (GI): Soft to palpation Neuro General: patient oriented x3 and moves all extremities Cranial nerves: Yes Equal, round and reactive pupils present Cognition (Neuro): normal cognition Motor exam (neuro): 5/5 motor strength present throughout Sensory Exam: Normal double simultaneous stimulation for sensation Coordination: [id number] test normal Extrem General: Yes normal to inspection, Yes full ROM and Yes capillary refill normal Psych Appearance: grossly normal Mental Status: mental status grossly normal Affect: normal affect Attitude: cooperative Thought process: Normal thought process present Thought content: Normal thought content present Insight: Good insight present (Psych) Course Course Course Narrative: Patient complains of right flank pain since last night, she was here last night and labs were ordered and nondiagnostic, she was discharged as pain had relented She returns today with continued pain, labs are ordered and a noncontrast CT to rule out kidney stones is ordered This rapid medical exam done in triage pending full ER evaluation and dispo Medical Decision Making Medical Decision Making MDM Narrative: Patient is a 33 year old assigned female at with a history of anemia presenting to the emergency department today with abdominal pain. Patient's physical exam was unremarkable - soft nontender abdomen. Patient's blood work was unremarkable. Patient's urine showed no acute process. Patient's abdomen/pelvis CT showed no acute process but did show a small amount of free fluid in the pelvis. Given the patient's presentation, it is possible the patient had a ruptured ovarian cyst. I explained my physical exam findings as well as all test results to the patient. I answered all questions asked by the patient. I stressed the importance of the patient taking her medication as prescribed. I stressed the importance of the patient following up with her primary care provider. I stressed the importance of the patient returning to the emergency department immediately if her symptoms were to worsen or if she were to develop any dizziness, shortness of breath, difficulty breathing, chest pain, blurry vision, loss of vision, nausea, vomiting, abdominal pain, fever, chills, back pain, or any other complaints. Patient verbalized agreement and understanding with this treatment plan and discharge. Differential Diagnosis Differential Diagnoses: The differential diagnosis associated with the presentation includes Abdominal pain Renal calculi Ovarian cyst Ruptured ovarian cyst Admission/Observation Consideration of admission/observation: Escalation of care including admission/observation considered Patient would have been admitted to the hospital had her work up had any findings where hospital admission was appropriate and her clinical presentation warranted hospital admission. Lab Data [facility] Lab Attestation statement: I reviewed the patient's lab results. My interpretation of these results are in the [facility] Rationale portion of this note. 01/07/24 17:26 01/07/24 17:26 Labs: Lab Results 01/07/24 Range/Units 17:26 WBC 5.4 (4.8-10.8) X10*3/uL RBC 4.40 (4.20-5.50) X10*6/uL Hgb 12.0 (12.0-16.0) g/dl Hct 36.3 L (37.0-47.0) % MCV 82.5 (80.0-98.0) fL MCH 27.3 (27.0-33.0) pg MCHC 33.1 (31.0-35.0) g/dl RDW 13.7 (11.0-16.0) % Plt Count 190 (160-400) X10*3/uL MPV 10.7 (9.4-12.3) fL Immature Gran % (Auto) 0.2 (0.0-0.4) % Neut % (Auto) 55.6 (45-73) % Lymph % (Auto) 28.3 (20-40) % [place] % (Auto) 11.1 H (2-11) % Eos % (Auto) 4.4 H (0-4) % Baso % (Auto) 0.4 (0-2) % Lymph # (Auto) 1.5 (1.2-4.9) X10*3/uL [place] # (Auto) 0.6 (0.1-1.2) X10*3/uL Eos # (Auto) 0.2 (0.0-0.4) X10*3/uL Baso # (Auto) 0.0 (0.0-0.2) X10*3/uL Abs Immat Gran (auto) 0.01 (0.00-0.03) X10*3/uL Absolute Neuts (auto) 3.0 (2.0-8.3) x10*3/uL Absolute Nucleated RBC 0.000 (0.0-0.012) X10*3/uL Nucleated RBC % (auto) 0.0 (0.0-0.2) /100WBC Sodium 138 (135-145) mmol/L Potassium 4.2 (3.3-5.1) mmol/L Chloride 105 (96-108) mmol/L Carbon Dioxide 28 (22-29) mmol/L Anion Gap 9 L (12-20) BUN 9 (9-16) mg/dL Creatinine 0.74 (0.5-1.4) mg/dL Estim Creat Clear Calc 114.2 Estimated GFR > 60 Random Glucose 83 (60-115) mg/dL Calcium 8.7 (8.4-10.2) mg/dL Total Bilirubin 0.2 (0.0-1.0) mg/dL Direct Bilirubin < 0.2 (0.0-0.5) mg/dL AST 24 (5-31) U/L ALT 21 (0-31) U/L Alkaline Phosphatase 81 (39-117) U/L Total Protein 8.2 H (6.5-8.0) g/dL Albumin 3.6 (3.5-5.0) g/dL Lipase 23 (8-78) U/L Urine Color Yellow Urine Appearance Clear Urine pH 5.5 (5.0-9.0) Ur Specific [place] 1.020 (1.005-1.025) Urine Protein Negative (Neg-Trace) mg/dL Urine Glucose (UA) Negative (Negative) mg/dL Urine Ketones Negative (Negative) mg/dL Urine Blood Negative (Negative) Urine Nitrite Negative (Negative) Ur Leukocyte Esterase Negative (Negative) Urine Test NEGATIVE (NEGATIVE) Independent Interpretation I performed an independent interpretation of an: CT Scan Interpretation: My interpretation is in agreement with the radiologist's impression of this imaging study. EXAMINATION: CT ABDOMEN AND PELVIS WITHOUT CONTRAST CLINICAL INFORMATION: Right flank pain. Evaluate for a renal stone. COMPARISON: Most recent CT abdomen/pelvis dated 05/19/2023. TECHNIQUE: Multidetector volumetric imaging was performed from the superior aspect of the liver through the pubic symphysis. Sagittal and coronal reformatted images were obtained on the technologist's workstation. This CT examination was performed using dose optimization techniques as appropriate, variously including the following: *Automated exposure control *Adjustment of mA and/or kV according to patient size (this includes techniques or standardized protocols for targeted exams where dose is matched to indication/reason for exam; i.e. extremities or head) *Use of iterative reconstruction technique DLP: 538 mGy-cm FINDINGS: LUNG BASES: The visualized lung bases are unremarkable. LIVER, GALLBLADDER, AND BILIARY TREE: The liver is normal in size, shape, and attenuation. No focal hepatic lesion or biliary ductal dilatation is present. The gallbladder is unremarkable with no evidence of radiopaque gallstones, gallbladder wall thickening, or obvious pericholecystic inflammatory changes. PANCREAS: Unremarkable. SPLEEN: Unremarkable. ADRENAL GLANDS: Unremarkable. KIDNEYS AND URETERS: The kidneys are normal in size, shape, and attenuation. 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 No right-sided renal or ureteral stone. No right-sided hydronephrosis or hydroureter. Posterior left lower pole renal stone measuring up to 0.5 cm in greatest dimension and located approximately 8.5 cm from the posterior axillary line, unchanged when compared to the prior examination. No new left-sided renal stone. No left-sided hydronephrosis or hydroureter. No perinephric stranding. BLADDER: Nondistended and unremarkable. No associated calcification or inflammatory change. GASTROINTESTINAL TRACT: No small or large bowel obstruction. No bowel wall thickening or inflammatory change. Unremarkable appendix. PERITONEAL CAVITY: Trace pelvic free fluid, new when compared to the prior examination. No soft tissue mass or organized fluid collection/abscess formation. ABDOMINAL WALL: No significant hernia is appreciated. LYMPH NODES: No significant lymphadenopathy, however, evaluation is limited without IV contrast. VASCULAR: Unremarkable. PELVIC VISCERA: The uterus and adnexa are unremarkable. OSSEOUS STRUCTURES: Unremarkable. CT/CT abdomen pelvis wo IV con IMPRESSION: 1. No right-sided renal or ureteral stone. No hydronephrosis or hydroureter. Stable left lower pole renal stone measuring up to 0.5 cm. 2. Nondistended and unremarkable urinary bladder. No associated calcification or inflammatory change. 3. Trace pelvic free fluid, new when compared to the prior examination. No soft tissue mass or organized fluid collection/abscess formation. Fleischner guidelines were followed. Dictated By: Tanner Patterson MD Signed By: Electronically signed by Tanner Patterson MD 01/07/24 8112 Radiology Impression Discussion of test interpretation with radiology: I have reviewed the radiologist's reading. Discharge Plan Discharge Clinical Impression: Abdominal pain Patient Disposition: Home, Self-Care Instructions: Abdominal Pain (ED) Additional Instructions: Follow up with your primary care provider. Return to the emergency department immediately if your symptoms worsen or if you develop any dizziness, shortness of breath, difficulty breathing, chest pain, blurry vision, loss of vision, nausea, vomiting, abdominal pain, fever, chills, back pain, or any other complaints. Prescriptions: No Action ondansetron 4 mg tablet,disintegrating 4 mg PO Q8H PRN (Reason: nausea and vomiting) Qty: 20 0RF prednisone 5 mg tablet 5 mg PO DAILY ibuprofen 800 mg tablet 800 mg PO Q8H PRN (Reason: pain) 30 Days Qty: 90 3RF Referrals: Angeline Alvarado MD [Primary Care Provider] - Stand Alone Forms: Work/School Release Interventions: ED Discharge Assessment Last Done: 01/07/24 22:11 Discharge Date/Time: 01/07/24 22:11 Print Language: Serbian
[2024-01-07 16:27] VITALS: BP 131/95; PULSE 73; RESP 16; TEMP 36.9; O2SAT 98; BMI 29.0
[2024-01-07 17:30] LABS: MANUAL DIFF FLAG NO
[2024-01-07 17:36] LABS: Appearance Urine Clear; Color Urine Yellow; Glucose Urine UA Negative (Negative); Leukocyte Esterase Urine Negative (Negative); Nitrite Urine Negative (Negative); PH 5.5 (5.0-9.0); Urine Blood Negative (Negative); Urine Ketones Negative (Negative); Urine Protein Negative (Neg-Trace)
[2024-01-07 17:38] LABS: UPreg QC Valid YES; Urine Pregnancy NEGATIVE (NEGATIVE)
[2024-01-07 17:40] LABS: Basophils Percent Auto 0.4 % (0-2); Eosinophils Absolute Auto 0.2 X10*3/uL (0.0-0.4); Eosinophils Percent Auto 4.4 % (0-4); Hematocrit 36.3 % (37.0-47.0); Imm Gran Abs Auto 0.01 X10*3/uL (0.00-0.03); Imm Gran Pct Auto 0.2 % (0.0-0.4); Lymphocytes Absolute Auto 1.5 X10*3/uL (1.2-4.9); Lymphocytes Percent Auto 28.3 % (20-40); Mean Corpuscular HGB Conc 33.1 g/dl (31.0-35.0); Mean Corpuscular Hemoglobin 27.3 pg (27.0-33.0); Mean Corpuscular Volume 82.5 fL (80.0-98.0); Mean Platelet Volume 10.7 fL (9.4-12.3); Monocytes Absolute Auto 0.6 X10*3/uL (0.1-1.2); Monocytes Percent Auto 11.1 % (2-11); Neutrophils Percent Auto 55.6 % (45-73); Platelet Count 190 X10*3/uL (160-400); Red Cell Distribution Width 13.7 % (11.0-16.0); White Blood Count 5.4 X10*3/uL (4.8-10.8)
[2024-01-07 17:53] LABS: Alanine Aminotransferase 21 U/L (0-31); Albumin Level 3.6 g/dL (3.5-5.0); Alkaline Phosphatase 81 U/L (39-117); Anion Gap 9 (12-20); Aspartate Amino Transferase 24 U/L (5-31); Bilirubin Direct < 0.2 mg/dL (0.0-0.5); Bilirubin Total 0.2 mg/dL (0.0-1.0); Blood Urea Nitrogen 9 mg/dL (9-16); Calcium 8.7 mg/dL (8.4-10.2); Carbon Dioxide 28 mmol/L (22-29); Chloride 105 mmol/L (96-108); Creatinine Clr Calc Pharmacy 114.2; Estimated Glomerular Filt Rate > 60; Glucose Random 83 mg/dL (60-115); Lipase 23 U/L (8-78); Potassium 4.2 mmol/L (3.3-5.1); Sodium 138 mmol/L (135-145); Total Protein 8.2 g/dL (6.5-8.0)
[2024-01-07 19:43] VITALS: BP 137/89; PULSE 81; RESP 18; TEMP 36.8; O2SAT 100
== END 2024-01-07 22:11 | disposition home or self-care (01) ==
PROVIDERS: Physician Assistant Medical; Emergency Provider Emergency Medicine; PCP Internal Medicine
DX: R10.9 Unspecified abdominal pain (principal); Z87.891 Personal history of nicotine dependence; Z79.899 Other long term (current) drug therapy
CPT/HCPCS: 36415; 74176; 80048; 80076; 81003; 81025; 83690; 85025; 99284

== ENCOUNTER 2024-01-08 15:37 | Outpatient (AMB) | payer OTHER, SELFPAY ==
[2024-01-08 15:38] VITALS: BP 130/82; BMI 27.0
--- NOTE | 2024-01-08 15:38 | MHC.PC.OV ---
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 Accompanied by: Self / Same As Patient Allergies aspirin [ASA] Allergy (Severe, Verified 01/08/24 16:06) Palpitations Medication List - Last Reconciled 01/08/24 by Angeline Patel MD ibuprofen 800 mg PO Q8H PRN 30 days ondansetron 4 mg PO Q8H PRN prednisone 5 mg PO DAILY Tobacco use date assessed: 01/08/24 Dental Screening Dental Screen Date: 01/08/24 Did you have a dental visit in the last 12 months?: No Did you have a dental problem in the last 6 months where you did not have access to dental care?: No Was dental information given to patient?: Patient has dentist HPI HPI Comments History of Present Illness Details This is a 33 year old female with mild recurrent major depression and rheumatoid arthritis that comes today for hospital discharge follow up with discharge date 01/07/24 due to abdominal pain. Labs and CT of abdomen and pelvis were done showing nephrolithiasis and free fluid in the pelvis. She was refer to urology and advise to take a lot of water. She will call her [employer] for free fuid in the pelvis. Depression is in remission. Rheumatoid arthritis is follow by rheumatology and has been stable with low dose prednisone. 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 No nausea or vomiting. No change in bowel habits. [facility] Medical History (Updated 01/09/24 @ 12:01 by Angeline Patel MD) Femoral acetabular impingement Lupus Cough Swelling of right knee joint Mild recurrent major depression Daily headache Physical exam Solitary pulmonary nodule Rheumatoid arthritis Mild persistent asthma Lung nodule seen on imaging study Left wrist pain Urticaria Polyarthralgia Overweight (BMI 25.0-29.9) Chronic migraine with aura Anemia Surgical History Hx of section Family History Mother Hypoglycemia Father Hypertension Diabetes Family/Other Mental health disorder Substance use disorder Social History Household Members: Significant Other and Family Housing: Apartment Unable to assess alcohol history related to: Unknown Alcohol intake: never Patient Tobacco Use Status: Former Tobacco user Quit Date: 03/2021 Tobacco use type: Cigarette e-Cigarette/Vaping Use: Never Used Second Hand Smoke Exposure: No Substance Use Type: Marijuana service: No Current occupational status: employed 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 1. Little interest or pleasure in doing things: not at all 2. Feeling down, depressed, or hopeless: not at all 3. Trouble falling or staying asleep, or sleeping too much: not at all 4. Feeling tired or having little energy: not at all 5. Poor appetite or overeating: not at all 6. Feeling bad about yourself - or that you are a failure or have let yourself or your family down: not at all 7. Trouble concentrating on things, such as reading the newspaper or watching television: not at all 8. Moving or speaking so slowly that other people could have noticed. Or the opposite - being so fidgety or restless that you have been moving around a lot more than usual: not at all 9. Thoughts that you would be better off or of hurting yourself in some way: not at all Total score: 0 Depression Screening Interpretation: Negative Depression Screening Done: Yes 25471 - PHQ-9 Billing: Yes Source: Developed by Drs. Tray Lee, Barbara Schafer, Mic Grady and colleagues, with an educational félix from [employer]. Thrive Questionnaire Date Thrive assessed: 01/08/24 I am a: Patient What is your living situation today?: I have a steady place to live Within the past 12 months, did the food you bought not last and you didn't have the money to get more?: Never true Within the past 12 months, did you worry whether your food would run out before you got money to buy more?: Never true Do you have trouble paying for medicines?: No Do you have trouble getting transportation to medical appointments?: No Do you have trouble paying your heating and electricity bill?: No Do you have trouble taking care of your child, family member or friend?: No Do you have trouble with day-to-day activities such as bathing, preparing meals, shopping, managing finances, etc.?: No Are you currently unemployed and looking for a job?: No Are you interested in more education?: No Please select the resources that you would like help with: None Currently or been in a relationship where the following occur: no concerns reported THRIVE Score: 0 AUDIT C Alcohol Use Questionnaire (AUDIT-C) 1. How often do you have a drink containing alcohol?: Never Total Score: 0 HENRIK-7 AMB Questionnaire HENRIK-7 Date HENRIK - 7 assessed: 01/08/24 Feeling nervous, anxious, or on edge: 0 = Not at all Not being able to stop or control worryin = Not at all Worrying too much about different things: 0 = Not at all Trouble relaxin = Not at all Being so restless that it is hard to sit still: 0 = Not at all Becoming easily annoyed or irritable: 0 = Not at all Feeling afraid as if something awful might happen: 0 = Not at all Total HENRIK-7 score (0-4 normal; 5-9 mild; 10-14 moderate; 15-21 severe): 0 Source: Developed by Drs. Tray Lee, Barbara Schafer, Mic Grady and colleagues, with an educational félix from [employer]. HENRIK-7 Assessment Billing HENRIK-7 Assessment Tool: HENRIK-7 Assessment 88257 Review of Systems Const All systems reviewed & are unremarkable except as noted in HPI and below Eyes Reports no additional complaints, Denies change in vision and Denies other visual disturbances Card Denies chest pain at rest, Denies chest pain with activity, Denies edema, Denies irregular heart rhythm, Denies claudication, Denies dyspnea, Denies dyspnea on exertion, Denies orthopnea, Denies paroxysmal nocturnal dyspnea and Denies slow heart rate Resp Denies cough, Denies dyspnea and Denies dyspnea on exertion GI Denies abdominal pain, Denies change in bowel habits, Denies excessive flatus, Denies nausea and Denies vomiting Denies urinary incontinence, Denies urinary hesitancy and Denies urinary urgency Musc Denies abnormal gait, Denies atrophy, Denies deformity and Denies limited range of motion Skin/Breast Denies bleeding lesions, Denies changing lesions and Denies rash Neuro Denies abnormal gait, Denies behavioral changes and Denies lack of coordination Psych Denies behavioral changes Aller/Immun Denies urticaria Physical exam (Primary Care) Vital Signs: Last Vital Signs BP 130/82 01/08/24 15:38 BMI result Body Mass Index 27.0 Tobacco/Smoking Status: Tobacco use Status Tobacco use date assessed 01/08/24 01/08/24 15:43 Patient Tobacco Use Status Former Tobacco user 01/08/24 15:43 Tobacco use type Cigarette 01/08/24 15:43 e-Cigarette/Vaping Use Never Used 01/08/24 15:43 PHQ-9: PHQ-9 Score PHQ-9: Total score 0 01/08/24 16:16 Depression Screening Interpretation: Negative Thrive Assessment: Date of Thrive Assessment Date Thrive assessed 01/08/24 01/08/24 15:43 Currently or been in a relationship where the following occur: no concerns reported Eyes General: appearance normal, both eyes and all related structures Eyelids: Yes eyelids normal Conjunctivae: conjunctivae normal Neck Neck: Yes normal visual inspection and Yes supple Resp Effort & Inspection: normal respiratory effort Auscultation: clear to auscultation bilaterally Cardio Jugular venous distension: no JVD Rate: regular rate Rhythm: regular rhythm Heart sounds: S1 normal heart sound present and S2 normal heart sound present GI Inspection: Yes normal to inspection Palpation (GI): Soft to palpation and Tenderness to palpation present (GI) in the epigastrum, in the LLQ, in the RLQ, in the LUQ and in the RUQ Auscultation: normal bowel sounds Extrem General: Yes full ROM Psych Appearance: grossly normal Assessment and Plan Assessment & Plan (1) Hospital discharge follow-up: Code(s): Z09 - Encounter for follow-up examination after completed treatment for conditions other than malignant neoplasm Plan: Discharge date 01/07/24 due to abdominal pain. Had CT abdomen and pelvis showing renal calculi and free fluid in pelvis. Still has some abdominal pain. (2) Nephrolithiasis: Code(s): N20.0 - Calculus of kidney (3) Free fluid in pelvis: Code(s): R18.8 - Other ascites Plan: Refer to urology. (4) Rheumatoid arthritis: Code(s): M06.9 - Rheumatoid arthritis, unspecified Plan: Follow up with rheumatology. Continue prednisone. (5) Mild recurrent major depression: Code(s): F33.0 - Major depressive disorder, recurrent, mild Plan: In remission. Orders: Orders US pelvic and transvaginal 01/08/24 R18.8 - Other ascites Referrals Urology Referral N20.0 - Calculus of kidney Coding Level of Care Code TCM Mod MDM <= 7 Days Diagnoses Hospital discharge follow-up Z09 Nephrolithiasis N20.0 Free fluid in pelvis R18.8 Rheumatoid arthritis M06.9 Mild recurrent major depression F33.0 Additional Codes HENRIK-7 Assessment Billing - HENRIK-7 Assessment Tool: HENRIK-7 Assessment 75014 ([id number]) Time Spent (min) 24
== END 2024-01-08 16:18 | disposition home or self-care (01) ==
PROVIDERS: PCP Internal Medicine; Visit Provider Internal Medicine
DX: M06.9 Rheumatoid arthritis, unspecified (principal); F33.0 Major depressive disorder, recurrent, mild; Z09 Encounter for follow-up examination after completed treatment for conditions other than malignant neoplasm; N20.0 Calculus of kidney; R18.8 Other ascites
CPT/HCPCS: 99213

== ENCOUNTER 2024-01-14 15:01 | Outpatient (REF) | payer OTHER, SELFPAY ==
--- NOTE | ~2024-01-14 | US_ITS ---
EXAMINATION: US PELVIS CLINICAL INFORMATION: Free fluid in the pelvis. COMPARISON: CT abdomen/pelvis 01/07/2024. TECHNIQUE: Ultrasound of the pelvis is performed using both transabdominal and transvaginal transducers along with Doppler. Transvaginal imaging is performed due to inadequate visualization transabdominally. FINDINGS: The uterus is anteverted and anteflexed measuring 10 x 3.9 x 4.9 cm. There is a 0.7 x 0.4 x 0.6 cm right upper uterine intramural lesion, most likely a fibroid. The endometrium measures 1.1 cm in thickness without discrete focal abnormality. Nabothian cysts are noted overlying the cervix. The ovaries are normal in morphology with preserved flow on color Doppler at the moment of this examination. The right ovary measures 2.8 x 1.5 x 1.5 cm, 3.3 mL and the left ovary measures 4 x 2 x 2.7 cm, 11.3 mL. There is a 0.2 cm hyperechoic focus in the right ovary, possibly a calcification. There is a 1.9 x 1.3 x 1.7 cm simple appearing cyst in the left ovary, which is almost certainly benign and for which no imaging follow-up is recommended. Trace amount of free fluid in the cul-de-sac is most likely physiologic in a patient of this age. US/US pelvic and transvaginal IMPRESSION: 1. A 0.7 cm intramural lesion in the uterus most likely represents a fibroid. 2. A punctate hyperechoic focus in the right ovary could represent a calcification, uncertain significance. Out of precaution, a follow-up ultrasound in 3-6 months could be obtained. 3. Trace amount of free fluid in the cul-de-sac is most likely physiologic in a patient of this age.
== END 2024-01-14 15:02 | disposition home or self-care (01) ==
LOC: HO.US 15:01
PROVIDERS: PCP Internal Medicine; Visit Provider Internal Medicine
DX: R18.8 Other ascites (principal)
CPT/HCPCS: 76830; 76856

== ENCOUNTER 2024-02-03 12:21 | Emergency (ER) | payer OTHER, SELFPAY ==
--- NOTE | ~2024-02-03 | XR_ITS ---
EXAMINATION: XR CHEST CLINICAL INFORMATION: Shortness of breath COMPARISON: Previous chest x-ray September [address] November 2021 and July 2021 TECHNIQUE: Frontal view of the chest was obtained. FINDINGS: The cardiac and mediastinal contours are stable. There is a 7 mm left upper lobe nodule that is stable. The lungs are otherwise clear. No pleural effusion or pneumothorax. Bony structures are unremarkable. XR/XR chest 1V IMPRESSION: No evidence for acute disease in the chest. Stable 7 mm left upper lobe nodule.
[2024-02-03 12:31] VITALS: BP 128/74; PULSE 98; O2SAT 98
[2024-02-03 12:39] VITALS: BP 138/92; PULSE 95; RESP 18; TEMP 36.9; O2SAT 98; BMI 29.6
[2024-02-03 13:26] LABS: MANUAL DIFF FLAG NO
[2024-02-03 13:28] LABS: Basophils Percent Auto 0.4 % (0-2); Eosinophils Absolute Auto 0.2 X10*3/uL (0.0-0.4); Eosinophils Percent Auto 2.5 % (0-4); Hematocrit 35.2 % (37.0-47.0); Hemoglobin 11.8 g/dl (12.0-16.0); Imm Gran Abs Auto 0.02 X10*3/uL (0.00-0.03); Imm Gran Pct Auto 0.2 % (0.0-0.4); Lymphocytes Percent Auto 12.2 % (20-40); Mean Corpuscular HGB Conc 33.5 g/dl (31.0-35.0); Mean Corpuscular Hemoglobin 26.3 pg (27.0-33.0); Mean Corpuscular Volume 78.6 fL (80.0-98.0); Mean Platelet Volume 10.2 fL (9.4-12.3); Monocytes Absolute Auto 0.6 X10*3/uL (0.1-1.2); Monocytes Percent Auto 7.3 % (2-11); Neutrophils Absolute Auto 6.6 x10*3/uL (2.0-8.3); Neutrophils Percent Auto 77.4 % (45-73); Platelet Count 199 X10*3/uL (160-400); Red Blood Count 4.48 X10*6/uL (4.20-5.50); Red Cell Distribution Width 13.2 % (11.0-16.0); White Blood Count 8.6 X10*3/uL (4.8-10.8)
[2024-02-03] MEDS: 0.9 % Sodium Chloride 1,000 ML 500 ML IVCONT (13:28)
[2024-02-03] MEDS: Acetaminophen 325 MG TABLET 975 MG PO (13:29)
[2024-02-03 13:46] LABS: Alanine Aminotransferase 18 U/L (0-31); Albumin Level 3.6 g/dL (3.5-5.0); Alkaline Phosphatase 100 U/L (39-117); Anion Gap 9 (12-20); Aspartate Amino Transferase 22 U/L (5-31); Bilirubin Total 0.3 mg/dL (0.0-1.0); Blood Urea Nitrogen 7 mg/dL (9-16); Calcium 8.9 mg/dL (8.4-10.2); Carbon Dioxide 28 mmol/L (22-29); Chloride 104 mmol/L (96-108); Estimated Glomerular Filt Rate > 60; Glucose Random 87 mg/dL (60-115); Potassium 3.8 mmol/L (3.3-5.1); Sodium 137 mmol/L (135-145); Total Protein 8.5 g/dL (6.5-8.0)
--- NOTE | 2024-02-03 14:30 | PC.NURSE ---
pt comes from home after developing congestion and body aches after receiving Hep B vaccine and first round of chemo yesterday. pt is a&o x4, calm, and cooperative. pt reporting sob but is sating 97% on room air. 20G IV placed to L wrist, labs drawn, fluids hung, and pt medicated per mar. pt resting quietly on stretcher in no apparent distress. rr even/unlabored. call kuhn within reach. plan of care ongoing.
--- NOTE | 2024-02-03 15:23 | ED.GENADULT ---
HPI - General Adult General Chief complaint: General Medical Stated complaint: SOB 100% RA PER EMS Time Seen by Provider: 02/03/24 12:26 Source: patient Mode of arrival: ambulatory Limitations: no limitations History of Present Illness HPI narrative: patient had her first methotrexate for lupus and a hep B shot 2 days ago. Now with myalgias, feels short of breath, and has lymphadenopathy Onset (ago): hour(s) Related Data Home Medications ?Medication ?Instructions ?Recorded ?Confirmed prednisone 5 mg tablet 5 mg PO DAILY 11/07/23 01/08/24 Previous Rx's ?Medication ?Instructions ?Recorded ibuprofen 800 mg tablet 800 mg PO Q8H PRN pain 30 days #90 11/07/23 tabs ondansetron 4 mg disintegrating 4 mg PO Q8H PRN nausea and 01/07/24 tablet vomiting #20 tabs naproxen 500 mg tablet (Naprosyn) 500 mg PO BID #20 tabs 02/03/24 Allergies Allergy/AdvReac Type Severity Reaction Status Date / Time aspirin [ASA] Allergy Severe Palpitation Verified 02/03/24 12:42 s Review of Systems Review of Systems: Yes all other systems are reviewed and are negative Neurologic: Denies Sensory deficit (Neuro) PMFSH Past Medical History Medical History Femoral acetabular impingement Lupus Cough Swelling of right knee joint Mild recurrent major depression Daily headache Physical exam Solitary pulmonary nodule Rheumatoid arthritis Mild persistent asthma Lung nodule seen on imaging study Left wrist pain Urticaria Polyarthralgia Overweight (BMI 25.0-29.9) Chronic migraine with aura Anemia Surgical History Hx of section Family History Family History Mother Hypoglycemia Father Hypertension Diabetes Family/Other Mental health disorder Substance use disorder Social History Social History Household Members: Significant Other and Family Housing: Apartment Unable to assess alcohol history related to: Unknown Alcohol intake: never Patient Tobacco Use Status: Former Tobacco user Quit Date: 03/2021 Tobacco use type: Cigarette e-Cigarette/Vaping Use: Never Used Second Hand Smoke Exposure: No Substance Use Type: Marijuana Advance Directives: No Advance Directives Information Provided: No service: No Current occupational status: employed 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 Current occupational exposures/hazards: No Cognitive needs: No Hearing needs: No Vision needs: No Physical Exam ED Vital Signs: Vital Signs - 24 hr 02/03/24 12:39 Temperature 98.5 F Pulse Rate 95 Respiratory Rate 18 Blood Pressure 138/92 H Pulse Oximetry 98 Oxygen Delivery Method Room Air BMI result Body Mass Index 29.6 Const General: healthy appearing Nutritional Appearance: average body habitus Orientation/consciousness: oriented to person and patient oriented x3 Limitations: no limitations HENMT Head: Yes normal to inspection Ears: external ears normal General nose exam: Normal external nose present Mouth: Normal oral and palatal mucosa present and oropharynx normal Throat: Yes posterior oropharynx normal Eyes General: appearance normal, both eyes and all related structures Neck Neck: Yes normal visual inspection Chest Chest palpation & inspection: normal inspection of the chest Resp Auscultation: clear to auscultation bilaterally Cardio Jugular venous distension: no JVD Rate: regular rate Rhythm: regular rhythm Heart sounds: S1 normal heart sound present and S2 normal heart sound present GI Inspection: Yes normal to inspection Palpation (GI): Soft to palpation, nontender and No hepatosplenomegaly present Auscultation: normal bowel sounds General: Yes no CVA tenderness Back/Spine/Pelvis Back: no CVA tenderness Skin General skin exam: no rashes or lesions noted Neuro General: oriented to person and patient oriented x3 Cranial nerves: Yes CN's II-XII intact bilaterally Motor exam (neuro): 5/5 motor strength present throughout Sensory Exam: No Sensory deficit (Neuro) Extrem General: Yes normal to inspection Psych Appearance: grossly normal Course Reevaluation(s) Reevaluation #1: Labs and xray normal will dc on nsaids and hydration for side effects of vaccine and methotrexate Time: 15:29 Medications Administered Discontinued Medications Generic Name Dose Route Start Last Admin Trade Name Freq PRN Reason Stop Dose Admin Acetaminophen 975 mg 02/03/24 12:47 02/03/24 13:29 Acetaminophen 325 Mg Tablet PO 02/03/24 12:48 975 mg ONCE ONE Administration Sodium Chloride 1,000 mls @ 500 mls/hr 02/03/24 13:00 02/03/24 13:28 Ns IVCONT 02/03/24 14:59 500 mls/hr .Q2H NIDIA Administration Medical Decision Making Differential Diagnosis Differential Diagnoses: The differential diagnosis associated with the presentation includes (vaccine side effect, allergic reaction, myalgias, adenopathy) Admission/Observation Consideration of admission/observation: Escalation of care including admission/observation considered (upon arrival patient was considered for admission) Lab Data 02/03/24 13:23 02/03/24 13:23 Labs: Lab Results 02/03/24 Range/Units 13:23 WBC 8.6 (4.8-10.8) X10*3/uL RBC 4.48 (4.20-5.50) X10*6/uL Hgb 11.8 L (12.0-16.0) g/dl Hct 35.2 L (37.0-47.0) % MCV 78.6 L (80.0-98.0) fL MCH 26.3 L (27.0-33.0) pg MCHC 33.5 (31.0-35.0) g/dl RDW 13.2 (11.0-16.0) % Plt Count 199 (160-400) X10*3/uL MPV 10.2 (9.4-12.3) fL Immature Gran % (Auto) 0.2 (0.0-0.4) % Neut % (Auto) 77.4 H (45-73) % Lymph % (Auto) 12.2 L (20-40) % [place] % (Auto) 7.3 (2-11) % Eos % (Auto) 2.5 (0-4) % Baso % (Auto) 0.4 (0-2) % Lymph # (Auto) 1.0 L (1.2-4.9) X10*3/uL [place] # (Auto) 0.6 (0.1-1.2) X10*3/uL Eos # (Auto) 0.2 (0.0-0.4) X10*3/uL Baso # (Auto) 0.0 (0.0-0.2) X10*3/uL Abs Immat Gran (auto) 0.02 (0.00-0.03) X10*3/uL Absolute Neuts (auto) 6.6 (2.0-8.3) x10*3/uL Absolute Nucleated RBC 0.000 (0.0-0.012) X10*3/uL Nucleated RBC % (auto) 0.0 (0.0-0.2) /100WBC Sodium 137 (135-145) mmol/L Potassium 3.8 (3.3-5.1) mmol/L Chloride 104 (96-108) mmol/L Carbon Dioxide 28 (22-29) mmol/L Anion Gap 9 L (12-20) BUN 7 L (9-16) mg/dL Creatinine 0.69 (0.5-1.4) mg/dL Estim Creat Clear Calc 115.0 Estimated GFR > 60 Random Glucose 87 (60-115) mg/dL Calcium 8.9 (8.4-10.2) mg/dL Total Bilirubin 0.3 (0.0-1.0) mg/dL AST 22 (5-31) U/L ALT 18 (0-31) U/L Alkaline Phosphatase 100 (39-117) U/L Total Protein 8.5 H (6.5-8.0) g/dL Albumin 3.6 (3.5-5.0) g/dL Independent Interpretation I performed an independent interpretation of an: Plain X-Ray (CXR: no infiltrate) Prescription Management I considered prescription management with: Antibiotic (no evidence of infection) Chronic Conditions Patient?s care impacted by: Other (lupus) Discharge Plan Discharge Clinical Impression: Polyarthralgia, Myalgia, Lymphadenopathy Patient Disposition: Home, Self-Care Instructions: Musculoskeletal Pain (ED), Arthralgia (ED) Prescriptions: New naproxen [Naprosyn] 500 mg tablet 500 mg PO BID Qty: 20 0RF No Action ondansetron 4 mg tablet,disintegrating 4 mg PO Q8H PRN (Reason: nausea and vomiting) Qty: 20 0RF prednisone 5 mg tablet 5 mg PO DAILY ibuprofen 800 mg tablet 800 mg PO Q8H PRN (Reason: pain) 30 Days Qty: 90 3RF Referrals: Angeline Alvarado MD [Primary Care Provider] - 5 days Print Language: Eritrean
[2024-02-03] MEDS: Ketorolac Tromethamine 30 MG/ML VIAL IVPUSH (16:08)
[2024-02-03 16:10] VITALS: BP 126/88; PULSE 82; RESP 16; TEMP 36.8; O2SAT 97
[2024-02-03 16:17] VITALS: BP 126/88; PULSE 82; RESP 16; TEMP 36.8; O2SAT 97
== END 2024-02-03 16:18 | disposition home or self-care (01) ==
PROVIDERS: Emergency Provider Emergency Medicine; PCP Internal Medicine
DX: R06.02 Shortness of breath (principal); M79.10 Myalgia, unspecified site; M25.59 Pain in other specified joint; R59.1 Generalized enlarged lymph nodes; R11.0 Nausea; Z79.899 Other long term (current) drug therapy
CPT/HCPCS: 36415; 71045; 80053; 85025; 96361; 96374; 99284; J1885

== ENCOUNTER 2024-02-14 09:03 | Emergency (ER) | payer OTHER, SELFPAY ==
[2024-02-14 09:08] VITALS: BP 134/96; PULSE 99; RESP 18; TEMP 36.8; O2SAT 99; BMI 29.8
--- NOTE | 2024-02-14 10:03 | ED_ITS ---
HPI - URI/Sore Throat General Chief Complaint: Upper Respiratory Symptoms Stated Complaint: nose bleeds after receiving hep b vaccine Time Seen by Provider: 02/14/24 09:50 Source: patient Mode of arrival: ambulatory Limitations: no limitations History of Present Illness HPI Narrative: 33-year-old female history of lupus that will start a chemotherapy presented today with upper respiratory symptoms right-sided facial pressure, nasal congestion and discharge, easy right nostril bleeding usually when she tried to blow her nose, and sore throat with enlarged cervical gland patient stated that all her symptoms started around 2 weeks ago when she got her hepatitis B vaccination. No fever, no chills who Related Data Home Medications ?Medication ?Instructions ?Recorded ?Confirmed prednisone 5 mg tablet 5 mg PO DAILY 11/07/23 01/08/24 Previous Rx's ?Medication ?Instructions ?Recorded ibuprofen 800 mg tablet 800 mg PO Q8H PRN pain 30 days #90 11/07/23 tabs ondansetron 4 mg disintegrating 4 mg PO Q8H PRN nausea and 01/07/24 tablet vomiting #20 tabs naproxen 500 mg tablet (Naprosyn) 500 mg PO BID #20 tabs 02/03/24 amoxicillin 875 mg-potassium 1 tab PO BID #20 tabs 02/14/24 clavulanate 125 mg tablet Allergies Allergy/AdvReac Type Severity Reaction Status Date / Time aspirin [ASA] Allergy Severe Palpitation Verified 02/14/24 09:15 s Review of Systems 2 Review of Systems: All other systems are reviewed and are negative Constitutional: Reports as per HPI and Reports no additional constitutional complaints Eyes: Reports as per HPI and Reports no additional eye complaints Reports system reviewed and no additional complaints, except as documented Cardiovascular: Reports as per HPI and Reports no additional cardiovascular complaints Respiratory: Reports as per HPI and Reports no additional respiratory complaints Gastrointestinal: Reports as per HPI and Reports no additional gastrointestinal complaints Genitourinary: Reports no additional female genitourinary complaints Musculoskeletal: Reports no additional musculoskeletal complaints Skin/Breast: Reports system reviewed and no additional complaints, except as docu Psychiatric: Reports no additional psychiatric complaints Endocrine: Reports no additional endocrine complaints Hematologic/Lymphatic: Reports no additional hematologic/lymphatic complaints Allergic/Immunologic: Reports no additional allergic/immunologic complaints Reports system reviewed and no additional complaints, except as documented and Reports Abnormal speech present [facility] Past Medical History Medical History Femoral acetabular impingement Lupus Cough Swelling of right knee joint Mild recurrent major depression Daily headache Physical exam Solitary pulmonary nodule Rheumatoid arthritis Mild persistent asthma Lung nodule seen on imaging study Left wrist pain Urticaria Polyarthralgia Overweight (BMI 25.0-29.9) Chronic migraine with aura Anemia Surgical History Hx of section Family History Family History Mother Hypoglycemia Father Hypertension Diabetes Family/Other Mental health disorder Substance use disorder Social History Social History Household Members: Significant Other and Family Housing: Apartment Unable to assess alcohol history related to: Unknown Alcohol intake: never Patient Tobacco Use Status: Former Tobacco user Quit Date: 03/2021 Tobacco use type: Cigarette Smoked in Last 30 Days: No e-Cigarette/Vaping Use: Never Used Second Hand Smoke Exposure: No Substance Use Type: Marijuana Advance Directives: No service: No Current occupational status: employed 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 Blood pressure elevated. Heart rate normal. Respiratory rate normal. Temperature normal. Oxygen saturation normal. Appearance: Alert. Oriented X3. No acute distress. Head: Normal external exam. Normocephalic. Atraumatic. No Sampson signs noted. No raccoon eyes noted Eyes: PERRLA. EOMI. Conjunctiva and sclera normal. Eyelids normal. ENT: Tenderness with percussion over right frontal/right maxillary sinus, pharyngeal erythema with no exudate, patent airway, no stridor. Neck: Normal inspection. Neck supple. FROM. No adenopathy. Thyroid Normal. No meningeal signs. No neck mass noted. CVS: Normal heart rate and rhythm. Heart sound normal. No murmurs noted. Pulses normal throughout. Respiratory: No respiratory distress. Painless inspiration. Breath sounds normal. No wheezes/rales/rhonchi noted. Chest nontender. No accessory muscle usage noted or decreased air movement noted. Abdomen: Soft and nontender. Bowel sounds normal in all 4 quadrants. No distention noted. No organomegaly noted. No visible injury noted. Back: No CVA tenderness. Full range of motion noted. Skin: Skin warm and dry. Normal skin color. Normal skin turgor. No rashes/lesions/lacerations noted. Extremities: No lower extremity edema. Extremities exhibit normal range of motion. Extremities nontender. Neuro: Oriented X 3. Cranial nerve exam: II-XII are grossly intact No motor deficit. No sensory deficit. Reflexes normal. Course Reevaluation(s) Reevaluation #1: Right frontal/maxillary sinusitis, patient is also positive for strep pharyngitis patient received 1 dose of prednisone and 1 dose of Augmentin. Will start the patient on Augmentin for 10 days. There is no active epistaxis at this point patient was provided with Afrin nasal drip that will help the congestion and avoid strenuous blowing of the nose. Time: 12:14 Medications Administered Discontinued Medications Generic Name Dose Route Start Last Admin Trade Name Freq PRN Reason Stop Dose Admin Amoxicillin/Clavulanate Potassium 875 mg 02/14/24 10:02/14/24 10:30 Amoxicillin/Potassium Clav 875 Mg Tablet PO 02/14/24 10:02 875 mg ONCE ONE Administration Oxymetazoline HCl 2 spray 02/14/24 10:02/14/24 10:29 Oxymetazoline Hcl 0.05 % Nasal 15 Ml Sidney NOSTRIL-B 02/14/24 10:02 2 spray ONCE ONE Administration Prednisone 60 mg 02/14/24 10:02/14/24 10:30 Prednisone 20 Mg Tablet PO 02/14/24 10:02 60 mg ONCE ONE Administration Medical Decision Making Differential Diagnosis Differential Diagnoses: The differential diagnosis associated with the presentation includes (Acute sinusitis, acute pharyngitis, epistaxis, coagulopathy, thrombocytopenia, severe anemia, electrolyte derangement.) Admission/Observation Consideration of admission/observation: Escalation of care including admission/observation considered Lab Data MDM Lab Attestation statement: I reviewed the patient's lab results. 02/14/24 10:10 02/14/24 10:10 Labs: Lab Results 02/14/24 02/14/24 Range/Units 10:05 10:10 WBC 10.4 (4.8-10.8) X10*3/uL RBC 4.56 (4.20-5.50) X10*6/uL Hgb 11.7 L (12.0-16.0) g/dl Hct 35.2 L (37.0-47.0) % MCV 77.2 L (80.0-98.0) fL MCH 25.7 L (27.0-33.0) pg MCHC 33.2 (31.0-35.0) g/dl RDW 13.2 (11.0-16.0) % Plt Count 275 D (160-400) X10*3/uL MPV 10.0 (9.4-12.3) fL Immature Gran % (Auto) 0.4 (0.0-0.4) % Neut % (Auto) 71.9 (45-73) % Lymph % (Auto) 14.8 L (20-40) % [place] % (Auto) 7.5 (2-11) % Eos % (Auto) 5.0 H (0-4) % Baso % (Auto) 0.4 (0-2) % Lymph # (Auto) 1.5 (1.2-4.9) X10*3/uL [place] # (Auto) 0.8 (0.1-1.2) X10*3/uL Eos # (Auto) 0.5 H (0.0-0.4) X10*3/uL Baso # (Auto) 0.0 (0.0-0.2) X10*3/uL Abs Immat Gran (auto) 0.04 H (0.00-0.03) X10*3/uL Absolute Neuts (auto) 7.5 (2.0-8.3) x10*3/uL Absolute Nucleated RBC 0.000 (0.0-0.012) X10*3/uL Nucleated RBC % (auto) 0.0 (0.0-0.2) /100WBC PT 13.7 H (11.1-13.3) SEC INR 1.1 (0.9-1.1) APTT 33.6 (26.0-36.8) SEC Sodium 134 L (135-145) mmol/L Potassium 4.3 (3.3-5.1) mmol/L Chloride 100 (96-108) mmol/L Carbon Dioxide 29 (22-29) mmol/L Anion Gap 9 L (12-20) BUN 13 (9-16) mg/dL Creatinine 0.70 (0.5-1.4) mg/dL Estim Creat Clear Calc 118.1 Estimated GFR > 60 Random Glucose 91 (60-115) mg/dL Calcium 9.1 (8.4-10.2) mg/dL Total Bilirubin 0.2 (0.0-1.0) mg/dL AST 17 (5-31) U/L ALT 15 (0-31) U/L Alkaline Phosphatase 96 (39-117) U/L Total Protein 9.0 H (6.5-8.0) g/dL Albumin 3.5 (3.5-5.0) g/dL Influenza Type A (PCR) NEGATIVE (Negative) Influenza Type B (PCR) NEGATIVE (Negative) RSV RNA Qual (PCR) NEGATIVE (Negative) SARS-CoV-2 RNA (RT-PCR) NEGATIVE (Negative) S. pyogenes GrpA SORAYA Positive A (Negative) Chronic Conditions Patient?s care impacted by: Other (Lupus) Discharge Plan Discharge Clinical Impression: Acute streptococcal pharyngitis, Right maxillary sinusitis Patient Disposition: Home, Self-Care Instructions: Sinusitis (ED), Strep Throat (ED) Prescriptions: New amoxicillin-pot clavulanate 875-125 mg tablet 1 tab PO BID Qty: 20 0RF No Action ondansetron 4 mg tablet,disintegrating 4 mg PO Q8H PRN (Reason: nausea and vomiting) Qty: 20 0RF naproxen [Naprosyn] 500 mg tablet 500 mg PO BID Qty: 20 0RF prednisone 5 mg tablet 5 mg PO DAILY ibuprofen 800 mg tablet 800 mg PO Q8H PRN (Reason: pain) 30 Days Qty: 90 3RF Referrals: Angeline Alvarado MD [Primary Care Provider] - Print Language: Chinese
[2024-02-14 10:18] LABS: MANUAL DIFF FLAG NO
[2024-02-14 10:26] LABS: INTERNATIONAL NORM RATIO 1.1 (0.9-1.1); Prothrombin Time 13.7 SEC (11.1-13.3)
[2024-02-14 10:28] LABS: Basophils Percent Auto 0.4 % (0-2); Eosinophils Absolute Auto 0.5 X10*3/uL (0.0-0.4); Hematocrit 35.2 % (37.0-47.0); Hemoglobin 11.7 g/dl (12.0-16.0); Imm Gran Abs Auto 0.04 X10*3/uL (0.00-0.03); Imm Gran Pct Auto 0.4 % (0.0-0.4); Lymphocytes Absolute Auto 1.5 X10*3/uL (1.2-4.9); Lymphocytes Percent Auto 14.8 % (20-40); Mean Corpuscular HGB Conc 33.2 g/dl (31.0-35.0); Mean Corpuscular Hemoglobin 25.7 pg (27.0-33.0); Mean Corpuscular Volume 77.2 fL (80.0-98.0); Monocytes Absolute Auto 0.8 X10*3/uL (0.1-1.2); Monocytes Percent Auto 7.5 % (2-11); Neutrophils Absolute Auto 7.5 x10*3/uL (2.0-8.3); Neutrophils Percent Auto 71.9 % (45-73); Platelet Count 275 X10*3/uL (160-400); Red Blood Count 4.56 X10*6/uL (4.20-5.50); Red Cell Distribution Width 13.2 % (11.0-16.0); White Blood Count 10.4 X10*3/uL (4.8-10.8)
[2024-02-14 10:29] LABS: Partial Thromboplastin Time 33.6 SEC (26.0-36.8)
[2024-02-14] MEDS: Oxymetazoline HCl 0.05 % Nasal 15 ML SPRAY 2 SPRAY NOSTRIL-B (10:29)
[2024-02-14] MEDS: predniSONE 20 MG TABLET 60 MG PO (10:30)
[2024-02-14] MEDS: Amoxicillin/Potassium Clav 875 MG TABLET PO (10:30)
[2024-02-14 10:32] LABS: IDNOW Serial# 6674DD1D; Strep A Nucleic Acid Positive (Negative)
[2024-02-14 10:33] VITALS: BP 122/89; PULSE 89; RESP 16; TEMP 36.7; O2SAT 97
[2024-02-14 10:34] VITALS: O2SAT 97
[2024-02-14 10:41] LABS: Alanine Aminotransferase 15 U/L (0-31); Albumin Level 3.5 g/dL (3.5-5.0); Alkaline Phosphatase 96 U/L (39-117); Anion Gap 9 (12-20); Aspartate Amino Transferase 17 U/L (5-31); Bilirubin Total 0.2 mg/dL (0.0-1.0); Blood Urea Nitrogen 13 mg/dL (9-16); Calcium 9.1 mg/dL (8.4-10.2); Carbon Dioxide 29 mmol/L (22-29); Chloride 100 mmol/L (96-108); Creatinine Clr Calc Pharmacy 118.1; Estimated Glomerular Filt Rate > 60; Glucose Random 91 mg/dL (60-115); Potassium 4.3 mmol/L (3.3-5.1); Sodium 134 mmol/L (135-145)
[2024-02-14 10:56] LABS: Influenza A PCR NEGATIVE (Negative); Influenza B PCR NEGATIVE (Negative); Resp Syncy Virus RNA Qual PCR NEGATIVE (Negative); SARS COV2 PCR INHOUSE NEGATIVE (Negative)
[2024-02-14 12:38] VITALS: BP 123/80; PULSE 81; RESP 19; TEMP 36.7; O2SAT 99
== END 2024-02-14 12:40 | disposition home or self-care (01) ==
PROVIDERS: Emergency Provider Emergency Medicine; PCP Internal Medicine
DX: J02.0 Streptococcal pharyngitis (principal); J32.0 Chronic maxillary sinusitis; Z11.52 Encounter for screening for COVID-19; Z20.828 Contact with and (suspected) exposure to other viral communicable diseases; Z87.891 Personal history of nicotine dependence
CPT/HCPCS: 0241U; 36415; 80053; 85025; 85610; 85730; 87651; 99283; 99284

== ENCOUNTER 2024-03-17 13:12 | Outpatient (REF) | payer OTHER, SELFPAY ==
[2024-03-17 13:28] LABS: MANUAL DIFF FLAG NO
[2024-03-17 14:03] LABS: Basophils Percent Auto 0.3 % (0-2); Eosinophils Absolute Auto 0.2 X10*3/uL (0.0-0.4); Hematocrit 35.1 % (37.0-47.0); Hemoglobin 11.4 g/dl (12.0-16.0); Imm Gran Abs Auto 0.01 X10*3/uL (0.00-0.03); Imm Gran Pct Auto 0.2 % (0.0-0.4); Lymphocytes Absolute Auto 1.4 X10*3/uL (1.2-4.9); Lymphocytes Percent Auto 22.3 % (20-40); Mean Corpuscular HGB Conc 32.5 g/dl (31.0-35.0); Mean Corpuscular Hemoglobin 25.1 pg (27.0-33.0); Mean Corpuscular Volume 77.3 fL (80.0-98.0); Mean Platelet Volume 11.1 fL (9.4-12.3); Monocytes Absolute Auto 0.6 X10*3/uL (0.1-1.2); Monocytes Percent Auto 9.7 % (2-11); Neutrophils Absolute Auto 3.9 x10*3/uL (2.0-8.3); Neutrophils Percent Auto 63.5 % (45-73); Platelet Count 262 X10*3/uL (160-400); Red Blood Count 4.54 X10*6/uL (4.20-5.50); Red Cell Distribution Width 14.7 % (11.0-16.0); White Blood Count 6.1 X10*3/uL (4.8-10.8)
[2024-03-17 14:41] LABS: Alanine Aminotransferase 15 U/L (0-31); Albumin Level 3.6 g/dL (3.5-5.0); Alkaline Phosphatase 85 U/L (39-117); Anion Gap 13 (12-20); Aspartate Amino Transferase 19 U/L (5-31); Bilirubin Total 0.3 mg/dL (0.0-1.0); Blood Urea Nitrogen 10 mg/dL (9-16); C Reactive Protein 0.43 mg/dL (< or = 0.50); Calcium 8.9 mg/dL (8.4-10.2); Carbon Dioxide 22 mmol/L (22-29); Chloride 107 mmol/L (96-108); Estimated Glomerular Filt Rate > 60; Glucose Random 92 mg/dL (60-115); Potassium 3.7 mmol/L (3.3-5.1); Sodium 138 mmol/L (135-145); Total Protein 8.4 g/dL (6.5-8.0)
[2024-03-17 14:42] LABS: Erythrocyte Sedimentation Rate 16 MM/HR (0-20)
[2024-03-18 14:44] LABS: Complement C3 29 mg/dL (83-193)
== END 2024-03-17 13:13 | disposition home or self-care (01) ==
LOC: HO.LABR 13:12
PROVIDERS: PCP Internal Medicine; Visit Provider Internal Medicine Rheumatology
DX: M35.9 Systemic involvement of connective tissue, unspecified (principal); M19.90 Unspecified osteoarthritis, unspecified site; Z79.899 Other long term (current) drug therapy; Z82.69 Family history of other diseases of the musculoskeletal system and connective tissue
CPT/HCPCS: 36415; 80053; 82550; 85025; 85652; 86140; 86160

== ENCOUNTER 2024-04-06 17:04 | Emergency (ER) | payer OTHER, SELFPAY ==
[2024-04-06 17:26] VITALS: BP 134/94; BP 156/82; PULSE 65; PULSE 75; RESP 15; TEMP 36.7; O2SAT 98; O2SAT 99; BMI 32.0
--- NOTE | 2024-04-06 17:26 | ECG_ITS ---
Test Reason : CHEST PAIN Blood Pressure : / mmHG Vent. Rate : 064 BPM Atrial Rate : 064 BPM P-R Int : 146 ms QRS Dur : 088 ms QT Int : 426 ms P-R-T Axes : 076 058 035 degrees QTc Int : 439 ms Normal sinus rhythm Normal ECG When compared with ECG of 29-NOV-2023 23:41, No significant change was found Referred By: Emma Beauchamp Electronically Signed By:SUZY COLON
[2024-04-06 18:06] VITALS: BP 129/89; PULSE 68; RESP 11; TEMP 36.7; O2SAT 99
[2024-04-06 18:24] LABS: MANUAL DIFF FLAG NO
[2024-04-06 18:27] LABS: Basophils Percent Auto 0.4 % (0-2); Eosinophils Absolute Auto 0.2 X10*3/uL (0.0-0.4); Eosinophils Percent Auto 3.3 % (0-4); Hematocrit 35.7 % (37.0-47.0); Hemoglobin 11.7 g/dl (12.0-16.0); Imm Gran Abs Auto 0.02 X10*3/uL (0.00-0.03); Imm Gran Pct Auto 0.4 % (0.0-0.4); Lymphocytes Absolute Auto 1.6 X10*3/uL (1.2-4.9); Lymphocytes Percent Auto 29.5 % (20-40); Mean Corpuscular HGB Conc 32.8 g/dl (31.0-35.0); Mean Corpuscular Hemoglobin 24.7 pg (27.0-33.0); Mean Corpuscular Volume 75.3 fL (80.0-98.0); Mean Platelet Volume 10.7 fL (9.4-12.3); Monocytes Absolute Auto 0.6 X10*3/uL (0.1-1.2); Monocytes Percent Auto 10.7 % (2-11); Neutrophils Percent Auto 55.7 % (45-73); Platelet Count 222 X10*3/uL (160-400); Red Blood Count 4.74 X10*6/uL (4.20-5.50); White Blood Count 5.4 X10*3/uL (4.8-10.8)
[2024-04-06] MEDS: Famotidine 20 MG TABLET PO (18:36)
[2024-04-06] MEDS: Magnesium Hydrox/Alum Hydrox 30 ML ORAL.SUSP PO (18:36)
[2024-04-06] MEDS: Lidocaine HCl Viscous 2 % 15 ML SOLUTION MUCOUS MEM (18:36)
[2024-04-06 18:42] LABS: Alanine Aminotransferase 12 U/L (0-31); Albumin Level 3.7 g/dL (3.5-5.0); Alkaline Phosphatase 93 U/L (39-117); Anion Gap 11 (12-20); Aspartate Amino Transferase 19 U/L (5-31); Bilirubin Total 0.2 mg/dL (0.0-1.0); Blood Urea Nitrogen 10 mg/dL (9-16); Calcium 9.3 mg/dL (8.4-10.2); Carbon Dioxide 26 mmol/L (22-29); Chloride 105 mmol/L (96-108); Creatinine Clr Calc Pharmacy 115.8; Estimated Glomerular Filt Rate > 60; Glucose Random 85 mg/dL (60-115); Sodium 138 mmol/L (135-145); Total Protein 8.6 g/dL (6.5-8.0)
[2024-04-06 18:49] LABS: Troponin-I High Sensitivity < 2.7 ng/L (<3.5-17.0)
[2024-04-06 19:19] LABS: Prothrombin Time 12.6 SEC (11.1-13.3)
[2024-04-06 19:25] LABS: Lipase 26 U/L (8-78)
--- NOTE | 2024-04-06 19:28 | ED.CHESTPAIN ---
HPI - Chest Pain General Chief Complaint: Chest Pain Stated Complaint: chest pain Time Seen by Provider: 04/06/24 17:25 Source: patient Mode of arrival: EMS Limitations: no limitations History of Present Illness HPI narrative: Patient is a 33-year-old female who presents to the emergency department for evaluation chest pain. Patient reports that at approximately 0800 this morning she began developing pain to the left anterior chest felt beneath the left breast, earlier she felt the pain radiate into her jaw but this has since resolved, also endorsing tingling sensation to the left arm all day but denies pain to the left arm. States pain has been constant since its onset with varying intensity. She also reports that she has been feeling fatigued and tired today. Has associated burning sensation to the epigastric region and nausea but no vomiting. She does state that her symptoms began soon after taking her methotrexate this morning, she does state that she took it with coffee as well as a sandwich. This was her 4th dose of methotrexate, recently started on this for rheumatoid arthritis, for which she is being followed by rheumatology at [facility]. She denies any recent ill symptoms, URI symptoms. Currently denies dizziness, lightheadedness, headache, vision changes, neck pain, shortness of breath. Related Data Home Medications ?Medication ?Instructions ?Recorded ?Confirmed prednisone 5 mg tablet 5 mg PO DAILY 11/07/23 01/08/24 Previous Rx's ?Medication ?Instructions ?Recorded ibuprofen 800 mg tablet 800 mg PO Q8H PRN pain 30 days #90 11/07/23 tabs ondansetron 4 mg disintegrating 4 mg PO Q8H PRN nausea and 01/07/24 tablet vomiting #20 tabs naproxen 500 mg tablet (Naprosyn) 500 mg PO BID #20 tabs 02/03/24 amoxicillin 875 mg-potassium 1 tab PO BID #20 tabs 02/14/24 clavulanate 125 mg tablet Allergies Allergy/AdvReac Type Severity Reaction Status Date / Time aspirin [ASA] Allergy Severe Palpitation Verified 04/06/24 17:31 s Review of Systems Review of Systems: Yes all other systems are reviewed and are negative [facility] Past Medical History Attestation statement: The following information was validated with the patient. Source: old records reviewed Medical History Femoral acetabular impingement Lupus Cough Swelling of right knee joint Mild recurrent major depression Daily headache Physical exam Solitary pulmonary nodule Rheumatoid arthritis Mild persistent asthma Lung nodule seen on imaging study Left wrist pain Urticaria Polyarthralgia Overweight (BMI 25.0-29.9) Chronic migraine with aura Anemia Surgical History Hx of section Family History Family History Mother Hypoglycemia Father Hypertension Diabetes Family/Other Mental health disorder Substance use disorder Social History Social History Household Members: Significant Other and Family Housing: Apartment Unable to assess alcohol history related to: Unknown Alcohol intake: never Patient Tobacco Use Status: Former Tobacco user Tobacco use type: Cigarette e-Cigarette/Vaping Use: Never Used Second Hand Smoke Exposure: No Substance Use Type: Marijuana Advance Directives: No Advance Directives Information Provided: No service: No Current occupational status: employed 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 No acute distress.?Normal affect. Eyes: Pupils equal, round and reactive to light.? ENT: Pharynx normal.?? Neck: Normal inspection.? Neck supple.?? CVS: Heart sounds normal. Normal heart rate and rhythm.? Pulses normal.?? Respiratory: No respiratory distress.? Lung sounds clear to auscultation bilaterally?? Abdomen: Soft and non-tender. Normoactive bowel sounds. No pulsatile mass.?? Skin: Skin warm and dry.? Normal skin color.? Extremities: No lower extremity edema.? No calf ttp? Neuro: Moves all extremities spontaneously. Sensation intact bilaterally. Ambulates with normal steady gait. Course Reevaluation(s) Reevaluation #1: Patient reports resolution of symptoms after receiving GI cocktail. She is eating Asher Randall at the time of my re-evaluation, requesting discharge home. At this time I feel that she is stable for discharge home. Discussed symptoms may be secondary to adverse reaction with methotrexate, gastritis. Advised to follow up with Rheumatology. Discussed strict return precautions. All questions answered. Stable for discharge Medications Administered Discontinued Medications Generic Name Dose Route Start Last Admin Trade Name Fremando PRN Reason Stop Dose Admin Al Hydroxide/Mg Hydroxide 30 ml 04/06/24 18:26 04/06/24 18:36 Magnesium Hydrox/Alum Hydrox 30 Ml Oral.Susp PO 04/06/24 18:27 30 ml ONCE ONE Administration Famotidine 20 mg 04/06/24 18:26 04/06/24 18:36 Famotidine 20 Mg Tablet PO 04/06/24 18:27 20 mg ONCE ONE Administration Lidocaine HCl 15 ml 04/06/24 18:26 04/06/24 18:36 Lidocaine Hcl Viscous 2 % 15 Ml Solution MUCOUS MEM 04/06/24 18:27 15 ml ONCE ONE Administration Medical Decision Making Medical Decision Making [facility] Narrative: Patient is a 33-year-old female with past medical history of lupus, rheumatoid arthritis, asthma, anemia, migraine who presents to the emergency department for evaluation of chest pain and epigastric discomfort with associated left arm tingling as per HPI. At the time of my examination she appears overall well, nontoxic, afebrile. She is speaking clear full sentences, no respiratory distress, no hypoxia tachycardia. She is epigastric tenderness upon palpation, tenderness upon palpation to the left lower sternal border. Discussed with patient possible etiology for symptoms, may be adverse reaction to methotrexate versus gastritis versus muscular pain. Suspect less likely to be ACS, PERC negative unlikely PE. Will obtain CBC to evaluate for leukocytosis/ anemia, CMP and lipase to evaluate for abnormal electrolytes /abnormal renal function/ abnormal hepatic/biliary function, EKG and troponin to evaluate for ischemia/ACS. Chest x-ray to evaluate for consolidation/ infiltrate/ mass/ pulmonary congestion and trial GI cocktail. Differential Diagnosis Differential Diagnoses: The differential diagnosis associated with the presentation includes (See narrative above) Admission/Observation Consideration of admission/observation: Escalation of care including admission/observation considered Lab Data [facility] Lab Attestation statement: I reviewed the patient's lab results. CBC is without leukocytosis or thrombocytopenia, reveals a microcytic anemia consistent with baseline and does not meet transfusion criteria. No electrolyte derangement. No APPLE. Transaminases within normal range, lipase within normal range suspect less likely to be acute hepatic/biliary etiology. High sensitive troponin below detectable limits, less likely ACS 04/06/24 18:15 04/06/24 18:15 Labs: Lab Results 04/06/24 04/06/24 04/06/24 Range/Units 18:14 18:15 18:47 WBC 5.4 (4.8-10.8) X10*3/uL RBC 4.74 (4.20-5.50) X10*6/uL Hgb 11.7 L (12.0-16.0) g/dl Hct 35.7 L (37.0-47.0) % MCV 75.3 L (80.0-98.0) fL MCH 24.7 L (27.0-33.0) pg MCHC 32.8 (31.0-35.0) g/dl RDW 15.0 (11.0-16.0) % Plt Count 222 (160-400) X10*3/uL MPV 10.7 (9.4-12.3) fL Immature Gran % (Auto) 0.4 (0.0-0.4) % Neut % (Auto) 55.7 (45-73) % Lymph % (Auto) 29.5 (20-40) % [place] % (Auto) 10.7 (2-11) % Eos % (Auto) 3.3 (0-4) % Baso % (Auto) 0.4 (0-2) % Lymph # (Auto) 1.6 (1.2-4.9) X10*3/uL [place] # (Auto) 0.6 (0.1-1.2) X10*3/uL Eos # (Auto) 0.2 (0.0-0.4) X10*3/uL Baso # (Auto) 0.0 (0.0-0.2) X10*3/uL Abs Immat Gran (auto) 0.02 (0.00-0.03) X10*3/uL Absolute Neuts (auto) 3.0 (2.0-8.3) x10*3/uL Absolute Nucleated RBC 0.000 (0.0-0.012) X10*3/uL Nucleated RBC % (auto) 0.0 (0.0-0.2) /100WBC PT 12.6 (11.1-13.3) SEC INR 1.0 (0.9-1.1) Sodium 138 (135-145) mmol/L Potassium 4.0 (3.3-5.1) mmol/L Chloride 105 (96-108) mmol/L Carbon Dioxide 26 (22-29) mmol/L Anion Gap 11 L (12-20) BUN 10 (9-16) mg/dL Creatinine 0.74 (0.5-1.4) mg/dL Estim Creat Clear Calc 115.8 Estimated GFR > 60 Random Glucose 85 (60-115) mg/dL Calcium 9.3 (8.4-10.2) mg/dL Total Bilirubin 0.2 (0.0-1.0) mg/dL AST 19 (5-31) U/L ALT 12 (0-31) U/L Alkaline Phosphatase 93 (39-117) U/L Troponin I High Sens < 2.7 (<3.5-17.0) ng/L Total Protein 8.6 H (6.5-8.0) g/dL Albumin 3.7 (3.5-5.0) g/dL Lipase 26 (8-78) U/L Independent Interpretation I performed an independent interpretation of an: EKG Interpretation: Rate: 64 Rhythm:? Normal sinus rhythm Normal P waves.? Normal MARIAM.?? Normal QRS complex.?? ST T wave :??No ST elevation, no ST depression, T-wave inversion V1-V2 as seen on prior EKG qTC: 439 prior studies:? 11/2023 The study has been interpreted contemporaneously by me. Radiology Impression Discussion of test interpretation with radiology: I have reviewed the radiologist's reading. Independent Historian Clinical information obtained from an independent historian. History obtained from or confirmed by: EMS External Record Review External record reviewed: Outpatient record Discharge Plan Discharge Clinical Impression: Chest pain Patient Disposition: Home, Self-Care Instructions: Chest Pain (DC) Additional Instructions: As discussed, follow-up closely with your tearoom host regarding possible side effects from methotrexate. Return back to emergency department any new or worsening symptoms or concerns. Prescriptions: No Action ondansetron 4 mg tablet,disintegrating 4 mg PO Q8H PRN (Reason: nausea and vomiting) Qty: 20 0RF naproxen [Naprosyn] 500 mg tablet 500 mg PO BID Qty: 20 0RF amoxicillin-pot clavulanate 875-125 mg tablet 1 tab PO BID Qty: 20 0RF prednisone 5 mg tablet 5 mg PO DAILY ibuprofen 800 mg tablet 800 mg PO Q8H PRN (Reason: pain) 30 Days Qty: 90 3RF Referrals: Angeline Alvarado MD [Primary Care Provider] - Print Language: Danish
[2024-04-06 21:39] VITALS: BP 131/84; PULSE 75; RESP 15; TEMP 36.5; O2SAT 97
[2024-04-06 22:48] VITALS: BP 134/87; PULSE 68; RESP 18; TEMP 36.6; O2SAT 97
[2024-04-06 22:52] VITALS: BP 134/87; PULSE 68; RESP 18; TEMP 36.6; O2SAT 97
== END 2024-04-06 22:53 | disposition home or self-care (01) ==
PROVIDERS: Nurse Practitioner Family; Emergency Provider Internal Medicine; PCP Internal Medicine
DX: R07.89 Other chest pain (principal); Z79.899 Other long term (current) drug therapy
CPT/HCPCS: 36415; 80053; 83690; 84484; 85025; 85610; 93005; 99283; 99284

== ENCOUNTER → 2024-04-06 17:26 | Outpatient (BNV) | payer OTHER, SELFPAY | PROVIDERS: Emergency Provider Internal Medicine; PCP Internal Medicine; Visit Provider Internal Medicine | DX: R07.9 Chest pain, unspecified (principal) | CPT/HCPCS: 93010 ==

== ENCOUNTER 2024-10-06 11:29 | Outpatient (REF) | payer OTHER, SELFPAY ==
[2024-10-06 11:45] LABS: MANUAL DIFF FLAG NO
[2024-10-06 11:49] LABS: Basophils Percent Auto 0.7 % (0-2); Eosinophils Absolute Auto 0.2 X10*3/uL (0.0-0.4); Eosinophils Percent Auto 3.7 % (0-4); Hematocrit 35.4 % (37.0-47.0); Hemoglobin 11.4 g/dl (12.0-16.0); Imm Gran Abs Auto 0.01 X10*3/uL (0.00-0.03); Imm Gran Pct Auto 0.2 % (0.0-0.4); Lymphocytes Absolute Auto 1.6 X10*3/uL (1.2-4.9); Lymphocytes Percent Auto 26.8 % (20-40); Mean Corpuscular HGB Conc 32.2 g/dl (31.0-35.0); Mean Corpuscular Hemoglobin 23.9 pg (27.0-33.0); Mean Corpuscular Volume 74.2 fL (80.0-98.0); Mean Platelet Volume 10.7 fL (9.4-12.3); Monocytes Absolute Auto 0.6 X10*3/uL (0.1-1.2); Monocytes Percent Auto 9.5 % (2-11); Neutrophils Absolute Auto 3.5 x10*3/uL (2.0-8.3); Neutrophils Percent Auto 59.1 % (45-73); Platelet Count 287 X10*3/uL (160-400); Red Blood Count 4.77 X10*6/uL (4.20-5.50); Red Cell Distribution Width 16.6 % (11.0-16.0); White Blood Count 5.9 X10*3/uL (4.8-10.8)
[2024-10-06 12:13] LABS: Alanine Aminotransferase 12 U/L (0-31); Albumin Level 3.9 g/dL (3.5-5.0); Alkaline Phosphatase 98 U/L (39-117); Anion Gap 9 (12-20); Aspartate Amino Transferase 20 U/L (5-31); Bilirubin Total 0.3 mg/dL (0.0-1.0); Blood Urea Nitrogen 11 mg/dL (9-16); C Reactive Protein 1.71 mg/dL (< or = 0.50); Calcium 9.4 mg/dL (8.4-10.2); Carbon Dioxide 25 mmol/L (22-29); Chloride 106 mmol/L (96-108); Estimated Glomerular Filt Rate > 60; Glucose Random 97 mg/dL (60-115); Potassium 4.1 mmol/L (3.3-5.1); Sodium 136 mmol/L (135-145); Total Protein 8.9 g/dL (6.5-8.0); Uric Acid 5.3 mg/dL (2.4-5.7)
[2024-10-06 12:26] LABS: Erythrocyte Sedimentation Rate 25 MM/HR (0-20)
[2024-10-07 16:08] LABS: Anti DNA DS Antibody 9 IU/mL
[2024-10-11 11:09] LABS: Complement C3 188 mg/dL (83-193)
== END 2024-10-06 11:30 | disposition home or self-care (01) ==
LOC: HO.LAB 11:29
PROVIDERS: PCP Internal Medicine; Visit Provider Internal Medicine Rheumatology
DX: M19.90 Unspecified osteoarthritis, unspecified site (principal); M35.9 Systemic involvement of connective tissue, unspecified; Z79.899 Other long term (current) drug therapy; Z82.69 Family history of other diseases of the musculoskeletal system and connective tissue
CPT/HCPCS: 36415; 80053; 82550; 84550; 85025; 85652; 86140; 86160; 86225

== ENCOUNTER 2024-10-12 02:07 | Emergency (ER) | payer OTHER, SELFPAY ==
--- NOTE | ~2024-10-12 | XR_ITS ---
EXAMINATION: XR SHOULDER, RIGHT CLINICAL INFORMATION: pain from fall COMPARISON: None available. TECHNIQUE: 3 views of the right shoulder. FINDINGS: The bones and soft tissues are normal. No fracture. Glenohumeral and acromioclavicular alignment is anatomic with normal joint space. No abnormal soft tissue calcifications. XR/XR shoulder RT min 2V IMPRESSION: No significant abnormality identified. Electronically signed by: Ildefonso Goodman MD 10/12/2024 03:24 AM MELA GARCIA
[2024-10-12 02:13] VITALS: BP 138/96; PULSE 81; O2SAT 99
[2024-10-12 02:16] VITALS: BP 149/95; PULSE 80; RESP 20; TEMP 37.5; O2SAT 98; BMI 34.3
--- NOTE | 2024-10-12 03:09 | ED_ITS ---
HPI - Extremity Problem General Chief complaint: Extremity Injury, Upper Stated complaint: R shoulder pain increased, fall 2 weeks ago Time Seen by Provider: 10/12/24 03:09 History of Present Illness ED Provider: Charisma DHALIWAL Narrative: The patient is a 33-year-old female who says that she fell at her home about 2 weeks ago landing on her right arm. She felt that she injured her shoulder at the time but it was not severe. Over the last 3 days however she has had much worsening pain in the right shoulder. She says there has been no additional injury. She has had no fever, sweats, chills. She has a great deal of pain if she attempts to move the shoulder elbow on the wrist and the fingers of the hand. Patient reports a history of lupus and rheumatoid arthritis. She is on methotrexate. Related Data Home Medications ?Medication ?Instructions ?Recorded ?Confirmed prednisone 5 mg tablet 5 mg PO DAILY 11/07/23 01/08/24 Previous Rx's ?Medication ?Instructions ?Recorded ibuprofen 800 mg tablet 800 mg PO Q8H PRN pain 30 days #90 11/07/23 tabs ondansetron 4 mg disintegrating 4 mg PO Q8H PRN nausea and 01/07/24 tablet vomiting #20 tabs naproxen 500 mg tablet (Naprosyn) 500 mg PO BID #20 tabs 02/03/24 amoxicillin 875 mg-potassium 1 tab PO BID #20 tabs 02/14/24 clavulanate 125 mg tablet ibuprofen 400 mg tablet 400 mg PO Q6H PRN pain #14 tabs 10/12/24 morphine 15 mg immediate release 15 mg PO Q6H PRN pain #12 tabs 10/12/24 tablet Allergies Allergy/AdvReac Type Severity Reaction Status Date / Time aspirin [ASA] Allergy Severe Palpitation Verified 10/12/24 02:17 s Review of Systems 2 Review of Systems: Yes all other systems are reviewed and are negative [facility] Past Medical History Medical History Femoral acetabular impingement Lupus Cough Swelling of right knee joint Mild recurrent major depression Daily headache Physical exam Solitary pulmonary nodule Rheumatoid arthritis Mild persistent asthma Lung nodule seen on imaging study Left wrist pain Urticaria Polyarthralgia Overweight (BMI 25.0-29.9) Chronic migraine with aura Anemia Surgical History Hx of section Family History Family History Mother Hypoglycemia Father Hypertension Diabetes Family/Other Mental health disorder Substance use disorder Social History Social History Household Members: Significant Other and Family Housing: Apartment Unable to assess alcohol history related to: Unknown Alcohol intake: never Patient Tobacco Use Status: Former Tobacco user Tobacco use type: Cigarette e-Cigarette/Vaping Use: Never Used Second Hand Smoke Exposure: No Substance Use Type: Marijuana Advance Directives: No Advance Directives Information Provided: Yes service: No Current occupational status: employed 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 She was pleasant and cooperative. She does not seem acutely toxic. HEENT: Other: Face is symmetrical. Mucous membranes moist. Eyes: Other: Pupils are round equal, conjunctivae are clear, extraocular movements are intact, eyes are unremarkable. Neck: Other: She is moving her neck easily. No lymphadenopathy or masses. Resp: Effort & Inspection: normal respiratory effort Auscultation: clear to auscultation bilaterally Cardio: Rate: regular rate Rhythm: regular rhythm Heart sounds: S1 normal heart sound present and S2 normal heart sound present Skin: Other: The skin of the shoulder is unremarkable. There is no erythema or bruising. Neuro: Other: The patient is awake and alert with a normal mental status. Cranial nerves are intact. She has great deal of pain in the right arm at the shoulder but she is able to use the right hand normally. Other limbs are normal. Extrem: Other: The patient has a great deal of tenderness around the right shoulder. There is no deformity. I can palpate along the clavicle proximally without eliciting pain but at the distal clavicle and at the acromioclavicular joint and the glenohumeral joint there seems to be significant tenderness. She has a great deal of pain with any manipulation of the right glenohumeral joint. The right elbow, wrist, and fingers of the hand can be moved much more easily. Medications Administered Discontinued Medications Generic Name Dose Route Start Last Admin Trade Name Christi PRN Reason Stop Dose Admin Acetaminophen 975 mg 10/12/24 03:34 10/12/24 03:41 Acetaminophen 325 Mg Tablet PO 10/12/24 03:35 975 mg ONCE ONE Administration Ketorolac Tromethamine 30 mg 10/12/24 03:33 10/12/24 03:41 Ketorolac Tromethamine 30 Mg/Ml Vial IM 10/12/24 03:34 30 mg ONCE ONE Administration Morphine Sulfate 15 mg 10/12/24 04:33 10/12/24 04:46 Morphine Sulfate Immed Release 15 Mg Tablet PO 10/12/24 04:34 15 mg ONCE ONE Administration Medical Decision Making Medical Decision Making [facility] Narrative: The patient is a 33-year-old woman with a history of rheumatoid arthritis and lupus who presents with severe right shoulder pain. She reports falling 2 weeks ago and landing on her hand and possibly injuring the shoulder at that time but her severe pain seems to be of only a few days' duration. The patient does not seem ill otherwise. She is afebrile. She is not tachycardic. I do not have a high suspicion for something like a septic joint. The patient has a right shoulder x-ray that was unremarkable. Labs are unremarkable as well. The patient was treated symptomatically with a an injection of ketorolac. She was given a sling. She will be prescribed morphine tablets. She should use acetaminophen. I have advised her to follow up promptly with her customer marketing intern or her PCP. Lab Data 10/12/24 03:14 10/12/24 03:14 Labs: Lab Results 10/12/24 Range/Units 03:14 WBC 5.2 (4.8-10.8) X10*3/uL RBC 4.38 (4.20-5.50) X10*6/uL Hgb 10.5 L (12.0-16.0) g/dl Hct 32.2 L (37.0-47.0) % MCV 73.5 L (80.0-98.0) fL MCH 24.0 L (27.0-33.0) pg MCHC 32.6 (31.0-35.0) g/dl RDW 16.6 H (11.0-16.0) % Plt Count 242 (160-400) X10*3/uL MPV 10.0 (9.4-12.3) fL Immature Gran % (Auto) 0.2 (0.0-0.4) % Neut % (Auto) 53.9 (45-73) % Lymph % (Auto) 29.5 (20-40) % [place] % (Auto) 11.0 (2-11) % Eos % (Auto) 4.8 H (0-4) % Baso % (Auto) 0.6 (0-2) % Lymph # (Auto) 1.5 (1.2-4.9) X10*3/uL [place] # (Auto) 0.6 (0.1-1.2) X10*3/uL Eos # (Auto) 0.3 (0.0-0.4) X10*3/uL Baso # (Auto) 0.0 (0.0-0.2) X10*3/uL Abs Immat Gran (auto) 0.01 (0.00-0.03) X10*3/uL Absolute Neuts (auto) 2.8 (2.0-8.3) x10*3/uL Absolute Nucleated RBC 0.000 (0.0-0.012) X10*3/uL Nucleated RBC % (auto) 0.0 (0.0-0.2) /100WBC Sodium 135 (135-145) mmol/L Potassium 3.8 (3.3-5.1) mmol/L Chloride 104 (96-108) mmol/L Carbon Dioxide 25 (22-29) mmol/L Anion Gap 10 L (12-20) BUN 13 (9-16) mg/dL Creatinine 0.82 (0.5-1.4) mg/dL Estim Creat Clear Calc 104.5 Estimated GFR > 60 Random Glucose 95 (60-115) mg/dL Calcium 8.7 D (8.4-10.2) mg/dL Total Bilirubin 0.2 (0.0-1.0) mg/dL AST 21 (5-31) U/L ALT 13 (0-31) U/L Alkaline Phosphatase 86 (39-117) U/L C-Reactive Protein 1.59 H (< or = 0.50) mg/dL Total Protein 8.2 H (6.5-8.0) g/dL Albumin 3.6 (3.5-5.0) g/dL Discharge Plan Discharge Clinical Impression: Right shoulder strain, Acute pain of right shoulder Patient Disposition: Home, Self-Care Instructions: Shoulder Pain (ED) Additional Instructions: The x-ray of your right shoulder does not show any signs of injury. Please wear the sling for comfort. You may also use ice to your shoulder to help with the pain. Apply an ice pack for 10-15 minutes every couple of hours. Always keep a dry cloth between your skin in the ice bag. For medications for pain control you may use the following: You may take 2 extra-strength acetaminophen (Tylenol) at a time up to 3 times a day. You may use the ibuprofen prescribed as needed. In addition you may also use the morphine tablets if necessary. Try to use these as little as possible. No driving on morphine. Please follow up soon with your regular doctor or your customer marketing intern for a recheck and 2nd opinion. Return to the emergency room if significantly worse. Prescriptions: New ibuprofen 400 mg tablet 400 mg PO Q6H PRN (Reason: pain) Qty: 14 0RF morphine 15 mg tablet 15 mg PO Q6H PRN (Reason: pain) Qty: 12 0RF Rx Instructions: Partial Fill upon patient request. No Action ondansetron 4 mg tablet,disintegrating 4 mg PO Q8H PRN (Reason: nausea and vomiting) Qty: 20 0RF naproxen [Naprosyn] 500 mg tablet 500 mg PO BID Qty: 20 0RF amoxicillin-pot clavulanate 875-125 mg tablet 1 tab PO BID Qty: 20 0RF prednisone 5 mg tablet 5 mg PO DAILY ibuprofen 800 mg tablet 800 mg PO Q8H PRN (Reason: pain) 30 Days Qty: 90 3RF Referrals: Laura Bellamy MD [Physician] - (right shoulder pain) Angeline Alvarado MD [Primary Care Provider] - Interventions: ED Discharge Assessment Last Done: 10/12/24 06:05 Discharge Date/Time: 10/12/24 06:06 Print Language: Panamanian
[2024-10-12 03:18] LABS: MANUAL DIFF FLAG NO
[2024-10-12 03:19] LABS: Basophils Percent Auto 0.6 % (0-2); Eosinophils Absolute Auto 0.3 X10*3/uL (0.0-0.4); Eosinophils Percent Auto 4.8 % (0-4); Hematocrit 32.2 % (37.0-47.0); Hemoglobin 10.5 g/dl (12.0-16.0); Imm Gran Abs Auto 0.01 X10*3/uL (0.00-0.03); Imm Gran Pct Auto 0.2 % (0.0-0.4); Lymphocytes Absolute Auto 1.5 X10*3/uL (1.2-4.9); Lymphocytes Percent Auto 29.5 % (20-40); Mean Corpuscular HGB Conc 32.6 g/dl (31.0-35.0); Mean Corpuscular Volume 73.5 fL (80.0-98.0); Monocytes Absolute Auto 0.6 X10*3/uL (0.1-1.2); Neutrophils Absolute Auto 2.8 x10*3/uL (2.0-8.3); Neutrophils Percent Auto 53.9 % (45-73); Platelet Count 242 X10*3/uL (160-400); Red Blood Count 4.38 X10*6/uL (4.20-5.50); Red Cell Distribution Width 16.6 % (11.0-16.0); White Blood Count 5.2 X10*3/uL (4.8-10.8)
[2024-10-12] MEDS: Acetaminophen 325 MG TABLET 975 MG PO (03:41)
[2024-10-12] MEDS: Ketorolac Tromethamine 30 MG/ML VIAL IM (03:41)
[2024-10-12 03:44] LABS: Albumin Level 3.6 g/dL (3.5-5.0); Anion Gap 10 (12-20); Aspartate Amino Transferase 21 U/L (5-31); Bilirubin Total 0.2 mg/dL (0.0-1.0); Blood Urea Nitrogen 13 mg/dL (9-16); Calcium 8.7 mg/dL (8.4-10.2); Carbon Dioxide 25 mmol/L (22-29); Chloride 104 mmol/L (96-108); Creatinine Clr Calc Pharmacy 104.5; Estimated Glomerular Filt Rate > 60; Glucose Random 95 mg/dL (60-115); Potassium 3.8 mmol/L (3.3-5.1); Sodium 135 mmol/L (135-145); Total Protein 8.2 g/dL (6.5-8.0)
[2024-10-12 03:48] LABS: Alanine Aminotransferase 13 U/L (0-31); Alkaline Phosphatase 86 U/L (39-117)
[2024-10-12 03:53] VITALS: BP 148/93; PULSE 70; RESP 12; TEMP 36.7; O2SAT 99
[2024-10-12] MEDS: Morphine Sulfate Immed Release 15 MG TABLET PO (04:46)
[2024-10-12 05:18] LABS: C Reactive Protein 1.59 mg/dL (< or = 0.50)
[2024-10-12 05:52] VITALS: BP 119/77; PULSE 73; RESP 16; TEMP 36.6; O2SAT 98
[2024-10-12 06:05] VITALS: BP 119/77; PULSE 73; RESP 16; TEMP 36.6; O2SAT 98
== END 2024-10-12 06:06 | disposition home or self-care (01) ==
PROVIDERS: Emergency Provider Emergency Medicine; PCP Internal Medicine
DX: M25.511 Pain in right shoulder (principal); Z79.899 Other long term (current) drug therapy; Z87.891 Personal history of nicotine dependence
CPT/HCPCS: 36415; 73030; 80053; 85025; 86140; 96372; 99284; J1885

== ENCOUNTER 2024-12-12 15:15 | Emergency (ER) | payer OTHER, SELFPAY ==
--- NOTE | ~2024-12-12 | US_ITS ---
CLINICAL HISTORY: vag bleeding, lower suprapubic pain US PELVIS TRANSABDOMINAL AND TRANSVAGINAL WITH DOPPLER LIMITED Comparison: US/VT/SR - US PELVIC AND TRANSVAGINAL - 01/14/24 15:27 EDT Findings: Transabdominal scanning performed for overall anatomy. Transvaginal scanning performed for additional detail. Anteverted uterus measures 8.9 cm in length. Previously described intrauterine fibroid is currently not identified. Endometrium 6.0 mm thickness. There are several nabothian cysts in the cervix. Right ovary is visualized transabdominally only measuring 2.7 x 1.5 x 2.1 cm. Left ovary 2.7 x 2.3 x 1.9 cm. Normal color Doppler with arterial/venous spectral tracing of the left ovary. No free fluid. IMPRESSION: 1. Normal endometrial stripe thickness and echotexture. 2. No dominant ovarian cyst or free fluid. This document has been electronically signed by: Maritza Rain DO on 12/12/2024 17:51:41
[2024-12-12 15:29] VITALS: BP 143/93; PULSE 83; RESP 18; TEMP 36.6; O2SAT 99; BMI 33.8
--- NOTE | 2024-12-12 15:29 | ED_ITS ---
HPI - Female Genitourinary General Chief complaint: Vaginal Bleeding Stated complaint: Vaginal Bleeding Time Seen by Provider: 12/12/24 21:32 Source: patient Mode of arrival: ambulatory Limitations: no limitations History of Present Illness ED Provider: HPI Narrative: Patient with usually regular periods not on any control pills since yesterday patient has been bleeding heavy after missing her peiod on 11/27 patient has been changing more than 10 pads 24 hours with some blood clot iand lower abdominal discomfort Related Data Home Medications ?Medication ?Instructions ?Recorded ?Confirmed prednisone 5 mg tablet 5 mg PO DAILY 11/07/23 01/08/24 Previous Rx's ?Medication ?Instructions ?Recorded ibuprofen 800 mg tablet 800 mg PO Q8H PRN pain 30 days #90 11/07/23 tabs ondansetron 4 mg disintegrating 4 mg PO Q8H PRN nausea and 01/07/24 tablet vomiting #20 tabs naproxen 500 mg tablet (Naprosyn) 500 mg PO BID #20 tabs 02/03/24 amoxicillin 875 mg-potassium 1 tab PO BID #20 tabs 02/14/24 clavulanate 125 mg tablet ibuprofen 400 mg tablet 400 mg PO Q6H PRN pain #14 tabs 10/12/24 morphine 15 mg immediate release 15 mg PO Q6H PRN pain #12 tabs 10/12/24 tablet desogestrel 0.15 mg-ethinyl 1 tab PO DAILY #84 tabs 12/12/24 estradiol 0.03 mg tablet (Apri) ferrous sulfate 325 mg (65 mg 325 mg PO DAILY #30 tabs 12/12/24 iron) tablet Allergies Allergy/AdvReac Type Severity Reaction Status Date / Time aspirin [ASA] Allergy Severe Palpitation Verified 12/12/24 15:33 s Review of Systems 2 Review of Systems: Yes all other systems are reviewed and are negative PMFSH Past Medical History Medical History Femoral acetabular impingement Lupus Cough Swelling of right knee joint Mild recurrent major depression Daily headache Physical exam Solitary pulmonary nodule Rheumatoid arthritis Mild persistent asthma Lung nodule seen on imaging study Left wrist pain Urticaria Polyarthralgia Overweight (BMI 25.0-29.9) Chronic migraine with aura Anemia Surgical History Hx of section Family History Family History Mother Hypoglycemia Father Hypertension Diabetes Family/Other Mental health disorder Substance use disorder Social History Social History Household Members: Significant Other and Family Housing: Apartment Unable to assess alcohol history related to: Unknown Alcohol intake: never Patient Tobacco Use Status: Former Tobacco user Tobacco use type: Cigarette Smoked in Last 30 Days: No e-Cigarette/Vaping Use: Never Used Second Hand Smoke Exposure: No Use of substances other than those prescribed or required for medical reasons: No Substance Use Type: Marijuana Advance Directives: No Advance Directives Information Provided: Yes Patient : No service: No 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 Oriented X3. No acute distress. Eyes: PERRLA, No Nystagmus ENT: Pharynx normal. Oral Mucosa moist Neck: Normal inspection. Neck supple. CVS: Normal heart rate and rhythm. Pulses normal. Respiratory: No respiratory distress. Equal air entry bilateral, no wheezing/rales/rhonchi Abdomen: Soft and mild suprapubic discomfort Bowel sounds are present, no mass palpable, no CVA tenderness Skin: Skin warm and dry. Normal skin color. Normal skin turgor. Extremities: No lower extremity edema. No calf tenderness Neuro: Oriented X 3. No motor deficit. No sensory deficit.No cerebellar signs , cranial nerves II-XII intact Course Course Course Narrative: This is a Rapid Medical Exam performed in triage by Maria Guadalupe Stern PA-C. Full HPI, ROS and PE to be performed by primary ED provider. 34-year-old female with a past medical history of nephrolithiasis, AKANKSHA, asthma, anemia, Lupus on Methotrexate presenting to the ED c/o vaginal bleeding x yesterday. Admits she was 10 days late for menstruation. Admits to bright red & dark red blood with clots, going through >10 pads daily. Admits to suprapubic/vaginal/rectal pain. Took Motrin yesterday. Denies AC use. +QUESADA/lightheaded & weak PE: +suprapubic ttp, no palor. Plan: labs, UA, US Medical Decision Making Medical Decision Making MDM Narrative: Patient has dysfunctional uterine bleed no personal history of blood clots or breast cancer will start patient on control pills advised to follow with director of golf. H&H stable patient has stable hemoglobin. Patient has had ultrasound which was negative for acute Lab Data [facility] Lab Attestation statement: I reviewed the patient's lab results. 12/12/24 19:04 12/12/24 15:52 Labs: Lab Results 12/12/24 12/12/24 12/12/24 Range/Units 15:51 15:52 19:04 WBC 5.8 5.5 (4.8-10.8) X10*3/uL RBC 4.74 4.26 (4.20-5.50) X10*6/uL Hgb 11.0 L 10.1 L (12.0-16.0) g/dl Hct 34.4 L 30.9 L (37.0-47.0) % MCV 72.6 L 72.5 L (80.0-98.0) fL MCH 23.2 L 23.7 L (27.0-33.0) pg MCHC 32.0 32.7 (31.0-35.0) g/dl RDW 17.3 H 17.6 H (11.0-16.0) % Plt Count 233 237 (160-400) X10*3/uL MPV 9.4 10.3 (9.4-12.3) fL Immature Gran % (Auto) 0.2 0.4 (0.0-0.4) % Neut % (Auto) 59.7 62.7 (45-73) % Lymph % (Auto) 27.5 26.6 (20-40) % [place] % (Auto) 9.5 7.1 (2-11) % Eos % (Auto) 2.6 2.7 (0-4) % Baso % (Auto) 0.5 0.5 (0-2) % Lymph # (Auto) 1.6 1.5 (1.2-4.9) X10*3/uL [place] # (Auto) 0.6 0.4 (0.1-1.2) X10*3/uL Eos # (Auto) 0.2 0.2 (0.0-0.4) X10*3/uL Baso # (Auto) 0.0 0.0 (0.0-0.2) X10*3/uL Abs Immat Gran (auto) 0.01 0.02 (0.00-0.03) X10*3/uL Absolute Neuts (auto) 3.5 3.4 (2.0-8.3) x10*3/uL Absolute Nucleated RBC 0.000 0.000 (0.0-0.012) X10*3/uL Nucleated RBC % (auto) 0.0 0.0 (0.0-0.2) /100WBC PT 12.6 H (10.9-12.4) SEC INR 1.1 (0.9-1.1) Sodium 138 (135-145) mmol/L Potassium 3.9 (3.3-5.1) mmol/L Chloride 106 (96-108) mmol/L Carbon Dioxide 23 (22-29) mmol/L Anion Gap 13 (12-20) BUN 9 (9-16) mg/dL Creatinine 0.77 (0.5-1.4) mg/dL Estim Creat Clear Calc 109.1 Estimated GFR > 60 Random Glucose 79 (60-115) mg/dL Calcium 9.1 (8.4-10.2) mg/dL Magnesium 2.0 (1.6-2.6) mg/dL Total Bilirubin 0.2 (0.0-1.0) mg/dL Direct Bilirubin < 0.2 (0.0-0.5) mg/dL AST 28 (5-31) U/L ALT 12 (0-31) U/L Alkaline Phosphatase 95 (39-117) U/L Total Protein 9.1 H (6.5-8.0) g/dL Albumin 3.9 (3.5-5.0) g/dL Lipase 22 (8-78) U/L Beta HCG, Quant < 2 mIU/mL Urine Color Red A Urine Appearance Turbid Urine pH 5.5 (5.0-9.0) Ur Specific [place] 1.025 (1.005-1.025) Urine Protein 100 (2+) H (Neg-Trace) mg/dL Urine Glucose (UA) Negative (Negative) mg/dL Urine Ketones Negative (Negative) mg/dL Urine Blood Large (3+) H (Negative) Urine Nitrite Negative (Negative) Ur Leukocyte Esterase Moderate (2+) H (Negative) Urine RBC >20 H (0-2) /HPF Urine WBC 6-10 H (0-5) /HPF Ur Squamous Epith Cells 6-10 (0-2) /HPF Urine Bacteria None Seen (None Seen) Hyaline Casts 0-2 (0-2) /LPF Blood Type A Negative Antibody Screen NEGATIVE Patient with dysfunctional uterine bleeding will start on low-dose control pills advised to follow with director of golf Discharge Plan Discharge Clinical Impression: Dysfunctional uterine bleeding Patient Disposition: Home, Self-Care Instructions: Dysfunctional Uterine Bleeding (ED) Additional Instructions: Start taking control pills as prescribed Follow up with director of golf Start taking iron tablets daily for anemia Prescriptions: New desogestrel-ethinyl estradiol [Apri] 0.15-0.03 mg tablet 1 tab PO DAILY Qty: 84 0RF ferrous sulfate 325 mg (65 mg iron) tablet 325 mg PO DAILY Qty: 30 3RF No Action ondansetron 4 mg tablet,disintegrating 4 mg PO Q8H PRN (Reason: nausea and vomiting) Qty: 20 0RF naproxen [Naprosyn] 500 mg tablet 500 mg PO BID Qty: 20 0RF amoxicillin-pot clavulanate 875-125 mg tablet 1 tab PO BID Qty: 20 0RF ibuprofen 400 mg tablet 400 mg PO Q6H PRN (Reason: pain) Qty: 14 0RF morphine 15 mg tablet 15 mg PO Q6H PRN (Reason: pain) Qty: 12 0RF Rx Instructions: Partial Fill upon patient request. prednisone 5 mg tablet 5 mg PO DAILY ibuprofen 800 mg tablet 800 mg PO Q8H PRN (Reason: pain) 30 Days Qty: 90 3RF Print Language: Tajik
[2024-12-12 15:57] LABS: MANUAL DIFF FLAG NO
[2024-12-12 15:59] LABS: Basophils Percent Auto 0.5 % (0-2); Eosinophils Absolute Auto 0.2 X10*3/uL (0.0-0.4); Eosinophils Percent Auto 2.6 % (0-4); Hematocrit 34.4 % (37.0-47.0); Imm Gran Abs Auto 0.01 X10*3/uL (0.00-0.03); Imm Gran Pct Auto 0.2 % (0.0-0.4); Lymphocytes Absolute Auto 1.6 X10*3/uL (1.2-4.9); Lymphocytes Percent Auto 27.5 % (20-40); Mean Corpuscular Hemoglobin 23.2 pg (27.0-33.0); Mean Corpuscular Volume 72.6 fL (80.0-98.0); Mean Platelet Volume 9.4 fL (9.4-12.3); Monocytes Absolute Auto 0.6 X10*3/uL (0.1-1.2); Monocytes Percent Auto 9.5 % (2-11); Neutrophils Absolute Auto 3.5 x10*3/uL (2.0-8.3); Neutrophils Percent Auto 59.7 % (45-73); Platelet Count 233 X10*3/uL (160-400); Red Blood Count 4.74 X10*6/uL (4.20-5.50); Red Cell Distribution Width 17.3 % (11.0-16.0); White Blood Count 5.8 X10*3/uL (4.8-10.8)
[2024-12-12 16:02] LABS: Appearance Urine Turbid; Bacteria Urine None Seen (None Seen); Color Urine Red; Glucose Urine UA Negative (Negative); Hyaline Casts Urine 0-2 /LPF (0-2); Leukocyte Esterase Urine Moderate (2+) (Negative); Nitrite Urine Negative (Negative); PH 5.5 (5.0-9.0); RBC Urine >20 /HPF (0-2); Specific Gravity - Urine 1.025 (1.005-1.025); UACC Culture Trigger YES; UMIC TRIGGER UACC YES; Urine Blood Large (3+) (Negative); Urine Ketones Negative (Negative); Urine Protein 100 (2+) mg/dL (Neg-Trace)
[2024-12-12 16:10] LABS: INTERNATIONAL NORM RATIO 1.1 (0.9-1.1); Prothrombin Time 12.6 SEC (10.9-12.4)
[2024-12-12 16:18] LABS: Alanine Aminotransferase 12 U/L (0-31); Albumin Level 3.9 g/dL (3.5-5.0); Alkaline Phosphatase 95 U/L (39-117); Anion Gap 13 (12-20); Aspartate Amino Transferase 28 U/L (5-31); Bilirubin Direct < 0.2 mg/dL (0.0-0.5); Bilirubin Total 0.2 mg/dL (0.0-1.0); Blood Urea Nitrogen 9 mg/dL (9-16); Calcium 9.1 mg/dL (8.4-10.2); Carbon Dioxide 23 mmol/L (22-29); Chloride 106 mmol/L (96-108); Creatinine Clr Calc Pharmacy 109.1; Estimated Glomerular Filt Rate > 60; Glucose Random 79 mg/dL (60-115); Lipase 22 U/L (8-78); Potassium 3.9 mmol/L (3.3-5.1); Sodium 138 mmol/L (135-145); Total Protein 9.1 g/dL (6.5-8.0)
[2024-12-12 16:20] LABS: HCG Quantitative < 2 mIU/mL
[2024-12-12 19:10] LABS: MANUAL DIFF FLAG NO
[2024-12-12 19:11] LABS: Basophils Percent Auto 0.5 % (0-2); Eosinophils Absolute Auto 0.2 X10*3/uL (0.0-0.4); Eosinophils Percent Auto 2.7 % (0-4); Hematocrit 30.9 % (37.0-47.0); Hemoglobin 10.1 g/dl (12.0-16.0); Imm Gran Abs Auto 0.02 X10*3/uL (0.00-0.03); Imm Gran Pct Auto 0.4 % (0.0-0.4); Lymphocytes Absolute Auto 1.5 X10*3/uL (1.2-4.9); Lymphocytes Percent Auto 26.6 % (20-40); Mean Corpuscular HGB Conc 32.7 g/dl (31.0-35.0); Mean Corpuscular Hemoglobin 23.7 pg (27.0-33.0); Mean Corpuscular Volume 72.5 fL (80.0-98.0); Mean Platelet Volume 10.3 fL (9.4-12.3); Monocytes Absolute Auto 0.4 X10*3/uL (0.1-1.2); Monocytes Percent Auto 7.1 % (2-11); Neutrophils Absolute Auto 3.4 x10*3/uL (2.0-8.3); Neutrophils Percent Auto 62.7 % (45-73); Platelet Count 237 X10*3/uL (160-400); Red Blood Count 4.26 X10*6/uL (4.20-5.50); Red Cell Distribution Width 17.6 % (11.0-16.0); White Blood Count 5.5 X10*3/uL (4.8-10.8)
[2024-12-12 19:24] VITALS: BP 125/80; PULSE 70; RESP 20; TEMP 36.6; O2SAT 99
--- NOTE | 2024-12-12 20:55 | PC.NURSE ---
pt a&xo4, respirations even and unlabored. pt reports onset of heavy vaginal bleeding with large blood clots, reports she is filling one large pad every hour which is approx 4ml. pt reports she had been one week late on her period and she suddenly developed cramps and large amounts of bleeding. pt reports dizziness and weakness, but ambulatory from triage. vss.
[2024-12-12 22:00] VITALS: BP 140/91; PULSE 71; RESP 16; TEMP 36.2; O2SAT 96
[2024-12-12 22:42] VITALS: BP 149/99; PULSE 85; RESP 16; TEMP 36.7; O2SAT 99
[2024-12-12 22:44] VITALS: BP 149/99; PULSE 85; RESP 16; TEMP 36.7; O2SAT 99
== END 2024-12-12 22:44 | disposition home or self-care (01) ==
PROVIDERS: Physician Assistant; Emergency Provider Internal Medicine; PCP Internal Medicine
DX: N93.8 Other specified abnormal uterine and vaginal bleeding (principal); R10.2 Pelvic and perineal pain; Z87.891 Personal history of nicotine dependence; Z79.899 Other long term (current) drug therapy
CPT/HCPCS: 36415; 76830; 76856; 80048; 80076; 81001; 81003; 83690; 83735; 84702; 85025; 85610; 86850; 86900; 86901; 87086; 99284

== ENCOUNTER → 2024-12-12 15:34 | Outpatient (BNV) | payer OTHER, SELFPAY | PROVIDERS: PCP Internal Medicine; Visit Provider Radiology Diagnostic Radiology | DX: N92.6 Irregular menstruation, unspecified (principal) | CPT/HCPCS: 76830; 76856 ==

== ENCOUNTER 2024-12-16 13:18 | Outpatient (REF) | payer OTHER, SELFPAY ==
[2024-12-16 14:17] LABS: MANUAL DIFF FLAG NO
[2024-12-16 15:27] LABS: Basophils Percent Auto 0.4 % (0-2); Eosinophils Absolute Auto 0.2 X10*3/uL (0.0-0.4); Hematocrit 33.4 % (37.0-47.0); Hemoglobin 10.7 g/dl (12.0-16.0); Imm Gran Abs Auto 0.01 X10*3/uL (0.00-0.03); Imm Gran Pct Auto 0.2 % (0.0-0.4); Lymphocytes Absolute Auto 1.4 X10*3/uL (1.2-4.9); Lymphocytes Percent Auto 24.8 % (20-40); Mean Corpuscular Hemoglobin 23.4 pg (27.0-33.0); Mean Corpuscular Volume 72.9 fL (80.0-98.0); Mean Platelet Volume 10.5 fL (9.4-12.3); Monocytes Absolute Auto 0.4 X10*3/uL (0.1-1.2); Monocytes Percent Auto 7.2 % (2-11); Neutrophils Absolute Auto 3.5 x10*3/uL (2.0-8.3); Neutrophils Percent Auto 63.4 % (45-73); Platelet Count 264 X10*3/uL (160-400); Red Blood Count 4.58 X10*6/uL (4.20-5.50); White Blood Count 5.4 X10*3/uL (4.8-10.8)
[2024-12-16 15:59] LABS: Alanine Aminotransferase 10 U/L (0-31); Albumin Level 3.7 g/dL (3.5-5.0); Anion Gap 11 (12-20); Aspartate Amino Transferase 19 U/L (5-31); Bilirubin Total 0.3 mg/dL (0.0-1.0); Blood Urea Nitrogen 10 mg/dL (9-16); Calcium 9.1 mg/dL (8.4-10.2); Carbon Dioxide 25 mmol/L (22-29); Chloride 109 mmol/L (96-108); Estimated Glomerular Filt Rate > 60; Glucose Random 87 mg/dL (60-115); Sodium 141 mmol/L (135-145); Total Protein 8.8 g/dL (6.5-8.0)
[2024-12-16 16:03] LABS: Creatinine Urine 349.46 mg/dL; Protein/Creatinine Ratio, Ur 0.05 (<0.2); Total Protein Urine Random 18 mg/dL (<12)
[2024-12-16 16:10] LABS: Erythrocyte Sedimentation Rate 21 MM/HR (0-20)
[2024-12-16 16:38] LABS: Alkaline Phosphatase 94 U/L (39-117)
[2024-12-17 21:13] LABS: Anti DNA DS Antibody 7 IU/mL
[2024-12-18 08:24] LABS: Complement C3 182 mg/dL (83-193)
== END 2024-12-16 13:19 | disposition home or self-care (01) ==
LOC: HO.LAB 13:18
PROVIDERS: PCP Internal Medicine; Visit Provider Internal Medicine Rheumatology
DX: M35.9 Systemic involvement of connective tissue, unspecified (principal); M19.90 Unspecified osteoarthritis, unspecified site; Z79.631 Long term (current) use of antimetabolite agent; Z79.899 Other long term (current) drug therapy; Z79.1 Long term (current) use of non-steroidal anti-inflammatories (NSAID)
CPT/HCPCS: 36415; 80053; 82550; 82570; 84156; 85025; 85652; 86140; 86160; 86225

== ENCOUNTER 2025-01-14 14:49 | Outpatient (REF) | payer OTHER, SELFPAY ==
[2025-01-15 16:48] LABS: CT PCR NOT DETECTED (Not Detect.); NG PCR NOT DETECTED (Not Detect.)
== END 2025-01-14 14:50 | disposition home or self-care (01) ==
LOC: HO.LNP 14:49
PROVIDERS: PCP Internal Medicine; Visit Provider Obstetrics & Gynecology
DX: Z30.430 Encounter for insertion of intrauterine contraceptive device (principal); N93.9 Abnormal uterine and vaginal bleeding, unspecified
CPT/HCPCS: 58100; 58300; 87491; 87591; 88305; 99212; J7298

== ENCOUNTER 2025-01-14 14:49 | Outpatient (AMB) | payer OTHER, SELFPAY ==
--- NOTE | 2025-01-14 14:58 | MHC.OFFVIS ---
Vital Signs 01/14/25 15:01 Height 5 ft 4 in Weight 210 lb BMI 36.0 BP 140/92 H Intake Visit Reasons: AUB Certified Hand Therapist: Certified Hand Therapist Present (Samra) Accompanied by: Self / Same As Patient Allergies aspirin [ASA] Allergy (Severe, Verified 01/14/25 15:02) Palpitations Is last menstrual period known: Yes Last menstrual period: 01/10/25 (Still present ) Post menopausal: No Patient : No HPI Comments Details: Presenting few days after ER follow-up for vaginal bleeding. The patient went to the emergency room few days ago with a heavy vaginal bleeding the following workup was done H&H 9.06/26.2 Ultrasound showed a subcentimeter mural myoma with a 4.4 cm left ovarian cyst ORADS 2 The patient was discharged on Provera 10 mg p.o. q.d. with TXA p.o. t.i.d. for 5 days, on iron sulfate 325 mg p.o. b.i.d. Last co testing in 05/16 was negative The patient bleeding has improved markedly on Provera and TXA, did not take any of the pills today PFSH Medical History Femoral acetabular impingement Lupus Cough Swelling of right knee joint Mild recurrent major depression Daily headache Physical exam Solitary pulmonary nodule Rheumatoid arthritis Mild persistent asthma Lung nodule seen on imaging study Left wrist pain Urticaria Polyarthralgia Overweight (BMI 25.0-29.9) Chronic migraine with aura Anemia Surgical History Hx of section Family History Mother Hypoglycemia Father Hypertension Diabetes Family/Other Mental health disorder Substance use disorder Social History Household Members: Significant Other and Family Housing: Apartment Unable to assess alcohol history related to: Unknown Alcohol intake: never Patient Tobacco Use Status: Former Tobacco user Tobacco use type: Cigarette e-Cigarette/Vaping Use: Never Used Second Hand Smoke Exposure: No Substance Use Type: Marijuana Patient : No service: No Current occupational status: employed and unemployed Current occupational exposures/hazards: No Cognitive needs: No Hearing needs: No Vision needs: No Female Reproductive History Menstrual Age of Menarche: 10 Date of last menstrual period: 01/10/25 (Still present ) Total pregnancies: 6 Full term: 3 Ab spontaneous: 3 Date of last pap smear: 05/14/21 (negative hpv, negative pap smear) Review of Systems Const All systems reviewed & are unremarkable except as noted in HPI and below Card Reports as per HPI Resp Reports as per HPI GI Reports as per HPI and Reports no additional complaints Reports as per HPI Physical Exam Vital Signs: Last Vital Signs BP 140/92 H 01/14/25 15:01 BMI result Body Mass Index 36.0 Const General: cooperative, healthy appearing and comfortable Chest Chest palpation & inspection: normal inspection of the chest and normal palpation of entire chest wall Breast/axilla inspection: normal inspection of the breasts and normal inspection of the axillae Breast/axilla palpation: normal palpation of the breasts, normal palpation of the axillae and no axillary lymphadenopathy Resp Effort & Inspection: normal respiratory effort Auscultation: clear to auscultation bilaterally Percussion: percussion normal Cardio Palpation: normal PMI Rate: regular rate Rhythm: regular rhythm Heart sounds: no murmurs and no rubs Peripheral pulses: Peripheral pulses 2+ throughout GI Inspection: Yes normal to inspection Palpation (GI): Soft to palpation, nontender, no guarding, not rigid and No hepatosplenomegaly present Percussion: Yes normal to percussion Auscultation: normal bowel sounds Rectal Exam - Female: deferred General: Yes bladder normal to palpation External Female Exam: No lesion Speculum Exam - Vagina: normal appearance of the vagina, normal palpation, normal vaginal discharge and not erythematous Speculum Exam - Cervix: normal appearance of the cervix and normal palpation Bimanual exam- vagina & uterus: normal bimanual exam, normal palpation, uterine size normal, bladder normal to palpation, consistency normal and normal palpation Bimanual Exam- Adnexa, other: normal adnexae, no masses and no tenderness Office Procedures Endometrial Biopsy Details: The patient was counseled regarding the indication and benefits of endometrial sampling to rule out endometrial pathology including not limited to endometrial hyperplasia or endometrial cancer and others; The alternatives (Either do nothing vs. hysteroscopy D&C) & the risks were discussed with the patient including but not limited: pain, uterine perforation, bleeding, infection, possible injury to bladder, bowel, ureter, possible need for blood transfusion with all its possible risks. The patient verbalized understanding all questions answered and signed consent. Urine test done in the office was negative The patient was placed into the dorsal lithotomy position; a speculum was inserted in the vagina. Using aseptic technique for the procedure, the cervix was cleansed with Betadine. The anterior lip of the cervix was grasped with a single tooth tenaculum. The uterus was sounded to 7 cm with a 4 mm Pipelle was used. Tissues samples were obtained and placed in formalin, in a patient labeled container and sent to the pathology department. At the end of the procedure, there was minimal bleeding noted The patient tolerated the procedure well and was discharged in good condition with the following instructions: Nothing in the vagina until the bleeding stops. No sex until the bleeding stops, to call if any of the following occurs: fever (>100.4), flu-like symptoms, abdominal pain, heavy bleeding, four smelling vaginal discharge. The patient was instructed to schedule a Follow up appointment in 2 weeks to discuss pathology results of the biopsy and treatment options. This note was generated with a voice recognition program. Some errors may have been overlooked during the review of this note. Sometimes these errors may affect the content or meaning of a given sentence. 98901-Ibmptrfqzle Biopsy IUD Insert/Removal Details Details: The patient is presenting for Mirena IUD insertion Urine test was done in the office and was negative; All the contraindications were excluded. The following possible complications were discussed with the patient: Intrauterine , Ectopic , Sepsis, Pelvic Infection, Irregular Bleeding and Amenorrhea, Perforation, Expulsion, Ovarian Cysts, Breast Cancer, The following adverse effects were discussed with the patient: alteration of menstrual bleeding pattern, including: unscheduled uterine bleeding decreased uterine bleeding increased scheduled uterine bleeding female genital tract bleeding ,amenorrhea , genital discharge , vulvovaginitis , breast pain , benign ovarian cyst and associated complications , dysmenorrhea , Gastrointestinal disorders abdominal/pelvic pain, headache/migraine , back pain , acne , depression Alternative options were discussed with the patient including but not limited: control pills, patch, NuvaRing, Depo-medroxyprogesterone acetate, Nexplanon, copper IUD, sterilization, vasectomy, others The procedure was explained in detail to patient , at the end patient signed the informed consent obtained. A no touch technique was used throughout the procedure. A speculum was placed into vagina and cervix was cleaned with betadine). A tenaculum was placed. A plastic sound was advanced through the external and internal os until it reached the fundus of the uterus, the depth was 8 cm. The sound was then withdrawn. The IUD was loaded in a sterile manner and advanced into position. The string was visualized and cut to 3 cm. Tenaculum site hemostatic. All instruments removed from vagina. Patient tolerated the procedure well. NO complications were noted. Patient was instructed to call for fever over 100.4, significant pain unrelieved by Motrin, IUD expulsion, heavy bleeding, or abnormal discharge. In addition, the following clinical considerations were discussed with the patient to call for removal: A stroke or heart attack ,Very severe or migraine headaches ,Unexplained fever ,Yellowing of the skin or whites of the eyes, as these may be signs of serious liver problems , or suspected , Pelvic pain or pain during sex ,HIV positive seroconversion in herself or her partner , Possible exposure to sexually transmitted infections Unusual vaginal discharge or genital sores , severe vaginal bleeding or bleeding that lasts a long time, or if she misses a menstrual period, Inability to feel Mirena's threads Counseled the patient that the IUD does not protect against STI's, recommended use of condoms for the first 7 days post insertion and explained to the patient that condoms are recommended for patients at risk for sexually transmitted infections. Informed the patient that Mirena IUD is FDA approved for 8 years for contraception for 5 years for the treatment of heavy menses Instructed the patient to schedule a Follow up appointment in 4 to 6 weeks following insertion. This note was generated with a voice recognition program. Some errors may have been overlooked during the review of this note. Sometimes these errors may affect the content or meaning of a given sentence. 43128-SWM Insertion Procedure code (CPT) selection complete Office Meds Mirena 21 mcg/24 hr (up to 8 years) 52 mg intrauterine device Performing Provider: Rodolfo Santos MD Performing Location: [facility] Documented (not given) by: Rodolfo Santos MD on 01/14/25 15:30 Dose Route Admin Location Dispensed Lot Number Expiration Date [facility] D[employer] Head 1 device intrauterine ea Assessment & Plan Assessment & Plan (1) Abnormal uterine bleeding (AUB): Code(s): N93.9 - Abnormal uterine and vaginal bleeding, unspecified Category: Medical Plan: Iron sulfate 325 mg p.o. b.i.d.. GC and chlamydia taken CBC, TSH, HCG, and pelvic ultrasound ordered. Discussed with the patient the different causes of abnormal bleeding including thyroid disorders, uterine and ovarian pathology, endometrial hyperplasia, carcinoma and other potential causes. Discussed with the patient the work up including CBC (to r/o anemia), TSH, pelvic Ultrasound, endometrial biopsy to r/o endometrial pathology. EMB done, see procedure note Discussed with the patient the options of treatment including Lysteda, control pills, Mirena IUD, endometrial ablation and hysterectomy. All pros, cons, risks and benefits if each option was discussed with the patient and the patient decided to go ahead with Mirena IUD so a more detailed discussion about it was conducted including mechanism of action, risks (uterine perforation, infection, injury to bladder, bowel, displacement, and others) benefits (hypo menorrhea, amenorrhea, ...). GC/CT were taken , Mirena IUD inserted and the patient was instructed to schedule 6 weeks Mirena IUD follow-up appoint . All questions answered, the patient verbalized understanding (2) Encounter for insertion of Mirena IUD: Code(s): Z30.430 - Encounter for insertion of intrauterine contraceptive device Category: Medical Plan: Mirena IUD inserted, see procedure note Orders: Orders TSH reflex Free T4 Today N93.9 - Abnormal uterine and vaginal bleeding, unspecified HCG Quantitative Today N93.9 - Abnormal uterine and vaginal bleeding, unspecified Complete Blood Count no Diff Today N93.9 - Abnormal uterine and vaginal bleeding, unspecified US pelvic and transvaginal Today N93.9 - Abnormal uterine and vaginal bleeding, unspecified AMB IUD Insertion/Removal - Practice Supplied Today N93.9 - Abnormal uterine and vaginal bleeding, unspecified AMB Endometrial Biopsy Today N93.9 - Abnormal uterine and vaginal bleeding, unspecified Medications: New Mirena (levonorgestrel) 1 device intrauterine ONCE 1 ea 0RF AUB NS N93.9 - Abnormal uterine and vaginal bleeding, unspecified Coding Level of Care Code Est Pt Level 3 (30106) Procedure Only Diagnoses Abnormal uterine bleeding (AUB) N93.9 Encounter for insertion of Mirena IUD Z30.430 CPT Codes Endometrial Biopsy - CPT: 16903-Mipyqccdzfn Biopsy ([id number]) Details - CPT: 38713-YLX Insertion ([id number])
[2025-01-14 15:01] VITALS: BP 140/92; BMI 36.0
== END 2025-01-14 15:39 | disposition home or self-care (01) ==
LOC: HO.HWS 14:49
PROVIDERS: PCP Internal Medicine; Visit Provider Obstetrics & Gynecology
DX: N93.9 Abnormal uterine and vaginal bleeding, unspecified (principal); Z30.430 Encounter for insertion of intrauterine contraceptive device
CPT/HCPCS: 58100; 58300; 99213

== ENCOUNTER 2025-03-11 11:05 | Outpatient (REF) | payer OTHER, SELFPAY ==
[2025-03-11 12:01] LABS: Hematocrit 33.7 % (37.0-47.0); Hemoglobin 10.8 g/dl (12.0-16.0); Mean Corpuscular Hemoglobin 22.8 pg (27.0-33.0); Mean Corpuscular Volume 71.2 fL (80.0-98.0); Mean Platelet Volume 11.1 fL (9.4-12.3); Platelet Count 226 X10*3/uL (160-400); Red Blood Count 4.73 X10*6/uL (4.20-5.50); Red Cell Distribution Width 18.6 % (11.0-16.0); White Blood Count 5.2 X10*3/uL (4.8-10.8)
[2025-03-11 12:48] LABS: HCG Quantitative < 2 mIU/mL; TSH reflex Free T4 1.08 uIU/mL (0.32-4.0)
== END 2025-03-11 11:06 | disposition home or self-care (01) ==
LOC: HO.LAB 11:05
PROVIDERS: Absent Provider Obstetrics & Gynecology; PCP Internal Medicine; Visit Provider Internal Medicine Rheumatology
DX: N93.9 Abnormal uterine and vaginal bleeding, unspecified (principal); M19.90 Unspecified osteoarthritis, unspecified site; M25.472 Effusion, left ankle
CPT/HCPCS: 36415; 84443; 84550; 84702; 85027

== ENCOUNTER 2025-03-30 15:54 | Outpatient (AMB) | payer OTHER, SELFPAY ==
--- NOTE | 2025-03-30 16:16 | MHC.PC.OV ---
Vital Signs 03/30/25 16:18 Height 5 ft 4 in Weight 194 lb BMI 33.3 BP 118/78 Blood Pressure Location Lt brachial Position Sitting Intake Visit Reasons: Annual Pe Intake Note: Patient here for an annual physical exam [employer] Super[employer] Required: No Accompanied by: Son Allergies aspirin [ASA] Allergy (Severe, Verified 03/30/25 16:49) Palpitations Medication List - Last Reconciled 03/30/25 by Angeline Patel MD ferrous sulfate 325 mg PO DAILY ibuprofen 800 mg PO Q8H PRN 30 days methotrexate sodium mg PO Tobacco use date assessed: 03/30/25 Dental Screening Dental Screen Date: 03/30/25 Did you have a dental visit in the last 12 months?: Yes Did you have a dental problem in the last 6 months where you did not have access to dental care?: No Was dental information given to patient?: Patient has dentist HPI HPI Comments History of Present Illness Details The patient is a 34-year-old female presenting for her physical exam with hand swelling. She describes ongoing difficulty in removing a ring due to swelling in the finger, likely related to inflammation. Her history of autoimmune conditions, namely Rheumatoid Arthritis and Systemic Lupus Erythematosus, may be contributing factors. She has been managing anemia with iron supplements, initially identified through blood work. She reacts to aspirin with palpitations and consequently uses ibuprofen when necessary. Her autoimmunity treatment includes methotrexate, supplemented with folic acid to minimize side effects. Previous medical history includes a section and previous tobacco use, which has since ceased. - Continues iron supplementation for anemia management - Utilizes methotrexate and folic acid for rheumatoid arthritis and lupus management - Blood work performed to monitor anemia status and autoimmune-related symptoms - Advised to continue avoiding aspirin due to known palpitations - Encouraged to maintain smoking cessation [facility] Medical History (Updated 03/30/25 @ 19:54 by Angeline Patel MD) Femoral acetabular impingement Lupus Cough Swelling of right knee joint Mild recurrent major depression Daily headache Physical exam Solitary pulmonary nodule Rheumatoid arthritis Mild persistent asthma Lung nodule seen on imaging study Left wrist pain Urticaria Polyarthralgia Overweight (BMI 25.0-29.9) Chronic migraine with aura Anemia Surgical History Hx of section Family History Mother Hypoglycemia Father Hypertension Diabetes Family/Other Mental health disorder Substance use disorder Social History Household Members: Significant Other and Family Housing: Apartment Unable to assess alcohol history related to: Unknown Alcohol intake: never Patient Tobacco Use Status: Former Tobacco user Tobacco use type: Cigarette e-Cigarette/Vaping Use: Never Used Second Hand Smoke Exposure: No Substance Use Type: Marijuana service: No Current occupational status: unemployed Cognitive needs: No Hearing needs: No Vision needs: No Female Reproductive History Menstrual Age of Menarche: 10 Questionnaire PHQ-9 Over the last 2 weeks, how often have you been bothered by any of the following problems? 1. Little interest or pleasure in doing things: not at all 2. Feeling down, depressed, or hopeless: not at all 3. Trouble falling or staying asleep, or sleeping too much: not at all 4. Feeling tired or having little energy: not at all 5. Poor appetite or overeating: not at all 6. Feeling bad about yourself - or that you are a failure or have let yourself or your family down: not at all 7. Trouble concentrating on things, such as reading the newspaper or watching television: not at all 8. Moving or speaking so slowly that other people could have noticed. Or the opposite - being so fidgety or restless that you have been moving around a lot more than usual: not at all 9. Thoughts that you would be better off or of hurting yourself in some way: not at all Total score: 0 Depression Screening Interpretation: Negative Depression Screening Done: Yes 01849 - PHQ-9 Billing: Yes Source: Developed by Drs. Tray Lee, Barbara Schafer, Mic Grady and colleagues, with an educational félix from [employer]. Thrive Questionnaire Date Thrive assessed: 03/30/25 I am a: Patient What is your living situation today?: I choose not to answer this question Within the past 12 months, did the food you bought not last and you didn't have the money to get more?: I choose not to answer this question Within the past 12 months, did you worry whether your food would run out before you got money to buy more?: I choose not to answer this question Do you have trouble paying for medicines?: I choose not to answer this question Do you have trouble getting transportation to medical appointments?: I choose not to answer this question Do you have trouble paying your heating and electricity bill?: I choose not to answer this question Do you have trouble taking care of your child, family member or friend?: I choose not to answer this question Do you have trouble with day-to-day activities such as bathing, preparing meals, shopping, managing finances, etc.?: I choose not to answer this question Are you currently unemployed and looking for a job?: I choose not to answer this question Are you interested in more education?: I choose not to answer this question Please select the resources that you would like help with: None Currently or been in a relationship where the following occur: I choose not to answer THRIVE Score: 0 AUDIT C Alcohol Use Questionnaire (AUDIT-C) 1. How often do you have a drink containing alcohol?: Never Total Score: 0 Score Reviewed/Action Taken: No HENRIK-7 AMB Questionnaire HENRIK-7 Date HENRIK - 7 assessed: 03/30/25 Feeling nervous, anxious, or on edge: 0 = Not at all Not being able to stop or control worryin = Not at all Worrying too much about different things: 0 = Not at all Trouble relaxin = Not at all Being so restless that it is hard to sit still: 0 = Not at all Becoming easily annoyed or irritable: 0 = Not at all Feeling afraid as if something awful might happen: 0 = Not at all Total HENRIK-7 score (0-4 normal; 5-9 mild; 10-14 moderate; 15-21 severe): 0 Source: Developed by Drs. Tray Lee, Barbara Schafer, Mic Grady and colleagues, with an educational félix from [employer]. HENRIK-7 Assessment Billing HENRIK-7 Assessment Tool: HENRIK-7 Assessment 19433 Review of Systems Const All systems reviewed & are unremarkable except as noted in HPI and below Card Denies chest pain at rest, Denies chest pain with activity, Denies edema, Denies irregular heart rhythm, Denies claudication, Denies dyspnea, Denies dyspnea on exertion, Denies orthopnea, Denies paroxysmal nocturnal dyspnea and Denies slow heart rate Resp Denies cough, Denies dyspnea and Denies dyspnea on exertion GI Denies abdominal pain, Denies change in bowel habits, Denies excessive flatus, Denies nausea and Denies vomiting Musc Reports arthralgias and Reports joint swelling Neuro Denies lack of coordination Physical exam (Primary Care) Vital Signs: Last Vital Signs BP 118/78 03/30/25 16:18 BMI result Body Mass Index 33.3 Tobacco/Smoking Status: Tobacco use Status Tobacco use date assessed 03/30/25 03/30/25 16:26 Patient Tobacco Use Status Former Tobacco user 03/30/25 16:26 Tobacco use type Cigarette 03/30/25 16:26 e-Cigarette/Vaping Use Never Used 03/30/25 16:26 PHQ-9: PHQ-9 Score PHQ-9: Total score 0 03/30/25 16:53 Depression Screening Interpretation: Negative Thrive Assessment: Date of Thrive Assessment Date Thrive assessed 03/30/25 03/30/25 16:26 Currently or been in a relationship where the following occur: I choose not to answer HENMT Head: Yes normal to inspection, Yes normocephalic and Yes atraumatic Ears: external ears normal Eyes General: appearance normal, both eyes and all related structures Eyelids: Yes eyelids normal Conjunctivae: conjunctivae normal Neck Neck: Yes normal visual inspection and Yes supple Resp Effort & Inspection: normal respiratory effort Auscultation: clear to auscultation bilaterally Cardio Jugular venous distension: no JVD Rate: regular rate Rhythm: regular rhythm Heart sounds: S1 normal heart sound present and S2 normal heart sound present GI Inspection: Yes normal to inspection Palpation (GI): Soft to palpation and nontender Auscultation: normal bowel sounds Skin General skin exam: no rashes or lesions noted Neuro General: no focal motor deficits Extrem General: Yes full ROM Right upper extremity: Extremity exam: right hand Details: swelling Left upper extremity: hand Details: swelling Psych Appearance: grossly normal Coding Level of Care Code Est Pt Level 3 (52769) Est Pt Prev Care 18-39y(02831) Diagnoses Physical exam Z00.00 Rheumatoid arthritis M06.9 SLE (systemic lupus erythematosus related syndrome) M32.9 Elevated total protein R77.8 Hand swelling M79.89 Additional Codes HENRIK-7 Assessment Billing - HENRIK-7 Assessment Tool: HENRIK-7 Assessment 70903 ([id number]) PHQ-9 - 55653 - PHQ-9 Billing: Yes ([id number]) Time Spent (min) 34 Assessment & Plan Assessment & Plan (1) Physical exam: Code(s): Z00.00 - Encounter for general adult medical examination without abnormal findings Category: Medical (2) Rheumatoid arthritis: Code(s): M06.9 - Rheumatoid arthritis, unspecified Category: Medical (3) SLE (systemic lupus erythematosus related syndrome): Code(s): M32.9 - Systemic lupus erythematosus, unspecified Category: Medical (4) Elevated total protein: Code(s): R77.8 - Other specified abnormalities of plasma proteins Category: Medical (5) Hand swelling: Code(s): M79.89 - Other specified soft tissue disorders Category: Medical Plan Addressing finger swelling is prioritized with prednisone for inflammation control, ensuring the patient's engagement in ongoing methotrexate treatment with folic acid support. Iron therapy continues for anemia. Further investigation into elevated protein levels is planned. Coordination of ibuprofen use with other medications is advised to manage pain and inflammation effectively. Monitoring will include follow-up lab assessments to maintain stable autoimmune condition management and anemia. The sensitivity to aspirin is recognized, and suitable alternatives are in place. Patient was informed and verbally consented to the use of an ambient scribe for clinic note documentation during this visit. I discussed with the patient the probable causes of her finger swelling, linking it to her systemic lupus erythematosus and rheumatoid arthritis. We've agreed on a short course of prednisone to manage swelling while avoiding methotrexate interaction. Detailed management of anemia and protein levels was reviewed, including upcoming diagnostic evaluations. Difficulty and alternatives of managing pain and inflammation with her aspirin sensitivity were covered. I explained all relevant benefits and possible side effects of medications, with emphasis on timely use and monitoring. The patient apprehends the decision against physical ring removal and the structured follow-up plan via lab testing. Orders: Orders IRON PROFILE Today D64.9 - Anemia, unspecified Lipid Panel Today E78.5 - Hyperlipidemia, unspecified Protein Electrophoresis, Serum Today R77.8 - Other specified abnormalities of plasma proteins Complete Blood Count Auto Diff Today D64.9 - Anemia, unspecified Vitamin D 25-OH Total Today E55.9 - Vitamin D deficiency, unspecified Comprehensive [place]. Panel Fast Today M06.9 - Rheumatoid arthritis, unspecified Medications: New prednisone Take 4 tabs for 2 days, then 3 tabs for 2 days, then 2 tabs for 2 days, then 1 tab for 2 days 10 mg PO DIRECTED 8 days 20 tabs 0RF Patient Instructions: - Take prednisone as prescribed for finger swelling. - Continue iron supplements for anemia. - Use folic acid before methotrexate every week. - Avoid aspirin; use ibuprofen as needed and as instructed. - Schedule laboratory tests as discussed for further assessment of protein levels. - Report any new symptoms or lack of response to current medications. - Return for follow-up as scheduled to review lab results and management plan.
[2025-03-30 16:18] VITALS: BP 118/78; BMI 33.3
== END 2025-03-30 17:03 | disposition home or self-care (01) ==
LOC: HO.HMCH 15:54
PROVIDERS: PCP Internal Medicine; Visit Provider Internal Medicine
DX: Z00.00 Encounter for general adult medical examination without abnormal findings (principal); M06.9 Rheumatoid arthritis, unspecified; M32.9 Systemic lupus erythematosus, unspecified; R77.8 Other specified abnormalities of plasma proteins; M79.89 Other specified soft tissue disorders

== ENCOUNTER → 2025-03-30 15:54 | Outpatient (BNVA) | payer OTHER, SELFPAY | PROVIDERS: PCP Internal Medicine; Visit Provider Internal Medicine | DX: Z00.00 Encounter for general adult medical examination without abnormal findings (principal); M32.9 Systemic lupus erythematosus, unspecified; D64.9 Anemia, unspecified; M06.9 Rheumatoid arthritis, unspecified; R77.8 Other specified abnormalities of plasma proteins; M79.89 Other specified soft tissue disorders; E78.5 Hyperlipidemia, unspecified; E55.9 Vitamin D deficiency, unspecified | CPT/HCPCS: 96127; 99212; 99395 ==

== ENCOUNTER 2025-06-14 15:23 | Emergency (ER) | payer OTHER, SELFPAY ==
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
[2025-06-14 15:32] VITALS: BP 147/86; PULSE 71; RESP 18; TEMP 36.6; O2SAT 98; BMI 32.6
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
--- OUTSIDE RECORDS SUMMARY | 2025-06-14 17:47 | XMS_ITS | Clinical Summary ---
Author Organization [facility] Address [address] [place] [id number] Phone Care Team Providers Care Otm Consultant Name Role Phone Angeline Alvarado MD Primary Care Provid er Allergies Active Allergy Reactions Criticality Noted Date Comments Aspirin Palpitations Low 10/12/2021 Medications folic acid (FOLVITE) 1 MG tabletIndications :Undifferentiated connective tissue disease,Inflammat ory arthritis,Rheumat oid factor positive Take 1 tab daily except 2 tabs every Friday & every Friday 108 tablet 3 03/17/20 24 Active ibuprofen (ADVIL,MOTRIN) 800 MG tabletIndications :Undifferentiated connective tissue disease,Inflammat ory arthritis Take 1 tab three times daily with food prn 90 tablet 2 12/09/19 25 Active ferrous sulfate 325 mg (65 mg tunica-biloxi iron) tablet Take 1 tablet by mouth every morning. 12/13/19 25 Active methotrexate 2.5 MG Oral tabletIndications :Undifferentiated connective tissue disease,Inflammat ory arthritis,Rheumat oid factor positive TAKE 6TABLETS BY MOUTH ONCE WEEKLY 72 tablet 1 03/02/20 25 Active levonorgestrel (MIRENA UTRN) by Intrauterine route. Active ferrous sulfate 325 mg (65 mg tunica-biloxi iron) tabletIndications :Iron deficiency anemia, unspecified iron deficiency anemia type Take 1 tablet (325 mg total) by mouth daily with breakfast. 90 tablet 1 05/09/20 25 Active cholecalciferol (VITAMIN D3) 5,000 unit capsuleIndication s:Inflammatory arthritis,Vitamin D insufficiency Take 1 capsule (5,000 Units total) by mouth daily. 90 capsule 1 05/11/20 25 Active Active Problems Problem Noted Date Diagnosed Date Class 1 obesity due to exces s calories with serious comorbidity and body mass index (BMI) of 33.0 to 33.9 in adult 05/05/2025 Assessment & Plan (05/05/2025 3:54 PM EDT): Congrats on losing 6 lbs form 201 on 03/02/2025 down to 196 today & keep it off. Continue diligent portion control. Limit concentrated sugars, saturated fats and calories in the diet. Keep well-hydrated. If unable to achieve expected goal consider formal dietary/nutritional support. Left ankle swelling 03/02/2025 Assessment & Plan (03/27/2025 5:19 PM EDT): Keep ankle elevated preferably above the heart level on a pillow every 2 hours for 20-30 minutes and apply an ice pack over the towel. Use topical Arnica versus Voltaren versus Biofreeze 2-3 times daily and prior to bed rest. Get x-rays today and lab work either today or tomorrow to decide whether direct aspiration is necessary for diagnostic and therapeutic purposes. Call if worse or with questions. Methotrexate, ferry terminal agent, current use 03/17/2024 Assessment & Plan (05/05/2025 3:44 PM EDT): I reviewed with her again to please remember to take methotrexate once a week on the same day of week and daily folic acid 1 mg. Due to reported diarrhea and a bit of nausea the day following weekly methotrexate intake I have instructed her to increase folic acid to 2 tablets for 2 days following weekly methotrexate dose and provided appropriate prescription for it. I reviewed with her need for holding methotrexate whenever she runs fever, feels sick or takes antibiotics. Complete entire course of antibiotics and wait at least 48 hours after the last dose of antibiotic to make sure that infection does not recur before returning to usual weekly methotrexate dosing. Refrain from drinking alcohol while on methotrexate particularly within 24 hours of weekly dose. Use double contraception while on methotrexate. Make sure to inform any new MD, PA, CLINICAL RESEARCH MANAGER about chronic treatment with methotrexate particularly in emergency situations. Monitor for mucosal ulcerations, abdominal pain, nausea, vomiting, diarrhea, chest pain, shortness of breath or coughing. Return for monitoring labs at least every 2-3 months-standing orders in [facility]. Call if problems or questions at [phone] Assessment & Plan (03/27/2025 5:18 PM EDT): I reviewed with her again to please remember to take methotrexate once a week on the same day of week and daily folic acid 1 mg. Due to reported diarrhea and a bit of nausea the day following weekly methotrexate intake I have instructed her to increase folic acid to 2 tablets for 2 days following weekly methotrexate dose and provided appropriate prescription for it. I reviewed with her need for holding methotrexate whenever she runs fever, feels sick or takes antibiotics. Complete entire course of antibiotics and wait at least 48 hours after the last dose of antibiotic to make sure that infection does not recur before returning to usual weekly methotrexate dosing. Refrain from drinking alcohol while on methotrexate particularly within 24 hours of weekly dose. Use double contraception while on methotrexate. Make sure to inform any new WERO CAVANAUGH CLINICAL RESEARCH MANAGER about chronic treatment with methotrexate particularly in emergency situations. Monitor for mucosal ulcerations, abdominal pain, nausea, vomiting, diarrhea, chest pain, shortness of breath or coughing. Return for monitoring labs at least every 2-3 months-standing orders in [facility]. Call if problems or questions at [phone] Assessment & Plan (12/09/2024 4:13 PM EST): Please remember to take methotrexate once a week on the same day of week and daily folic acid 1 mg. Due to reported diarrhea and a bit of nausea the day following weekly methotrexate intake I have instructed her to increase folic acid to 2 tablets every Friday and Friday and provided appropriate prescription for it. I reviewed with her need for holding methotrexate whenever she runs fever, feels sick or takes antibiotics. Complete entire course of antibiotics and wait at least 48 hours after the last dose of antibiotic to make sure that infection does not recur before returning to usual weekly methotrexate dosing. Refrain from drinking alcohol while on methotrexate particularly within 24 hours of weekly dose. Use double contraception while on methotrexate. Make sure to inform any new WERO CAVANAUGH, CLINICAL RESEARCH MANAGER about chronic treatment with methotrexate particularly in emergency situations. Monitor for mucosal ulcerations, abdominal pain, nausea, vomiting, diarrhea, chest pain, shortness of breath or coughing. Return for monitoring labs at least every 2-3 months-standing orders in [facility]. Call if problems or questions at [phone] Assessment & Plan (05/19/2024 12:19 PM EDT): Please remember to take methotrexate once a week on the same day of week and daily folic acid 1 mg. Due to reported diarrhea and a bit of nausea the day following weekly methotrexate intake I have instructed her to increase folic acid to 2 tablets every Friday and Friday and provided appropriate prescription for it. I reviewed with her need for holding methotrexate whenever she runs fever, feels sick or takes antibiotics. Complete entire course of antibiotics and wait at least 48 hours after the last dose of antibiotic to make sure that infection does not recur before returning to usual weekly methotrexate dosing. Refrain from drinking alcohol while on methotrexate particularly within 24 hours of weekly dose. Use double contraception while on methotrexate. Make sure to inform any new WERO CAVANAUGH NP about chronic treatment with methotrexate particularly in emergency situations. Monitor for mucosal ulcerations, abdominal pain, nausea, vomiting, diarrhea, chest pain, shortness of breath or coughing. Return for monitoring labs at least every 2-3 months-standing orders in [facility]. Call if problems or questions at [phone] Assessment & Plan (03/18/2024 8:12 PM EDT): Please remember to take methotrexate once a week on the same day of week and daily folic acid 1 mg. Due to reported diarrhea and a bit of nausea the day following weekly methotrexate intake I have instructed her to increase folic acid to 2 tablets every Friday and Friday and provided appropriate prescription for it. I reviewed with her need for holding methotrexate whenever she runs fever, feels sick or takes antibiotics. Complete entire course of antibiotics and wait at least 48 hours after the last dose of antibiotic to make sure that infection does not recur before returning to usual weekly methotrexate dosing. Refrain from drinking alcohol while on methotrexate particularly within 24 hours of weekly dose. Use double contraception while on methotrexate. Make sure to inform any new WERO CAVANAUGH CLINICAL RESEARCH MANAGER about chronic treatment with methotrexate particularly in emergency situations. Monitor for mucosal ulcerations, abdominal pain, nausea, vomiting, diarrhea, chest pain, shortness of breath or coughing. Return for monitoring labs at least every 2-3 months-standing orders in [facility]. Call if problems or questions at [phone] NSAID long-term use 03/17/2024 Assessment & Plan (05/05/2025 3:44 PM EDT): Take the lowest dose, with least frequency, for shortest time. Remember to take it always with food. Favor topical over oral preparations. Assessment & Plan (03/02/2025 3:48 PM EDT): Take the lowest dose, with least frequency, for shortest time. Remember to take it always with food. Favor topical over oral preparations. Assessment & Plan (12/09/2024 4:13 PM EST): Take the lowest dose, with least frequency, for shortest time. Remember to take it always with food. Favor topical over oral preparations. Assessment & Plan (05/19/2024 12:19 PM EDT): Take the lowest dose, with least frequency, for shortest time. Remember to take it always with food. Favor topical over oral preparations. Assessment & Plan (03/18/2024 8:12 PM EDT): Take the lowest dose, with least frequency, for shortest time. Remember to take it always with food. Favor topical over oral preparations. Vitamin D deficiency, unspecified 05/26/2023 Assessment & Plan (03/18/2024 8:02 PM EDT): Serum level requested to make sure that she does not require adjustment in supplementation to keep it in optimal range: 40-45 ng/ml. Assessment & Plan (05/27/2023 10:11 AM EDT): Serum level requested to make sure that she does not require adjustment in supplementation to keep it in optimal range: 40-45 ng/ml. Irritable bowel syndrome wit h both constipation and diarrhea 05/26/2023 Assessment & Plan (05/27/2023 10:16 AM EDT): I have asked her to keep well-hydrated and eat smaller, more frequent, well- balanced nutritionally meals and keep a diary of her food and bowel movements to look for patterns/triggers. Undifferentiated connective tissue disease 04/11 Assessment & Plan (05/05/2025 3:44 PM EDT): Due to a combination of symptoms and signs suggestive for seropositive rheumatoid arthritis and Sjogren's syndrome I am explaining to her that she may be classified as undifferentiated connective tissue disease over time may trying to be either of above-named diseases or less likely a different systemic autoimmune disease. I explained to her that treatment requires multifaceted approach that includes prescription medications, OT, PT guided regular exercise routine, close follow- up with me and depending on the organ systems involvement lead custodian, oil spreader operator, special education bus driver etc. I have provided her with the name of lead custodian in [place] and wrote a letter requesting evaluation regarding contraindication to Plaquenil therapy. Assessment & Plan (03/02/2025 3:46 PM EDT): Due to a combination of symptoms and signs suggestive for seropositive rheumatoid arthritis and Sjogren's syndrome I am explaining to her that she may be classified as undifferentiated connective tissue disease over time may trying to be either of above-named diseases or less likely a different systemic autoimmune disease. I explained to her that treatment requires multifaceted approach that includes prescription medications, OT, PT guided regular exercise routine, close follow- up with me and depending on the organ systems involvement lead custodian, oil spreader operator, special education bus driver etc. I have provided her with the name of lead custodian in [place] and wrote a letter requesting evaluation regarding contraindication to Plaquenil therapy. Assessment & Plan (12/09/2024 4:13 PM EST): Due to a combination of symptoms and signs suggestive for seropositive rheumatoid arthritis and Sjogren's syndrome I am explaining to her that she may be classified as undifferentiated connective tissue disease over time may trying to be either of above-named diseases or less likely a different systemic autoimmune disease. I explained to her that treatment requires multifaceted approach that includes prescription medications, OT, PT guided regular exercise routine, close follow- up with me and depending on the organ systems involvement lead custodian, oil spreader operator, special education bus driver etc. I have provided her with the name of lead custodian in [place] and wrote a letter requesting evaluation regarding contraindication to Plaquenil therapy. Assessment & Plan (05/19/2024 12:18 PM EDT): Due to a combination of symptoms and signs suggestive for seropositive rheumatoid arthritis and Sjogren's syndrome I am explaining to her that she may be classified as undifferentiated connective tissue disease over time may trying to be either of above-named diseases or less likely a different systemic autoimmune disease. I explained to her that treatment requires multifaceted approach that includes prescription medications, OT, PT guided regular exercise routine, close follow- up with me and depending on the organ systems involvement lead custodian, oil spreader operator, special education bus driver etc. I have provided her with the name of lead custodian in [place] and wrote a letter requesting evaluation regarding contraindication to Plaquenil therapy. Assessment & Plan (03/18/2024 8:02 PM EDT): Due to a combination of symptoms and signs suggestive for seropositive rheumatoid arthritis and Sjogren's syndrome I am explaining to her that she may be classified as undifferentiated connective tissue disease over time may trying to be either of above-named diseases or less likely a different systemic autoimmune disease. I explained to her that treatment requires multifaceted approach that includes prescription medications, OT, PT guided regular exercise routine, close follow- up with me and depending on the organ systems involvement lead custodian, oil spreader operator, special education bus driver etc. I have provided her with the name of lead custodian in [place] and wrote a letter requesting evaluation regarding contraindication to Plaquenil therapy. Assessment & Plan (02/03/2024 11:14 AM EDT): Due to a combination of symptoms and signs suggestive for seropositive rheumatoid arthritis and Sjogren's syndrome I am explaining to her that she may be classified as undifferentiated connective tissue disease over time may trying to be either of above-named diseases or less likely a different systemic autoimmune disease. I explained to her that treatment requires multifaceted approach that includes prescription medications, OT, PT guided regular exercise routine, close follow- up with me and depending on the organ systems involvement lead custodian, oil spreader operator, special education bus driver etc. I have provided her with the name of lead custodian in [place] and wrote a letter requesting evaluation regarding contraindication to Plaquenil therapy. Assessment & Plan (05/26/2023 4:07 PM EDT): Due to a combination of symptoms and signs suggestive for seropositive rheumatoid arthritis and Sjogren's syndrome I am explaining to her that she may be classified as undifferentiated connective tissue disease over time may trying to be either of above-named diseases or less likely a different systemic autoimmune disease. I explained to her that treatment requires multifaceted approach that includes prescription medications, OT, PT guided regular exercise routine, close follow- up with me and depending on the organ systems involvement lead custodian, oil spreader operator, special education bus driver etc. Assessment & Plan (11/30/2022 9:57 PM EST): Due to a combination of symptoms and signs suggestive for seropositive rheumatoid arthritis and Sjogren's syndrome I am explaining to her that she may be classified as undifferentiated connective tissue disease over time may trying to be either of above-named diseases or less likely a different systemic autoimmune disease. I explained to her that treatment requires multifaceted approach that includes prescription medications, OT, PT guided regular exercise routine, close follow- up with me and depending on the organ systems involvement lead custodian, oil spreader operator, special education bus driver etc. Assessment & Plan (04/28/2022 11:05 PM EDT): Due to a combination of symptoms and signs suggestive for seropositive rheumatoid arthritis and Sjogren's syndrome I am explaining to her that she may be classified as undifferentiated connective tissue disease over time may trying to be either of above-named diseases or less likely a different systemic autoimmune disease. I explained to her that treatment requires multifaceted approach that includes prescription medications, OT, PT guided regular exercise routine, close follow- up with me and depending on the organ systems involvement lead custodian, oil spreader operator, special education bus driver etc. Long-term use of Plaquenil 12/24/2021 Assessment & Plan (03/02/2025 3:47 PM EDT): I have encouraged her to take Plaquenil exactly as prescribed due to its multiple beneficial effects on immune system including lowering rate of disease flares, reducing risk of cardiovascular complications, improving anti-inflammatory response and therefore pain and stiffness in the joints. Daily sun protection all year round. Monitor for irregular heartbeat, visual changes or unusual numbing, tingling etc. See lead custodian at least every 12 months to monitor for possible retinal side effects Assessment & Plan (12/09/2024 4:13 PM EST): I have encouraged her to take Plaquenil exactly as prescribed due to its multiple beneficial effects on immune system including lowering rate of disease flares, reducing risk of cardiovascular complications, improving anti-inflammatory response and therefore pain and stiffness in the joints. Daily sun protection all year round. Monitor for irregular heartbeat, visual changes or unusual numbing, tingling etc. See lead custodian at least every 12 months to monitor for possible retinal side effects Assessment & Plan (05/19/2024 12:18 PM EDT): I have encouraged her to take Plaquenil exactly as prescribed due to its multiple beneficial effects on immune system including lowering rate of disease flares, reducing risk of cardiovascular complications, improving anti-inflammatory response and therefore pain and stiffness in the joints. Daily sun protection all year round. Monitor for irregular heartbeat, visual changes or unusual numbing, tingling etc. See lead custodian at least every 12 months to monitor for possible retinal side effects Assessment & Plan (03/18/2024 8:02 PM EDT): I have encouraged her to take Plaquenil exactly as prescribed due to its multiple beneficial effects on immune system including lowering rate of disease flares, reducing risk of cardiovascular complications, improving anti-inflammatory response and therefore pain and stiffness in the joints. Daily sun protection all year round. Monitor for irregular heartbeat, visual changes or unusual numbing, tingling etc. See lead custodian at least every 12 months to monitor for possible retinal side effects Assessment & Plan (02/03/2024 11:19 AM EDT): I have encouraged her to take Plaquenil exactly as prescribed due to its multiple beneficial effects on immune system including lowering rate of disease flares, reducing risk of cardiovascular complications, improving anti-inflammatory response and therefore pain and stiffness in the joints. Daily sun protection all year round. Monitor for irregular heartbeat, visual changes or unusual numbing, tingling etc. See lead custodian at least every 12 months to monitor for possible retinal side effects Assessment & Plan (05/27/2023 10:17 AM EDT): I have encouraged her to take Plaquenil exactly as prescribed due to its multiple beneficial effects on immune system including lowering rate of disease flares, reducing risk of cardiovascular complications, improving anti-inflammatory response and therefore pain and stiffness in the joints. Daily sun protection all year round. Monitor for irregular heartbeat, visual changes or unusual numbing, tingling etc. See lead custodian at least every 12 months to monitor for possible retinal side effects Assessment & Plan (11/30/2022 10:03 PM EST): I have encouraged her to take Plaquenil exactly as prescribed due to its multiple beneficial effects of on immune system including lowering rate of disease flares, reducing risk of cardiovascular complications, improving anti-inflammatory response and therefore pain and stiffness in the joints. Daily sun protection all year round. Monitor for irregular heartbeat, visual changes or unusual numbing, tingling etc. See lead custodian at least every 12 months to monitor for possible retinal side effects Assessment & Plan (04/11/2022 3:41 PM EDT): Take exactly as prescribed. Daily sun protection all year round. Monitor for irregular heartbeat, visual changes or unusual numbing, tingling etc. See lead custodian at least every 12 months to monitor for possible retinal side effects Assessment & Plan (12/25/2021 8:38 PM EST): Take exactly as prescribed. Daily sun protection all year round. Monitor for irregular heartbeat, visual changes or unusual numbing, tingling etc. See lead custodian at least every 12 months to monitor for possible retinal side effects On prednisone therapy 11/21/2021 Assessment & Plan (11/30/2022 9:59 PM EST): Gently taper as directed and tolerated-see details on instruction sheet with today's date. Daily calcium and vitamin D supplementation. Regular weightbearing exercises. Fall prevention strategies. Monitor for multiple side effects including but not limited to his risk of hips, knees, jaw osteonecrosis, mood swings, increased intraocular and systemic pressure, diabetes, osteoporosis, fluid retention, increased appetite, risk of infection, bruising, hair thinning etc. Assessment & Plan (04/11/2022 3:41 PM EDT): Gently taper as directed and tolerated-see details on instruction sheet with today's date. Daily calcium and vitamin D supplementation. Regular weightbearing exercises. Fall prevention strategies. Monitor for multiple side effects including but not limited to his risk of hips, knees, jaw osteonecrosis, mood swings, increased intraocular and systemic pressure, diabetes, osteoporosis, fluid retention, increased appetite, risk of infection, bruising, hair thinning etc. Assessment & Plan (12/25/2021 8:37 PM EST): Gently taper as directed and tolerated-see details on instruction sheet with today's date. Daily calcium and vitamin D supplementation. Regular weightbearing exercises. Fall prevention strategies. Monitor for multiple side effects including but not limited to his risk of hips, knees, jaw osteonecrosis, mood swings, increased intraocular and systemic pressure, diabetes, osteoporosis, fluid retention, increased appetite, risk of infection, bruising, hair thinning etc. Assessment & Plan (11/21/2021 10:37 PM EST): Gently taper as tolerated. Daily calcium and vitamin D supplementation. Regular weightbearing exercises. Fall prevention strategies. Monitor for multiple side effects including but not limited to his risk of hips, knees, jaw osteonecrosis, mood swings, increased intraocular and systemic pressure, diabetes, osteoporosis, fluid retention, increased appetite, risk of infection, bruising, hair thinning etc. Rheumatoid factor positive 10/17/2021 Assessment & Plan (03/27/2025 5:15 PM EDT): Her low positive rheumatoid factor does not make any diagnosis however puts her at an increased risk for developing it at some point in the future. High positive CCP antibody places diagnosis of rheumatoid arthritis at much higher probability and additional high positive ANGELINE at 1: 2560 in a speckled pattern with positive SSA and SSB antibodies point toward possible concomitant Sjogren's syndrome. Assessment & Plan (12/09/2024 4:13 PM EST): Her low positive rheumatoid factor does not make any diagnosis however puts her at an increased risk for developing it at some point in the future. High positive CCP antibody places diagnosis of rheumatoid arthritis at much higher probability and additional high positive ANGELINE at 1: 2560 in a speckled pattern with positive SSA and SSB antibodies point toward Sjogren's syndrome. Assessment & Plan (05/23/2024 2:11 PM EDT): Her low positive rheumatoid factor does not make any diagnosis however puts her at an increased risk for developing it at some point in the future. High positive CCP antibody places diagnosis of rheumatoid arthritis at much higher probability and additional high positive ANGELINE at 1: 2560 in a speckled pattern with positive SSA and SSB antibodies point toward Sjogren's syndrome. Assessment & Plan (03/18/2024 8:02 PM EDT): Her low positive rheumatoid factor does not make any diagnosis however puts her at an increased risk for developing it at some point in the future. High positive CCP antibody places diagnosis of rheumatoid arthritis at much higher probability and additional high positive ANGELINE at 1: 2560 in a speckled pattern with positive SSA and SSB antibodies point toward Sjogren's syndrome. Assessment & Plan (02/03/2024 11:16 AM EDT): Her low positive rheumatoid factor does not make any diagnosis however puts her at an increased risk for developing it at some point in the future. High positive CCP antibody places diagnosis of rheumatoid arthritis at much higher probability and additional high positive ANGELINE at 1: 2560 in a speckled pattern with positive SSA and SSB antibodies point toward Sjogren's syndrome. Assessment & Plan (05/27/2023 10:16 AM EDT): Her low positive rheumatoid factor does not make any diagnosis however puts her at an increased risk for developing it at some point in the future. High positive CCP antibody places diagnosis of rheumatoid arthritis at much higher probability. Assessment & Plan (11/30/2022 9:58 PM EST): Her low positive rheumatoid factor does not make any diagnosis however puts her at an increased risk for developing it at some point in the future. High positive CCP antibody places diagnosis of rheumatoid arthritis at much higher probability. Assessment & Plan (04/11/2022 3:41 PM EDT): Her low positive rheumatoid factor does not make any diagnosis however puts her at an increased risk for developing it at some point in the future. CCP antibody also requested to help secure diagnosis. Assessment & Plan (10/17/2021 11:58 PM EST): Her low positive rheumatoid factor does not make any diagnosis however puts her at an increased risk for developing it at some point in the future. CCP antibody also requested to help secure diagnosis. Inflammatory arthritis 10/17/2021 Assessment & Plan (05/05/2025 4:31 PM EDT): By clinical appearance and high positive CCP antibody she fits into seropositive rheumatoid arthritis picture however x-rays are not supportive and her very high positive ANGELINE in a speckled pattern along with positive SSA and SSB make a picture more difficult to clearly state whether is a rheumatoid arthritis or Sjogren's syndrome coexisting, less likely systemic lupus erythematosus in view of negative dsDNA, negative Kapoor antibody and normal complements. She felt better by 50% since re-starting Plaquenil 200 mg twice daily in early January 2024 & starting methotrexate at 10 mg once a week in addition to daily folic acid 1 mg. She can carefully continue ibuprofen 800 mg 3 times daily with food as needed and avoid taking ibuprofen at the same time as weekly methotrexate. Due to ongoing clinical & laboratory activity carefully build up the weekly methotrexate dose to 15 mg weekly every week. She remained on 5 tabs a week due to upset stomach with 6 tabs weekly. In case there is ongoing systemic inflammation we may need to add biologic modifier e.g. weekly s.c.Enbrel vs every 14 days s.c. Humira. Hold methotrexate if sick, running fever, taking antibiotics. Finish all antibiotics and wait 48 hours after last dose of antibiotic to make sure that symptoms do not return before restarting weekly methotrexate on its usual weekly schedule. Okay to use carefully topical Arnica versus Voltaren versus Biofreeze to most painful joints 2-3 times daily and if needed at bedtime versus medicated patches such as Salonpas or IcyHot patch. Get monitoring labs today and prior to next visit -standing orders in [facility]. She is asked to make an appointment with lead custodian within 12 months of starting Plaquenil. Continue OT guided joint protection, energy conservation techniques along with splinting and assistive devices. She is free to call with questions or problems in the interim. Assessment & Plan (03/27/2025 5:14 PM EDT): By clinical appearance and high positive CCP antibody she fits into seropositive rheumatoid arthritis picture however x-rays are not supportive and her very high positive ANGELINE in a speckled pattern along with positive SSA and SSB make a picture more difficult to clearly state whether is a rheumatoid arthritis or Sjogren's syndrome coexisting, less likely systemic lupus erythematosus in view of negative dsDNA, negative Kapoor antibody and normal complements. She feels better by 50% since re-starting Plaquenil 200 mg twice daily in early January 2024 & starting methotrexate at 10 mg once a week in addition to daily folic acid 1 mg. She can carefully continue ibuprofen 800 mg 3 times daily with food as needed and avoid taking ibuprofen at the same time as weekly methotrexate. Due to ongoing clinical & laboratory activity carefully build up the weekly methotrexate dose to 15 mg weekly every Friday. In case there is ongoing systemic inflammation we may need to add biologic modifier e.g. weekly s.c.Enbrel vs every 14 days s.c. Humira. Hold methotrexate if sick, running fever, taking antibiotics. Finish all antibiotics and wait 48 hours after last dose of antibiotic to make sure that symptoms do not return before restarting weekly methotrexate on its usual weekly schedule. Okay to use carefully topical Arnica versus Voltaren versus Biofreeze to most painful joints 2-3 times daily and if needed at bedtime versus medicated patches such as Salonpas or IcyHot patch. Get monitoring labs today and prior to next visit -standing orders in [facility]. She is asked to make an appointment with lead custodian within 12 months of starting Plaquenil. Continue OT guided joint protection, energy conservation techniques along with splinting and assistive devices. She is free to call with questions or problems in the interim. Assessment & Plan (12/09/2024 4:13 PM EST): By clinical appearance and high positive CCP antibody she fits into seropositive rheumatoid arthritis picture however x-rays are not supportive and her very high positive ANGELINE in a speckled pattern along with positive SSA and SSB make a picture more difficult to clearly state whether is a rheumatoid arthritis or Sjogren's syndrome coexisting, less likely systemic lupus erythematosus in view of negative dsDNA, negative Kapoor antibody and normal complements. She feels better by 50% since re-starting Plaquenil 200 mg twice daily in early January 2024 & starting methotrexate at 10 mg once a week in addition to daily folic acid 1 mg. She can carefully continue ibuprofen 800 mg 3 times daily with food as needed and avoid taking ibuprofen at the same time as weekly methotrexate. If ongoing clinical & laboratory activity carefully build up the weekly methotrexate dose to 12.5 -15 mg until disease gets under control. In case there is ongoing systemic inflammation we may need to add biologic modifier e.g. weekly s.c.Enbrel vs every 14 days s.c. Humira. Hold methotrexate if sick, running fever, taking antibiotics. Finish all antibiotics and wait 48 hours after last dose of antibiotic to make sure that symptoms do not return before restarting weekly methotrexate on its usual weekly schedule. Okay to use carefully topical Arnica versus Voltaren versus Biofreeze to most painful joints 2-3 times daily and if needed at bedtime versus medicated patches such as Salonpas or IcyHot patch. Get monitoring labs today and prior to next visit -standing orders in [facility]. She is asked to make an appointment with lead custodian within 12 months of starting Plaquenil. Continue OT guided joint protection, energy conservation techniques along with splinting and assistive devices. She is free to call with questions or problems in the interim. Assessment & Plan (05/23/2024 2:11 PM EDT): By clinical appearance and high positive CCP antibody she fits into seropositive rheumatoid arthritis picture however x-rays are not supportive and her very high positive ANGELINE in a speckled pattern along with positive SSA and SSB make a picture more difficult to clearly state whether is a rheumatoid arthritis or Sjogren's syndrome coexisting, less likely systemic lupus erythematosus in view of negative dsDNA, negative Kapoor antibody and normal complements. She feels better by 50% since re-starting Plaquenil 200 mg twice daily in early January 2024 & starting methotrexate at 10 mg once a week in addition to daily folic acid 1 mg. She can carefully continue ibuprofen 800 mg 3 times daily with food as needed and avoid taking ibuprofen at the same time as weekly methotrexate. If ongoing clinical & laboratory activity carefully build up the weekly methotrexate dose to 12.5 -15 mg until disease gets under control. In case there is ongoing systemic inflammation we may need to add biologic modifier e.g. weekly s.c.Enbrel vs every 14 days s.c. Humira. Hold methotrexate if sick, running fever, taking antibiotics. Finish all antibiotics and wait 48 hours after last dose of antibiotic to make sure that symptoms do not return before restarting weekly methotrexate on its usual weekly schedule. Okay to use carefully topical Arnica versus Voltaren versus Biofreeze to most painful joints 2-3 times daily and if needed at bedtime versus medicated patches such as Salonpas or IcyHot patch. Get monitoring labs today and prior to next visit -standing orders in [facility]. She is asked to make an appointment with lead custodian within 12 months of starting Plaquenil. Continue OT guided joint protection, energy conservation techniques along with splinting and assistive devices. She is free to call with questions or problems in the interim. Assessment & Plan (03/18/2024 8:01 PM EDT): By clinical appearance and high positive CCP antibody she fits into seropositive rheumatoid arthritis picture however x-rays are not supportive and her very high positive ANGELINE in a speckled pattern along with positive SSA and SSB make a picture more difficult to clearly state whether is a rheumatoid arthritis or Sjogren's syndrome coexisting, less likely systemic lupus erythematosus in view of negative dsDNA, negative Kapoor antibody and normal complements. She feels better by 50% since re-starting Plaquenil 200 mg twice daily in early January 2024 & starting methotrexate at 10 mg once a week in addition to daily folic acid 1 mg. She can asked to continue ibuprofen 800 mg 3 times daily with food as needed and avoid taking ibuprofen at the same time as weekly methotrexate. If ongoing clinical & laboratory activity carefully build up the weekly methotrexate dose to 12.5 -15 mg until disease gets under control. In case there is ongoing systemic inflammation we may need to add biologic modifier e.g. weekly s.c.Enbrel vs every 14 days s.c. Humira. Hold methotrexate if sick, running fever, taking antibiotics. Finish all antibiotics and wait 48 hours after last dose of antibiotic to make sure that symptoms do not return before restarting weekly methotrexate on its usual weekly schedule. Okay to use carefully topical Arnica versus Voltaren versus Biofreeze to most painful joints 2-3 times daily and if needed at bedtime versus medicated patches such as Salonpas or IcyHot patch. Get monitoring labs today and prior to next visit -standing orders in [facility]. She is asked to make an appointment with lead custodian within 12 months of starting Plaquenil. Continue OT guided joint protection, energy conservation techniques along with splinting and assistive devices. She is free to call with questions or problems in the interim. Assessment & Plan (02/03/2024 11:21 AM EDT): By clinical appearance and high positive CCP antibody she fits into seropositive rheumatoid arthritis picture however x-rays are not supportive and her very high positive ANGELINE in a speckled pattern along with positive SSA and SSB make a picture more difficult to clearly state whether is a rheumatoid arthritis or Sjogren's syndrome coexisting, less likely systemic lupus erythematosus in view of negative dsDNA, negative Kapoor antibody and normal complements. Please re-start Plaquenil 200 mg twice daily and get first dose of hepatitis B vaccine, wait 14 days before starting methotrexate at 10 mg once a week in addition to daily folic acid 1 mg. She is asked to continue ibuprofen 800 mg 3 times daily with food as needed and avoid taking ibuprofen at the same time as weekly methotrexate. Hold methotrexate if sick, running fever, taking antibiotics. Finish all antibiotics and wait 48 hours after last dose of antibiotic to make sure that symptoms do not return before restarting weekly methotrexate on its usual weekly schedule. Okay to use carefully topical Arnica versus Voltaren versus Biofreeze to most painful joints 2-3 times daily and if needed at bedtime versus medicated patches such as Salonpas or IcyHot patch. Get monitoring labs today and prior to next visit on 03/17/2024 at 12 noon- standing orders in [facility]. She is asked to make an appointment with lead custodian within 12 months of starting Plaquenil. Continue OT guided joint protection, energy conservation techniques along with splinting and assistive devices. She is free to call with questions or problems in the interim. Assessment & Plan (05/27/2023 10:14 AM EDT): By clinical appearance and high positive CCP antibody she fits into seropositive rheumatoid arthritis picture however x-rays are not supportive and her very high positive ANGELINE in a speckled pattern along with positive SSA and SSB make a picture more difficult to clearly state whether is a rheumatoid arthritis or Sjogren's syndrome coexisting, less likely systemic lupus erythematosus in view of negative dsDNA, negative Kapoor antibody and normal complements. Please re-start Plaquenil 200 mg twice daily alternating with Plaquenil 200 mg daily every other day. Okay to use carefully topical Arnica versus Voltaren versus Biofreeze to most painful joints 2-3 times daily and if needed at bedtime versus medicated patches such as Salonpas or IcyHot patch. Get monitoring labs today and prior to next visit in 4 months-standing orders in [facility]. She is asked to make an appointment with lead custodian within 12 months of starting Plaquenil. Continue OT guided joint protection, energy conservation techniques along with splinting and assistive devices. She is free to call with questions or problems in the interim. Assessment & Plan (11/30/2022 9:56 PM EST): By clinical appearance and high positive CCP antibody she fits into seropositive rheumatoid arthritis picture however x-rays are not supportive and her very high positive ANGELINE in a speckled pattern along with positive SSA and SSB make a picture more difficult to clearly state whether is a rheumatoid arthritis or Sjogren's syndrome coexisting, less likely systemic lupus erythematosus in view of negative dsDNA, negative Kapoor antibody and normal complements. Continue Plaquenil 200 mg twice daily and current 5 mg prednisone every morning with breakfast. Get monitoring labs today and prior to next visit in 3 months. She is asked to make an appointment with lead custodian within 12 months of starting Plaquenil. Continue OT guided joint protection, energy conservation techniques along with splinting and assistive devices. She is free to call with questions or problems in the interim. Assessment & Plan (04/28/2022 11:02 PM EDT): By clinical appearance and high positive CCP antibody she fits into seropositive rheumatoid arthritis picture however x-rays are not supportive and her very high positive ANGELINE in a speckled pattern along with positive SSA and SSB make a picture more difficult to clearly state whether is a rheumatoid arthritis or Sjogren's syndrome coexisting, less likely systemic lupus erythematosus in view of negative dsDNA, negative Kapoor antibody and normal complements. Continue Plaquenil 200 mg twice daily and current 5 mg prednisone every morning with breakfast. Get monitoring labs today and prior to next visit in 2 months. She is asked to make an appointment with lead custodian within 12 months of starting Plaquenil. Continue OT guided joint protection, energy conservation techniques along with splinting and assistive devices. She is free to call with questions or problems in the interim. Assessment & Plan (12/25/2021 8:36 PM EST): By clinical appearance and high positive CCP antibody she fits into seropositive rheumatoid arthritis picture however x-rays are not supportive and her very high positive ANGELINE in a speckled pattern along with positive SSA and SSB make a picture more difficult to clearly state whether is a rheumatoid arthritis or Sjogren's syndrome coexisting, less likely systemic lupus erythematosus in view of negative dsDNA, negative Kapoor antibody and normal complements. I am asking her to carefully decrease prednisone from 30 mg daily to 20 mg daily starting from Friday-12/25/2021 x 2 wks and gently taper by 5 mg every 2 weeks until down to 10 mg daily then decrease by 2.5 mg every 2 weeks as tolerated-see details on separate instruction sheets with today's date. Continue Plaquenil 200 mg twice daily. She is asked to make an appointment with lead custodian within 12 months of starting Plaquenil. To help with gentle, regular range of motion, muscle strengthening exercises, splinting, assistive devices and joint protection, energy conservation techniques I have written her a referral for hand therapy. Due to longstanding high-dose prednisone therapy I prescribed her preventive DS Bactrim 960 every Friday+ Friday+ Friday until her daily prednisone dose gets below 20 mg. Provided she is no worsening I am asking her to come back in 2 months. On her request I wrote her a note explaining that she is not able to work due to her chronic severe autoimmune mediated disease. She is free to call with questions or problems in the interim. Assessment & Plan (11/21/2021 10:35 PM EST): By clinical appearance and high positive CCP antibody she fits into seropositive rheumatoid arthritis picture however x-rays are not supportive and her very high positive ANGELINE in a speckled pattern along with positive SSA and SSB make a picture more difficult to clearly state whether is a rheumatoid arthritis or Sjogren's syndrome coexisting, less likely systemic lupus erythematosus in view of negative dsDNA, negative Kapoor antibody and normal complements. Provided today's labs are stable I am asking her to carefully decrease prednisone from 35 mg daily to 30 mg daily starting from Friday-11/26/2021. I also prescribed her Plaquenil 200 mg to start 1 tablet daily for a week and if no side effects increase to full dose 200 mg twice daily. She is asked to make an appointment with lead custodian within 12 months of starting Plaquenil. To help with gentle, regular range of motion, muscle strengthening exercises, splinting, assistive devices and joint protection, energy conservation techniques I have written her a referral for hand therapy. Due to longstanding high-dose prednisone therapy I prescribed her preventive DS Bactrim 960 every Friday+ Friday+ Friday until her daily prednisone dose gets below 20 mg. Provided she is no worsening I am asking her to come back in a month. On her request I wrote her a note explaining that she is not able to work due to her chronic severe autoimmune mediated disease. She is free to call with questions or problems in the interim. Assessment & Plan (10/18/2021 12:07 AM EST): Physical exam is suggestive for ongoing diffuse polyarticular arthritis involving small and large joints including shoulders, right elbow, wrists, MCP, PIP joints, knees and MTP joints-? Possible rheumatoid arthritis versus a combination of systemic lupus erythematosus and rheumatoid arthritis versus scleroderma versus less likely mixed connective tissue disease or concomitant fibromyalgia and much less likely stiff person syndrome. In review of family history of systemic lupus erythematosus, rheumatoid arthritis and fibromyalgia in maternal brother I took the liberty of getting a new set of lab work and x-rays today to secure the diagnosis. Since she does not find benefit from current prednisone dose I asked her to start tapering by 5 mg weekly as tolerated. She may benefit from using warm packs to involve the joints as tolerated and topical products such as Arnica, Biofreeze, Voltaren gel versus medicated patches such as Salonpas or IcyHot patch. Biting her with clots on side effects from prednisone, methotrexate, Plaquenil and sulfasalazine asking her to read them and write her questions for next appointment. I briefly reviewed with her the different ways of administering each of this medication, their most frequent side effects, need for monitoring and delayed onset of full effect for each of them. Other headache syndrome 10/17/2021 Assessment & Plan (10/17/2021 11:56 PM EST): Keep well-hydrated. Follow principles of sleep hygiene. Eat well-balanced nutritionally diet. Optimize stress management strategies. Get regular relaxation/meditation sessions. Keep a diary of episodes with modifying factors for review at next visit. Lung nodule, solitary 10/17/2021 Assessment & Plan (04/11/2022 3:41 PM EDT): I requested release of report of chest x-ray documenting it and copy of chest CT once available-she has signed medical record release for it. According to her records on the cell phone it appears stable and benign. Assessment & Plan (12/25/2021 8:33 PM EST): I requested release of report of chest x-ray documenting it and copy of chest CT once available-she has signed medical record release for it. According to her records on the cell phone it appears stable and benign. Assessment & Plan (11/21/2021 10:27 PM EST): I requested release of report of chest x-ray documenting it and copy of chest CT once available. I asked her to call pulmonology office and her PCP requesting order for chest CT prior to pulmonology appointment to make it most beneficial and once seen by the oil spreader operator ask the copy to be sent to me for review. Assessment & Plan (10/17/2021 11:49 PM EST): I requested release of report of chest x-ray documenting it and copy of chest CT once available. Family history of systemic lupus erythematosus 1 12/18/2020 Assessment & Plan (05/05/2025 3:44 PM EDT): Her maternal brother who got diagnosed at 23 and is treated with a combination of prednisone and Plaquenil-currently 48. According to labs from 10/17/2021 she has no clear immunologic support for systemic lupus erythematosus however there were borderline tests that may need to be repeated for lupus anticoagulant after 3 months. Assessment & Plan (03/27/2025 5:16 PM EDT): Her maternal brother who got diagnosed at 23 and is treated with a combination of prednisone and Plaquenil-currently 50. According to labs from 10/17/2021 she has no clear immunologic support for systemic lupus erythematosus however there were borderline tests that may need to be repeated for lupus anticoagulant after 3 months. Assessment & Plan (12/09/2024 4:14 PM EST): Her maternal brother who got diagnosed at 23 and is treated with a combination of prednisone and Plaquenil-currently 50. According to labs from 10/17/2021 she has no clear immunologic support for systemic lupus erythematosus however there are borderline tests that may need to be repeated for lupus anticoagulant after 3 months. Assessment & Plan (05/19/2024 12:18 PM EDT): Her maternal brother who got diagnosed at 23 and is treated with a combination of prednisone and Plaquenil-currently 50. According to labs from 10/17/2021 she has no clear immunologic support for systemic lupus erythematosus however there are borderline tests that may need to be repeated for lupus anticoagulant after 3 months. Assessment & Plan (03/18/2024 8:02 PM EDT): Her maternal brother who got diagnosed at 23 and is treated with a combination of prednisone and Plaquenil-currently 50. According to labs from 10/17/2021 she has no clear immunologic support for systemic lupus erythematosus however there are borderline tests that may need to be repeated for lupus anticoagulant after 3 months. Assessment & Plan (02/03/2024 11:18 AM EDT): Her maternal brother who got diagnosed at 23 and is treated with a combination of prednisone and Plaquenil-currently 50. According to labs from 10/17/2021 she has no clear immunologic support for systemic lupus erythematosus however there are borderline tests that may need to be repeated for lupus anticoagulant after 3 months. Assessment & Plan (05/27/2023 10:17 AM EDT): Full immunologic work-up initiated to make sure that she does not have it herself as her maternal brother who got diagnosed at 23 and is treated with a combination of prednisone and Plaquenil-currently 47. According to labs from 10/17/2021 she has no clear immunologic support for systemic lupus erythematosus however there are borderline tests that may need to be repeated for lupus anticoagulant after 3 months. Assessment & Plan (11/30/2022 9:59 PM EST): Full immunologic work-up initiated to make sure that she does not have it herself as her maternal brother who got diagnosed at 23 and is treated with a combination of prednisone and Plaquenil-currently 49. According to labs from 10/17/2021 she has no clear immunologic support for systemic lupus erythematosus however there are borderline tests that may need to be repeated for lupus anticoagulant after 3 months. Assessment & Plan (11/21/2021 10:37 PM EST): Full immunologic work-up initiated to make sure that she does not have it herself as her maternal brother who got diagnosed at 23 and is treated with a combination of prednisone and Plaquenil-currently 49. According to labs from 10/17/2021 she has no clear immunologic support for systemic lupus erythematosus however there are borderline tests that may need to be repeated for lupus anticoagulant after 3 months. Assessment & Plan (10/17/2021 11:59 PM EST): Full immunologic work-up initiated to make sure that she does not have it herself as her maternal brother who got diagnosed at 23 and is treated with a combination of prednisone and Plaquenil-currently 49. Vitamin D insufficiency 10/17/2021 Assessment & Plan (05/05/2025 3:44 PM EDT): Serum level requested in view of prior insufficiency and reported lack of vitamin D supplementation Assessment & Plan (05/19/2024 12:18 PM EDT): Serum level requested in view of prior insufficiency and reported lack of vitamin D supplementation Assessment & Plan (02/03/2024 11:18 AM EDT): Serum level requested in view of prior insufficiency and reported lack of vitamin D supplementation Assessment & Plan (11/30/2022 9:55 PM EST): Continue daily vitamin D 5000 units to keep it in optimal serum range:-45 ng/ml. Assessment & Plan (04/28/2022 11:00 PM EDT): Due to low serum vitamin D I have prescribed her 5000 unit capsule to be taken daily to bring it into optimal serum range: 40-45 ng/ml. Assessment & Plan (12/24/2021 2:56 PM EST): Due to low serum vitamin D I have prescribed her 50,000 units vitamin D capsules to be taken weekly to bring it into optimal serum range: 40-45 ng/ml. Assessment & Plan (11/21/2021 10:28 PM EST): Due to low serum vitamin D I have prescribed her 50,000 units vitamin D capsules to be taken weekly to bring it into optimal serum range: 40-45 ng/ml. Assessment & Plan (10/17/2021 11:50 PM EST): Serum level requested to make sure that she has no need for supplementation Optimal serum level should be around 40-45 ng/ml. Hair loss 10/17/2021 Resolved Problems Problem Noted Date Diagnosed Date Resolved Date Class 2 severe obesity due t o excess calories with serious comorbidity and body mass index (BMI) of 35.0 to 35.9 in adult 12/09/2024 Assessment & Plan (01/02/2025 10:21 PM EDT): Continue diligent portion control particularly in view of gaining 17 pounds from 188 on 05/15/2024 up to 205 today. Limit concentrated sugars, saturated fats and calories in the diet. Keep well-hydrated. If unable to achieve expected goal consider formal dietary/nutritional support. Class 1 obesity due to exces s calories with serious comorbidity and body mass index (BMI) of 34.0 to 34.9 in adult 05/19/2024 05/05/2025 Assessment & Plan (03/27/2025 5:21 PM EDT): Congratulations on losing 4 pounds from 205 on 12/09/2024 down to 201 today and keep it off. Continue diligent portion control. Limit concentrated sugars, saturated fats and calories in the diet. Keep well-hydrated. If unable to achieve expected goal consider formal dietary/nutritional support. Assessment & Plan (05/23/2024 2:13 PM EDT): Continue diligent portion contro particularly in view of gaining 10 pounds from 178 on 03/17/2024 up to 188 today. Limit concentrated sugars, saturated fats and calories in the diet. Keep well-hydrated. If unable to achieve expected goal consider formal dietary/nutritional support. Encounters Date Type Department Care Team Description 05/11/2025 Orders Only [facility] Rheumatology [address] [place] [address] [place] [address] Laura Bellamy MD 05/11/2025 Telephone [facility] Rheumatology [address] [place] [address] [place] [id number] Laura Bellamy MD Vit D rx 05/09/2025 Orders Only [facility] Rheumatology [address] [place] [address] [place] [address] Laura Bellamy MD Iron deficiency anemia, unspecified iron deficiency anemia type (Primary Dx) 05/05/2025 3:49 PM EDT - 05/05/2025 11:59 PM EDT Hospital Encounter [facility] [address] [place] [address] [place] [address] Laura Bellamy MD Discharge Disposition: Home or Self Care 05/05/2025 3:30 PM EDT Office Visit [facility] Rheumatology [address] [place] [address] Laura Bellamy MD Undifferentiated connective tissue disease (Primary Dx); Inflammatory arthritis; Methotrexate, mcc, current use; NSAID long-term use; Family history of systemic lupus erythematosus; Vitamin D deficiency, unspecified; Class 1 obesity due to excess calories with serious comorbidity and body mass index (BMI) of 33.0 to 33.9 in adult 03/15/2025 Transcribe Orders [facility] [address] [place] [address] Angeline Alvarado MD 03/14/2025 Orders Only [facility]umatology [address] [place] [address] Vaishali Gueavra [place] Inflammatory arthritis; Left ankle swelling from Last 3 Months Family History Medical History Relation Comments Diabetes Father Hypertension Father Hypoglycemia Mother Relation Status Comments Father Mother Social History Tobacco Use Types Packs/Day Years Used Date Smoking Tobacco: Former Cigarettes Q uit: 06/17/2021 Smokeless Tobacco: Never Tobacco Cessation:Counseling Given: Not Answered Education Answer Date Recorded Are you interested in more education? Not on monica e 02/22/2023 Are you concerned about learning? Not on file 02/22/2023 No 02/22/2023 No 02/22/2023 Digital Access Answer Date Recorded No 03/19/2023 No 03/19/2023 Reliable internet access at home? Not on file 03/19/2023 Device with a working camera? Not on file Comments Unknown Sex and Gender Information Value Date Recorded Sex Assigned at Not on file Legal Sex Female 2:12 PM EDT Gender Identity Not on file Sexual Orientation Not on file Last Filed Vital Signs Vital Sign Reading Time Taken Comments Blood Pressure 112/80 05/05/2025 3:28 PM EDT Pulse 79 05/05/2025 3:28 PM EDT Temperature - - Respiratory Rate - - Oxygen Saturation 97% 05/05/2025 3:28 PM EDT Inhaled Oxygen Concentration - - Weight 89.2 kg (196 lb 9.6 oz) 05/05/2025 3:28 P M EDT Height 162.6 cm (5' 4 ) 05/05/2025 3:28 PM EDT Body Mass Index 33.75 05/05/2025 3:28 PM EDT Plan of Treatment Upcoming Encounters Date Type Department Care Team (Late st Contact Info) Description 09/05/2025 3:30 PM EST Office Visit [facility] Rheumatology [address] [place] [address] Laura Bellamy MD [address], [address] [place] [address] [email or web address] Health Maintenance Due Date Last Done Comments COVID-19 VACCINE (#1) 1993 DEPRESSION SCREENING 2000 SMOKING Hx and SMOKELESS TOBACCO SCREENING 2001 HIV ONE-TIME SCREENING (18-6 5 YEARS) 2006 PNEUMOCOCCAL VACCINES (0-49 years) (1 of 2 - PCV) 2007 PAP SMEAR 2009 SCREENING FOR DIABETES 05/05/2028 05/05/2025 Adult Td,Tdap Booster 05/11/2033 05/11/2023 HEPATITIS C SCREENING Completed 11/27/2022 , 10/17/2021 HEPATITIS A VACCINES Aged Out No long er eligible based on patient's age to complete this topic HIB VACCINES Aged Out No longer eligi ble based on patient's age to complete this topic MENINGOCOCCAL VACCINES (ACWY) Aged Out No longer eligible based on patient's age to complete this topic MENINGOCOCCAL VACCINES (B) Aged Out N o longer eligible based on patient's age to complete this topic Medical Devices Not on file Procedures Procedure Name Priority Date/Time Associated Diagnosis Comments TOTAL PROTEIN CREATININE RATIO, RANDOM URINE Routine 05/05/2025 4:01 PM EDT Undifferentiated connective tissue disease Inflammatory arthritis Methotrexate, ferry terminal agent, current use Long-term use of Plaquenil NSAID long-term use 25-OH VITAMIN D Routine 05/05/2025 3:57 PM EDT Vitamin D deficiency, unspecified CPK (CREATINE KINASE) Routine 05/05/2025 3:57 PM EDT Undifferentiated connective tissue disease Inflammatory arthritis Methotrexate, mcc, current use Long-term use of Plaquenil NSAID long-term use CBC AND DIFFERENTIAL Routine 05/05/2025 3:57 PM EDT Undifferentiated connective tissue disease Inflammatory arthritis Methotrexate, ferry terminal agent, current use Long-term use of Plaquenil NSAID long-term use SEDIMENTATION RATE (ESR) Routine 05/05/2025 3:57 PM EDT Undifferentiated connective tissue disease Inflammatory arthritis Methotrexate, mcc, current use Long-term use of Plaquenil NSAID long-term use C-REACTIVE PROTEIN Routine 05/05/2025 3: 57 PM EDT Undifferentiated connective tissue disease Inflammatory arthritis Methotrexate, ferry terminal agent, current use Long-term use of Plaquenil NSAID long-term use COMPREHENSIVE METABOLIC PANEL Routine 05/05/2025 3:57 PM EDT Undifferentiated connective tissue disease Inflammatory arthritis Methotrexate, mcc, current use Long-term use of Plaquenil NSAID long-term use DOUBLE STRANDED DNA ANTIBODIES Routine 05/05/2025 3:52 PM EDT Undifferentiated connective tissue disease Inflammatory arthritis Methotrexate, ferry terminal agent, current use Long-term use of Plaquenil NSAID long-term use COMPLEMENT C4 Routine 05/05/2025 3:52 PM EDT Undifferentiated connective tissue disease Inflammatory arthritis Long-term use of Plaquenil COMPLEMENT C3 Routine 05/05/2025 3:52 PM EDT Undifferentiated connective tissue disease Inflammatory arthritis Long-term use of Plaquenil HEPATITIS C ANTIBODY, QUALITATIVE Routine 11/27/2022 10:41 AM EST Inflammatory arthritis Rheumatoid factor positive from Last 3 Months or Most Recently Relevant to Health Maintenance Results * TOTAL PROTEIN CREATININE RATIO, RANDOM URINE (05/05/2025 4:01 PM EDT) URINE TOTAL PROTEIN 13.0 mg/dL [facility] URINE CREATININE 263 mg/dL [facility] URINE TP CRE RATIO 0.05 0 - 0.19 [facility] Urine (Urine) 05/05/2025 4:0 1 PM EDT 05/05/2025 4:02 PM EDT us Laura Bellamy MD URINE ORDERABLES Final R esult Performing Organization Address City/[facility]/ZIP Co de Phone Number [address] [address] * (ABNORMAL) Comprehensive metabolic panel (05/05/2025 3:57 PM EDT) SODIUM 134 133 - 146 mmol/L [facility] POTASSIUM 3.9 3.3 - 5.1 mmol/L [facility] CHLORIDE 99 96 - 108 mmol/L [facility] CO2 25 21 - 35 mmol/L [facility] BUN 9 6 - 19 mg/dL [facility] CREATININE 0.80 0.5 - 1.5 mg/dL [facility] GLUCOSE 83 70 - 99 mg/dL [facility] ALBUMIN 4.0 3.9 - 4.8 g/dL [facility] TOTAL PROTEIN 8.6(H) 6.5 - 8.0 g/dL [facility] CALCIUM 9.0 8.4 - 10.3 mg/dL [facility] ALKALINE PHOSPHATASE 90 39 - 117 U/L [facility] TOTAL BILIRUBIN <0.2 0.0 - 1.2 mg/dL [facility] AST 20 0 - 37 U/L [facility] ALT 8 0 - 40 U/L [facility] GLOBULIN 4.6 1 - 4.8 g/dL [facility] EGFR 98 >59 mL/min/1.7 3m2 [facility] Comment:Estimated glomerular filtration rate calculated using the CKD-EPI refit equation. ANION GAP 14 10 - 20 mmol/L [facility] Blood 05/05/2025 3:57 PM EDT 05/05/2025 3:58 PM EDT us Laura Bellamy MD LAB BLOOD ORDERABLES Fin al Result Performing Organization Address City/[facility]/ZIP Co de Phone Number [address] [place] [address] * (ABNORMAL) 25-OH vitamin D (05/05/2025 3:57 PM EDT) [facility] 25 [place] VIT D (TOTAL) 22(L) 30 - 60 ng/mL [facility] Blood 05/05/2025 3:57 PM EDT 05/05/2025 3:58 PM EDT Laura Bellamy MD LAB BLOOD ORDERABLES Fin al Result [address] [address] * (ABNORMAL) Sedimentation rate (ESR) (05/05/2025 3:57 PM EDT) [facility] ESR 50(H) 0 - 20 mm/h [facility] Blood 05/05/2025 3:57 PM EDT 05/05/2025 3:58 PM EDT us Laura Bellamy MD LAB BLOOD ORDERABLES Fin al Result Performing Organization Address City/[facility]/ZIP Co de Phone Number [address] [address] * (ABNORMAL) CBC and differential (05/05/2025 3:57 PM EDT) [facility] WBC 5.24 4.00 - 11.00 K/uL [facility] RBC 4.58 4.00 - 5.20 M/uL [facility] HGB 10.7(L) 12.0 - 16.0 g/dL [facility] HCT 34.0(L) 36.0 - 46.0 % [facility] PLT 228 150 - 450 K/uL [facility] MCV 74.2(L) 80.0 - 100.0 fL [facility] MCH 23.4(L) 27.0 - 31.0 pg [facility] MCHC 31.5(L) 32.0 - 36.0 g/dL [facility] RDW 20.5(H) 11.5 - 14.5 % [facility] MPV 11.1 8.4 - 12.0 fL [facility] NRBC 0.00 0.00 /100 WBCs [facility] ABSOLUTE NRBC 0.00 0.00 K/uL [facility] DIFF METHOD Auto [facility] NEUTS 62.4 48.0 - 76.0 % [facility] LYMPHS 26.1 18.0 - 41.0 % [facility] MONOS 8.4 4.0 - 11.0 % [facility] EOS 2.3 0.0 - 5.0 % [facility] BASOS 0.6 0.0 - 1.5 % [facility] Granulocytes, immature (%) 0.2 0.0 - 0.9 % [facility] ABSOLUTE NEUTS 3.27 1.92 - 7.60 K/uL [facility] ABSOLUTE LYMPHS 1.37 0.72 - 4.10 K/uL [facility] ABSOLUTE MONOS 0.44 0.16 - 1.10 K/uL [facility] ABSOLUTE EOS 0.12 0.00 - 0.50 K/uL [facility] ABSOLUTE BASOS 0.03 0.00 - 0.15 K/uL [facility] Granulocytes, immature 0.01 0.00 - 0.09 K/uL [facility] Blood 05/05/2025 3:57 PM EDT 05/05/2025 3:58 PM EDT us Laura Bellamy MD LAB BLOOD ORDERABLES Fin al Result [facility] [address] [place] [address] * (ABNORMAL) C-Reactive Protein (05/05/2025 3:57 PM EDT) C REACTIVE PROTEIN 14.1(H) 0.0 - 4.0 mg/L [facility] Blood 05/05/2025 3:57 PM EDT 05/05/2025 3:58 PM EDT Laura Bellamy MD LAB BLOOD ORDERABLES Fin al Result [address] [address] * CPK (creatine kinase) (05/05/2025 3:57 PM EDT) CREATINE KINASE 62 21 - 215 U/L [facility] Blood 05/05/2025 3:57 PM EDT 05/05/2025 3:58 PM EDT Laura Bellamy MD LAB BLOOD ORDERABLES Fin al Result Performing Organization Address [facility] Co de Phone Number [address] [address] * Double stranded DNA antibodies (05/05/2025 3:52 PM EDT) ANTI DSDNA ANTIBODY Negative at 1:10 [facility] Comment: Performing Physician, Ayaz Valverde M.D., [id number] Normal: Negative at 1:10 To interpret a negative test for anti-mashpee or double stranded DNA antibodies in a patient suspected of having systemic lupus erythematosus, the following limitation should be noted. Anti-double stranded DNA antibodies are usually detected in SLE patients with active disease, especially in those with active renal disease. Anti-DNA antibodies are usually not detected in SLE patients with spontaneous or drug-induced remissions. Blood 05/05/2025 3:52 PM EDT 05/05/2025 3:58 PM EDT Laura Bellamy MD LAB BLOOD ORDERABLES Fin al Result Performing Organization Address [facility] Co de Phone Number [address] [address] * Complement C3 (05/05/2025 3:52 PM EDT) C3 148 81 - 157 mg/dl [facility] Blood 05/05/2025 3:52 PM EDT 05/05/2025 3:58 PM EDT us Laura Bellamy MD LAB BLOOD ORDERABLES Fin al Result [address] [address] * Complement C4 (05/05/2025 3:52 PM EDT) C4 16 12 - 39 mg/dL [facility] Blood 05/05/2025 3:52 PM EDT 05/05/2025 3:58 PM EDT us Laura Bellamy MD LAB BLOOD ORDERABLES Fin al Result Performing Organization Address [facility] Co de Phone Number [address] [address] * Hepatitis C antibody, qualitative (11/27/2022 10:41 AM EST) HCV NON-REACTIV E NON-REACTI VE [facility] Blood 11/27/2022 10:4 1 AM EST 11/27/2022 10:47 AM EST us Laura Bellamy MD LAB BLOOD ORDERABLES Fin al Result Performing Organization Address [facility] Co de Phone Number [facility] [address] [place], [place] [phone] from Last 3 Months or Most Recently Relevant to Health Maintenance Insurance [facility] [employer] [facility] Care Teams Otm Consultant Relationship Specialty Start Date End Date Angeline Alvarado MD [address] [place] [address] PCP - General Internal Medicine 06/27/21 Additional Source Comments The information contained in this document represents components of the legal health record. It is not the complete legal health record.[facility]
--- NOTE | 2025-06-15 10:16 | MHC.CARE ---
Patient was seen in the ER and referred to [facility]. Referral completed via email .
== END 2025-06-14 22:19 | disposition home or self-care (01) ==
PROVIDERS: Emergency Provider Emergency Medicine; PCP Internal Medicine
DX: S60.221A Contusion of right hand, initial encounter (principal); W22.8XXA Striking against or struck by other objects, initial encounter; Y93.89 Activity, other specified; Y92.9 Unspecified place or not applicable; Y99.9 Unspecified external cause status; F41.9 Anxiety disorder, unspecified; M79.644 Pain in right finger(s)
CPT/HCPCS: 73130; 99281; 99283; S9485

== ENCOUNTER → 2025-06-14 15:34 | Outpatient (BNV) | payer OTHER, SELFPAY | PROVIDERS: PCP Internal Medicine; Visit Provider Radiology Diagnostic Radiology | DX: M79.641 Pain in right hand (principal) | CPT/HCPCS: 73130 ==

== ENCOUNTER 2025-07-31 11:22 | Emergency (ER) | payer OTHER, SELFPAY ==
--- NOTE | ~2025-07-31 | CT_ITS ---
CLINICAL HISTORY: back pain and right leg pain CT lumbar spine without contrast Comparison: None provided Findings: Vertebral alignment is within normal limits. No acute fractures or dislocations. 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 There are no other significant degenerative changes. There is no central canal or neural foraminal stenosis. There is a 4 mm nonobstructive calculus within the left kidney. There is an intrauterine device within the lower uterine segment. There is a small right ovarian cyst. There is trace pelvic free fluid. IMPRESSION: 1. Unremarkable lumbar spine. 2. 4 mm nonobstructive calculus within the left kidney. 3. Small right ovarian cyst. Trace pelvic free fluid. 4. There is an intrauterine device within the lower uterine segment. This document has been electronically signed by: Stephanie Jo MD on 07/31/2025 16:59:02
--- NOTE | ~2025-07-31 | CT_ITS ---
CLINICAL HISTORY: pain right hip CT right hip without contrast Comparison: None Findings: No fracture or dislocation. No suspicious bone lesion. There is a small right hip effusion. There is no joint space loss or osteophyte production. There are no erosive changes. No soft tissue mass or fluid collection. There is an intrauterine device located within the lower uterine segment of the uterus. There is a 3.2 cm right ovarian cyst with trace adjacent free fluid. Impression: 1. Small right hip effusion. 2. No significant bony abnormality. 3. There is an intrauterine device within the lower uterine segment of the uterus. 4. 3.2 cm right ovarian cyst most likely representing a physiologic cyst. Recommend ultrasound follow-up to confirm resolution. 5. Trace free fluid within the right adnexa. This document has been electronically signed by: Stephanie Jo MD on 07/31/2025 16:51:05
--- NOTE | ~2025-07-31 | US_ITS ---
CLINICAL HISTORY: pain r o dvt Venous duplex ultrasound right lower extremity Comparison: US/SR - US LOWER EXTREMITY VEINS LIMITED FOLLOW UP RIGHT - 10/11/23 13:32 EST Findings: The common femoral and visualized greater saphenous veins are fully compressible with normal Doppler color flow and spectral tracings. The patient was unable to tolerate compression of more distal veins. The right femoral, popliteal, posterior tibial and peroneal veins demonstrate normal doppler color flow and spectral tracings. No popliteal cyst. IMPRESSION: 1. Mildly limited evaluation with no evidence of deep venous thrombosis. This document has been electronically signed by: Stephanie Jo MD on 07/31/2025 16:56:56
[2025-07-31 11:32] VITALS: BP 140/100; PULSE 78; O2SAT 99
[2025-07-31 11:36] VITALS: BP 120/76; PULSE 70; RESP 16; TEMP 37; O2SAT 97; BMI 33.4
[2025-07-31 11:59] LABS: Hemoglobin 10.7 g/dl (12.0-16.0); Imm Gran Abs Auto 0.02 X10*3/uL (0.00-0.03); Imm Gran Pct Auto 0.2 % (0.0-0.4); Lymphocytes Absolute Auto 1.2 X10*3/uL (1.2-4.9); MANUAL DIFF FLAG NO; NRBC Abs Auto 0.000 X10*3/uL (0.0-0.012); NRBC Pct Auto 0.0 /100WBC (0.0-0.2); Platelet Count 187 X10*3/uL (160-400); SCAN SMEAR FLAG 1
[2025-07-31 12:01] LABS: Hematocrit 31.6 % (37.0-47.0); Mean Corpuscular HGB Conc 33.9 g/dl (31.0-35.0); Mean Corpuscular Hemoglobin 24.1 pg (27.0-33.0); Mean Corpuscular Volume 71.2 fL (80.0-98.0); Red Blood Count 4.44 X10*6/uL (4.20-5.50); White Blood Count 8.1 X10*3/uL (4.8-10.8)
[2025-07-31 12:03] LABS: PLT ABN DIST 1
--- NOTE | 2025-07-31 12:04 | ED_ITS ---
HPI - General Adult General Chief complaint: Abdominal Pain Stated complaint: R HIP/GROIN PAIN, H/O LUPUS PER EMS Time Seen by Provider: 07/31/25 11:50 Source: patient Mode of arrival: ambulatory Limitations: no limitations History of Present Illness ED Provider: DR. Liang HPI narrative: 34-year-old female history of lupus, fibromyalgia, bipolar disorder, came in with severe right hip pain, no trauma, no fall, pain started since this morning, patient with history of lupus, patient report severe pain to the right groin area, no stool incontinence, no urinary incontinence, decreased sensation in the right lower extremity. No fall, no trauma to the left lower extremity. No visual or auditory hallucination. Related Data Home Medications ?Medication ?Instructions ?Recorded ?Confirmed methotrexate sodium 2.5 mg tablet 12.5 mg PO QWEEK 03/2008/01/25 Previous Rx's ?Medication ?Instructions ?Recorded ibuprofen 800 mg tablet 800 mg PO Q8H PRN pain 30 da ys #90 11/07/23 tabs ferrous sulfate 325 mg (65 mg 325 mg PO DAILY #30 tabs 12/12/24 iron) tablet oxycodone 5 mg tablet 5 mg PO Q6H PRN severe pain (scale 08/02/25 score 7-10) #12 tabs Allergies Allergy/AdvReac Type Severity Reaction Status Date / Time aspirin (ASA) Allergy Severe Palpitation Verified 07/31/25 11:37 s Review of Systems 2 Review of Systems: All other systems are reviewed and are negative Constitutional: Reports as per HPI and Reports no additional constitutional complaints Eyes: Reports as per HPI and Reports no additional eye complaints Reports system reviewed and no additional complaints, except as documented Cardiovascular: Reports as per HPI and Reports no additional cardiovascular complaints Respiratory: Reports as per HPI and Reports no additional respiratory complaints Gastrointestinal: Reports as per HPI and Reports no additional gastrointestinal complaints Genitourinary: Reports no additional female genitourinary complaints Musculoskeletal: Reports no additional musculoskeletal complaints Skin/Breast: Reports system reviewed and no additional complaints, except as docu Psychiatric: Reports no additional psychiatric complaints Endocrine: Reports no additional endocrine complaints Hematologic/Lymphatic: Reports no additional hematologic/lymphatic complaints Allergic/Immunologic: Reports no additional allergic/immunologic complaints Reports system reviewed and no additional complaints, except as documented and Reports Abnormal speech present [facility] Past Medical History Medical History Femoral acetabular impingement Lupus Cough Swelling of right knee joint Mild recurrent major depression Daily headache Physical exam Solitary pulmonary nodule Rheumatoid arthritis Mild persistent asthma Lung nodule seen on imaging study Left wrist pain Urticaria Polyarthralgia Overweight (BMI 25.0-29.9) Chronic migraine with aura Anemia Surgical History Hx of section Family History Family History Mother Hypoglycemia Father Hypertension Diabetes Family/Other Mental health disorder Substance use disorder Social History Social History Household Members: Significant Other and Family Housing: Apartment Alcohol intake: never Patient Tobacco Use Status: Former Tobacco user Tobacco use type: Cigarette Smoked in Last 30 Days: No e-Cigarette/Vaping Use: Never Used Second Hand Smoke Exposure: No Use of substances other than those prescribed or required for medical reasons: No Substance Use Type: Marijuana Advance Directives: Yes Advance Directives on File: Yes Advance Directives Date on File: 08/01/25 service: No Current occupational status: unemployed Cognitive needs: No Hearing needs: No Vision needs: No Physical Exam ED Vital Signs: Vital Signs - 24 hr 08/01/25 13:44 08/01/25 21:38 08/02/25 03:45 Temperature 98.5 F 97.4 F Pulse Rate 66 64 Respiratory Rate 18 18 16 Blood Pressure 144/76 H 142/71 H Pulse Oximetry 98 98 Oxygen Delivery Method Room Air Room Air 08/02/25 05:49 Temperature 97.4 F Pulse Rate 64 Respiratory Rate 18 Blood Pressure 107/63 Pulse Oximetry 98 Oxygen Delivery Method Room Air BMI result Body Mass Index 33.4 Vital signs have been reviewed and appear to be correct. Blood pressure elevated. Heart rate normal. Respiratory rate normal. Temperature normal. Oxygen saturation normal. Appearance: Alert. Oriented X3. No acute distress. Head: Normal external exam. Normocephalic. Atraumatic. No Sampson signs noted. No raccoon eyes noted Eyes: PERRLA. EOMI. Conjunctiva and sclera normal. Eyelids normal. ENT: TM's Normal. Pharynx normal. Uvula midline. Moist mucous membranes. No trismus noted. No drooling noted. No muffled voice noted. Neck: Normal inspection. Neck supple. FROM. No adenopathy. Thyroid Normal. No meningeal signs. No neck mass noted. CVS: Normal heart rate and rhythm. Heart sound normal. No murmurs noted. Pulses normal throughout. Respiratory: No respiratory distress. Painless inspiration. Breath sounds normal. No wheezes/rales/rhonchi noted. Chest nontender. No accessory muscle usage noted or decreased air movement noted. Abdomen: Soft and nontender. Bowel sounds normal in all 4 quadrants. No distention noted. No organomegaly noted. No visible injury noted. Back: No CVA tenderness. Full range of motion noted. Skin: Skin warm and dry. Normal skin color. Normal skin turgor. No rashes/lesions/lacerations noted. Extremities: No lower extremity edema. Extremities exhibit normal range of motion. Extremities nontender. Neuro: Mental status: Normal attention, orientation, memory, and affect. Cranial nerves: Pupils are equal, round and reactive to light, EOMI, visual dominguez are fall, face is symmetric, facial sensations are normal. Motor examination normal muscle tone, strength to 4 extremities. DTR are +2, planter's are flexor. Sensory exam; normal coordination, no ataxia, gait stable. Cerebellar exam: [id number] and [id number] is normal. Extrapyramidal system: No tremors, no rigidity with normal facial expressions. Pronator drift not present Course Reevaluation(s) Reevaluation #1: Case discussed with Dr. Brock rivas database administration associate who is examining and seeing the patient at the bedside, as per Dr. Gutiérrez it is not likely to be neurological deficit control of the hip pain and reassess the patient. Case signed out to Dr. Valdez. Time: 15:37 Reevaluation #2: WERO Baltazar 07/31/25 [id number] I received patient in sign-out from Dr. Liang pending scans and disposition. In summary, patient has a history of lupus, fibromyalgia, bipolar disorder. Presented with severe atraumatic right hip pain that began this morning. Also reporting decreased sensation to the right lower extremity. Lab workup is essentially unremarkable other than elevated CRP. Urinalysis shows blood however she is currently on her menstrual period. No active infection. Venous duplex negative for DVT. CT hip shows a small right hip effusion, no significant bony abnormality. Incidental findings of intrauterine device in the lower uterine segment, 3.2 cm right ovarian cyst and trace fluid within the right adnexa. CT lumbar spine showing 4 mm nonobstructing calculus within the left kidney, small ovarian cyst is redemonstrated with trace pelvic fluid. Unremarkable lumbar spine. Patient treated with a various pain medications while in the ED today. On re-evaluation, patient reports improvement in pain with second dose of dailaudid however is still unable to move the right hip or ambulate secondary to the discomfort. Her abdominal exam is completely benign. There is no tenderness to right lower abdomen/pelvic region, no rebound/guarding, presentation not consistent with torsion. On chart review - patient has a history of femoral acetabular impingement syndrome. I feel she'd benefit from po prednisone 60mg x5 days followed by meloxicam x2 weeks. I discussed plan with patient, she states she is not comfortable being discharged home given she cannot get out of bed d/t her pain. she has required 3 total doses of dilaudid, IV tylenol, IV morphine and solumedrol while in ED with minimal improvement in sx. Will reach out to the hospitalist regarding admission for pain control. WERO Baltazar 07/31/25 [id number] I spoke with hospitalist WERO watts who feels this is a chronic issue, states the patient does not meet criteria for admission at this time. I discussed case with my attending dr. prieto. at this time, we will trial PO pain medications and plan for PT/CM evaluation. patient agreebale. code status - full code. P.o. oxycodone ordered for PRN pain. Will start patient on a 5 day course of prednisone with 1st dose being tomorrow. 60 mg p.o. prednisone ordered. Placed in physician observation at this time. Time: 12:00 Date: 08/01/25 Provider: WERO Chandler Patient in physician observation for case management needs. No acute events reported overnight.? No current issues or complaints. VS stable. Patient is pending PT case management evaluation. We will continue to monitor. 08/02/25 08:17 CARMELITA Schmidt: Physician observation continued, no overnight events reported by nursing. PT recommending STR, CM following for disposition. Vitals stable. Time: 12:34 Date: 08/02/25 Provider: Lianna Schmidt NP Per Arlen from , patient will be [facility] to [facility] for [facility] via BLS at 13:30. Paper prescription for oxycodone provided. Observation care revealed that patient does (not) meet medical necessity for hospitalization. Final disposition discussed with patient. The patient completed observation care at 13:30 on 08/02/25. Medications Administered Generic Name Dose Route Start Last Admin Trade Name Freq PRN Reason Stop Dose Admin Ferrous Sulfate 324 mg 08/01/25 09:00 08/02/25 09:44 Ferrous Sulfate 324 Mg Tablet.Dr PO 324 mg DAILY NIDIA Administration Methotrexate 12.5 mg 08/01/25 09:00 08/01/25 09:24 Methotrexate Sodium 2.5 Mg Tablet PO 12.5 mg Mo NIDIA Administration Oxycodone HCl 5 mg 07/31/25 18:28 08/02/25 09:48 Oxycodone Hcl Immed Release 5 Mg Tablet PO 5 mg Q6H PRN Administration Pain, Severe (Pain Scale 7-10) Prednisone 60 mg 08/01/25 09:00 08/02/25 09:44 Prednisone 20 Mg Tablet PO 08/05/25 18:28 60 mg DAILY NIDIA Administration Discontinued Medications Generic Name Dose Route Start Last Admin Trade Name Freq PRN Reason Stop Dose Admin Diphenhydramine HCl 25 mg 07/31/25 17:30 07/31/25 17:33 Diphenhydramine Hcl 50 Mg/Ml Vial IVPUSH 07/31/25 17:31 25 mg ONCE ONE Administration Diphenhydramine HCl 12.5 mg 08/01/25 13:03 08/01/25 13:11 Diphenhydramine Hcl 50 Mg/Ml Vial IVPUSH 08/01/25 13:04 12.5 mg ONCE ONE Administration Hydromorphone HCl 2 mg 07/31/25 14:06 07/31/25 14:20 Hydromorphone Hcl 1 Mg/Ml Syringe IVPUSH 07/31/25 14:07 2 mg ONCE ONE Administration Protocol Hydromorphone HCl 2 mg 07/31/25 14:36 07/31/25 16:18 Hydromorphone Hcl 2 Mg/Ml Vial IVPUSH 07/31/25 14:37 Not Given ONCE ONE Protocol Hydromorphone HCl 2 mg 07/31/25 17:19 07/31/25 17:26 Hydromorphone Hcl 2 Mg/Ml Vial IVPUSH 07/31/25 17:20 2 mg ONCE ONE Administration Protocol Acetaminophen 1,000 mg in 100 mls @ 400 mls/hr 07/31/25 12:17 07/31/25 12:36 Ofirmev IV 07/31/25 12:31 Infused ONCE ONE Infusion Methylprednisolone Sodium Succinate 125 mg 07/31/25 14:36 07/31/25 14:46 Methylprednisolone Sod Succ 125 Mg/2 Ml Vial IVPUSH 07/31/25 14:37 125 mg ONCE ONE Administration Metoclopramide HCl 10 mg 07/31/25 17:30 07/31/25 17:33 Metoclopramide Hcl 10 Mg/2 Ml Vial IVPUSH 07/31/25 17:31 10 mg ONCE ONE Administration Metoclopramide HCl 10 mg 08/01/25 13:03 08/01/25 13:10 Metoclopramide Hcl 10 Mg/2 Ml Vial IVPUSH 08/01/25 13:04 10 mg ONCE ONE Administration Morphine Sulfate 4 mg 07/31/25 12:17 07/31/25 12:21 Morphine Sulfate 4 Mg/Ml Cartridge IVPUSH 07/31/25 12:18 4 mg ONCE ONE Administration Protocol Ondansetron HCl 4 mg 07/31/25 14:42 07/31/25 14:44 Ondansetron Hcl 4 Mg/2 Ml Vial IVPUSH 07/31/25 14:43 4 mg ONCE ONE Administration Medical Decision Making Differential Diagnosis Differential Diagnoses: The differential diagnosis associated with the presentation includes (Upper motor neuron lesion, lower motor neuron lesion, UTI, electrolyte derangement, severe anemia, right lumbar radiculopathy, right hip problem.) Admission/Observation Consideration of admission/observation: Escalation of care including admission/observation considered Consult Healthcare Provider Management of the patient was discussed with: Grader Marker (Dr. Gutiérrez) Lab Data MDM Lab Attestation statement: I reviewed the patient's lab results. 07/31/25 11:53 07/31/25 11:53 Labs: Lab Results 07/31/25 07/31/25 08/01/25 Range/Units 11:53 13:08 09:20 WBC 8.1 (4.8-10.8) X10*3/uL RBC 4.44 (4.20-5.50) X10*6/uL Hgb 10.7 L (12.0-16.0) g/dl Hct 31.6 L (37.0-47.0) % MCV 71.2 L (80.0-98.0) fL MCH 24.1 L (27.0-33.0) pg MCHC 33.9 (31.0-35.0) g/dl RDW 17.0 H (11.0-16.0) % Plt Count 187 (160-400) X10*3/uL MPV 10.3 (9.4-12.3) fL Immature Gran % (Auto) 0.2 (0.0-0.4) % Neut % (Auto) 77.0 H (45-73) % Lymph % (Auto) 14.6 L (20-40) % Carlisle % (Auto) 6.6 (2-11) % Eos % (Auto) 1.2 (0-4) % Baso % (Auto) 0.4 (0-2) % Lymph # (Auto) 1.2 (1.2-4.9) X10*3/uL Carlisle # (Auto) 0.5 (0.1-1.2) X10*3/uL Eos # (Auto) 0.1 (0.0-0.4) X10*3/uL Baso # (Auto) 0.0 (0.0-0.2) X10*3/uL Abs Immat Gran (auto) 0.02 (0.00-0.03) X10*3/uL Absolute Neuts (auto) 6.2 (2.0-8.3) x10*3/uL Absolute Nucleated RBC 0.000 (0.0-0.012) X10*3/uL Nucleated RBC % (auto) 0.0 (0.0-0.2) /100WBC ESR 18 (0-20) MM/HR PT 12.3 (10.9-12.4) SEC INR 1.1 (0.9-1.1) D-Dimer High Sensitivty 277 NG/ML Sodium 136 (135-145) mmol/L Potassium 4.0 (3.3-5.1) mmol/L Chloride 107 (96-108) mmol/L Carbon Dioxide 24 (22-29) mmol/L Anion Gap 9 L (12-20) BUN 9 (9-16) mg/dL Creatinine 0.72 (0.5-1.4) mg/dL Estim Creat Clear Calc 116.1 Estimated GFR > 60 Random Glucose 87 (60-115) mg/dL Uric Acid 5.3 (2.4-5.7) mg/dL Calcium 8.5 D (8.4-10.2) mg/dL Magnesium 1.9 (1.6-2.6) mg/dL Total Bilirubin 0.2 (0.0-1.0) mg/dL Direct Bilirubin < 0.2 (0.0-0.5) mg/dL AST 25 (5-31) U/L ALT 9 (0-31) U/L Alkaline Phosphatase 71 (39-117) U/L Total Creatine Kinase 230 H (26-140) U/L C-Reactive Protein 1.55 H (< or = 0.50) mg/dL Total Protein 8.0 (6.5-8.0) g/dL Albumin 3.8 (3.5-5.0) g/dL Lipase 32 (8-78) U/L Beta HCG, Quant < 2 mIU/mL Urine Color RED Urine Appearance Turbid Urine pH 6.5 (5.0-9.0) Ur Specific Forrest[place] 1.015 (1.005-1.025) Urine Protein 100 (2+) H (Neg-Trace) mg/dL Urine Glucose (UA) Negative (Negative) mg/dL Urine Ketones Negative (Negative) mg/dL Urine Blood Large (3+) H (Negative) Urine Nitrite Negative (Negative) Ur Leukocyte Esterase Negative (Negative) Urine RBC >20 H (0-2) /HPF Urine WBC 0-5 (0-5) /HPF Ur Squamous Epith Cells 0-2 (0-2) /HPF Urine Bacteria None Seen (None Seen) Hyaline Casts 0-2 (0-2) /LPF Influenza Type A (PCR) NEGATIVE (Negative) Influenza Type B (PCR) NEGATIVE (Negative) RSV RNA Qual (PCR) NEGATIVE (Negative) SARS-CoV-2 RNA (RT-PCR) NEGATIVE (Negative) Independent Interpretation I performed an independent interpretation of an: CT Scan (Right hip/lumbar spine CT:) Discharge Plan Discharge Clinical Impression: Acute pain of right hip Patient Disposition: [facility] Transfer Details: to [facility] via BLS Additional Instructions: You were evaluated in the emergency department for right hip pain. Your evaluation did not show evidence of conditions requiring emergent medical treatment at this time. You are being transferred to [facility]. We recommend that you follow up with your primary care provider within 1 week. Return to the emergency department with any new or concerning symptoms. Prescriptions: New oxycodone 5 mg tablet 5 mg PO Q6H PRN (Reason: severe pain (scale score 7-10)) Qty: 12 0RF Rx Instructions: Partial Fill upon patient request. No Action methotrexate sodium 2.5 mg tablet 12.5 mg PO QWEEK ferrous sulfate 325 mg (65 mg iron) tablet 325 mg PO DAILY Qty: 30 3RF ibuprofen 800 mg tablet 800 mg PO Q8H PRN (Reason: pain) 30 Days Qty: 90 3RF Referrals: [facility] [Outside] Print Language: Vincentian
[2025-07-31 12:05] LABS: INTERNATIONAL NORM RATIO 1.1 (0.9-1.1); Prothrombin Time 12.3 SEC (10.9-12.4)
[2025-07-31 12:13] LABS: Alanine Aminotransferase 9 U/L (0-31); Albumin Level 3.8 g/dL (3.5-5.0); Alkaline Phosphatase 71 U/L (39-117); Anion Gap 9 (12-20); Aspartate Amino Transferase 25 U/L (5-31); Blood Urea Nitrogen 9 mg/dL (9-16); Calcium 8.5 mg/dL (8.4-10.2); Carbon Dioxide 24 mmol/L (22-29); Chloride 107 mmol/L (96-108); Creatinine Clr Calc Pharmacy 116.1; Estimated Glomerular Filt Rate > 60; Lipase 32 U/L (8-78); Magnesium 1.9 mg/dL (1.6-2.6); Potassium 4.0 mmol/L (3.3-5.1); Sodium 136 mmol/L (135-145); Total Protein 8.0 g/dL (6.5-8.0)
--- OUTSIDE RECORDS SUMMARY | 2025-07-31 12:16 | XMS_ITS | Encounter Summary ---
Author Organization [facility] Address [address] [place] [id number] Phone Care Team Providers Care Fish Egg Packer Name Role Phone Angeline Alvarado MD Primary Care Provid er Encounter Details Date Type Department Care Team (Late st Contact Info) Description 03/15/2025 Transcribe Orders [facility] Specimen Processing [address] [place] [address] Angeline Alvarado MD [address] [place] [address] Social History Tobacco Use Types Packs/Day Years Used Date Smoking Tobacco: Former Cigarettes Q uit: 06/17/2021 Smokeless Tobacco: Never Education Answer Date Recorded Are you interested [...] on file Sexual Orientation Not on file documented as of this encounter Plan of Treatment Upcoming Encounters Date Type Department Care Team (Late st Contact Info) Description 09/05/2025 3:30 PM EST Office Visit [facility] Rheumatology [address] [place] [address] Laura Bellamy MD [address], [address] [place] [address] [email or web address] documented as of this encounter Visit Diagnoses Not on filedocumented in this encounter Care Teams Fish Egg Packer Relationship Specialty Start Date End Date Angeline Alvarado MD [address] [place] [id number] PCP - General Internal Medicine 06/27/21 documented as of this encounter Additional Source Comments The information contained in this document represents components of the legal health record. It is not the complete legal health record.[facility]
--- OUTSIDE RECORDS SUMMARY | 2025-07-31 12:16 | XMS_ITS | Clinical Summary ---
Author Organization [facility] Address [address] [place] [id number] Phone Care Team Providers Care Store Custodian Name Role Phone Angeline Alvarado MD Primary [...] Active ferrous sulfate 325 mg (65 mg [place] iron) tablet Take 1 tablet by mouth every morning. 12/13/19 25 Active methotrexate 2.5 MG Oral tabletIndications :Undifferentiated connective tissue disease,Inflammat ory arthritis,Rheumat oid factor positive TAKE 6TABLETS BY MOUTH ONCE WEEKLY 72 tablet 1 03/02/20 25 Active levonorgestrel (MIRENA UTRN) by Intrauterine route. Active ferrous sulfate 325 mg (65 mg [place] iron) tabletIndications :Iron deficiency anemia, unspecified iron [...] Call if worse or with questions. Methotrexate, signal maintainer helper, current use 03/17/2024 Assessment & Plan (05/05/2025 [...] sure to inform any new MD, PA, PIERCE AND SHAVE PRESS OPERATOR about chronic treatment with methotrexate particularly in emergency situations. Monitor for mucosal ulcerations, abdominal pain, nausea, vomiting, diarrhea, chest pain, shortness of breath or coughing. Return for monitoring labs at least every 2-3 months-standing orders in [facility]. Call if problems or questions at [phone] Assessment & Plan (03/27/2025 5:18 PM EDT): [...] sure to inform any new WERO CAVANAUGH PIERCE AND SHAVE PRESS OPERATOR about chronic treatment with methotrexate particularly in emergency situations. Monitor for mucosal ulcerations, abdominal pain, nausea, vomiting, diarrhea, chest pain, shortness of breath or coughing. Return for monitoring labs at least every 2-3 months-standing orders in [facility]. Call if problems or questions at [phone] Assessment & Plan (12/09/2024 4:13 PM EST): [...] sure to inform any new WERO CAVANAUGH, PIERCE AND SHAVE PRESS OPERATOR about chronic treatment with methotrexate particularly in emergency situations. Monitor for mucosal ulcerations, abdominal pain, nausea, vomiting, diarrhea, chest pain, shortness of breath or coughing. Return for monitoring labs at least every 2-3 months-standing orders in [facility]. Call if problems or questions at [phone] Assessment & Plan (05/19/2024 12:19 PM EDT): [...] at least every 2-3 months-standing orders in [facility]. Call if problems or questions at [phone] Assessment & Plan (03/18/2024 8:12 PM EDT): [...] sure to inform any new WERO CAVANAUGH PIERCE AND SHAVE PRESS OPERATOR about chronic treatment with methotrexate particularly in emergency situations. Monitor for mucosal ulcerations, abdominal pain, nausea, vomiting, diarrhea, chest pain, shortness of breath or coughing. Return for monitoring labs at least every 2-3 months-standing orders in [facility]. Call if problems or questions at [phone] NSAID long-term use 03/17/2024 Assessment & Plan [...] and depending on the organ systems involvement cycling instructor, runway model, profiler operator etc. I have provided her with the name of cycling instructor in [place] and wrote a letter [...] and depending on the organ systems involvement cycling instructor, runway model, profiler operator etc. I have provided her with the name of cycling instructor in [place] and wrote a letter [...] and depending on the organ systems involvement cycling instructor, runway model, profiler operator etc. I have provided her with the name of cycling instructor in [place] and wrote a letter [...] and depending on the organ systems involvement cycling instructor, runway model, profiler operator etc. I have provided her with the name of cycling instructor in [place] and wrote a letter [...] and depending on the organ systems involvement cycling instructor, runway model, profiler operator etc. I have provided her with the name of cycling instructor in [place] and wrote a letter [...] and depending on the organ systems involvement cycling instructor, runway model, profiler operator etc. I have provided her with the name of cycling instructor in [place] and wrote a letter requesting evaluation [...] and depending on the organ systems involvement cycling instructor, runway model, profiler operator etc. Assessment & Plan (11/30/2022 9:57 PM [...] and depending on the organ systems involvement cycling instructor, runway model, profiler operator etc. Assessment & Plan (04/28/2022 11:05 PM [...] and depending on the organ systems involvement cycling instructor, runway model, profiler operator etc. Long-term use of Plaquenil 12/24/2021 Assessment [...] changes or unusual numbing, tingling etc. See cycling instructor at least every 12 months to monitor [...] changes or unusual numbing, tingling etc. See cycling instructor at least every 12 months to monitor [...] changes or unusual numbing, tingling etc. See cycling instructor at least every 12 months to monitor [...] changes or unusual numbing, tingling etc. See cycling instructor at least every 12 months to monitor [...] changes or unusual numbing, tingling etc. See cycling instructor at least every 12 months to monitor [...] changes or unusual numbing, tingling etc. See cycling instructor at least every 12 months to monitor [...] changes or unusual numbing, tingling etc. See cycling instructor at least every 12 months to monitor for possible retinal side effects Assessment & Plan (04/11/2022 3:41 PM EDT): Take exactly as prescribed. Daily sun protection all year round. Monitor for irregular heartbeat, visual changes or unusual numbing, tingling etc. See cycling instructor at least every 12 months to monitor for possible retinal side effects Assessment & Plan (12/25/2021 8:38 PM EST): Take exactly as prescribed. Daily sun protection all year round. Monitor for irregular heartbeat, visual changes or unusual numbing, tingling etc. See cycling instructor at least every 12 months to monitor [...] prior to next visit -standing orders in [facility]. She is asked to make an appointment with cycling instructor within 12 months of starting Plaquenil. Continue [...] prior to next visit -standing orders in [facility]. She is asked to make an appointment with cycling instructor within 12 months of starting Plaquenil. Continue [...] prior to next visit -standing orders in [facility]. She is asked to make an appointment with cycling instructor within 12 months of starting Plaquenil. Continue [...] prior to next visit -standing orders in [place]. She is asked to make an appointment with cycling instructor within 12 months of starting Plaquenil. Continue [...] prior to next visit -standing orders in [facility]. She is asked to make an appointment with cycling instructor within 12 months of starting Plaquenil. Continue [...] 03/17/2024 at 12 noon- standing orders in [facility]. She is asked to make an appointment with cycling instructor within 12 months of starting Plaquenil. Continue [...] next visit in 4 months-standing orders in [facility]. She is asked to make an appointment with cycling instructor within 12 months of starting Plaquenil. Continue [...] is asked to make an appointment with cycling instructor within 12 months of starting Plaquenil. Continue [...] is asked to make an appointment with cycling instructor within 12 months of starting Plaquenil. Continue [...] is asked to make an appointment with cycling instructor within 12 months of starting Plaquenil. To [...] is asked to make an appointment with cycling instructor within 12 months of starting Plaquenil. To [...] most beneficial and once seen by the runway model ask the copy to be sent to [...] Department Care Team Description 05/11/2025 Orders Only [facility] Rheumatology [address] [place] [address] [place] [address] Laura Bellamy MD 05/11/2025 Telephone [facility] Rheumatology [address] [place] [address] [place] [address] Laura Bellamy MD Vit D rx 05/09/2025 Orders Only [facility] Rheumatology [address] [place] [address] [place] [address] Laura Bellamy MD Iron deficiency anemia, unspecified iron deficiency anemia type (Primary Dx) 05/05/2025 3:49 PM EDT - 05/05/2025 11:59 PM EDT Hospital Encounter [facility] [address] [place] [address] [place] [address] Laura Bellamy MD Discharge Disposition: Home or Self Care 05/05/2025 3:30 PM EDT Office Visit [facility] Rheumatology [address] [place] [address] Laura Bellamy MD Undifferentiated connective tissue disease (Primary Dx); Inflammatory arthritis; Methotrexate, shelter, current use; NSAID long-term use; Family history of systemic lupus erythematosus; Vitamin D deficiency, unspecified; Class 1 obesity due to excess calories with serious comorbidity and body mass index (BMI) of 33.0 to 33.9 in adult from Last 3 Months Family History Medical [...] Description 09/05/2025 3:30 PM EST Office Visit [facility] Rheumatology [address] [place] [address] Laura Bellamy MD [address] [place] [address], [address] [place] [address] [email or web address] Due Date Last Done Comments COVID-19 VACCINE (#1) 1993 DEPRESSION SCREENING 2000 SMOKING Hx and SMOKELESS TOBACCO SCREENING 2001 HIV ONE-TIME SCREENING (18-6 5 YEARS) 2006 PNEUMOCOCCAL VACCINES (0-49 years) (1 of 2 - PCV) 2007 PAP SMEAR 2009 INFLUENZA VACCINE (#1) 2025 SCREENING FOR DIABETES 05/05/2028 05/05/2025 Adult Td,Tdap [...] Undifferentiated connective tissue disease Inflammatory arthritis Methotrexate, signal maintainer helper, current use Long-term use of Plaquenil NSAID long-term use 25-OH VITAMIN D Routine 05/05/2025 3:57 PM EDT Vitamin D deficiency, unspecified CPK (CREATINE KINASE) Routine 05/05/2025 3:57 PM EDT Undifferentiated connective tissue disease Inflammatory arthritis Methotrexate, signal maintainer helper, current use Long-term use of Plaquenil NSAID long-term use CBC AND DIFFERENTIAL Routine 05/05/2025 3:57 PM EDT Undifferentiated connective tissue disease Inflammatory arthritis Methotrexate, signal maintainer helper, current use Long-term use of Plaquenil NSAID long-term use SEDIMENTATION RATE (ESR) Routine 05/05/2025 3:57 PM EDT Undifferentiated connective tissue disease Inflammatory arthritis Methotrexate, shelter, current use Long-term use of Plaquenil NSAID long-term use C-REACTIVE PROTEIN Routine 05/05/2025 3: 57 PM EDT Undifferentiated connective tissue disease Inflammatory arthritis Methotrexate, shelter, current use Long-term use of Plaquenil NSAID long-term use COMPREHENSIVE METABOLIC PANEL Routine 05/05/2025 3:57 PM EDT Undifferentiated connective tissue disease Inflammatory arthritis Methotrexate, signal maintainer helper, current use Long-term use of Plaquenil NSAID long-term use DOUBLE STRANDED DNA ANTIBODIES Routine 05/05/2025 3:52 PM EDT Undifferentiated connective tissue disease Inflammatory arthritis Methotrexate, shelter, current use Long-term use of Plaquenil NSAID [...] PM EDT) URINE TOTAL PROTEIN 13.0 mg/dL [facility] URINE CREATININE 263 mg/dL [facility] URINE TP CRE RATIO 0.05 0 - 0.19 [facility] Urine (Urine) 05/05/2025 4:0 1 PM EDT 05/05/2025 4:02 PM EDT us Laura Bellamy MD URINE ORDERABLES Final R esult [address] [address] * (ABNORMAL) Comprehensive metabolic panel (05/05/2025 3:57 PM EDT) SODIUM 134 133 - 146 mmol/L [facility] POTASSIUM 3.9 3.3 - 5.1 mmol/L [facility] CHLORIDE 99 96 - 108 mmol/L [facility] CO2 25 21 - 35 mmol/L [facility] BUN 9 6 - 19 mg/dL [facility] CREATININE 0.80 0.5 - 1.5 mg/dL [facility] GLUCOSE 83 70 - 99 mg/dL [facility] ALBUMIN 4.0 3.9 - 4.8 g/dL [facility] TOTAL PROTEIN 8.6(H) 6.5 - 8.0 g/dL [facility] CALCIUM 9.0 8.4 - 10.3 mg/dL [facility] ALKALINE PHOSPHATASE 90 39 - 117 U/L [facility] TOTAL BILIRUBIN <0.2 0.0 - 1.2 mg/dL [facility] AST 20 0 - 37 U/L [facility] ALT 8 0 - 40 U/L [facility] GLOBULIN 4.6 1 - 4.8 g/dL [facility] EGFR 98 >59 mL/min/1.7 3m2 [facility] Comment:Estimated glomerular filtration rate calculated using the CKD-EPI refit equation. ANION GAP 14 10 - 20 mmol/L [facility] Blood 05/05/2025 3:57 PM EDT 05/05/2025 3:58 PM EDT us Laura Bellamy MD LAB BLOOD ORDERABLES Fin al Result [address] [address] * (ABNORMAL) 25-OH vitamin D (05/05/2025 3:57 PM EDT) 25 OH VIT D (TOTAL) 22(L) 30 - 60 ng/mL [facility] Blood 05/05/2025 3:57 PM EDT 05/05/2025 3:58 PM EDT us Laura Bellamy MD LAB BLOOD ORDERABLES Fin al Result [address] [address] * (ABNORMAL) Sedimentation rate (ESR) (05/05/2025 3:57 PM EDT) ESR 50(H) 0 - 20 mm/h [facility] Blood 05/05/2025 3:57 PM EDT 05/05/2025 3:58 PM EDT us Laura Bellamy MD LAB BLOOD ORDERABLES Fin al Result Performing Organization Address [facility]/ZIP Co de Phone Number [address] [address] * (ABNORMAL) CBC and differential (05/05/2025 3:57 PM EDT) WBC 5.24 4.00 - 11.00 K/uL [facility] RBC 4.58 4.00 - 5.20 M/uL [facility] HGB 10.7(L) 12.0 - 16.0 g/dL [facility] HCT 34.0(L) 36.0 - 46.0 % [facility] PLT 228 150 - 450 K/uL [facility] MCV 74.2(L) 80.0 - 100.0 fL [facility] MCH 23.4(L) 27.0 - 31.0 pg [facility] MCHC 31.5(L) 32.0 - 36.0 g/dL [facility] RDW 20.5(H) 11.5 - 14.5 % [facility] MPV 11.1 8.4 - 12.0 fL [facility] NRBC 0.00 0.00 /100 WBCs [facility] ABSOLUTE NRBC 0.00 0.00 K/uL [facility] DIFF METHOD Auto [facility] NEUTS 62.4 48.0 - 76.0 % [facility] LYMPHS 26.1 18.0 - 41.0 % [facility] MONOS 8.4 4.0 - 11.0 % [facility] EOS 2.3 0.0 - 5.0 % [facility] BASOS 0.6 0.0 - 1.5 % [facility] Granulocytes, immature (%) 0.2 0.0 - 0.9 % [facility] ABSOLUTE NEUTS 3.27 1.92 - 7.60 K/uL [facility] ABSOLUTE LYMPHS 1.37 0.72 - 4.10 K/uL [facility] ABSOLUTE MONOS 0.44 0.16 - 1.10 K/uL [facility] ABSOLUTE EOS 0.12 0.00 - 0.50 K/uL [facility] ABSOLUTE BASOS 0.03 0.00 - 0.15 K/uL [facility] Granulocytes, immature 0.01 0.00 - 0.09 K/uL [facility] Blood 05/05/2025 3:57 PM EDT 05/05/2025 3:58 PM EDT us Laura Bellamy MD LAB BLOOD ORDERABLES Fin al Result [address] [address] * (ABNORMAL) C-Reactive Protein (05/05/2025 3:57 PM EDT) C REACTIVE PROTEIN 14.1(H) 0.0 - 4.0 mg/L [facility] Blood 05/05/2025 3:57 PM EDT 05/05/2025 3:58 PM EDT us Laura Bellamy MD LAB BLOOD ORDERABLES Fin al Result Performing Organization Address City/[facility]/ZIP Co de Phone Number [address] [address] * CPK (creatine kinase) (05/05/2025 3:57 PM EDT) CREATINE KINASE 62 21 - 215 U/L [facility] Blood 05/05/2025 3:57 PM EDT 05/05/2025 3:58 PM EDT Laura Bellamy MD LAB BLOOD ORDERABLES Fin al Result Performing Organization Address City/[facility] Co de Phone Number [facility] [address] [place] [address] * Double stranded DNA antibodies (05/05/2025 3:52 PM EDT) ANTI DSDNA ANTIBODY Negative at 1:10 [facility] Comment: Performing Physician, Ayaz Valverde M.D., [phone] Normal: Negative at 1:10 To interpret a negative test for anti-[place] or double stranded DNA antibodies in a [...] ORDERABLES Fin al Result Performing Organization Address [facility] Co de Phone Number [address] [address] * Complement C3 (05/05/2025 3:52 PM EDT) C3 148 81 - 157 mg/dl [facility] Blood 05/05/2025 3:52 PM EDT 05/05/2025 3:58 PM EDT us Laura Bellamy MD LAB BLOOD ORDERABLES Fin al Result Performing Organization Address City/[facility]/ZIP Co de Phone Number [address] [address] * Complement C4 (05/05/2025 3:52 PM EDT) C4 16 12 - 39 mg/dL [facility] Blood 05/05/2025 3:52 PM EDT 05/05/2025 3:58 PM EDT us Laura Bellamy MD LAB BLOOD ORDERABLES Fin al Result Performing Organization Address City/[facility]/ZIP Co de Phone Number [facility] [address] [place] [address] * Hepatitis C antibody, qualitative (11/27/2022 10:41 AM EST) HCV NON-REACTIV E NON-REACTI VE [facility] Blood 11/27/2022 10:4 1 AM EST 11/27/2022 10:47 AM EST us Laura Bellamy MD LAB BLOOD ORDERABLES Fin al Result Performing Organization Address [facility] Co de Phone Number [facility] [address] [place] [address] from Last 3 Months or Most Recently Relevant to Health Maintenance Insurance [facility] Care Teams Store Custodian Relationship Specialty Start Date End Date Angeline Alvarado MD [address] [place] [address] PCP - General Internal Medicine 06/27/21 Additional Source Comments The information contained in this document represents components of the legal health record. It is not the complete legal health record.[facility]
[2025-07-31 12:29] VITALS: BP 124/80; PULSE 68; RESP 12; TEMP 36.8; O2SAT 99
--- NOTE | 2025-07-31 13:26 | PC.NURSE ---
pt c/o 08/05 pain s/p MsO4 and and 1gm APAP- pt attempted to ambulate to BR to provide UA. pt utilized bedpan and provided UA- MD notified of pt complaint of pain via tiger connect
[2025-07-31 13:36] LABS: Appearance Urine Turbid; Glucose Urine UA Negative (Negative); PH 6.5 (5.0-9.0); Specific Gravity - Urine 1.015 (1.005-1.025); UMIC TRIGGER UACC YES
[2025-07-31 14:18] VITALS: BP 125/83; PULSE 61; RESP 16; TEMP 36.9; O2SAT 98
[2025-07-31 14:26] LABS: D Dimer High Sensitivity 277 NG/ML
[2025-07-31 17:24] VITALS: BP 127/86; PULSE 60; RESP 14; TEMP 36.8; O2SAT 97
[2025-07-31 17:33] LABS: Uric Acid 5.3 mg/dL (2.4-5.7)
--- NOTE | 2025-07-31 18:15 | PC.NURSE ---
Med rec for 23 completed, provider Sangeetha made aware.
[2025-07-31 21:28] VITALS: PULSE 74; RESP 14; O2SAT 100
--- NOTE | 2025-07-31 21:38 | PC.NURSE ---
Pt presented to ED w/ severe R leg pain, ED work up essentially negative for acute findings including neuro consult w/ no new recommendations. Pt now PT/CM awaiting PT eval as pt feels she would not be safe at home d/t her significant impairment with walking. Pt to remain in ED overnight, sleeping soundly on stretcher at this time. Med rec complete, belongings list complete & in chart.
[2025-08-01] MEDS: oxyCODONE HCl Immed Release 5 MG TABLET PO ×3 (00:35→21:05)
--- NOTE | 2025-08-01 00:37 | PC.NURSE ---
pt assisted to the bathroom, reposition in bed, medicated per dec.
--- NOTE | 2025-08-01 00:47 | PC.NURSE ---
sandwich, jello and drink given.
--- NOTE | 2025-08-01 01:45 | PC.NURSE ---
pt sleeping at this time, no sign of distress.
[2025-08-01 05:34] VITALS: BP 119/73; PULSE 66; RESP 12; TEMP 36.8; O2SAT 97
--- NOTE | 2025-08-01 06:04 | PC.NURSE ---
pt oob to bathroom with assist.
--- NOTE | 2025-08-01 06:32 | PC.NURSE ---
pt sitting up in bed on cellphone watching videos no sign of distress.
--- NOTE | 2025-08-01 06:56 | PC.NURSE ---
pt resting in bed, no sign of distress, Report given to HAILEY Banuelos
[2025-08-01] MEDS: Ferrous Sulfate 324 MG TABLET.DR PO (08:57)
[2025-08-01 09:00] VITALS: BP 120/87; PULSE 77; RESP 20; TEMP 36.6; O2SAT 98
[2025-08-01 10:19] LABS: Resp Syncy Virus RNA Qual PCR NEGATIVE (Negative); SARS COV2 PCR INHOUSE NEGATIVE (Negative)
--- NOTE | 2025-08-01 10:24 | MHC.CM.ED ---
Received case management consult overnight. Patient came to the ER due to hip/groin pain. Work up essentially negative. Physical therapy eval completed. Short term rehab is recommended. Met with patient in regards to discharge planning. Patient lives with her and children, uses a walker/cane for mobility and had no services prior to coming to the ER. PCP verified. Patient agreeable to STR referral being broadcasted within 15 miles of patient's home and then discussing bed offers. Continue to monitor for d/c needs.
--- NOTE | 2025-08-01 11:37 | MHC.EDTECH ---
pt assisted on bedpan, pericare given, RN aware
--- NOTE | 2025-08-01 11:43 | PC.NURSE ---
report given to Remi HART pt to move to overflow 4
--- NOTE | 2025-08-01 12:02 | MHC.CM.ED ---
Addendum entered by Arlen Hernandez 08/01/25 12:53: [facility] is able to offer a bed and is in the process of obtaining ins auth. Original Note: HCP completed, signed and witnessed. Original given to patient. Copy placed in chart. Bed offers reviewed. Choices: 1) [facility] 2) [facility] Continue to monitor for d/c needs.
--- NOTE | 2025-08-01 13:37 | PHA.MEDREC ---
Addendum entered by Wilman Oro PharmD 08/01/25 13:52: reviewed, methotrexate was already restarted and given today before med rec. Last taken at home last Friday. Original Note: Pharmacy Consult ? Medication Reconciliation Pharmacy revirewed med rec done by nursing. Spoke with pt and she verified the med rec is correct; pt states she is also taking a Vitamin D3 tablet, but pt unsure of the dose at this time.
[2025-08-01 13:44] VITALS: BP 144/76; PULSE 66; RESP 18; TEMP 36.9; O2SAT 98
--- NOTE | 2025-08-01 21:26 | PC.NURSE ---
max assist to wheelchair then to toilet. now back in bed call kuhn in reach. alert and oriented, calm, cooperative, kind, talking enthusiastically with tech about family.
[2025-08-01 21:38] VITALS: BP 142/71; PULSE 64; RESP 18; TEMP 36.3; O2SAT 98
[2025-08-02 03:45] VITALS: RESP 16
[2025-08-02 05:49] VITALS: BP 107/63; PULSE 64; RESP 18; TEMP 36.3; O2SAT 98
[2025-08-02] MEDS: Ferrous Sulfate 324 MG TABLET.DR PO (09:44)
[2025-08-02] MEDS: oxyCODONE HCl Immed Release 5 MG TABLET PO (09:48)
--- NOTE | 2025-08-02 12:28 | MHC.CM.ED ---
Patient remains in ER overflow. Insurance auth has been obtained by [facility]. Patient can leave at 1pm. Curtis SANCHEZ booked. Med nec with chart. Patient, Areli RN and Lianna MAE aware. Continue to monitor for d/c needs.
== END 2025-08-02 13:38 ==
PROVIDERS: Physician Assistant; Physician Assistant Medical; Emergency Provider Emergency Medicine; PCP Internal Medicine
DX: R10.23 Pelvic and perineal pain bilateral (principal); R10.31 Right lower quadrant pain; M25.551 Pain in right hip; R26.81 Unsteadiness on feet; M54.50 Low back pain, unspecified; R60.0 Localized edema; Z03.818 Encounter for observation for suspected exposure to other biological agents ruled out; Z79.899 Other long term (current) drug therapy; Z87.891 Personal history of nicotine dependence
CPT/HCPCS: 36415; 72131; 73700; 80053; 81001; 82248; 82550; 83690; 83735; 84550; 84702; 85025; 85379; 85610; 85652; 86140; 87637; 93971; 96374; 96375; 96376; 97162; 99285; J0131; J1171; J1200; J2270; J2405; J2765; J2919

== ENCOUNTER → 2025-07-31 13:55 | Outpatient (BNV) | payer OTHER, SELFPAY | PROVIDERS: Emergency Provider Emergency Medicine; PCP Internal Medicine; Visit Provider Radiology Diagnostic Radiology | DX: M25.451 Effusion, right hip (principal); N83.201 Unspecified ovarian cyst, right side; M54.41 Lumbago with sciatica, right side; N20.0 Calculus of kidney; M79.661 Pain in right lower leg; T83.32XA Displacement of intrauterine contraceptive device, initial encounter | CPT/HCPCS: 72131; 73700; 93971 ==

== ENCOUNTER → 2025-08-19 16:30 | Outpatient (BNV) | payer OTHER, SELFPAY | PROVIDERS: PCP Internal Medicine; Visit Provider Psychiatry & Neurology Neurology | DX: M25.551 Pain in right hip (principal) | CPT/HCPCS: 99284 ==

== ENCOUNTER 2025-09-14 22:02 | Emergency (ER) | payer OTHER, SELFPAY ==
--- NOTE | ~2025-09-14 | XR_ITS ---
CLINICAL HISTORY: lower abd pain, IUD 1 view abdomen Comparison: None provided Findings: No pneumoperitoneum or pneumatosis. No abnormal calcifications. No acute fractures. IUD in the pelvis. IMPRESSION: The bowel gas pattern is within normal limits This document has been electronically signed by: Suzanne Cerrato MD on 09/15/2025 02:54:03
[2025-09-14 22:13] VITALS: BP 127/81; PULSE 89; RESP 20; TEMP 36.5; O2SAT 98; BMI 30.9
[2025-09-14 22:32] LABS: MANUAL DIFF FLAG NO
[2025-09-14 22:35] LABS: Appearance Urine Clear; Glucose Urine UA Negative (Negative); PH 6.0 (5.0-9.0); Specific Gravity - Urine >= 1.030 (1.005-1.025)
[2025-09-14 22:51] LABS: Alanine Aminotransferase 14 U/L (0-31); Albumin Level 4.3 g/dL (3.5-5.0); Alkaline Phosphatase 80 U/L (39-117); Anion Gap 12 (12-20); Aspartate Amino Transferase 30 U/L (5-31); Blood Urea Nitrogen 7 mg/dL (9-16); Calcium 9.1 mg/dL (8.4-10.2); Carbon Dioxide 25 mmol/L (22-29); Chloride 105 mmol/L (96-108); Creatinine Clr Calc Pharmacy 105.7; Estimated Glomerular Filt Rate > 60; Potassium 5.0 mmol/L (3.3-5.1); Sodium 137 mmol/L (135-145); Total Protein 8.3 g/dL (6.5-8.0)
[2025-09-14 23:04] LABS: Hematocrit 36.0 % (37.0-47.0); Hemoglobin 11.7 g/dl (12.0-16.0); Imm Gran Abs Auto 0.02 X10*3/uL (0.00-0.03); Imm Gran Pct Auto 0.3 % (0.0-0.4); Lymphocytes Absolute Auto 1.7 X10*3/uL (1.2-4.9); Mean Corpuscular HGB Conc 32.5 g/dl (31.0-35.0); Mean Corpuscular Hemoglobin 24.5 pg (27.0-33.0); Mean Corpuscular Volume 75.5 fL (80.0-98.0); NRBC Abs Auto 0.000 X10*3/uL (0.0-0.012); NRBC Pct Auto 0.0 /100WBC (0.0-0.2); Platelet Count 203 X10*3/uL (160-400); Red Blood Count 4.77 X10*6/uL (4.20-5.50); White Blood Count 6.1 X10*3/uL (4.8-10.8)
--- NOTE | 2025-09-15 00:26 | ED.FEMALEGU ---
HPI - Female Genitourinary General Chief complaint: Urogenital-Female Stated complaint: pain from IUD Time Seen by Provider: 09/15/25 00:22 History of Present Illness ED Provider: lacie DHALIWAL Narrative: Author / Clinician: Art Sesay MD (Emergency Medicine) Chief Complaint Lower abdominal / pelvic pain. History of Present Illness Patient with a levonorgestrel IUD placed approximately November?December of this year (? 1 year ago) presents with lower abdominal / pelvic pain for the past few weeks. She became sexually active about three weeks ago. Pain is localized to the lower abdomen, described as very sharp and constant (not cramp-like, not cyclic). She specifically notes that this pain is different from her usual menstrual or ovulatory pain. Symptoms fluctuate in intensity but are present daily and are sometimes provoked by intercourse, though they also occur independent of sexual activity. She reports subjective tenderness in the same area. She has not taken any medications for this episode. Denies dysuria, hematuria, urinary urgency, malodorous urine, vomiting, fever, or diarrhea. Reports intermittent vaginal spotting/bleeding beginning ~2 weeks ago: initial brown spotting followed by heavier red/brown bleeding which then resolved. States she is currently in pain during today?s visit. Also notes rectal pressure/pain when sitting, alleviated when positioning buttocks differently. Concern today is possible IUD malposition. 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 11 years ago - Mode of deliveries: vaginal - IUD placed ? Nov?Dec (? 1 year ago) Review of Systems - General: Denies fevers. - GI: Denies vomiting or diarrhea. - : Denies dysuria or urinary frequency; urine appearance and odor normal. - Gynecologic: Reports sharp constant lower abdominal pain; intermittent vaginal spotting/bleeding as above; pain sometimes with intercourse; no current heavy bleeding. - Rectal: Reports pressure/pain when seated. Physical Examination Vital Signs: Physical Exam: - Abdomen: Tenderness to palpation in lower abdomen. Emergency Department Course Discussed symptoms and concern for IUD position. Patient offered pelvic exam but deferred, preferring outpatient evaluation with her DRESSING ROOM PORTER (Dr. Santos). Plan made for [id number] pelvic ultrasound and pelvic X-ray to assess IUD position. Urine test ordered (not obtained on arrival). Provided analgesia recommendations (ibuprofen) and counseling on use. Patient clinically stable. Assessment & Plan Diagnosis: Pelvic pain, rule out malpositioned IUD versus other gynecologic etiologies. Plan: - Analgesia: Ibuprofen 600 mg by mouth every 6 hours as needed for pain, with food, for up to 1 week (counseled on GI upset risk). - Laboratory: Urine test. - Imaging: - Pelvic ultrasound to evaluate uterus and IUD position. - Pelvic X-ray to further assess IUD location. Disposition Pending completion of test and imaging; plan for discharge home if results non-acute and symptoms controlled with NSAIDs. Related Data Home Medications ?Medication ?Instructions ?Recorded ?Confirmed methotrexate sodium 2.5 mg tablet 12.5 mg PO QWEEK 07/31/25 08/01/25 Previous Rx's ?Medication ?Instructions ?Recorded ibuprofen 800 mg tablet 800 mg PO Q8H PRN pain 30 days #90 11/07/23 tabs ferrous sulfate 325 mg (65 mg 325 mg PO DAILY #30 tabs 12/12/24 iron) tablet oxycodone 5 mg tablet 5 mg PO Q6H PRN severe pain (scale 08/02/25 score 7-10) #12 tabs Allergies Allergy/AdvReac Type Severity Reaction Status Date / Time aspirin (ASA) Allergy Severe Palpitation Verified 09/14/25 22:16 s PMFSH Past Medical History Medical History Femoral acetabular impingement Lupus Cough Swelling of right knee joint Mild recurrent major depression Daily headache Physical exam Solitary pulmonary nodule Rheumatoid arthritis Mild persistent asthma Lung nodule seen on imaging study Left wrist pain Urticaria Polyarthralgia Overweight (BMI 25.0-29.9) Chronic migraine with aura Anemia Surgical History Hx of section Family History Family History Mother Hypoglycemia Father Hypertension Diabetes Family/Other Mental health disorder Substance use disorder Social History Social History Household Members: Significant Other and Family Housing: Apartment Alcohol intake: never Patient Tobacco Use Status: Former Tobacco user Tobacco use type: Cigarette e-Cigarette/Vaping Use: Never Used Second Hand Smoke Exposure: No Substance Use Type: Marijuana Advance Directives Date on File: 08/01/25 service: No Current occupational status: unemployed Cognitive needs: No Hearing needs: No Vision needs: No Physical Exam Exam: Exam: EXAM: Gen: Alert, awake, well appearing, well hydrated. Head: Atraumatic Eyes: Anicteric, Normal conjunctiva. ENT: Moist mucosa, no pallor. ? Neck: Supple. Skin: ?No observable rash or bruising on exposed or examined skin Respiratory: Breathing comfortably, No distress.Clear to auscultation bilaterally, symmetric chest expansion, No wheeze, rales, ronchi. Cardiovascular: Regular rate and rhythm. No murmurs or rub. Well perfused periphery, warm extremities. No edema. ? Abdominal: Mild lower abdominal tenderness Soft, no objective distension. No palpable masses or obvious organomegaly. ?No guarding, no rebound tenderness or other peritoneal findings. : No flank tenderness. Neuro: Alert. Gross movement of all extremities intact. ? Psych: Calm. Cooperative. MSK: No grossly visible deformity. Vital signs: See flowsheet Vital Signs: Vital Signs: Last Vital Signs Temp 98.1 F 09/15/25 02:27 Pulse 69 09/15/25 02:27 Resp 16 09/15/25 02:27 BP 126/86 09/15/25 02:27 Pulse Ox 99 09/15/25 02:27 O2 Del Method Room Air 09/15/25 02:27 BMI result Body Mass Index 30.9 Medications Administered Discontinued Medications Generic Name Dose Route Start Last Admin Trade Name Freq PRN Reason Stop Dose Admin Ketorolac Tromethamine 15 mg 09/15/25 01:23 09/15/25 01:54 Ketorolac Tromethamine 15 Mg/Ml Vial IM 09/15/25 01:24 15 mg ONCE ONE Administration Medical Decision Making Medical Decision Making MDM Narrative: Medical Decision Making: [age] female with lower abdominal pain. IUD visualized in the appropriate place in the endometrium with bedside point of care ultrasound we will need nonemergent endocavitary exam for more accurate positioning of based on this an x-ray does not feel mouth appear obviously malposition or dislocated. The patient does not have any active vaginal bleeding discharge she is non peritonitic on examination. Preliminary Favored Differential Diagnosis: [ ] among additional considered etiologies Testing Interpreted Independently: ?See below for details Radiology or Lab testing Results Reviewed: ?See below for details Consults: ?See below for details Independent Historians/External Chart Reviews: ?See below for details Social Determinants of Health Impacting MDM/Planning: ?See below for details Lab Data MDM Lab Attestation statement: I reviewed the patient's lab results. 09/14/25 22:25 09/14/25 22:25 Labs: Lab Results 09/14/25 Range/Units 22:25 WBC 6.1 (4.8-10.8) X10*3/uL RBC 4.77 (4.20-5.50) X10*6/uL Hgb 11.7 L (12.0-16.0) g/dl Hct 36.0 L (37.0-47.0) % MCV 75.5 L (80.0-98.0) fL MCH 24.5 L (27.0-33.0) pg MCHC 32.5 (31.0-35.0) g/dl RDW 19.9 H (11.0-16.0) % Plt Count 203 (160-400) X10*3/uL MPV 10.6 (9.4-12.3) fL Immature Gran % (Auto) 0.3 (0.0-0.4) % Neut % (Auto) 58.8 (45-73) % Lymph % (Auto) 28.2 (20-40) % [place] % (Auto) 9.8 (2-11) % Eos % (Auto) 2.4 (0-4) % Baso % (Auto) 0.5 (0-2) % Lymph # (Auto) 1.7 (1.2-4.9) X10*3/uL [place] # (Auto) 0.6 (0.1-1.2) X10*3/uL Eos # (Auto) 0.2 (0.0-0.4) X10*3/uL Baso # (Auto) 0.0 (0.0-0.2) X10*3/uL Abs Immat Gran (auto) 0.02 (0.00-0.03) X10*3/uL Absolute Neuts (auto) 3.6 (2.0-8.3) x10*3/uL Absolute Nucleated RBC 0.000 (0.0-0.012) X10*3/uL Nucleated RBC % (auto) 0.0 (0.0-0.2) /100WBC Sodium 137 (135-145) mmol/L Potassium 5.0 D (3.3-5.1) mmol/L Chloride 105 (96-108) mmol/L Carbon Dioxide 25 (22-29) mmol/L Anion Gap 12 (12-20) BUN 7 L (9-16) mg/dL Creatinine 0.76 (0.5-1.4) mg/dL Estim Creat Clear Calc 105.7 Estimated GFR > 60 Random Glucose 98 (60-115) mg/dL Calcium 9.1 D (8.4-10.2) mg/dL Total Bilirubin 0.2 (0.0-1.0) mg/dL AST 30 (5-31) U/L ALT 14 (0-31) U/L Alkaline Phosphatase 80 (39-117) U/L Total Protein 8.3 H (6.5-8.0) g/dL Albumin 4.3 (3.5-5.0) g/dL Urine Color Yellow Urine Appearance Clear Urine pH 6.0 (5.0-9.0) Ur Specific [place] >= 1.030 H (1.005-1.025) Urine Protein Trace (Neg-Trace) mg/dL Urine Glucose (UA) Negative (Negative) mg/dL Urine Ketones Trace (Negative) mg/dL Urine Blood Negative (Negative) Urine Nitrite Negative (Negative) Ur Leukocyte Esterase Negative (Negative) Urine Test NEGATIVE (NEGATIVE) Discharge Plan Discharge Clinical Impression: Pelvic pain Patient Disposition: Home, Self-Care Instructions: Pelvic Pain (ED) Additional Instructions: You were evaluated for pelvic pain and had concerns about positioning of your IUD. At this time you had a reassuring evaluation of the emergency department including abdominal x-ray and limited transabdominal pelvic ultrasound it appears at this time based on these studies there was no obvious evidence of IUD malpositioning or other serious or emergent pathology but you will need to see OBGYN and may need additional outpatient imaging call OBGYN for follow up take ibuprofen for pain. Return if your pain becomes severe worsens Prescriptions: No Action methotrexate sodium 2.5 mg tablet 12.5 mg PO QWEEK oxycodone 5 mg tablet 5 mg PO Q6H PRN (Reason: severe pain (scale score 7-10)) Qty: 12 0RF Rx Instructions: Partial Fill upon patient request. ferrous sulfate 325 mg (65 mg iron) tablet 325 mg PO DAILY Qty: 30 3RF ibuprofen 800 mg tablet 800 mg PO Q8H PRN (Reason: pain) 30 Days Qty: 90 3RF Interventions: ED Discharge Assessment Last Done: 09/15/25 02:27 Discharge Date/Time: 09/15/25 02:29 Print Language: Indonesian
[2025-09-15 01:41] VITALS: BP 126/86; PULSE 69; RESP 16; TEMP 36.7; O2SAT 99
[2025-09-15 01:51] LABS: UPreg QC Valid YES
[2025-09-15 02:27] VITALS: BP 126/86; PULSE 69; RESP 16; TEMP 36.7; O2SAT 99
--- OUTSIDE RECORDS SUMMARY | 2025-09-15 05:30 | XMS_ITS | Encounter Summary ---
Author Organization [facility] Address [address] [place] [address] [place] [id number] Phone Care Team Providers Care Forensic Identification Specialist Name Role Phone Angeline Alvarado MD Primary Care Provid er Encounter Details Date Type Department Care Team (Late st Contact Info) Description 03/15/2025 Transcribe Orders [facility] Specimen Processing [address] [place], [place] [id number] Angeline Alvarado MD [address] [place] [address] [id number] Social History Tobacco Use Types Packs/Day Years [...] as of this encounter Plan of Treatment Not on file documented as of this encounter Visit Diagnoses Not on filedocumented in this encounter Care Teams Forensic Identification Specialist Relationship Specialty Start Date End Date Angeline Alvarado MD [address] [place] [address] PCP - General Internal Medicine 06/27/21 documented as of this encounter Additional Source Comments The information contained in this document represents components of the legal health record. It is not the complete legal health record.[facility]
--- OUTSIDE RECORDS SUMMARY | 2025-09-15 05:30 | XMS_ITS | Clinical Summary ---
Author Organization [facility] Address [address] [place] [id number] Phone Care Team Providers Care Pipe Fitter Supervisor Maintenance Name Role Phone Angeline Alvarado MD Primary [...] Active ferrous sulfate 325 mg (65 mg [place] iron) tablet Take 1 tablet by mouth every morning. 12/13/19 25 Active methotrexate 2.5 MG Oral tabletIndications :Undifferentiated connective tissue disease,Inflammat ory arthritis,Rheumat oid factor positive TAKE 6TABLETS BY MOUTH ONCE WEEKLY 72 tablet 1 03/02/20 25 Active levonorgestrel (MIRENA UTRN) by Intrauterine route. Active ferrous sulfate 325 mg (65 mg [place] iron) tabletIndications :Iron deficiency anemia, unspecified iron [...] Call if worse or with questions. Methotrexate, assisted, current use 03/17/2024 Assessment & Plan (05/05/2025 [...] sure to inform any new MD, PA, WEIGHT GUESSER about chronic treatment with methotrexate particularly in emergency situations. Monitor for mucosal ulcerations, abdominal pain, nausea, vomiting, diarrhea, chest pain, shortness of breath or coughing. Return for monitoring labs at least every 2-3 months-standing orders in [facility]. Call if problems or questions at [phone] Assessment & Plan (03/27/2025 5:18 PM EDT): [...] sure to inform any new WERO CAVANAUGH WEIGHT GUESSER about chronic treatment with methotrexate particularly in emergency situations. Monitor for mucosal ulcerations, abdominal pain, nausea, vomiting, diarrhea, chest pain, shortness of breath or coughing. Return for monitoring labs at least every 2-3 months-standing orders in [facility]. Call if problems or questions at [phone] Assessment & Plan (12/09/2024 4:13 PM EST): [...] sure to inform any new WERO CAVANAUGH, WEIGHT GUESSER about chronic treatment with methotrexate particularly in emergency situations. Monitor for mucosal ulcerations, abdominal pain, nausea, vomiting, diarrhea, chest pain, shortness of breath or coughing. Return for monitoring labs at least every 2-3 months-standing orders in [facility]. Call if problems or questions at [phone] Assessment & Plan (05/19/2024 12:19 PM EDT): [...] at least every 2-3 months-standing orders in [facility]. Call if problems or questions at [phone] Assessment & Plan (03/18/2024 8:12 PM EDT): [...] sure to inform any new WERO CAVANAUGH WEIGHT GUESSER about chronic treatment with methotrexate particularly in emergency situations. Monitor for mucosal ulcerations, abdominal pain, nausea, vomiting, diarrhea, chest pain, shortness of breath or coughing. Return for monitoring labs at least every 2-3 months-standing orders in [facility]. Call if problems or questions at [phone] NSAID long-term use 03/17/2024 Assessment & Plan [...] and depending on the organ systems involvement purse seining hand, merchandising intern, data technician etc. I have provided her with the name of purse seining hand in [place] and wrote a letter [...] and depending on the organ systems involvement purse seining hand, merchandising intern, data technician etc. I have provided her with the name of purse seining hand in [place] and wrote a letter [...] and depending on the organ systems involvement purse seining hand, merchandising intern, data technician etc. I have provided her with the name of purse seining hand in [place] and wrote a letter [...] and depending on the organ systems involvement purse seining hand, merchandising intern, data technician etc. I have provided her with the name of purse seining hand in [place] and wrote a letter [...] and depending on the organ systems involvement purse seining hand, merchandising intern, data technician etc. I have provided her with the name of purse seining hand in [place] and wrote a letter [...] and depending on the organ systems involvement purse seining hand, merchandising intern, data technician etc. I have provided her with the name of purse seining hand in [place] [place] and wrote a letter requesting evaluation [...] and depending on the organ systems involvement purse seining hand, merchandising intern, data technician etc. Assessment & Plan (11/30/2022 9:57 PM [...] and depending on the organ systems involvement purse seining hand, merchandising intern, data technician etc. Assessment & Plan (04/28/2022 11:05 PM [...] and depending on the organ systems involvement purse seining hand, merchandising intern, data technician etc. Long-term use of Plaquenil 12/24/2021 Assessment [...] changes or unusual numbing, tingling etc. See purse seining hand at least every 12 months to monitor [...] changes or unusual numbing, tingling etc. See purse seining hand at least every 12 months to monitor [...] changes or unusual numbing, tingling etc. See purse seining hand at least every 12 months to monitor [...] changes or unusual numbing, tingling etc. See purse seining hand at least every 12 months to monitor [...] changes or unusual numbing, tingling etc. See purse seining hand at least every 12 months to monitor [...] changes or unusual numbing, tingling etc. See purse seining hand at least every 12 months to monitor [...] changes or unusual numbing, tingling etc. See purse seining hand at least every 12 months to monitor for possible retinal side effects Assessment & Plan (04/11/2022 3:41 PM EDT): Take exactly as prescribed. Daily sun protection all year round. Monitor for irregular heartbeat, visual changes or unusual numbing, tingling etc. See purse seining hand at least every 12 months to monitor for possible retinal side effects Assessment & Plan (12/25/2021 8:38 PM EST): Take exactly as prescribed. Daily sun protection all year round. Monitor for irregular heartbeat, visual changes or unusual numbing, tingling etc. See purse seining hand at least every 12 months to monitor [...] prior to next visit -standing orders in [facility]. She is asked to make an appointment with purse seining hand within 12 months of starting Plaquenil. Continue [...] prior to next visit -standing orders in [facility]. She is asked to make an appointment with purse seining hand within 12 months of starting Plaquenil. Continue [...] prior to next visit -standing orders in [facility]. She is asked to make an appointment with purse seining hand within 12 months of starting Plaquenil. Continue [...] prior to next visit -standing orders in [facility]. She is asked to make an appointment with purse seining hand within 12 months of starting Plaquenil. Continue [...] prior to next visit -standing orders in [facility]. She is asked to make an appointment with purse seining hand within 12 months of starting Plaquenil. Continue [...] 03/17/2024 at 12 noon- standing orders in [facility]. She is asked to make an appointment with purse seining hand within 12 months of starting Plaquenil. Continue [...] next visit in 4 months-standing orders in [facility]. She is asked to make an appointment with purse seining hand within 12 months of starting Plaquenil. Continue [...] is asked to make an appointment with purse seining hand within 12 months of starting Plaquenil. Continue [...] is asked to make an appointment with purse seining hand within 12 months of starting Plaquenil. Continue [...] is asked to make an appointment with purse seining hand within 12 months of starting Plaquenil. To [...] is asked to make an appointment with purse seining hand within 12 months of starting Plaquenil. To [...] most beneficial and once seen by the merchandising intern ask the copy to be sent to [...] achieve expected goal consider formal dietary/nutritional support. Family History Medical History Relation Comments Diabetes [...] 05/05/2025 3:28 PM EDT Plan of Treatment Health Maintenance Due Date Last Done Comments COVID-19 VACCINE (#1) 1993 DEPRESSION SCREENING 2000 SMOKING Hx and SMOKELESS TOBACCO SCREENING 2001 HIV ONE-TIME SCREENING (18-65 YEARS) 2006 PNEUMOCOCCAL VACCINES (0-49 years) (1 of 2 - PCV) 2007 PAP SMEAR 2009 INFLUENZA VACCINE (#1) 2025 SCREENING FOR DIABETES 05/05/2028 05/05/2025 Adult Td,Tdap Booster 05/11/2033 05/11/2023 HEPATITIS C SCREENING Completed 11/27/2022 , 11/27/2022, 10/17/2021, Additional history exists HEPATITIS A VACCINES Aged Out No long er eligible based on patient's age to complete this topic HIB VACCINES Aged Out No longer eligi ble based on patient's age to complete this topic IPV VACCINES Aged Out No longer eligi ble based on patient's age to complete this topic MENINGOCOCCAL VACCINES (ACWY) Aged Out No longer eligible based on patient's age to complete this topic MENINGOCOCCAL VACCINES (B) Aged Out N o longer eligible based on patient's age to complete this topic Medical Devices Not on file Procedures Procedure Name Priority Date/Time Associated Diagnosis Comments HEPATITIS C ANTIBODY, QUALITATIVE Routine 11/27/2022 10:41 AM EST Inflammatory arthritis Rheumatoid factor positive from Last 3 Months or Most Recently Relevant to Health Maintenance Results * Hepatitis C antibody, qualitative (11/27/2022 10:41 AM EST) HCV NON-REACTIV E NON-REACTI VE [facility] Blood 11/27/2022 10:4 1 AM EST 11/27/2022 10:47 AM EST us Laura Bellamy MD LAB BLOOD BKR ORDERABLES Final Result [address] [id number] from Last 3 Months or Most Recently Relevant to Health Maintenance Insurance [facility] Care Teams Pipe Fitter Supervisor Maintenance Relationship Specialty Start Date End Date Angeline Alvarado MD [address] [place] [address] PCP - General Internal Medicine 06/27/21 Additional Source Comments The information contained in this document represents components of the legal health record. It is not the complete legal health record.[facility]
== END 2025-09-15 02:29 | disposition home or self-care (01) ==
PROVIDERS: Emergency Provider Emergency Medicine; PCP Student in an Organized Health Care Education/Training Program
DX: R10.20 Pelvic and perineal pain unspecified side (principal); R10.30 Lower abdominal pain, unspecified; Z97.5 Presence of (intrauterine) contraceptive device
CPT/HCPCS: 36415; 74018; 76815; 76857; 80053; 81003; 81025; 85025; 96372; 99284; J1885

== ENCOUNTER → 2025-09-15 01:23 | Outpatient (BNV) | payer OTHER, SELFPAY | PROVIDERS: Emergency Provider Emergency Medicine; PCP Student in an Organized Health Care Education/Training Program; Visit Provider Radiology Diagnostic Radiology | DX: R10.30 Lower abdominal pain, unspecified (principal); Z30.430 Encounter for insertion of intrauterine contraceptive device | CPT/HCPCS: 74018 ==